=== PATIENT | male | born 1985 | race Caucasian/White ===

== ENCOUNTER 2017-01-03 07:25 | Inpatient (IN) | payer MEDICAID ==
[~2017-01-03] VITALS: Ht 172.7 cm; Wt 81.4 kg
[2017-01-03] MEDS ORDERED: ONDANSETRON 4 MG INJ IV STA (08:00)
[2017-01-03] MEDS ORDERED: LIDOCAINE/MYLANTA 40 ML BTL PO STA (08:00)
[2017-01-03] MEDS ORDERED: FAMOTIDINE 20 MG INJ IV STA (08:00)
[2017-01-03] MEDS ORDERED: SOD CHLORIDE 0.9% 1,000 ML IV STA (08:00)
[2017-01-03 08:29] LABS: ADD SCAN DIFF NO
[2017-01-03 08:39] LABS: ABNORMAL IP MESSAGE 1; HEMATOCRIT 39.2 % (42.0-52.0); HEMOGLOBIN 13.4 g/dl (14.0-18.0); MEAN CORPUSCULAR HGB CONC 34.2 g/dl (32.0-37.0); MEAN CORPUSCULAR VOLUME 84.8 fl (82.0-101.0); MEAN PLATELET VOLUME 11.4 fl (7.4-10.4); PLATELET COUNT 94 10^3/UL (140-415); RED BLOOD COUNT 4.62 10^6/ul (4.70-6.10); RED CELL DISTRIBUTION WIDTH 12.9 % (11.5-14.5); WHITE BLOOD COUNT 20.1 10^3/ul (4.8-10.8)
[2017-01-03 08:41] LABS: ADD UMIC YES; UR ASCORBIC ACID NEGATIVE (NEGATIVE); UR BILIRUBIN (Dip) NEGATIVE (NEGATIVE); UR BLOOD (Dip) 1+ mg/dL (NEGATIVE); UR CLARITY CLEAR (CLEAR); UR COLOR YELLOW (YELLOW); UR GLUCOSE (Dip) NEGATIVE (NEGATIVE); UR KETONES (Dip) 2+ mg/dL (NEGATIVE); UR LEUKOCYTE ESTERASE (Dip) NEGATIVE Leu/ul (NEGATIVE); UR NITRITE (Dip) NEGATIVE (NEGATIVE); UR RBC 2 /HPF (0-5); UR SPECIFIC GRAVITY (Dip) 1.012 (1.003-1.030); UR TOTAL PROTEIN (Dip) NEGATIVE (NEGATIVE); UR UROBILINOGEN (Dip) 1+ mg/dL (NEGATIVE)
[2017-01-03 08:59] LABS: ALBUMIN 4.4 g/dl (3.3-4.9); ALBUMIN/GLOBULIN RATIO 1.33; BILIRUBIN,INDIRECT 0.1 mg/dl (0-1.1); BILIRUBIN,TOTAL 0.1 mg/dl (0.2-1.3); CREATININE 0.67 mg/dl (0.61-1.24); POTASSIUM 3.6 mmol/L (3.5-5.1); TOTAL PROTEIN 7.7 g/dl (6.1-8.1)
[2017-01-03 09:36] LABS: EOSINOPHILS # 0.4 10^3/ul (0.0-0.5); LYMPHOCYTES # 1.8 10^3/ul (0.8-2.9); MONOCYTE # 0.4 10^3/ul (0.3-0.9); NEUTROPHIL # 10.9 10^3/ul (1.6-7.5)
--- NOTE | 2017-01-03 10:37 | RADRPT ---
PROCEDURE: CT Abdomen and Pelvis without contrast. CLINICAL INDICATION: Epigastric pain. TECHNIQUE: Routine axial tomographic images of the abdomen and pelvis were obtained from the domes the diaphragm to the symphysis pubis. The patient was scanned withoutoral or intravenous contrast. Coronal and sagittal reformatted images were obtained from the axial source images. Images were re viewed on a high-resolution PACS workstation. The total exam CTDI equals 16.52 mGy and the total exa m DLP equals 1057.01 mGy-cm. One or more of the following dose reduction techniques were used: Aut omated exposure control, adjustment of the mA and / or kV according to patient size, or use of itera tive reconstruction technique. COMPARISON: None. FINDINGS: The visualized portions of the lung bases demonstrate multiple bilateral pulmonary nodules measuring up to 2 cm in diameter. Evaluation of the intra-abdominal solid organs is somewhat limited on th is noncontrast examination. The liver appears mildly enlarged. There is no intra or extrahepatic b iliary dilatation. The gallbladder is unremarkable by CT criteria. The spleen, pancreas, and adren al glands are unremarkable. The kidneys are symmetric in size. No renal, ureteral, or bladder calculi are identified. There is mild left hydronephrosis secondary to adjacent bulky lymphadenopathy. No perinephric inflammatory c hanges are identified. The urinary bladder is grossly unremarkable. The bowel demonstrates normal course and caliber. There is no evidence of bowel obstruction. The a ppendix is normal in appearance. The pelvic organs are grossly unremarkable. No intraperitoneal fr ee fluid, free air, or abscess is identified. There is extensive retroperitoneal and peripancreatic lymphadenopathy. The largest conglomeration of lymph nodes measures approximately 7.3 x 11.7 x 13.2 cm. The aorta and IVC are encased. Retrocrural lymphadenopathy is also noted. There is a small arthur cification within the left testicle. The osseous structures are unremarkable. No significant subcutaneous soft tissue abnormalities are seen. IMPRESSION: 1. Massive retroperitoneal lymphadenopathy. The largest conglomeration of lymph nodes measures sonali roximately 7.3 x 11.7 x 13.2 cm. The aorta and IVC are encased, and not well evaluated secondary to noncontrast technique. Findings may reflect lymphoma or metastasis. 2. Peripancreatic and retrocrural lymphadenopathy. 3. Multiple bilateral pulmonary nodules. 4. Small calcification within the left testicle. Given pattern of lymphadenopathy, consider testicu lar ultrasound for further evaluation. 5. Mild hepatomegaly. Findings were discussed with Dr. Luong on 01/03/2017 10:36:37 AM. RPTAT: HH .Pascale Azul MD, MD Date Time Electronically viewed and signed by .Pascale Azul MD, MD on 01/03/2017 10:37 .G/
[2017-01-03] MEDS ORDERED: SOD CHLORIDE 0.9% 1,000 ML IV SCH (10:47)
[2017-01-03] MEDS ORDERED: ONDANSETRON 4 MG INJ IV PRN (11:00)
[2017-01-03] MEDS ORDERED: ACETAMINOPHEN 325 MG TAB PO PRN (11:00)
--- NOTE | 2017-01-03 11:14 | ERA ---
ER Documentation Chief Complaint Date/Time DATE: 01/03/17 TIME: 11:10 Chief Complaint burning sensation upper abd right side for 2 wks. no releif with rx meds HPI This is a 31-year-old male who presents to the emergency room for evaluation of abdominal pain. The patient localizes abdominal pain since that achy pain and burning sensation with mild radiation to the back. He states that he has been diagnosed with gastritis and has been on omeprazole however he has not had any relief. The patient denies any vomiting but does state that he has mild nausea associated with this. The patient did come to the emergency room today for evaluation of his symptoms. ROS All systems reviewed and are negative except as per history of present illness. PMhx/Soc Medical and Surgical Hx: pt denies Medical Hx, pt denies Surgical Hx Hx Alcohol Use: Yes Hx Substance Use: No Hx Tobacco Use: No Smoking Status: Never smoker Physical Exam Vitals Vital Signs Date Time Temp Pulse Resp B/P Pulse Ox O2 Delivery O2 Flow Rate FiO2 01/03/17 07:29 98.5 91 20 139/87 100 Physical Exam INITIAL VITAL SIGNS: Reviewed by me GENERAL: The patient is well developed and appropriate for usual state of health in no apparent distress HEENT: Pupils equal, round, and reactive to light. EOMI. There is no scleral icterus. NECK: C-spine is soft and supple, there is no meningismus. There is no cervical lymphadenopathy. LUNGS: Clear to auscultation bilaterally. There are no rales, wheezes or rhonchi. HEART: Regular rate and rhythm, no murmurs, clicks, rubs or gallops. ABDOMEN: Guarding noted in the epigastric region, right upper quadrant, left upper quadrant and left lower quadrant. No distention, bowel sounds 4 EXTREMITIES: There is no peripheral cyanosis or edema. No focal swelling or erythema. NEUROLOGICAL: The patient moves all four extremities with 5/5 strength. Cranial nerves II - XII are intact. Normal gait. Alert and oriented SKIN: There is no apparent rash or petechiae. HEME/LYMPHATIC: There is no evidence of excessive bruising or lymphedema. PSYCHIATRIC: The patient does not appear anxious or depressed. Result Diagram: 01/03/17 0817 01/03/17 0817 Results 24 hrs Laboratory Tests Test 01/03/17 08:05 01/03/17 08:17 Urine Color YELLOW Urine Clarity CLEAR Urine pH 6.0 Urine Specific [place] 1.012 Urine Ketones 2+mg/dL Urine Nitrite NEGATIVEmg/dL Urine Bilirubin NEGATIVEmg/dL Urine Urobilinogen 1+mg/dL Urine Leukocyte Esterase NEGATIVELeu/ul Urine Microscopic RBC 2/HPF Urine Microscopic WBC 0/HPF Urine Hemoglobin 1+mg/dL Urine Glucose NEGATIVEmg/dL Urine Total Protein NEGATIVEmg/dl White Blood Count 20.110^3/ul Red Blood Count 4.6210^6/ul Hemoglobin 13.4g/dl Hematocrit 39.2% Mean Corpuscular Volume 84.8fl Mean Corpuscular Hemoglobin 29.0pg Mean Corpuscular Hemoglobin Concent 34.2g/dl Red Cell Distribution Width 12.9% Platelet Count 9410^3/UL Mean Platelet Volume 11.4fl Neutrophils % 54.0% Band Neutrophils % 28.0% Lymphocytes % 9.0% Monocytes % 2.0% Eosinophils % 2.0% Metamyelocytes % 5.0% Neutrophils # 10.910^3/ul Lymphocytes # 1.810^3/ul Monocytes # 0.410^3/ul Eosinophils # 0.410^3/ul Metamyelocytes # 1.0 Sodium Level 137mmol/L Potassium Level 3.6mmol/L Chloride Level 99mmol/L Carbon Dioxide Level 28mmol/L Anion Gap 14 Blood Urea Nitrogen 7mg/dl Creatinine 0.67mg/dl Glucose Level 94mg/dl Calcium Level 9.0mg/dl Total Bilirubin 0.1mg/dl Direct Bilirubin 0.00mg/dl Indirect Bilirubin 0.1mg/dl Aspartate Amino Transf (AST/SGOT) 53IU/L Alanine Aminotransferase (ALT/SGPT) 44IU/L Alkaline Phosphatase 109IU/L Total Protein 7.7g/dl Albumin 4.4g/dl Globulin 3.30g/dl Albumin/Globulin Ratio 1.33 Lipase 219U/L Current Medications Medications (Trade) Dose Ordered Sig/Kaylen Route PRN Reason Start Time Stop Time Status Last Admin Dose Admin Sodium Chloride (NS) 1,000 ml @ 1,000 mls/hr Q1H STAT IV 01/03/17 08:00 01/03/17 08:59 DC 01/03/17 08:19 Ondansetron HCl (Zofran Inj) 4 mg ONCE STAT IV 01/03/17 08:00 01/03/17 08:02 DC 01/03/17 08:19 Famotidine (Pepcid Iv) 20 mg ONCE STAT IV 01/03/17 08:00 01/03/17 08:02 DC 01/03/17 08:19 Miscellaneous Medication 40 ml 40 ml ONCE STAT PO 01/03/17 08:00 01/03/17 08:02 DC 01/03/17 08:19 Sodium Chloride (NS) 1,000 ml @ 80 mls/hr [id number] IV 01/03/17 10:47 01/03/17 23:16 Ondansetron HCl (Zofran Inj) 4 mg BRIDGE ORDER PRN IV NAUSEA AND/OR VOMITING 01/03/17 11:00 01/04/17 10:59 Acetaminophen (Tylenol Tab) 650 mg ER BRIDGE PRN PO MILD PAIN/FEVER 01/03/17 11:00 01/04/17 10:59 Procedures/MDM CT abdomen pelvis without: 1. Massive retroperitoneal lymphadenopathy. The largest conglomeration of lymph nodes measures approximately 7.3 x 11.7 x 13.2 cm. The aorta and IVC are encased, and not well evaluated secondary to noncontrast technique. Findings may reflect lymphoma or metastasis. 2. Peripancreatic and retrocrural lymphadenopathy. 3. Multiple bilateral pulmonary nodules. 4. Small calcification within the left testicle. Given pattern of lymphadenopathy, consider testicular ultrasound for further evaluation. 5. Mild hepatomegaly. This is a 31-year-old male presents to the emergency room for evaluation of abdominal pain. When I evaluated this patient he did have guarding and tenderness to palpation on my physical examination. Lab work was obtained which does show a leukocytosis. This patient did undergo a CT of the abdomen pelvis and CT of abdomen and pelvis does show massive retroperitoneal lymphadenopathy, lymph nodes scattered throughout the abdomen and pancreas. There is also pulmonary nodules and this is suspicious pattern for metastatic cancer with an unknown primary. Patient also stated that he was having pain on his scrotum. I did order an ultra sound of the scrotum and results are pending at this time. This patient will be placed in for admission at this time for new diagnosis of cancer. He will be admitted under the care of Dr. López and will be placed on the Medr floor at this time Departure Diagnosis: Primary Impression: Metastatic cancer Additional Impressions: Abdominal pain Lymphoma Condition: Stable STEPHANIE ROBISON DO Jan 03, 2017 11:14
--- NOTE | 2017-01-03 11:38 | RADRPT ---
PROCEDURE: Scrotal ultrasound CLINICAL INDICATION: TECHNIQUE: Scrotal ultrasound was performed with sagittal and transverse views. Mark scale and co nilda imaging was performed. Images were reviewed on high resolution PACS monitors. COMPARISON: None available FINDINGS: The right testicle measures 4.5 x 2.0 x 2.6 cm. The left testicle measures 3.9 x 1.8 x 2.6 cm. There is normal size and echogenicity and morphology bilaterally. There is normal blood flow seen bilaterally. The epididymi are normal. No hydrocele is identified. There is no evidence for varicocele. There is a punctate calcification in the upper pole of the left testis measuring 0.5 x 0.4 x 0.3 cm. No mass or cyst or other abnormality is seen. IMPRESSION: 1. Coarse 0.5 x 0.4 x 0.3 cm calcification in the upper pole of the left testis. This may be from prior trauma or post inflammatory in nature. 2. Symmetrically normal testes and epididymi. RPTAT: [facility] Physician [place] Date Time Electronically viewed and signed by Physician [place] on 01/03/2017 11:37 /
[2017-01-03] MEDS ORDERED: NACL 0.9% 3 ML SYG IV SCH (13:00)
[2017-01-03] MEDS ORDERED: SUCR1TAB56 PO (14:45)
[2017-01-03] MEDS ORDERED: ASPI-664 PO (14:46)
[2017-01-03] MEDS ORDERED: PANT40TA4 PO (14:46)
[2017-01-03] MEDS ORDERED: SIMV40TA2 PO (14:46)
[2017-01-03] MEDS ORDERED: ISOS60TA PO (14:47)
[2017-01-03] MEDS: morphine 2 MG INJ IV PRN ×2 (15:16→21:03)
[2017-01-03 16:50] VITALS: BP 125/86; PULSE 83; RESP 20
--- NOTE | 2017-01-03 20:06 | CONS ---
Date/Time of Note Date/Time of Note DATE: 01/03/17 TIME: 19:58 Assessment/Plan Assessment/Plan Chief Complaint/Hosp Course 31 YO M WITH AB PAIN , WT LOSS , ASSOCIATED WITH Massive retroperitoneal lymphadenopathy. Peripancreatic and retrocrural lymphadenopathy. Multiple bilateral pulmonary nodules. The largest conglomeration of lymph nodes measures approximately 7.3 x 11.7 x 13.2 cm. The aorta and IVC are encased, and not well evaluated secondary to noncontrast technique. Findings may reflect lymphoma or metastasis. OBTAIN TUMOR MARKERS CT CHEST BX OF LN BIOCHEMICAL W-UP Problems: Consultation Date/Type/Reason Admit Date/Time Jan 03, 2017 at 10:48 Date of Consultation: Jan 03, 2017 Type of Consultation: HEMEONC Reason for Consultation LN- [facility] Referring Provider: EMELI CHRISTIE Hx of Present Illness This is a 31-year-old male who presents to the emergency room for evaluation of abdominal pain. The patient localizes abdominal pain since that achy pain and burning sensation with mild radiation to the back. He states that he has been diagnosed with gastritis and has been on omeprazole however he has not had any relief. The patient denies any vomiting but does state that he has mild nausea associated with this. The patient did come to the emergency room today for evaluation of his symptoms. CT ABDOMEN- 1. Massive retroperitoneal lymphadenopathy. The largest conglomeration of lymph nodes measures approximately 7.3 x 11.7 x 13.2 cm. The aorta and IVC are encased, and not well evaluated secondary to noncontrast technique. Findings may reflect lymphoma or metastasis. 2. Peripancreatic and retrocrural lymphadenopathy. 3. Multiple bilateral pulmonary nodules. 4. Small calcification within the left testicle. Given pattern of lymphadenopathy, consider testicular ultrasound for further evaluation. 5. Mild hepatomegaly. TESTICULAR US- 1. Coarse 0.5 x 0.4 x 0.3 cm calcification in the upper pole of the left testis. This may be from prior trauma or post inflammatory in nature. 2. Symmetrically normal testes and epididymi. [facility] All systems reviewed and are negative except as per history of present illness. PMhx/Soc Medical and Surgical Hx: pt denies Medical Hx, pt denies Surgical Hx Hx Alcohol Use: Yes Hx Substance Use: No Hx Tobacco Use: No Smoking Status: Never smoker Social History Smoking Status: Never smoker Exam/Review of Systems Vital Signs Vitals Vital Signs Date Time Temp Pulse Resp B/P Pulse Ox O2 Delivery O2 Flow Rate FiO2 01/03/17 16:50 99.1 83 20 125/86 98 Room Air Exam GENERAL: The patient is well developed and appropriate for usual state of health in no apparent distress HEENT: Pupils equal, round, and reactive to light. EOMI. There is no scleral icterus. NECK: C-spine is soft and supple, there is no meningismus. There is no cervical lymphadenopathy. LUNGS: Clear to auscultation bilaterally. There are no rales, wheezes or rhonchi. HEART: Regular rate and rhythm, no murmurs, clicks, rubs or gallops. ABDOMEN: Guarding noted in the epigastric region, right upper quadrant, left upper quadrant and left lower quadrant. No distention, bowel sounds 4 EXTREMITIES: There is no peripheral cyanosis or edema. No focal swelling or erythema. NEUROLOGICAL: The patient moves all four extremities with 5/5 strength. Cranial nerves II - XII are intact. Normal gait. Alert and oriented SKIN: There is no apparent rash or petechiae. HEME/LYMPHATIC: There is no evidence of excessive bruising or lymphedema. NO PATH LN-[facility] PSYCHIATRIC: The patient does not appear anxious or depressed. Results Result Diagram: 01/03/17 0817 01/03/17 0817 Results 24 hrs Laboratory Tests Test 01/03/17 08:05 01/03/17 08:17 Urine Color YELLOW Urine Clarity CLEAR Urine pH 6.0 Urine Specific [place] 1.012 Urine Ketones 2+ H Urine Nitrite NEGATIVE Urine Bilirubin NEGATIVE Urine Urobilinogen 1+ H Urine Leukocyte Esterase NEGATIVE Urine Microscopic RBC 2 Urine Microscopic WBC 0 Urine Hemoglobin 1+ H Urine Glucose NEGATIVE Urine Total Protein NEGATIVE White Blood Count 20.1 H Red Blood Count 4.62 L Hemoglobin 13.4 L Hematocrit 39.2 L Mean Corpuscular Volume 84.8 Mean Corpuscular Hemoglobin 29.0 Mean Corpuscular Hemoglobin Concent 34.2 Red Cell Distribution Width 12.9 Platelet Count 94 L Mean Platelet Volume 11.4 H Neutrophils % 54.0 Band Neutrophils % 28.0 H Lymphocytes % 9.0 L Monocytes % 2.0 Eosinophils % 2.0 Metamyelocytes % 5.0 H Neutrophils # 10.9 H Lymphocytes # 1.8 Monocytes # 0.4 Eosinophils # 0.4 Metamyelocytes # 1.0 Sodium Level 137 Potassium Level 3.6 Chloride Level 99 Carbon Dioxide Level 28 Anion Gap 14 Blood Urea Nitrogen 7 Creatinine 0.67 Glucose Level 94 Calcium Level 9.0 Total Bilirubin 0.1 L Direct Bilirubin 0.00 Indirect Bilirubin 0.1 Aspartate Amino Transf (AST/SGOT) 53 H Alanine Aminotransferase (ALT/SGPT) 44 Alkaline Phosphatase 109 Total Protein 7.7 Albumin 4.4 Globulin 3.30 H Albumin/Globulin Ratio 1.33 Lipase 219 Medications Medications Current Medications Ondansetron HCl (Zofran Inj) 4 mg Q6H PRN IV NAUSEA AND/OR VOMITING; Start at 13:00 Acetaminophen (Tylenol Tab) 650 mg Q6H PRN PO PAIN LEVEL 1-3 OR FEVER; Start at 13:00 Acetaminophen/ Hydrocodone Bitart ([place] (5/325)) 1 tab Q6H PRN PO MODERATE PAIN LEVEL 4-6; Start 01/03/17 at 13:00 Morphine Sulfate (morphine) 2 mg Q4H PRN IV SEVERE PAIN LEVEL 7-10 Last administered on 01/03/17t 15:16; Admin Dose 2 MG; Start 01/03/17 at 13:00 Procedures Procedures [place] [address] Radiology Main Line: [phone] DIAGNOSTIC IMAGING REPORT Patient: CAIO SILVERIO : 1985 Age: 31 Sex: M MR #: [id number] DOS: 01/03/17 0857 Ordering MD: STEPHANIE ROBISON DO Location: [facility] Room/Bed: PROCEDURE: CT Abdomen and Pelvis without contrast. CLINICAL INDICATION: Epigastric pain. TECHNIQUE: Routine axial tomographic images of the abdomen and pelvis were obtained from the domes the diaphragm to the symphysis pubis. The patient was scanned withoutoral or intravenous contrast. Coronal and sagittal reformatted images were obtained from the axial source images. Images were reviewed on a high-resolution PACS workstation. The total exam CTDI equals 16.52 mGy and the total exam DLP equals 1057.01 mGy-cm. One or more of the following dose reduction techniques were used: Automated exposure control, adjustment of the mA and / or kV according to patient size, or use of iterative reconstruction technique. COMPARISON: None. FINDINGS: The visualized portions of the lung bases demonstrate multiple bilateral pulmonary nodules measuring up to 2 cm in diameter. Evaluation of the intra- abdominal solid organs is somewhat limited on this noncontrast examination. The liver appears mildly enlarged. There is no intra or extrahepatic biliary dilatation. The gallbladder is unremarkable by CT criteria. The spleen, pancreas, and adrenal glands are unremarkable. The kidneys are symmetric in size. No renal, ureteral, or bladder calculi are identified. There is mild left hydronephrosis secondary to adjacent bulky lymphadenopathy. No perinephric inflammatory changes are identified. The urinary bladder is grossly unremarkable. The bowel demonstrates normal course and caliber. There is no evidence of bowel obstruction. The appendix is normal in appearance. The pelvic organs are grossly unremarkable. No intraperitoneal free fluid, free air, or abscess is identified. There is extensive retroperitoneal and peripancreatic lymphadenopathy. The largest conglomeration of lymph nodes measures approximately 7.3 x 11.7 x 13.2 cm. The aorta and IVC are encased. Retrocrural lymphadenopathy is also noted. There is a small calcification within the left testicle. The osseous structures are unremarkable. No significant subcutaneous soft tissue abnormalities are seen. IMPRESSION: 1. Massive retroperitoneal lymphadenopathy. The largest conglomeration of lymph nodes measures approximately 7.3 x 11.7 x 13.2 cm. The aorta and IVC are encased, and not well evaluated secondary to noncontrast technique. Findings may reflect lymphoma or metastasis. 2. Peripancreatic and retrocrural lymphadenopathy. 3. Multiple bilateral pulmonary nodules. 4. Small calcification within the left testicle. Given pattern of lymphadenopathy, consider testicular ultrasound for further evaluation. 5. Mild hepatomegaly. Findings were discussed with Dr. Robison on 01/03/2017 10:36:37 AM. RPTAT: HH .Pascale Azul MD, Date Time Electronically viewed and signed by .Pascale Azul MD, on 01/03/2017 10 :37 .G/ CC: BORHANI,KOROSH DO [facility] [address] [place] [address] Radiology Main Line: [phone] DIAGNOSTIC IMAGING REPORT Patient: CAIO SILVERIO : 1985 Age: 31 Sex: M MR #: [id number] DOS: 01/03/17 1030 Ordering MD: STEPHANIE ROBISON DO Location: [facility] Room/Bed: PROCEDURE: Scrotal ultrasound CLINICAL INDICATION: TECHNIQUE: Scrotal ultrasound was performed with sagittal and transverse views. Mark scale and color imaging was performed. Images were reviewed on high resolution PACS monitors. COMPARISON: None available FINDINGS: The right testicle measures 4.5 x 2.0 x 2.6 cm. The left testicle measures 3.9 x 1.8 x 2.6 cm. There is normal size and echogenicity and morphology bilaterally. There is normal blood flow seen bilaterally. The epididymi are normal. No hydrocele is identified. There is no evidence for varicocele. There is a punctate calcification in the upper pole of the left testis measuring 0.5 x 0.4 x 0.3 cm. No mass or cyst or other abnormality is seen. IMPRESSION: 1. Coarse 0.5 x 0.4 x 0.3 cm calcification in the upper pole of the left testis. This may be from prior trauma or post inflammatory in nature. 2. Symmetrically normal testes and epididymi. RPTAT: [facility] Physician [place] Date Time Electronically viewed and signed by Physician [place] on 01/03/2017 11: 37 JH/ CC: STEPHANIE ROBISON VERA M MD Jan 03, 2017 20:06
[2017-01-03 20:12] VITALS: BP 133/74; RESP 18
[2017-01-03 20:48] LABS: PLATELET COUNT 76 10^3/UL (140-415)
[2017-01-03 21:02] LABS: INR 1.14; PROTIME 14.6 Sec (12.2-14.2); PT RATIO 1.1
[2017-01-03 21:03] LABS: IRON 27 ug/dl (35-150); PARTIAL THROMBOPLASTIN TIME 32.3 Sec (25.0-35.0)
[2017-01-03 21:04] LABS: THROMBIN TIME 15.4 SEC (13.8-19.1); URIC ACID 3.7 mg/dl (3.1-7.9)
[2017-01-03 21:11] LABS: LACTATE DEHYDROGENASE 2785 IU/L (313-618)
[2017-01-03 21:13] LABS: TOTAL IRON BINDING CAPACITY 229 ug/dl (241-421)
[2017-01-03 21:27] LABS: D-DIMER 6694.83 ng/ml (<460); FIBRIN SPLIT PRODUCT <10 ug/ml (<10)
[2017-01-03 22:11] LABS: FOLATE 11.6 ng/ml (2.8-20.0)
[2017-01-04] MEDS: morphine 2 MG INJ IV PRN ×4 (01:08→20:00)
[2017-01-04 06:53] LABS: ADD SCAN DIFF NO
[2017-01-04 06:57] LABS: ABNORMAL IP MESSAGE 1; HEMOGLOBIN 13.5 g/dl (14.0-18.0); MEAN CORPUSCULAR HEMOGLOBIN 29.5 pg (29.0-33.0); MEAN CORPUSCULAR HGB CONC 33.8 g/dl (32.0-37.0); MEAN CORPUSCULAR VOLUME 87.3 fl (82.0-101.0); MEAN PLATELET VOLUME 12.1 fl (7.4-10.4); PLATELET COUNT 75 10^3/UL (140-415); RED BLOOD COUNT 4.58 10^6/ul (4.70-6.10); RED CELL DISTRIBUTION WIDTH 13.2 % (11.5-14.5); WHITE BLOOD COUNT 12.7 10^3/ul (4.8-10.8)
--- NOTE | 2017-01-04 07:02 | HP ---
Date/Time of Note Date/Time of Note DATE: 01/04/17 TIME: 07:02 Assessment/Plan VTE Prophylaxis VTE Prophylaxis Intervention: SCD's Lines/Catheters IV Catheter Type (from Nrs): Saline Lock Urinary Cath still in place: No Assessment/Plan Assessment/Plan IMPRESSION 1. Suspected Metastatic cancer, possibly Lymphoma PLAN Pain mgmt f/u Oncology recs and work-up f/u result of CT guided retroperitoneal mass biopsy HPI/ROS Admit Date/Time Admit Date/Time Jan 03, 2017 at 10:48 Hx of Present Illness This is a 31-year-old male who presents to the emergency room for evaluation of abdominal pain. The patient localizes abdominal pain since that achy pain and burning sensation with mild radiation to the back. He states that he has been diagnosed with gastritis and has been on omeprazole however he has not had any relief. The patient denies any vomiting but does state that he has mild nausea associated with this PMH/Family/Social Social History Smoking Status: Never smoker Exam/Review of Systems Vital Signs Vitals Vital Signs Date Time Temp Pulse Resp B/P Pulse Ox O2 Delivery O2 Flow Rate FiO2 01/03/17 20:12 99.2 87 18 133/74 98 01/03/17 16:50 Room Air Intake and Output 01/03/17 01/03/17 01/04/17 15:00 23:00 07:00 Intake Total 240 ml Balance 240 ml Exam Constitutional: alert, oriented, well developed Psych: nl mood/affect, no complaints Head: atraumatic, normocephalic Eyes: EOMI, PERRL Neck: non-tender, supple Respiratory: clear to auscultation, normal air movement Cardiovascular: nl pulses, regular rate and rhythm Gastrointestinal: soft, tender Extremities: normal pulses Labs Result Diagram: 01/03/17203901/03/17 0817 Medications Medications Current Medications Ondansetron HCl (Zofran Inj) 4 mg Q6H PRN IV NAUSEA AND/OR VOMITING; Start at 13:00 Acetaminophen (Tylenol Tab) 650 mg Q6H PRN PO PAIN LEVEL 1-3 OR FEVER; Start at 13:00 Acetaminophen/ Hydrocodone Bitart ([place] (5/325)) 1 tab Q6H PRN PO MODERATE PAIN LEVEL 4-6; Start 6/21/17 at 13:00 Morphine Sulfate (morphine) 2 mg Q4H PRN IV SEVERE PAIN LEVEL 7-10 Last administered on 01/04/17t 06:22; Admin Dose 2 MG; Start 01/03/17 at 13:00 ALISON MARKS MD Jan 04, 2017 07:02
[2017-01-04 08:15] VITALS: BP 127/83; RESP 18
[2017-01-04 09:31] LABS: ALBUMIN/GLOBULIN RATIO 1.48; BILIRUBIN,INDIRECT 0.1 mg/dl (0-1.1); BILIRUBIN,TOTAL 0.1 mg/dl (0.2-1.3); CALCIUM 8.6 mg/dl (8.4-10.2); CREATININE 0.67 mg/dl (0.61-1.24); MAGNESIUM 1.9 mg/dl (1.7-2.5); PHOSPHORUS 3.4 mg/dl (2.5-4.9); POTASSIUM 4.2 mmol/L (3.5-5.1); TOTAL PROTEIN 6.7 g/dl (6.1-8.1); URIC ACID 3.7 mg/dl (3.1-7.9)
[2017-01-04 10:39] LABS: EOSINOPHILS # 0.1 10^3/ul (0.0-0.5); LYMPHOCYTES # 2.5 10^3/ul (0.8-2.9); MONOCYTE # 0.9 10^3/ul (0.3-0.9); NEUTROPHIL # 4.6 10^3/ul (1.6-7.5); POIKILOCYTOSIS 1+; POLYCHROMASIA 2+
[2017-01-04 10:40] LABS: PLATELET ESTIMATE PLT APPEAR DECREASED
[2017-01-04 12:12] LABS: T3 UPTAKE 35.5 % (23.5-40.5)
[2017-01-04 12:25] LABS: THYROID STIMULATING HORMONE 1.62 MIU/L (0.465-4.680)
[2017-01-04] MEDS ORDERED: MIDAZOLAM 1 MG/ML 2 ML INJ ONE (14:16)
[2017-01-04] MEDS ORDERED: LIDOCAINE 1% (MDV) 20 ML INJ ONE (14:16)
[2017-01-04] MEDS ORDERED: FENTAnyl 50 MCG/ML VIAL ONE (14:16)
[2017-01-04] MEDS ORDERED: DIPHENHYDRAMINE 50 MG INJ ONE (14:17)
--- NOTE | 2017-01-04 17:25 | RADRPT ---
PROCEDURE: CT guided retroperitoneal mass biopsy. CLINICAL INDICATION: Large retroperitoneal mass. TECHNIQUE: Informed consent was obtained. The procedure, risks, benefits, complications and alternatives were e xplained to the patient. Risks including bleeding and infection were explained. The patient understo od and was willing to proceed. A procedural pause was performed. The patient's name, date of , and procedure to be performed were verified. One or more of the following dose reduction techniqu es were used: Automated exposure control, adjustment of the mA and/or kV according to patient size, use of iterative reconstruction technique. Using local anesthetic, sterile technique and CT guidance, an 18-gauge automated core biopsy needle was used to biopsy the mass in the left side of the retroperitoneum. Multiple passes were made. Ad equate tissue was obtained according to the pathologist present during the procedure. The needle wa s removed. A postprocedural scan was performed. A dressing was applied. The patient tolerated procedure well. COMPARISON: None. FINDINGS: Initial images demonstrate the tip of the needle at the edge of the lesion in question. Post biopsy images demonstrate no immediate complication. IMPRESSION: 1. Successful CT guided retroperitoneal mass biopsy. RPTAT: QQ .Tremayne Tomas MD, Date Time Electronically viewed and signed by .Tremayne Tomas MD, on 01/04/2017 17:25 .R/
[2017-01-04] MEDS: HYDROCODONE/APAP (5/325) TAB PO PRN (17:52)
--- NOTE | 2017-01-04 18:11 | PN ---
Date/Time of Note Date/Time of Note DATE: 01/04/17 TIME: 18:10 Assessment/Plan VTE Prophylaxis VTE Prophylaxis Intervention: LMWH Lines/Catheters IV Catheter Type (from Nrs): Saline Lock Urinary Cath still in place: No Assessment/Plan Assessment/Plan IMPRESSION 1. Suspected Metastatic cancer, possibly Lymphoma PLAN Pain mgmt f/u Oncology recs and work-up f/u result of CT guided retroperitoneal mass biopsy Subjective 24 Hr Interval Summary Free Text/Dictation overall feeling well, but c/o ongoing right sided and pain Exam/Review of Systems Vital Signs Vitals Vital Signs Date Time Temp Pulse Resp B/P Pulse Ox O2 Delivery O2 Flow Rate FiO2 01/04/17 08:15 97.8 78 18 127/83 97 01/03/17 16:50 Room Air Intake and Output 01/03/17 01/03/17 01/04/17 15:00 23:00 07:00 Intake Total 240 ml Balance 240 ml Exam Constitutional: alert, oriented, well developed Psych: nl mood/affect, no complaints Head: atraumatic, normocephalic Eyes: EOMI, PERRL Neck: non-tender, supple Respiratory: clear to auscultation, normal air movement Cardiovascular: nl pulses, regular rate and rhythm Gastrointestinal: soft, tender Extremities: normal pulses Results Result Diagram: 01/04/1720 01/04/17 0520 Results 24 hrs Laboratory Tests Test 01/03/17 20:40 01/04/17 05:20 Platelet Count 76 L 75 #L Erythrocyte Sedimentation Rate 62 H Prothrombin Time 14.6 H Prothrombin Time Ratio 1.1 INR International Normalized Ratio 1.14 Activated Partial Thromboplast Time 32.3 Thrombin Time 15.4 Fibrinogen 574.0 H Plasma Fibrin Degradation Products <10 D-Dimer 6694.83 H D-Dimer Comment Uric Acid 3.7 3.7 Iron Level 27 L Total Iron Binding Capacity 229 L Percent Iron Saturation 12 L Ferritin 1210.0 H Lactate Dehydrogenase 2785 H 2843 H Folate 11.6 Thyroid Stimulating Hormone (TSH) 2.480 1.620 HIV (1&2) Antibody NEGATIVE White Blood Count 12.7 #H Red Blood Count 4.58 L Hemoglobin 13.5 L Hematocrit 40.0 L Mean Corpuscular Volume 87.3 Mean Corpuscular Hemoglobin 29.5 Mean Corpuscular Hemoglobin Concent 33.8 Red Cell Distribution Width 13.2 Mean Platelet Volume 12.1 H Neutrophils % 36.0 L Band Neutrophils % 19.0 H Lymphocytes % 20.0 Monocytes % 7.0 Eosinophils % 1.0 Basophils % Metamyelocytes % 9.0 H Myelocytes % 8.0 H Neutrophils # 4.6 Lymphocytes # 2.5 Monocytes # 0.9 Eosinophils # 0.1 Basophils # Metamyelocytes # 1.1 Myelocytes # 1.0 Platelet Estimate PLT APPEAR DECREASED Large Platelets FEW Polychromasia 2+ Poikilocytosis 1+ Sodium Level 138 Potassium Level 4.2 Chloride Level 99 Carbon Dioxide Level 31 Anion Gap 12 Blood Urea Nitrogen 7 Creatinine 0.67 Glucose Level 74 Calcium Level 8.6 Phosphorus Level 3.4 Magnesium Level 1.9 Total Bilirubin 0.1 L Direct Bilirubin 0.00 Indirect Bilirubin 0.1 Aspartate Amino Transf (AST/SGOT) 55 H Alanine Aminotransferase (ALT/SGPT) 48 Alkaline Phosphatase 101 Total Protein 6.7 # Albumin 4.0 Globulin 2.70 Albumin/Globulin Ratio 1.48 Free Thyroxine Index 3.23 Thyroxine (T4) 9.1 Triiodothyronine (T3) Uptake 35.5 Medications Medications Current Medications Ondansetron HCl (Zofran Inj) 4 mg Q6H PRN IV NAUSEA AND/OR VOMITING; Start at 13:00 Acetaminophen (Tylenol Tab) 650 mg Q6H PRN PO PAIN LEVEL 1-3 OR FEVER; Start at 13:00 Acetaminophen/ Hydrocodone Bitart ([place] (5/325)) 1 tab Q6H PRN PO MODERATE PAIN LEVEL 4-6 Last administered on 01/04/17 17:52; Admin Dose 1 TAB; Start at 13:00 Morphine Sulfate (morphine) 2 mg Q4H PRN IV SEVERE PAIN LEVEL 7-10 Last administered on 01/04/17 10:03; Admin Dose 2 MG; Start 01/03/17 at 13:00 ALISON MARKS MD Jan 04, 2017 18:11
[2017-01-04 20:33] VITALS: BP 120/85; RESP 19
--- NOTE | 2017-01-04 22:53 | CONS ---
Date/Time of Note Date/Time of Note DATE: 01/04/17 TIME: 22:46 Assessment/Plan Assessment/Plan Chief Complaint/Hosp Course 31 YO M WITH AB PAIN , WT LOSS , ASSOCIATED WITH Massive retroperitoneal lymphadenopathy. Peripancreatic and retrocrural lymphadenopathy. Multiple bilateral pulmonary nodules. The largest conglomeration of lymph nodes measures approximately 7.3 x 11.7 x 13.2 cm. The aorta and IVC are encased, and not well evaluated secondary to noncontrast technique. Findings may reflect lymphoma or metastasis. TUMOR MARKERS- P [facility]DH- VERY HIGH CT CHEST POST BX OF LN, AWAIT PATH BIOCHEMICAL W-UP NOTED BMBX- IN AM ANEMIA, N- CYTIC WITH N RDW + COMPONENT ACD THROMBOCYTOPENIA MONITOR Problems: Consultation Date/Type/Reason Admit Date/Time Jan 03, 2017 at 10:48 Initial Consult Date 01/03/17 [facility] Referring Provider: EMELI CHRISTIE 24 HR Interval Summary Free Text/Dictation POST CT guided retroperitoneal mass biopsy PATH - P Exam/Review of Systems Vital Signs Vitals Vital Signs Date Time Temp Pulse Resp B/P Pulse Ox O2 Delivery O2 Flow Rate FiO2 01/04/17 20:33 98.6 95 19 120/85 98 01/03/17 16:50 Room Air Intake and Output 01/03/17 01/03/17 01/04/17 15:00 23:00 07:00 Intake Total 240 ml Balance 240 ml Results Result Diagram: 01/04/17 0520 01/04/17 0520 Results 24 hrs Laboratory Tests Test 01/04/17 05:20 01/04/17 20:15 White Blood Count 12.7 #H Red Blood Count 4.58 L Hemoglobin 13.5 L Hematocrit 40.0 L Mean Corpuscular Volume 87.3 Mean Corpuscular Hemoglobin 29.5 Mean Corpuscular Hemoglobin Concent 33.8 Red Cell Distribution Width 13.2 Platelet Count 75 #L Mean Platelet Volume 12.1 H Neutrophils % 36.0 L Band Neutrophils % 19.0 H Lymphocytes % 20.0 Monocytes % 7.0 Eosinophils % 1.0 Basophils % Metamyelocytes % 9.0 H Myelocytes % 8.0 H Neutrophils # 4.6 Lymphocytes # 2.5 Monocytes # 0.9 Eosinophils # 0.1 Basophils # Metamyelocytes # 1.1 Myelocytes # 1.0 Platelet Estimate PLT APPEAR DECREASED Large Platelets FEW Polychromasia 2+ Poikilocytosis 1+ Sodium Level 138 Potassium Level 4.2 Chloride Level 99 Carbon Dioxide Level 31 Anion Gap 12 Blood Urea Nitrogen 7 Creatinine 0.67 Glucose Level 74 Uric Acid 3.7 Calcium Level 8.6 Phosphorus Level 3.4 Magnesium Level 1.9 Total Bilirubin 0.1 L Direct Bilirubin 0.00 Indirect Bilirubin 0.1 Aspartate Amino Transf (AST/SGOT) 55 H Alanine Aminotransferase (ALT/SGPT) 48 Alkaline Phosphatase 101 Lactate Dehydrogenase 2843 H Total Protein 6.7 # Albumin 4.0 Globulin 2.70 Albumin/Globulin Ratio 1.48 Thyroid Stimulating Hormone (TSH) 1.620 Free Thyroxine Index 3.23 Thyroxine (T4) 9.1 Triiodothyronine (T3) Uptake 35.5 Stool Occult Blood NEGATIVE Medications Medications Current Medications Ondansetron HCl (Zofran Inj) 4 mg Q6H PRN IV NAUSEA AND/OR VOMITING; Start at 13:00 Acetaminophen (Tylenol Tab) 650 mg Q6H PRN PO PAIN LEVEL 1-3 OR FEVER; Start at 13:00 Acetaminophen/ Hydrocodone Bitart ([place] (5/325)) 1 tab Q6H PRN PO MODERATE PAIN LEVEL 4-6 Last administered on 01/04/17 17:52; Admin Dose 1 TAB; Start at 13:00 Morphine Sulfate (morphine) 2 mg Q4H PRN IV SEVERE PAIN LEVEL 7-10 Last administered on 01/04/17 20:00; Admin Dose 2 MG; Start 01/03/17 at 13:00 Enoxaparin Sodium (Lovenox) 40 mg DAILY SC ; Start 01/05/17 at 09:00 MARQUEZ VREA MD Jan 04, 2017 22:53
[2017-01-04] MEDS ORDERED: IOHEXOL 300MG/ML 150 ML BTL ONE (23:21)
[2017-01-04] MEDS ORDERED: SOD CHLORIDE 0.9% 100 ML ONE (23:21)
[2017-01-05] MEDS: morphine 2 MG INJ IV PRN ×4 (00:10→23:43)
[2017-01-05] MEDS: HYDROCODONE/APAP (5/325) TAB PO PRN ×4 (01:59→22:12)
[2017-01-05 05:36] LABS: ADD SCAN DIFF NO
[2017-01-05 05:48] LABS: ABNORMAL IP MESSAGE 1; HEMATOCRIT 40.9 % (42.0-52.0); HEMOGLOBIN 13.5 g/dl (14.0-18.0); MEAN CORPUSCULAR VOLUME 87.8 fl (82.0-101.0); MEAN PLATELET VOLUME 11.7 fl (7.4-10.4); PLATELET COUNT 74 10^3/UL (140-415); RED BLOOD COUNT 4.66 10^6/ul (4.70-6.10); WHITE BLOOD COUNT 8.1 10^3/ul (4.8-10.8)
[2017-01-05 06:06] LABS: ALBUMIN 4.3 g/dl (3.3-4.9); ALBUMIN/GLOBULIN RATIO 1.3; BILIRUBIN,INDIRECT 0.1 mg/dl (0-1.1); BILIRUBIN,TOTAL 0.1 mg/dl (0.2-1.3); CREATININE 0.74 mg/dl (0.61-1.24); POTASSIUM 4.5 mmol/L (3.5-5.1); TOTAL PROTEIN 7.6 g/dl (6.1-8.1)
[2017-01-05] MEDS: ENOXAPARIN 40 MG/0.4 ML SYG SC SCH ×2 (08:45→08:51)
[2017-01-05 09:01] VITALS: BP 122/88; RESP 18
--- NOTE | 2017-01-05 09:14 | RADRPT ---
PROCEDURE: CT CHEST WITH CONTRAST CLINICAL INDICATION: Cancer staging TECHNIQUE: Volumetrically acquired images of the thorax obtained with intravenous contrast were re formatted in the axial, coronal, and sagittal planes. CTDI = 12.9 mGy; DLP = 529 mGy-cm. 100 cc of Omnipaque was administered. One or more of the following dose reduction technique were used: Automa tic exposure control, adjustment of the mA and/or kV according to patient size, and use of iterative reconstruction technique. COMPARISON: CT abdomen from 01/03/2017. FINDINGS: LOWER NECK AND CHEST WALL: Normal. AIRWAYS: The trachea and large airways are normal. LUNGS: Diffuse pulmonary nodules are seen bilaterally (at least 20). The largest nodule on the left measures 2.7 cm in the left lower lobe (series 3 image 70) the largest nodule on the right measures 2.9 cm (series 3 image 91). PLEURA: Unremarkable. No pleural thickening or effusions. MEDIASTINUM: No mediastinal mass. LYMPH NODES: There is a right supraclavicular node measuring 29 mm in short axis diameter (series 3 image 7). A right hilar lymph node measures 2.8 cm in short axis diameter CARDIAC: The heart size is normal. No pericardial effusion. VASCULAR: The aorta and main pulmonary artery are normal in caliber. OSSEOUS: No suspicious osseous lesions. Limited evaluation of the upper abdomen again demonstrates bulky retroperitoneal lymphadenopathy, pr eviously characterized on prior CT abdomen study. Diffuse hypo enhancing hepatic lesions are seen, l argest measuring 2.3 cm, likely a combination of hepatic metastasis and hemangiomas. IMPRESSION: 1. Significant retroperitoneal, right supraclavicular, and right hilar lymphadenopathy consistent w ith metastatic disease. 2. Diffuse pulmonary nodules are also consistent with metastatic disease 3. Hypoenhancing hepatic lesions may be a combination of metastatic disease and hemangiomas. An MR I with and without contrast may be useful to delineate if clinically indicated. RPTAT:PP .Gonsalo Rizvi MD, MD Date Time Electronically viewed and signed by .Gonsalo Rizvi MD, MD on 01/05/2017 09:13 .V/
[2017-01-05 10:10] LABS: EOSINOPHILS # 0.2 10^3/ul (0.0-0.5); LYMPHOCYTES # 1.1 10^3/ul (0.8-2.9); MYELOCYTES # 0.6; NEUTROPHIL # 2.3 10^3/ul (1.6-7.5)
[2017-01-05 10:11] LABS: PLATELET ESTIMATE PLT APPEAR DECREASED
[2017-01-05] MEDS ORDERED: LIDOCAINE 1% (MDV) 20 ML INJ ONE (12:14)
[2017-01-05] MEDS ORDERED: DIPHENHYDRAMINE 50 MG INJ ONE (12:14)
[2017-01-05] MEDS ORDERED: FENTAnyl 50 MCG/ML VIAL ONE (12:14)
[2017-01-05] MEDS ORDERED: MIDAZOLAM 1 MG/ML 2 ML INJ ONE (12:14)
--- NOTE | 2017-01-05 15:08 | RADRPT ---
PROCEDURE: CT guided bone marrow aspiration and left iliac bone biopsy. CLINICAL INDICATION: Anemia and thrombocytopenia. Lymphadenopathy. TECHNIQUE: Informed consent was obtained. The procedure, risks, benefits, complications and alternatives were e xplained to the patient. Risks including bleeding and infection were explained. The patient understo od and was willing to proceed. A procedural pause was performed. The patient's name, date of , and procedure to be performed were verified. One or more of the following dose reduction techni ques were used: Automated exposure control, adjustment of the mA and/or kV according to patient size , use of iterative reconstruction technique. Using local anesthetic, sterile technique and CT guidance, an 11-gauge On Control bone biopsy needle was advanced into the left iliac bone via a posterior approach. Bone marrow aspiration was perform ed yielding approximately 3 ml. The bone biopsy needle was then advanced an additional 4 cm using t Cocrystal Discovery power drill device and tissue was obtained. Adequate tissue was obtained according to the pathol ogist present during the procedure. The needle was removed. A postprocedural scan was performed. A dressing was applied. The patient tolerated procedure well. COMPARISON: None. FINDINGS: Initial images demonstrate the tip of the needle at the posterior margin of the left iliac bone. Trejo bsequent images demonstrate the needle within the bone. Post biopsy images demonstrate no immediate complication. IMPRESSION: 1. Successful CT guided bone marrow biopsy. Bone marrow aspiration was limited. RPTAT: QQ .Tremayne Tomas MD, Date Time Electronically viewed and signed by .Tremayne Tomas MD, on 01/05/2017 15:08 .R/
[2017-01-05] MEDS: LORAZEPAM 2 MG INJ IV PRN (19:41)
[2017-01-05 21:29] VITALS: BP 124/86; RESP 16
--- NOTE | 2017-01-06 00:29 | CONS ---
Date/Time of Note Date/Time of Note DATE: 01/05/17 TIME: 16:29 vk le Assessment/Plan Assessment/Plan Chief Complaint/Hosp Course metastatic choriocarcinoma. - PRELIM DX Immunohistochemical stains are in progress at [facility] Massive retroperitoneal lymphadenopathy. Peripancreatic and retrocrural lymphadenopathy. Multiple bilateral pulmonary nodules. The largest conglomeration of lymph nodes measures approximately 7.3 x 11.7 x 13.2 cm. TUMOR MARKERS- REVIEWED [facility]- VERY HIGH CT CHEST- 1. Significant retroperitoneal, right supraclavicular, and right hilar lymphadenopathy consistent with metastatic disease. 2. Diffuse pulmonary nodules are also consistent with metastatic disease 3. Hypoenhancing hepatic lesions may be a combination of metastatic disease and hemangiomas. An MRI with and without contrast may be useful to delineate if clinically indicated. 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 Based upon the morphologic features and clinical history, a serum beta hCG was obtained on a current serum specimen in the clinical laboratory reveals a beta hCG level of 96,936 mIU/ml. This result, coupled with the histopathologic features of the tumor, is most suggestive of metastatic choriocarcinoma. Immunohistochemical stains are in progress at [facility] to further characterize the tumor. A final report will be issued following review of the immunohistochemical stains. This case has also been reviewed by Cedric Mcneal M.D., who concurs with the above interpretation. AWAIT FINAL PATH PLAN CHEMO ANEMIA, N- CYTIC WITH N RDW + COMPONENT ACD THROMBOCYTOPENIA MONITOR Problems: Consultation Date/Type/Reason Admit Date/Time Jan 03, 2017 at 10:48 Initial Consult Date 01/03/17 [facility]ation: [facility] Referring Provider: EMELI CHRISTIE 24 HR Interval Summary Free Text/Dictation ALL NOTED PRELIMINARY PATH- REVIEWED ADDITIONAL TUMOR MARKERS ORDERED Exam/Review of Systems Vital Signs Vitals Vital Signs Date Time Temp Pulse Resp B/P Pulse Ox O2 Delivery O2 Flow Rate FiO2 01/05/17 21:29 99.4 128 16 124/86 95 01/03/17 16:50 Room Air Intake and Output 01/05/17 01/05/17 01/06/17 15:00 23:00 07:00 Intake Total 240 ml Balance 240 ml Exam Constitutional: alert, oriented, well developed Psych: nl mood/affect, no complaints Head: atraumatic, normocephalic Eyes: EOMI, PERRL Neck: non-tender, supple Respiratory: clear to auscultation, normal air movement Cardiovascular: nl pulses, regular rate and rhythm Gastrointestinal: soft, tender Extremities: normal pulses NO PATH LN-SABRINA TESTES- NO MASSES [facility] a non-profit [facility] [address] [place] [address] ; Lab No: [id number] P Date: 01/04/2017 PRELIMINARY REPORT INTRA-OPERATIVE TOUCH IMPRINTS WITH IMMEDIATE EXAMINATION: -Necrotic debris and histiocytes. Tissue placed in RPMI for flow cytometry/DK ( 01/04/17; 3:05 p.m.) SPECIMEN: Retroperitoneal mass, CT-guided core needle biopsies CLINICAL: Rule out lymphoma This preliminary microscopic diagnosis is based upon material currently available for examination. Final Pathological diagnosis is pending completion of one or more of the following studies: ( ) Special stains ( x) Immunoperoxidase stains pending at [facility] ( ) Slides consultation ( ) Examination of additional sections in processing ( ) Examination of previous pathology ( ) Other: MICROSCOPIC DESCRIPTION: Core needle biopsies and aspiration of the retroperitoneal mass contain numerous fragments of tumor with extensive necrosis, mixed with blood. Viable tumor is composed of large polygonal cells with irregular, vesicular and hyperchromatic nuclei containing one or two prominent eosinophilic nucleoli. Cells possess a moderate amount of amphophilic cytoplasm. No distinct gland formation of squamous differentiation is seen. Numerous mitotic figures are identified and occasional abnormal mitoses are present. The are also rare multinucleated tumor cells with abundant cytoplasm. There is extensive tumor necrosis with numerous hemosiderin laden macrophages. The histopathologic features are consistent with metastatic poorly differentiated carcinoma and a germ cell neoplasm is highly likely, particularly choriocarcinoma. Continued Next Page . . . 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 COMMENT: The preliminary diagnosis is discussed with Dr. Nanci Marks on 01/05/17 at 1:55 p.m. Based upon the morphologic features and clinical history, a serum beta hCG was obtained on a current serum specimen in the clinical laboratory reveals a beta hCG level of 96,936 mIU/ml. This result, coupled with the histopathologic features of the tumor, is most suggestive of metastatic choriocarcinoma. Immunohistochemical stains are in progress at [facility] to further characterize the tumor. A final report will be issued following review of the immunohistochemical stains. This case has also been reviewed by Cedric Mcneal M.D., who concurs with the above interpretation. KVNG/mee Date of Service: 01/04/17; Date Received: 01/04/17 Dictated: 01/05/17; Transcribed: 01/05/17; Sent by Fax: 01/05/17; Reviewed: TORSTEN Poe M.D. Pathologist Electronically Signed 01/05/2017 EDWARD POE M.D. PATIENT: CAIO SILVERIO [facility] AGE/SEX/: 31/M 1985 MR NO: [id number] VISIT: [id number] ROOM NO: PHYSICIAN: Chase DAMICO, Chase MARKS M.D., ALISON TISSUE EXAMINATION REPORT Results Result Diagram: 01/05/17 0500 01/05/17 0500 Results 24 hrs Laboratory Tests Test 01/05/17 05:00 White Blood Count 8.1 # Red Blood Count 4.66 L Hemoglobin 13.5 L Hematocrit 40.9 L Mean Corpuscular Volume 87.8 Mean Corpuscular Hemoglobin 29.0 Mean Corpuscular Hemoglobin Concent 33.0 Red Cell Distribution Width 13.0 Platelet Count 74 L Mean Platelet Volume 11.7 H Neutrophils % 29.0 L Band Neutrophils % 21.0 H Lymphocytes % 14.0 L Reactive Lymphocytes % 4.0 Monocytes % 12.0 H Eosinophils % 2.0 Basophils % Metamyelocytes % 10.0 H Myelocytes % 8.0 H Neutrophils # 2.3 Lymphocytes # 1.1 Monocytes # 1.0 H Eosinophils # 0.2 Basophils # Metamyelocytes # 0.8 Myelocytes # 0.6 Platelet Estimate PLT APPEAR DECREASED Sodium Level 135 Potassium Level 4.5 Chloride Level 96 L Carbon Dioxide Level 32 H Anion Gap 12 Blood Urea Nitrogen 8 Creatinine 0.74 Glucose Level 86 Calcium Level 9.0 Total Bilirubin 0.1 L Direct Bilirubin 0.00 Indirect Bilirubin 0.1 Aspartate Amino Transf (AST/SGOT) 57 H Alanine Aminotransferase (ALT/SGPT) 57 Alkaline Phosphatase 105 Total Protein 7.6 Albumin 4.3 Globulin 3.30 H Albumin/Globulin Ratio 1.30 Medications Medications Current Medications Ondansetron HCl (Zofran Inj) 4 mg Q6H PRN IV NAUSEA AND/OR VOMITING; Start at 13:00 Acetaminophen (Tylenol Tab) 650 mg Q6H PRN PO PAIN LEVEL 1-3 OR FEVER; Start at 13:00 Acetaminophen/ Hydrocodone Bitart ([place] (5/325)) 1 tab Q6H PRN PO MODERATE PAIN LEVEL 4-6 Last administered on 01/05/17 22:12; Admin Dose 1 TAB; Start at 13:00 Morphine Sulfate (morphine) 2 mg Q4H PRN IV SEVERE PAIN LEVEL 7-10 Last administered on 01/05/17 23:43; Admin Dose 2 MG; Start 01/03/17 at 13:00 Enoxaparin Sodium (Lovenox) 40 mg DAILY SC ; Start 01/05/17 at 09:00 Lorazepam (Ativan) 1 mg Q4H PRN IV ANXIETY Last administered on 01/05/17 19:41 ; Admin Dose 1 MG; Start 01/05/17 at 15:00 Procedures Procedures [place] [address] Radiology Main Line: [phone] DIAGNOSTIC IMAGING REPORT Patient: CAIO SLIVERIO : 1985 Age: 31 Sex: M MR #: [id number] DOS: 01/04/17 0700 Ordering MD: MARQUEZ VERA MD Location: [facility] Room/Bed: [facility] PROCEDURE: CT CHEST WITH CONTRAST CLINICAL INDICATION: Cancer staging TECHNIQUE: Volumetrically acquired images of the thorax obtained with intravenous contrast were reformatted in the axial, coronal, and sagittal planes. CTDI = 12.9 mGy; DLP = 529 mGy-cm. 100 cc of Omnipaque was administered. One or more of the following dose reduction technique were used: Automatic exposure control, adjustment of the mA and/or kV according to patient size, and use of iterative reconstruction technique. COMPARISON: CT abdomen from 01/03/2017. FINDINGS: LOWER NECK AND CHEST WALL: Normal. AIRWAYS: The trachea and large airways are normal. LUNGS: Diffuse pulmonary nodules are seen bilaterally (at least 20). The largest nodule on the left measures 2.7 cm in the left lower lobe (series 3 image 70) the largest nodule on the right measures 2.9 cm (series 3 image 91). PLEURA: Unremarkable. No pleural thickening or effusions. MEDIASTINUM: No mediastinal mass. LYMPH NODES: There is a right supraclavicular node measuring 29 mm in short axis diameter (series 3 image 7). A right hilar lymph node measures 2.8 cm in short axis diameter CARDIAC: The heart size is normal. No pericardial effusion. VASCULAR: The aorta and main pulmonary artery are normal in caliber. OSSEOUS: No suspicious osseous lesions. Limited evaluation of the upper abdomen again demonstrates bulky retroperitoneal lymphadenopathy, previously characterized on prior CT abdomen study. Diffuse hypo enhancing hepatic lesions are seen, largest measuring 2.3 cm , likely a combination of hepatic metastasis and hemangiomas. IMPRESSION: 1. Significant retroperitoneal, right supraclavicular, and right hilar lymphadenopathy consistent with metastatic disease. 2. Diffuse pulmonary nodules are also consistent with metastatic disease 3. Hypoenhancing hepatic lesions may be a combination of metastatic disease and hemangiomas. An MRI with and without contrast may be useful to delineate if clinically indicated. RPTAT:PP .Gonsalo Rizvi MD, Date Time Electronically viewed and signed by .Gonsalo Rizvi MD, on 01/05/2017 09:13 .V/ CC: MARQUEZ VERA MD, VERA M MD Jan 06, 2017 00:29
[2017-01-06] MEDS: LORAZEPAM 2 MG INJ IV PRN (03:06)
[2017-01-06] MEDS: ONDANSETRON 4 MG INJ IV PRN (03:06)
[2017-01-06] MEDS: HYDROCODONE/APAP (5/325) TAB PO PRN ×3 (05:10→18:50)
--- NOTE | 2017-01-06 07:37 | PN ---
Date/Time of Note Date/Time of Note DATE: 01/05/17 TIME: 23:29 Assessment/Plan VTE Prophylaxis VTE Prophylaxis Intervention: LMWH Lines/Catheters IV Catheter Type (from Nrsg): Saline Lock Urinary Cath still in place: No Assessment/Plan Assessment/Plan IMPRESSION 1. 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 f/u result of bone marrow biopsy Subjective 24 Hr Interval Summary Free Text/Dictation discussed about bx findings Exam/Review of Systems Vital Signs Vitals Vital Signs Date Time Temp Pulse Resp B/P Pulse Ox O2 Delivery O2 Flow Rate FiO2 01/05/17 21:29 99.4 128 16 124/86 95 01/03/17 16:50 Room Air Intake and Output 01/05/17 01/05/17 01/06/17 15:00 23:00 07:00 Intake Total 240 ml 200 ml Balance 240 ml 200 ml Exam Constitutional: alert, oriented, well developed Psych: nl mood/affect, no complaints Head: atraumatic, normocephalic Eyes: EOMI, PERRL Neck: non-tender, supple Respiratory: clear to auscultation, normal air movement Cardiovascular: nl pulses, regular rate and rhythm Gastrointestinal: soft, tender on right side Extremities: normal pulses Results Result Diagram: 01/05/17 0500 01/05/17 0500 Results 24 hrs Laboratory Tests Test 01/06/17 05:09 Alpha Fetoprotein 466.00 H Medications Medications Current Medications Ondansetron HCl (Zofran Inj) 4 mg Q6H PRN IV NAUSEA AND/OR VOMITING Last administered on 01/06/17 03:06; Admin Dose 4 MG; Start 01/03/17 at 13:00 Acetaminophen (Tylenol Tab) 650 mg Q6H PRN PO PAIN LEVEL 1-3 OR FEVER; Start at 13:00 Acetaminophen/ Hydrocodone Bitart ([place] (5/325)) 1 tab Q6H PRN PO MODERATE PAIN LEVEL 4-6 Last administered on 01/06/17 05:10; Admin Dose 1 TAB; Start at 13:00 Morphine Sulfate (morphine) 2 mg Q4H PRN IV SEVERE PAIN LEVEL 7-10 Last administered on 01/05/17 23:43; Admin Dose 2 MG; Start 6/21/17 at 13:00 Enoxaparin Sodium (Lovenox) 40 mg DAILY SC ; Start 01/05/17 at 09:00 Lorazepam (Ativan) 1 mg Q4H PRN IV ANXIETY Last administered on 01/06/17t 03:06 ; Admin Dose 1 MG; Start 01/05/17 at 15:00 ALISON MARKS MD Jan 06, 2017 07:37
--- NOTE | 2017-01-06 07:39 | PN ---
Date/Time of Note Date/Time of Note DATE: 01/06/17 TIME: 07:38 Assessment/Plan VTE Prophylaxis VTE Prophylaxis Intervention: LMWH Lines/Catheters IV Catheter Type (from Nrsg): Saline Lock Urinary Cath still in place: No Assessment/Plan Assessment/Plan IMPRESSION 1. 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 f/u result of bone marrow biopsy Subjective 24 Hr Interval Summary Free Text/Dictation no acute issue overnight Exam/Review of Systems Vital Signs Vitals Vital Signs Date Time Temp Pulse Resp B/P Pulse Ox O2 Delivery O2 Flow Rate FiO2 01/05/17 21:29 99.4 128 16 124/86 95 01/03/17 16:50 Room Air Intake and Output 01/05/17 01/05/17 01/06/17 15:00 23:00 07:00 Intake Total 240 ml 200 ml Balance 240 ml 200 ml Results Constitutional: alert, oriented, well developed Psych: nl mood/affect, no complaints Head: atraumatic, normocephalic Eyes: EOMI, PERRL Neck: non-tender, supple Respiratory: clear to auscultation, normal air movement Cardiovascular: nl pulses, regular rate and rhythm Gastrointestinal: soft, tender on right side Extremities: normal pulses Result Diagram: 01/05/17 0500 01/05/17 0500 Results 24 hrs Laboratory Tests Test 01/06/17 05:09 Alpha Fetoprotein 466.00 H Medications Medications Current Medications Ondansetron HCl (Zofran Inj) 4 mg Q6H PRN IV NAUSEA AND/OR VOMITING Last administered on 01/06/17 03:06; Admin Dose 4 MG; Start 01/03/17 at 13:00 Acetaminophen (Tylenol Tab) 650 mg Q6H PRN PO PAIN LEVEL 1-3 OR FEVER; Start at 13:00 Acetaminophen/ Hydrocodone Bitart ([place] (5/325)) 1 tab Q6H PRN PO MODERATE PAIN LEVEL 4-6 Last administered on 01/06/17 05:10; Admin Dose 1 TAB; Start at 13:00 Morphine Sulfate (morphine) 2 mg Q4H PRN IV SEVERE PAIN LEVEL 7-10 Last administered on 01/05/17 23:43; Admin Dose 2 MG; Start 01/03/17 at 13:00 Enoxaparin Sodium (Lovenox) 40 mg DAILY SC ; Start 01/05/17 at 09:00 Lorazepam (Ativan) 1 mg Q4H PRN IV ANXIETY Last administered on 01/06/17 03:06 ; Admin Dose 1 MG; Start 01/05/17 at 15:00 ALISON MARKS MD Jan 06, 2017 07:39
[2017-01-06] MEDS: ENOXAPARIN 40 MG/0.4 ML SYG SC SCH (08:53)
[2017-01-06 09:02] VITALS: BP 127/82; RESP 16
[2017-01-06] MEDS: morphine 2 MG INJ IV PRN ×3 (09:31→17:19)
--- NOTE | 2017-01-06 13:03 | CONS ---
Date/Time of Note Date/Time of Note DATE: 01/06/17 TIME: 13:02 Assessment/Plan Assessment/Plan Chief Complaint/Hosp Course metastatic choriocarcinoma. - PRELIM DX Immunohistochemical stains are in progress at [facility] Massive retroperitoneal lymphadenopathy. Peripancreatic and retrocrural lymphadenopathy. Multiple bilateral pulmonary nodules. The largest conglomeration of lymph nodes measures approximately 7.3 x 11.7 x 13.2 cm. TUMOR MARKERS- REVIEWED [facility]- VERY HIGH CT CHEST- 1. Significant retroperitoneal, right supraclavicular, and right hilar lymphadenopathy consistent with metastatic disease. 2. Diffuse pulmonary nodules are also consistent with metastatic disease 3. Hypoenhancing hepatic lesions may be a combination of metastatic disease and hemangiomas. An MRI with and without contrast may be useful to delineate if clinically indicated. 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 Based upon the morphologic features and clinical history, a serum beta hCG was obtained on a current serum specimen in the clinical laboratory reveals a beta hCG level of 96,936 mIU/ml. This result, coupled with the histopathologic features of the tumor, is most suggestive of metastatic choriocarcinoma. Immunohistochemical stains are in progress at [facility] to further characterize the tumor. A final report will be issued following review of the immunohistochemical stains. This case has also been reviewed by Cedric Mcneal M.D., who concurs with the above interpretation. AWAIT FINAL PATH PLAN CHEMO ANEMIA, N- CYTIC WITH N RDW + COMPONENT ACD THROMBOCYTOPENIA MONITOR Problems: Consultation Date/Type/Reason Admit Date/Time Jan 03, 2017 at 10:48 Initial Consult Date 01/03/17 Type of Consultation: [facility] Referring Provider: EMELI CHRISTIE 24 HR Interval Summary Free Text/Dictation ALL NOTED NO NEW EVENTS FINAL PATH -P Exam/Review of Systems Vital Signs Vitals Vital Signs Date Time Temp Pulse Resp B/P Pulse Ox O2 Delivery O2 Flow Rate FiO2 01/06/17 09:02 98.9 102 16 127/82 94 01/03/17 16:50 Room Air Intake and Output 01/05/17 01/05/17 01/06/17 15:00 23:00 07:00 Intake Total 240 ml 200 ml Balance 240 ml 200 ml Exam Constitutional: alert, oriented, well developed Psych: nl mood/affect, no complaints Head: atraumatic, normocephalic Eyes: EOMI, PERRL Neck: non-tender, supple Respiratory: clear to auscultation, normal air movement Cardiovascular: nl pulses, regular rate and rhythm Gastrointestinal: soft, tender Extremities: normal pulses NO PATH LN-SABRINA TESTES- NO MASSES Results Result Diagram: 01/05/17 0500 01/05/17 0500 Results 24 hrs Laboratory Tests Test 01/06/17 05:09 Alpha Fetoprotein 466.00 H Medications Medications Current Medications Ondansetron HCl (Zofran Inj) 4 mg Q6H PRN IV NAUSEA AND/OR VOMITING Last administered on 01/06/17 03:06; Admin Dose 4 MG; Start 01/03/17 at 13:00 Acetaminophen (Tylenol Tab) 650 mg Q6H PRN PO PAIN LEVEL 1-3 OR FEVER; Start at 13:00 Acetaminophen/ Hydrocodone Bitart ([place] (5/325)) 1 tab Q6H PRN PO MODERATE PAIN LEVEL 4-6 Last administered on 01/06/17 12:00; Admin Dose 1 TAB; Start at 13:00 Morphine Sulfate (morphine) 2 mg Q4H PRN IV SEVERE PAIN LEVEL 7-10 Last administered on 01/06/17 12:54; Admin Dose 2 MG; Start 01/03/17 at 13:00 Enoxaparin Sodium (Lovenox) 40 mg DAILY SC Last administered on 01/06/17 08:53 ; Admin Dose 40 MG; Start 01/05/17 at 09:00 Lorazepam (Ativan) 1 mg Q4H PRN IV ANXIETY Last administered on 01/06/17 03:06 ; Admin Dose 1 MG; Start 01/05/17 at 15:00 MARQUEZ VERA MD Jan 06, 2017 13:03
[2017-01-06] MEDS ORDERED: ZOLPIDEM 5 MG TAB PO PRN (18:00)
--- NOTE | 2017-01-06 18:57 | RADRPT ---
PROCEDURE: MRI of the abdomen with without contrast CLINICAL INDICATION: Liver mass. Staging scan. TECHNIQUE: An MRI of the abdomen was performed on a GE 1.5 Sammi scanner utilizing the following s equences: Axial T2-weighted with and without fat saturation, coronal single shot FSE T2-weighted, a xial T1-weighted FSPGR and out of phase, and postcontrast axial and coronal T1-weighted with multi p hase imaging on the axial postcontrast study. 20 cc of Magnevist were given intravenously without c omplication. COMPARISON: CT abdomen and pelvis 01/03/2017. FINDINGS: There are multiple liver masses which demonstrate peripheral intrinsic T1 hyperintensity suggesting hemorrhagic component. The largest mass measures up to 2.2 cm in the right posterior hepatic lobe ( segment 6 of the liver). Redemonstrated is massive retroperitoneal lymphadenopathy measures up to 11.5 x 10.5 cm (craniocauda l x transverse). Multiple cystic and hemorrhagic areas are identified within the conglomerate retr operitoneal lymphadenopathy. Retroperitoneal lymphadenopathy encases the aorta, IVC and both renal veins which remain patent. Numerous pulmonary nodules are again noted. The spleen is normal in size and homogeneous in signal intensity. The stomach is partially collapse d but grossly unremarkable. The pancreas, as visualized, is equally unremarkable. No pancreatic le dami is seen. The adrenal glands and kidneys are symmetrically normal. The aorta is of normal denise kamran. The bowel and mesentery, as visualized, are all unremarkable. IMPRESSION: 1. Multiple liver masses in both hepatic lobes consistent with metastasis. The liver lesions demon strate peripheral hemorrhagic signal which is very similar to the conglomerate retroperitoneal lymph adenopathy. 2. Massive retroperitoneal lymphadenopathy with multiple cystic and hemorrhagic areas. 3. Encasement of the aorta, IVC and both renal veins which remain patent. 4. Numerous pulmonary nodules. RPTAT: HHO .Niki Matt MD, Date Time Electronically viewed and signed by .Niki Matt MD, on 01/06/2017 18:56 .O/
[2017-01-06] MEDS: LORAZEPAM 1 MG TAB PO PRN (20:16)
[2017-01-06] MEDS: HYDROmorphONE 1 MG/ML SYG IV PRN (20:21)
[2017-01-06 20:35] VITALS: BP 123/80; RESP 20
[2017-01-07] MEDS: HYDROmorphONE 1 MG/ML SYG IV PRN ×5 (05:53→22:41)
[2017-01-07 07:45] VITALS: BP 129/80; RESP 16
[2017-01-07] MEDS: ENOXAPARIN 40 MG/0.4 ML SYG SC SCH (09:05)
--- NOTE | 2017-01-07 12:34 | CONS ---
Date/Time of Note Date/Time of Note DATE: 01/07/17 TIME: 12:33 Assessment/Plan Assessment/Plan Chief Complaint/Hosp Course metastatic choriocarcinoma. - PRELIM DX Immunohistochemical stains are in progress at [facility] Massive retroperitoneal lymphadenopathy. Peripancreatic and retrocrural lymphadenopathy. Multiple bilateral pulmonary nodules. The largest conglomeration of lymph nodes measures approximately 7.3 x 11.7 x 13.2 cm. TUMOR MARKERS- REVIEWED [facility]- VERY HIGH CT CHEST- 1. Significant retroperitoneal, right supraclavicular, and right hilar lymphadenopathy consistent with metastatic disease. 2. Diffuse pulmonary nodules are also consistent with metastatic disease 3. Hypoenhancing hepatic lesions may be a combination of metastatic disease and hemangiomas. An MRI with and without contrast may be useful to delineate if clinically indicated. 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 Based upon the morphologic features and clinical history, a serum beta hCG was obtained on a current serum specimen in the clinical laboratory reveals a beta hCG level of 96,936 mIU/ml. This result, coupled with the histopathologic features of the tumor, is most suggestive of metastatic choriocarcinoma. Immunohistochemical stains are in progress at [facility] to further characterize the tumor. A final report will be issued following review of the immunohistochemical stains. This case has also been reviewed by Cedric Mcneal M.D., who concurs with the above interpretation. AWAIT FINAL PATH PLAN CHEMO ANEMIA, N- CYTIC WITH N RDW + COMPONENT ACD THROMBOCYTOPENIA MONITOR Problems: Consultation Date/Type/Reason Admit Date/Time Jan 03, 2017 at 10:48 Initial Consult Date 01/03/17 Type of Consultation: [facility] Referring Provider: EMELI CHRISTIE 24 HR Interval Summary Free Text/Dictation all noted path- p Exam/Review of Systems Vital Signs Vitals Vital Signs Date Time Temp Pulse Resp B/P Pulse Ox O2 Delivery O2 Flow Rate FiO2 01/07/17 07:45 98.6 94 16 129/80 96 01/03/17 16:50 Room Air Intake and Output 01/06/17 01/06/17 01/07/17 15:00 23:00 07:00 Intake Total 970 ml 720 ml Balance 970 ml 720 ml Exam Constitutional: alert, oriented, well developed Psych: nl mood/affect, no complaints Head: atraumatic, normocephalic Eyes: EOMI, PERRL Neck: non-tender, supple Respiratory: clear to auscultation, normal air movement Cardiovascular: nl pulses, regular rate and rhythm Gastrointestinal: soft, tender Extremities: normal pulses NO PATH LN-SABRINA TESTES- NO MASSES Results Result Diagram: 01/05/17 0500 01/05/17 0500 Results 24 hrs Laboratory Tests Test 01/07/17 04:25 Serum HCG, Qualitative POSITIVE Medications Medications Current Medications Ondansetron HCl (Zofran Inj) 4 mg Q6H PRN IV NAUSEA AND/OR VOMITING Last administered on 01/06/17 03:06; Admin Dose 4 MG; Start 01/03/17 at 13:00 Acetaminophen (Tylenol Tab) 650 mg Q6H PRN PO PAIN LEVEL 1-3 OR FEVER; Start at 13:00 Acetaminophen/ Hydrocodone Bitart ([place] (5/325)) 1 tab Q6H PRN PO MODERATE PAIN LEVEL 4-6 Last administered on 01/06/17 18:50; Admin Dose 1 TAB; Start at 13:00 Morphine Sulfate (morphine) 2 mg Q4H PRN IV SEVERE PAIN LEVEL 7-10 Last administered on 01/06/17 17:19; Admin Dose 2 MG; Start 01/03/17 at 13:00 Enoxaparin Sodium (Lovenox) 40 mg DAILY SC Last administered on 01/07/17 09:05 ; Admin Dose 40 MG; Start 01/05/17 at 09:00 Lorazepam (Ativan) 1 mg Q4H PRN PO ANXIETY Last administered on 01/06/17 20:16 ; Admin Dose 1 MG; Start 01/06/17 at 17:00 Hydromorphone HCl (Dilaudid) 1 mg Q4H PRN IV PAIN Last administered on 10:03; Admin Dose 1 MG; Start 01/06/17 at 18:00 Zolpidem Tartrate (Ambien) 10 mg HS PRN PO INSOMNIA; Start 01/06/17 at 18:00 MARQUEZ VERA MD Jan 07, 2017 12:34
[2017-01-07 20:00] VITALS: BP 126/84; RESP 18
--- NOTE | 2017-01-07 20:03 | PN ---
Date/Time of Note Date/Time of Note DATE: 01/07/17 TIME: 20:02 Assessment/Plan VTE Prophylaxis VTE Prophylaxis Intervention: heparin Lines/Catheters IV Catheter Type (from Nrsg): Saline Lock Urinary Cath still in place: No Assessment/Plan Assessment/Plan IMPRESSION 1. 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 f/u result of bone marrow biopsy Subjective 24 Hr Interval Summary Free Text/Dictation c/o ongoing abd pain Exam/Review of Systems Vital Signs Vitals Vital Signs Date Time Temp Pulse Resp B/P Pulse Ox O2 Delivery O2 Flow Rate FiO2 01/07/17 07:45 98.6 94 16 129/80 96 01/03/17 16:50 Room Air Intake and Output 01/06/17 01/06/17 01/07/17 15:00 23:00 07:00 Intake Total 970 ml 720 ml Balance 970 ml 720 ml Exam Constitutional: alert, oriented, well developed Psych: nl mood/affect, no complaints Head: atraumatic, normocephalic Eyes: EOMI, PERRL Neck: non-tender, supple Respiratory: clear to auscultation, normal air movement Cardiovascular: nl pulses, regular rate and rhythm Gastrointestinal: soft, tender on right side Extremities: normal pulses Results Result Diagram: 01/05/17 0500 01/05/17 0500 Results 24 hrs Laboratory Tests Test 01/07/17 04:25 Serum HCG, Qualitative POSITIVE Medications Medications Current Medications Ondansetron HCl (Zofran Inj) 4 mg Q6H PRN IV NAUSEA AND/OR VOMITING Last administered on 01/06/17 03:06; Admin Dose 4 MG; Start 01/03/17 at 13:00 Acetaminophen (Tylenol Tab) 650 mg Q6H PRN PO PAIN LEVEL 1-3 OR FEVER; Start at 13:00 Acetaminophen/ Hydrocodone Bitart ([place] (5/325)) 1 tab Q6H PRN PO MODERATE PAIN LEVEL 4-6 Last administered on 01/06/17 18:50; Admin Dose 1 TAB; Start at 13:00 Morphine Sulfate (morphine) 2 mg Q4H PRN IV SEVERE PAIN LEVEL 7-10 Last administered on 01/06/17 17:19; Admin Dose 2 MG; Start 01/03/17 at 13:00 Enoxaparin Sodium (Lovenox) 40 mg DAILY SC Last administered on 01/07/17 09:05 ; Admin Dose 40 MG; Start 01/05/17 at 09:00 Lorazepam (Ativan) 1 mg Q4H PRN PO ANXIETY Last administered on 01/06/17 20:16 ; Admin Dose 1 MG; Start 01/06/17 at 17:00 Hydromorphone HCl (Dilaudid) 1 mg Q4H PRN IV PAIN Last administered on 18:11; Admin Dose 1 MG; Start 01/06/17 at 18:00 Zolpidem Tartrate (Ambien) 10 mg HS PRN PO INSOMNIA; Start 01/06/17 at 18:00 ALISON MARKS MD Jan 07, 2017 20:03
[2017-01-07] MEDS ORDERED: HYDROmorphONE 1 MG/ML SYG IV PRN (20:30)
[2017-01-07] MEDS: HYDROCODONE/APAP (5/325) TAB PO PRN (20:36)
[2017-01-08] MEDS: HYDROmorphONE 1 MG/ML SYG IV PRN ×6 (02:36→23:11)
[2017-01-08] MEDS: HYDROCODONE/APAP (5/325) TAB PO PRN ×2 (05:02→18:06)
[2017-01-08 08:18] VITALS: BP 114/76; RESP 15
[2017-01-08] MEDS: ENOXAPARIN 40 MG/0.4 ML SYG SC SCH (08:54)
[2017-01-08] MEDS: ONDANSETRON 4 MG INJ IV PRN (13:41)
--- NOTE | 2017-01-08 17:39 | CONS ---
Date/Time of Note Date/Time of Note DATE: 01/08/17 TIME: 17:36 Assessment/Plan Assessment/Plan Chief Complaint/Hosp Course Metastatic mixed germ cell tumor, non-seminomatous. path -Retroperitoneal mass, CT-guided core needle biopsies: with Massive retroperitoneal lymphadenopathy, Peripancreatic and retrocrural lymphadenopathy, Multiple bilateral pulmonary nodules. The largest conglomeration of lymph nodes measures approximately 7.3 x 11.7 x 13.2 cm. TUMOR MARKERS- REVIEWED [facility]- VERY HIGH CT CHEST- 1. Significant retroperitoneal, right supraclavicular, and right hilar lymphadenopathy consistent with metastatic disease. 2. Diffuse pulmonary nodules are also consistent with metastatic disease 3. Hypoenhancing hepatic lesions may be a combination of metastatic disease and hemangiomas. An MRI with and without contrast may be useful to delineate if clinically indicated. PLAN CHEMO- METASTATIC nonseminomatous germ cell tumors For patients with nonseminomatous GCT, we suggest four cycles of chemotherapy as the initial therapy, rather than surgery or RT We recommend VIP rather than BEP because of the increased risk of bleomycin pulmonary toxicity should surgery eventually be required BEP can be considered as an alternative if bone marrow toxicity is a particular concern. For patients with a residual mediastinal mass following initial chemotherapy, we recommend complete surgical resection, if technically feasible If viable malignancy is identified, we suggest two additional cycles of VIP chemotherapy TRANSFER TO ONCOLOGY PICC LINE ANEMIA, N- CYTIC WITH N RDW + COMPONENT ACD THROMBOCYTOPENIA MONITOR VIP REGIMEN- Cycle length: 21 days. Total cycles: 4. Drug Dose and route Administration Given on days Cisplatin 20 mg/m2 IV per day Dilute with 250 mL normal saline (NS) and administer over one hour. Do not administer with aluminum needles or intravenous sets. Days 1 to 5 Etoposide* 75 mg/m2 IV per day Dilute with 500 mL NS (concentration less than 0.4 mg/mL) and administer over one hour. Days 1 to 5 Ifosfamide* 1200 mg/m2 per day continuous IV infusion Dilute with NS for injection to a final concentration of 0.6 to 20 mg/mL and infuse over 24 hours. Can mix with Mesna. Days 1 to 5 Mesna 120 mg/m2 IV Dilute with NS for injection and administer via slow IV push prior to day 1 infusion of ifosfamide. Total concentration of mesna should not exceed 20 mg/mL. Day 1 Mesna? 1200 mg/m2 per day continuous IV infusion Dilute with NS for injection and administer as continuous infusion over 24 hours[2]. Total concentration of mesna should not exceed 20 mg/mL. Can mix with ifosfamide. Days 1 to 5 Pretreatment considerations: Hydration: Induction of diuresis using intravenous NS minimizes the risk of cisplatin nephrotoxicity. At least 2000 mL of NS should be administered at a rate of 100 to 125 mL per hour throughout the five days of treatment and continued for at least two hours after the last dose of cisplatin. Refer to UpToDate topic on "Cisplatin nephrotoxicity". Emesis risk: HIGH (>90 percent frequency of emesis). Aprepitant can be given orally (125 mg on day 1, 80 mg on days 2 and 3) with ondansetron, prochlorperazine, and dexamethasone daily. Refer to UpToDate topic on "Prevention and treatment of chemotherapy-induced nausea and vomiting in adults ". Vesicant/irritant properties: Cisplatin is an irritant but can cause significant tissue damage; avoid extravasation[3]. Refer to UpToDate topic on "Extravasation injury from chemotherapy and other non-antineoplastic vesicants" . Infection prophylaxis: Primary prophylaxis with granulocyte colony stimulating factors was administered as a routine component of this regimen[1]. Refer to UpToDate topic on "Use of granulocyte colony stimulating factors in adult patients with chemotherapy-induced neutropenia and conditions other than acute leukemia, myelodysplastic syndrome, and hematopoietic cell transplantation ". Dose adjustment for baseline liver or renal dysfunction: Dose adjustment in the setting of baseline renal impairment (ie, creatinine >3.0 mg/dL or GFR <50 mL/min) requires a balanced discussion of the goals of treatment and the risks of cisplatin. Refer to UpToDate topics on "Chemotherapy hepatotoxicity and dose modification in patients with liver disease" and "Chemotherapy-related nephrotoxicity and dose modification in patients with renal insufficiency". Monitoring parameters: CBC with differential and platelet count weekly during treatment. Basic metabolic panel (creatinine and electrolytes) prior to each treatment cycle. Liver function tests prior to each treatment cycle. Cisplatin is associated with significant nephrotoxicity. Ifosfamide is associated with cumulative nephrotoxicity, mostly at a total dose above 60 grams /m2. Clinical manifestations may include hypophosphatemia, renal potassium wasting, metabolic acidosis with a normal ion gap, and rarely, polyuria due to nephrogenic diabetes insipidus. Assess creatinine and electrolytes, including potassium and phosphate, daily during treatment and prior to each subsequent treatment cycle. Refer to UpToDate topic on "Ifosfamide nephrotoxicity". Mesna does not prevent hemorrhagic cystitis in all patients[2]. Monitor a morning specimen of urine for hematuria daily, on days 1 through 5. Refer to UpToDate topic on "Cystitis in patients with cancer". Monitor for neurotoxicity (confusion, coma, rarely seizures, weakness, neuropathy, ataxia, cranial nerve dysfunction) daily, on days 1 through 5. Central nervous system side effects may be especially problematic for those over age 60. Refer to UpToDate topic on "Overview of neurologic complications of non-qawalangin cancer chemotherapy". Monitor vital signs during etoposide infusion. Monitor for hearing loss prior to each dose of cisplatin; audiometry as clinically indicated. Suggested dose alterations for toxicity: Myelotoxicity: Reduce doses of etoposide and ifosfamide each by 25 percent for subsequent cycles for granulocytopenic fever or thrombocytopenic bleeding with the previous course of therapy[1]. Neurotoxicity: Neuropathy usually is seen after cumulative doses of cisplatin beyond 400 mg/m2, although there is marked interindividual variation. Patients with mild neuropathy can continue to receive full cisplatin doses. However, if the neuropathy interferes with function, the risk of potentially disabling neurotoxicity must be weighed against the benefit of continued treatment[3]. Refer to UpToDate topic on "Overview of neurologic complications of qawalangin- based chemotherapy". Nephrotoxicity: It is recommended that subsequent doses of cisplatin be withheld until the serum creatinine is less than 3.0 mg/dL. If there is a change in body weight of at least 10 percent, doses should be recalculated. IV: intravenous; GFR: glomerular filtration rate; CBC: complete blood count. * The initial protocol included empiric reduction of etoposide and ifosfamide doses by 25 percent for patients who have received prior radiation therapy[1]. ? Due to a longer half-life of ifosfamide and associated metabolites at higher doses, some references recommend continuation of mesna for 12 to 24 hours beyond completion of ifosfamide to reduce the risk of hemorrhagic cystitis[2]. References: Matt GRAHAM et al. J Clin Oncol 1998; 16:1287. MESNA injection. [place] Prescribing Information. [place] [employer]. (Available online at dailymed.nlm.nih.gov, accessed July 04, 2011) . Cisplatin injection, powder, lyophilized, for solution. [place] Prescribing Information. [place] National Library of Medicine. (Available online at [employer].nih.gov, accessed on July 04, 2011). Graphic 39391 Version 11.0 Problems: Consultation Date/Type/Reason Admit Date/Time Jan 03, 2017 at 10:48 Initial Consult Date 01/03/17 [facility] Referring Provider: EMELI CHRISTIE 24 HR Interval Summary Free Text/Dictation all noted path -Retroperitoneal mass, CT-guided core needle biopsies: -- Metastatic mixed germ cell tumor, non-seminomatous. Exam/Review of Systems Vital Signs Vitals Vital Signs Date Time Temp Pulse Resp B/P Pulse Ox O2 Delivery O2 Flow Rate FiO2 01/08/17 08:18 98.6 85 15 114/76 96 Intake and Output 01/07/17 01/07/17 01/08/17 15:00 23:00 07:00 Intake Total 820 ml 700 ml Balance 820 ml 700 ml Exam Constitutional: alert, oriented, well developed Psych: nl mood/affect, no complaints Head: atraumatic, normocephalic Eyes: EOMI, PERRL Neck: non-tender, supple Respiratory: clear to auscultation, normal air movement Cardiovascular: nl pulses, regular rate and rhythm Gastrointestinal: soft, tender Extremities: normal pulses NO PATH LN-SABRINA TESTES- NO MASSES Results [facility] a [facility] [address] [place] [address] ; Lab No: [id number] Date: 01/04/2017 INTRA-OPERATIVE TOUCH IMPRINTS WITH IMMEDIATE EXAMINATION: -Necrotic debris and histiocytes. Tissue placed in RPMI for flow cytometry/DK ( 01/04/17; 3:05 p.m.) SPECIMEN: Retroperitoneal mass biopsy CLINICAL: Rule out lymphoma GROSS EXAMINATION: Received in a container of B5 and two containers of formalin are multiple needle core biopsies of choudhury-ceballos and ceballos-brown tissue that measure 0.2 to 0.6 cm in greatest dimension and are each less than 0.1 cm in diameter. Totally submitted in three cassettes with the B5 fixed tissue in cassette #1, formalin fixed tissue in cassettes 2 and 3. Also received are three touch imprints that are stained and submitted for rapid interpretation. MICROSCOPIC DESCRIPTION: Core needle biopsies and aspiration of the retroperitoneal mass contain numerous fragments of tumor with extensive necrosis, mixed with blood. Viable tumor is composed of large polygonal cells with irregular, vesicular and hyperchromatic nuclei containing one or two prominent eosinophilic nucleoli. Cells possess a moderate amount of amphophilic cytoplasm. No distinct gland formation of squamous differentiation is seen. Numerous mitotic figures are identified and occasional abnormal mitoses are present. There are also rare multinucleated tumor cells with abundant cytoplasm; however, definite syncytial trophoblasts are not identified. Tumor cells are negative for cytoplasmic mucin (positive mucicarmine control reviewed). There is extensive tumor necrosis with numerous hemosiderin laden macrophages. The histopathologic features are consistent with a metastatic poorly differentiated malignant neoplasm. Metastatic germ cell tumor, such as embryonal carcinoma or choriocarcinoma are considered. Other metastatic malignant neoplasms such as malignant melanoma are also considered. To further characterize the tumor cells, paraffin block #2 is forwarded to [facility] for the performance of a panel of immunohistochemical stains. The stains are accompanied by appropriate positive and negative controls, all of which work correctly. Results of staining on the malignant cells are as follows: AFP: Positive, cytoplasmic CD30: Negative CD45: Negative CD117: Positive, focal, membranous ARACELIS: Positive, focal, membranous and cytoplasmic HCG, Beta: Positive, focal, cytoplasmic OCT4: Positive, nuclear Wasserman-Cytokeratin: Positive, cytoplasmic Wasserman-Melanoma: Negative PLAP: Positive, cytoplasmic SALL4: Positive, nuclear Vimentin: Negative The immunohistochemical staining pattern supports a diagnosis of metastatic mixed germ cell tumor, non-seminomatous. Stains mitigate against metastatic melanoma and primary malignant lymphoma. FLOW CYTOMETRY ANALYSIS: Please see the attached report of flow cytometry performed at [facility] ([id number]; 01/05/17). Flow cytometry shows low viability specimen with few unremarkable T-cells, B- cells too few to access light chain clonality. FINAL MICROSCOPIC DIAGNOSIS: Retroperitoneal mass, CT-guided core needle biopsies: -- Metastatic mixed germ cell tumor, non-seminomatous. COMMENT: The preliminary diagnosis is discussed with Dr. Nanci Marks on 01/05/17 at 1:55 p.m. and the final diagnosis is discussed with Dr. Marquez Erwin on 01/08/17 at 3:45 p.m. This case has also been reviewed by Cedric Mcneal M.D., and Kirti Fleming M.D. both of whom concurs with the above interpretation. MP/KVNG/bob/mee Date of Service: 01/04/17; Date Received: 01/04/17 Prelim: 01/05/17; Final: 01/08/17; Sent by Fax: 01/08/17; Reviewed: WS/CH COMMENT: The immunoperoxidase stains reported above were developed and its performance characteristics determined by [employer] [employer] It has not been cleared or approved by the U.S. Food and Drug Administration, although such approval is not required for analyte-specific reagents of this type. Rasheed Poe M.D. Pathologist Electronically Signed 01/08/2017 RASHEED POE M.D. PATIENT: CAIO SILVERIO Director Of Category Management of Laboratory AGE/SEX/: 31/M 1985 MR NO: [id number] VISIT: [id number] ROOM NO: PHYSICIAN: Chase DAMICO, Chase MARKS M.D., DANIEL TISSUE EXAMINATION REPORT Chase ERWIN, MARQUEZ Pradhan Result Diagram: 01/05/17 0500 01/05/17 0500 Medications Medications Current Medications Ondansetron HCl (Zofran Inj) 4 mg Q6H PRN IV NAUSEA AND/OR VOMITING Last administered on 01/08/17 13:41; Admin Dose 4 MG; Start 01/03/17 at 13:00 Acetaminophen (Tylenol Tab) 650 mg Q6H PRN PO PAIN LEVEL 1-3 OR FEVER; Start at 13:00 Acetaminophen/ Hydrocodone Bitart ([place] (5/325)) 1 tab Q6H PRN PO MODERATE PAIN LEVEL 4-6 Last administered on 01/08/17 05:02; Admin Dose 1 TAB; Start at 13:00 Morphine Sulfate (morphine) 2 mg Q4H PRN IV SEVERE PAIN LEVEL 7-10 Last administered on 01/06/17 17:19; Admin Dose 2 MG; Start 01/03/17 at 13:00 Enoxaparin Sodium (Lovenox) 40 mg DAILY SC Last administered on 01/08/17 08:54 ; Admin Dose 40 MG; Start 01/05/17 at 09:00 Lorazepam (Ativan) 1 mg Q4H PRN PO ANXIETY Last administered on 01/06/17 20:16 ; Admin Dose 1 MG; Start 01/06/17 at 17:00 Hydromorphone HCl (Dilaudid) 1 mg Q4H PRN IV PAIN Last administered on 15:53; Admin Dose 1 MG; Start 01/06/17 at 18:00 Zolpidem Tartrate (Ambien) 10 mg HS PRN PO INSOMNIA; Start 01/06/17 at 18:00 Hydromorphone HCl (Dilaudid) 1 mg Q4H PRN IV PAIN; Start 01/07/17 at 20:30 MARQUEZ ERWIN MD Jan 08, 2017 17:39
--- NOTE | 2017-01-08 17:41 | PN ---
Date/Time of Note Date/Time of Note DATE: 01/08/17 TIME: 17:39 Assessment/Plan VTE Prophylaxis VTE Prophylaxis Intervention: SCD's Lines/Catheters IV Catheter Type (from Nrs): Saline Lock Urinary Cath still in place: No Assessment/Plan Assessment/Plan 1. 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 PLAN Oncology following, pending final result of patholgoy plan for chemotherapy will follow up Exam/Review of Systems Vital Signs Vitals Vital Signs Date Time Temp Pulse Resp B/P Pulse Ox O2 Delivery O2 Flow Rate FiO2 01/08/17 08:18 98.6 85 15 114/76 96 Intake and Output 01/07/17 01/07/17 01/08/17 15:00 23:00 07:00 Intake Total 820 ml 700 ml Balance 820 ml 700 ml Exam Constitutional: alert, oriented, well developed Psych: nl mood/affect, no complaints Head: atraumatic, normocephalic Eyes: EOMI, PERRL Neck: non-tender, supple Respiratory: clear to auscultation, normal air movement Cardiovascular: nl pulses, regular rate and rhythm Gastrointestinal: soft, tender on right side Extremities: normal pulses Results Result Diagram: 01/05/17 0500 01/05/17 0500 Medications Medications Current Medications Ondansetron HCl (Zofran Inj) 4 mg Q6H PRN IV NAUSEA AND/OR VOMITING Last administered on 01/08/17 13:41; Admin Dose 4 MG; Start 01/03/17 at 13:00 Acetaminophen (Tylenol Tab) 650 mg Q6H PRN PO PAIN LEVEL 1-3 OR FEVER; Start at 13:00 Acetaminophen/ Hydrocodone Bitart ([place] (5/325)) 1 tab Q6H PRN PO MODERATE PAIN LEVEL 4-6 Last administered on 01/08/17 05:02; Admin Dose 1 TAB; Start at 13:00 Morphine Sulfate (morphine) 2 mg Q4H PRN IV SEVERE PAIN LEVEL 7-10 Last administered on 01/06/17 17:19; Admin Dose 2 MG; Start 01/03/17 at 13:00 Enoxaparin Sodium (Lovenox) 40 mg DAILY SC Last administered on 01/08/17 08:54 ; Admin Dose 40 MG; Start 01/05/17 at 09:00 Lorazepam (Ativan) 1 mg Q4H PRN PO ANXIETY Last administered on 01/06/17 20:16 ; Admin Dose 1 MG; Start 01/06/17 at 17:00 Hydromorphone HCl (Dilaudid) 1 mg Q4H PRN IV PAIN Last administered on 15:53; Admin Dose 1 MG; Start 01/06/17 at 18:00 Zolpidem Tartrate (Ambien) 10 mg HS PRN PO INSOMNIA; Start 01/06/17 at 18:00 Hydromorphone HCl (Dilaudid) 1 mg Q4H PRN IV PAIN; Start 01/07/17 at 20:30 AGGIE LEAHY MD Jan 08, 2017 17:40
[2017-01-08] MEDS ORDERED: LIDOCAINE 1% (MPF) 5 ML VIAL SC ONE (18:30)
[2017-01-08 19:40] VITALS: BP 128/79; RESP 16
[2017-01-08 20:51] VITALS: BP 128/79; RESP 19
[2017-01-08 21:30] VITALS: PULSE 95
[2017-01-08 23:07] VITALS: BP 133/79; RESP 18
[2017-01-08] MEDS: LORAZEPAM 1 MG TAB PO PRN (23:47)
[2017-01-09] MEDS: HYDROmorphONE 1 MG/ML SYG IV PRN ×5 (03:20→20:31)
[2017-01-09 05:18] LABS: ADD SCAN DIFF NO
[2017-01-09 05:31] LABS: ABNORMAL IP MESSAGE 1; HEMATOCRIT 36.8 % (42.0-52.0); HEMOGLOBIN 12.3 g/dl (14.0-18.0); MEAN CORPUSCULAR HEMOGLOBIN 28.5 pg (29.0-33.0); MEAN CORPUSCULAR HGB CONC 33.4 g/dl (32.0-37.0); MEAN CORPUSCULAR VOLUME 85.4 fl (82.0-101.0); MEAN PLATELET VOLUME 11.8 fl (7.4-10.4); RED BLOOD COUNT 4.31 10^6/ul (4.70-6.10); WHITE BLOOD COUNT 8.1 10^3/ul (4.8-10.8)
[2017-01-09 05:45] LABS: PLATELET COUNT 133 10^3/UL (140-415)
[2017-01-09 05:46] LABS: ALBUMIN 4.1 g/dl (3.3-4.9); ALBUMIN/GLOBULIN RATIO 1.05; BILIRUBIN,INDIRECT 0.2 mg/dl (0-1.1); BILIRUBIN,TOTAL 0.2 mg/dl (0.2-1.3); CALCIUM 9.1 mg/dl (8.4-10.2); CREATININE 0.65 mg/dl (0.61-1.24); POTASSIUM 4.1 mmol/L (3.5-5.1)
[2017-01-09] MEDS: HYDROCODONE/APAP (5/325) TAB PO PRN ×2 (05:51→19:42)
[2017-01-09 06:00] LABS: INR 1.16; PROTIME 14.8 Sec (12.2-14.2); PT RATIO 1.2
[2017-01-09 06:01] LABS: PARTIAL THROMBOPLASTIN TIME 29.9 Sec (25.0-35.0)
[2017-01-09 07:36] VITALS: BP 120/75; RESP 19
[2017-01-09 08:48] LABS: EOSINOPHILS # 0.1 10^3/ul (0.0-0.5); LYMPHOCYTES # 1.4 10^3/ul (0.8-2.9); MONOCYTE # 1.1 10^3/ul (0.3-0.9); MYELOCYTES # 0.1; NEUTROPHIL # 4.6 10^3/ul (1.6-7.5)
[2017-01-09] MEDS: ENOXAPARIN 40 MG/0.4 ML SYG SC SCH (08:51)
[2017-01-09 09:21] LABS: ADD UMIC YES; UR ASCORBIC ACID NEGATIVE (NEGATIVE); UR BILIRUBIN (Dip) NEGATIVE (NEGATIVE); UR BLOOD (Dip) 1+ mg/dL (NEGATIVE); UR CLARITY CLEAR (CLEAR); UR COLOR YELLOW (YELLOW); UR GLUCOSE (Dip) NEGATIVE (NEGATIVE); UR KETONES (Dip) NEGATIVE (NEGATIVE); UR LEUKOCYTE ESTERASE (Dip) NEGATIVE Leu/ul (NEGATIVE); UR NITRITE (Dip) NEGATIVE (NEGATIVE); UR RBC 1 /HPF (0-5); UR SPECIFIC GRAVITY (Dip) 1.012 (1.003-1.030); UR TOTAL PROTEIN (Dip) NEGATIVE (NEGATIVE); UR UROBILINOGEN (Dip) NEGATIVE (NEGATIVE)
[2017-01-09] MEDS: LORAZEPAM 1 MG TAB PO PRN (10:33)
--- NOTE | 2017-01-09 17:24 | PN ---
Date/Time of Note Date/Time of Note DATE: 01/09/17 TIME: 17:23 Assessment/Plan VTE Prophylaxis VTE Prophylaxis Intervention: SCD's Lines/Catheters IV [facility] Saline Lock Urinary Cath still in place: No Assessment/Plan Assessment/Plan 1. 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 PLAN Oncology following, plan for chemotherapy PICC line placement will follow up Subjective 24 Hr Interval Summary Free Text/Dictation plan for PICC line today, BP stable Exam/Review of Systems Vital Signs Vitals Vital Signs Date Time Temp Pulse Resp B/P Pulse Ox O2 Delivery O2 Flow Rate FiO2 01/09/17 07:36 98.5 79 19 120/75 98 Intake and Output 01/08/17 01/08/17 01/09/17 15:00 23:00 07:00 Intake Total 1440 ml 800 ml Balance 1440 ml 800 ml Exam Constitutional: alert, oriented, well developed Psych: nl mood/affect, no complaints Head: atraumatic, normocephalic Eyes: EOMI, PERRL Neck: non-tender, supple Respiratory: clear to auscultation, normal air movement Cardiovascular: nl pulses, regular rate and rhythm Gastrointestinal: soft, tender on right side Extremities: normal pulses Results Result Diagram: 01/09/177 01/09/17446 Results 24 hrs Laboratory Tests Test 01/09/17 04:47 01/09/17 05:42 White Blood Count 8.1 Red Blood Count 4.31 L Hemoglobin 12.3 L Hematocrit 36.8 L Mean Corpuscular Volume 85.4 Mean Corpuscular Hemoglobin 28.5 L Mean Corpuscular Hemoglobin Concent 33.4 Red Cell Distribution Width 13.0 Platelet Count 133 #L Mean Platelet Volume 11.8 H Neutrophils % 57.0 Band Neutrophils % 5.0 Lymphocytes % 17.0 Monocytes % 13.0 H Eosinophils % 1.0 Metamyelocytes % 4.0 H Myelocytes % 1.0 H Promyelocytes % 2.0 H Neutrophils # 4.6 Lymphocytes # 1.4 Monocytes # 1.1 H Eosinophils # 0.1 Metamyelocytes # 0.3 Myelocytes # 0.1 Promyelocytes # 0.2 Prothrombin Time 14.8 H Prothrombin Time Ratio 1.2 INR International Normalized Ratio 1.16 Activated Partial Thromboplast Time 29.9 Sodium Level 136 Potassium Level 4.1 Chloride Level 97 Carbon Dioxide Level 29 Anion Gap 14 Blood Urea Nitrogen 9 Creatinine 0.65 Glucose Level 88 Calcium Level 9.1 Magnesium Level 2.1 Total Bilirubin 0.2 Direct Bilirubin 0.00 Indirect Bilirubin 0.2 Aspartate Amino Transf (AST/SGOT) 41 Alanine Aminotransferase (ALT/SGPT) 55 Alkaline Phosphatase 171 H Total Protein 8.0 Albumin 4.1 Globulin 3.90 H Albumin/Globulin Ratio 1.05 Urine Color YELLOW Urine Clarity CLEAR Urine pH 6.0 Urine Specific [place] 1.012 Urine Ketones NEGATIVE Urine Nitrite NEGATIVE Urine Bilirubin NEGATIVE Urine Urobilinogen NEGATIVE Urine Leukocyte Esterase NEGATIVE Urine Microscopic RBC 1 Urine Microscopic WBC 1 Urine Hemoglobin 1+ H Urine Glucose NEGATIVE Urine Total Protein NEGATIVE Medications Medications Current Medications Ondansetron HCl (Zofran Inj) 4 mg Q6H PRN IV NAUSEA AND/OR VOMITING Last administered on 01/08/17 13:41; Admin Dose 4 MG; Start 01/03/17 at 13:00 Acetaminophen (Tylenol Tab) 650 mg Q6H PRN PO PAIN LEVEL 1-3 OR FEVER; Start at 13:00 Acetaminophen/ Hydrocodone Bitart ([place] (5/325)) 1 tab Q6H PRN PO MODERATE PAIN LEVEL 4-6 Last administered on 01/09/17 05:51; Admin Dose 1 TAB; Start at 13:00 Morphine Sulfate (morphine) 2 mg Q4H PRN IV SEVERE PAIN LEVEL 7-10 Last administered on 01/06/17 17:19; Admin Dose 2 MG; Start 01/03/17 at 13:00 Enoxaparin Sodium (Lovenox) 40 mg DAILY SC Last administered on 01/08/17 08:54 ; Admin Dose 40 MG; Start 01/05/17 at 09:00 Lorazepam (Ativan) 1 mg Q4H PRN PO ANXIETY Last administered on 01/09/17 10:33 ; Admin Dose 1 MG; Start 01/06/17 at 17:00 Hydromorphone HCl (Dilaudid) 1 mg Q4H PRN IV PAIN Last administered on 16:41; Admin Dose 1 MG; Start 01/06/17 at 18:00 Zolpidem Tartrate (Ambien) 10 mg HS PRN PO INSOMNIA; Start 01/06/17 at 18:00 Hydromorphone HCl (Dilaudid) 1 mg Q4H PRN IV PAIN; Start 01/07/17 at 20:30 AGGIE LEAHY MD Jan 09, 2017 17:24
[2017-01-09 20:03] VITALS: BP 126/71; RESP 20
--- NOTE | 2017-01-09 21:17 | CONS ---
Date/Time of Note Date/Time of Note DATE: 01/09/17 TIME: 21:17 Assessment/Plan Assessment/Plan Chief Complaint/Hosp Course Metastatic mixed germ cell tumor, non-seminomatous. with Massive retroperitoneal lymphadenopathy, Peripancreatic and retrocrural lymphadenopathy, Multiple bilateral pulmonary nodules. The largest conglomeration of lymph nodes measures approximately 7.3 x 11.7 x 13.2 cm. TUMOR MARKERS- REVIEWED [facility]- VERY HIGH CT CHEST- 1. Significant retroperitoneal, right supraclavicular, and right hilar lymphadenopathy consistent with metastatic disease. 2. Diffuse pulmonary nodules are also consistent with metastatic disease 3. Hypoenhancing hepatic lesions may be a combination of metastatic disease and hemangiomas. An MRI with and without contrast may be useful to delineate if clinically indicated. path -Retroperitoneal mass, CT-guided core needle biopsies: reviewed PLAN CHEMO- for METASTATIC nonseminomatous germ cell tumors For patients with nonseminomatous GCT, we suggest four cycles of chemotherapy as the initial therapy, rather than surgery or RT We recommend VIP rather than BEP because of the increased risk of bleomycin pulmonary toxicity should surgery eventually be required BEP can be considered as an alternative if bone marrow toxicity is a particular concern. For patients with a residual mediastinal mass following initial chemotherapy, we recommend complete surgical resection, if technically feasible If viable malignancy is identified, we suggest two additional cycles of VIP chemotherapy TRANSFERRED TO ONCOLOGY PICC LINE CHEMO D/W IN DETAILS ANEMIA, N- CYTIC WITH N RDW + COMPONENT ACD THROMBOCYTOPENIA MONITOR VIP REGIMEN- Cycle length: 21 days. Total cycles: 4. Drug Dose and route Administration Given on days Cisplatin 20 mg/m2 IV per day Dilute with 250 mL normal saline (NS) and administer over one hour. Do not administer with aluminum needles or intravenous sets. Days 1 to 5 Etoposide* 75 mg/m2 IV per day Dilute with 500 mL NS (concentration less than 0.4 mg/mL) and administer over one hour. Days 1 to 5 Ifosfamide* 1200 mg/m2 per day continuous IV infusion Dilute with NS for injection to a final concentration of 0.6 to 20 mg/mL and infuse over 24 hours. Can mix with Mesna. Days 1 to 5 Mesna 120 mg/m2 IV Dilute with NS for injection and administer via slow IV push prior to day 1 infusion of ifosfamide. Total concentration of mesna should not exceed 20 mg/mL. Day 1 Mesna? 1200 mg/m2 per day continuous IV infusion Dilute with NS for injection and administer as continuous infusion over 24 hours[2]. Total concentration of mesna should not exceed 20 mg/mL. Can mix with ifosfamide. Days 1 to 5 Pretreatment considerations: Hydration: Induction of diuresis using intravenous NS minimizes the risk of cisplatin nephrotoxicity. At least 2000 mL of NS should be administered at a rate of 100 to 125 mL per hour throughout the five days of treatment and continued for at least two hours after the last dose of cisplatin. Refer to UpToDate topic on "Cisplatin nephrotoxicity". Emesis risk: HIGH (>90 percent frequency of emesis). Aprepitant can be given orally (125 mg on day 1, 80 mg on days 2 and 3) with ondansetron, prochlorperazine, and dexamethasone daily. Refer to UpToDate topic on "Prevention and treatment of chemotherapy-induced nausea and vomiting in adults ". Vesicant/irritant properties: Cisplatin is an irritant but can cause significant tissue damage; avoid extravasation[3]. Refer to UpToDate topic on "Extravasation injury from chemotherapy and other non-antineoplastic vesicants" . Infection prophylaxis: Primary prophylaxis with granulocyte colony stimulating factors was administered as a routine component of this regimen[1]. Refer to UpToDate topic on "Use of granulocyte colony stimulating factors in adult patients with chemotherapy-induced neutropenia and conditions other than acute leukemia, myelodysplastic syndrome, and hematopoietic cell transplantation ". Dose adjustment for baseline liver or renal dysfunction: Dose adjustment in the setting of baseline renal impairment (ie, creatinine >3.0 mg/dL or GFR <50 mL/min) requires a balanced discussion of the goals of treatment and the risks of cisplatin. Refer to UpToDate topics on "Chemotherapy hepatotoxicity and dose modification in patients with liver disease" and "Chemotherapy-related nephrotoxicity and dose modification in patients with renal insufficiency". Monitoring parameters: CBC with differential and platelet count weekly during treatment. Basic metabolic panel (creatinine and electrolytes) prior to each treatment cycle. Liver function tests prior to each treatment cycle. Cisplatin is associated with significant nephrotoxicity. Ifosfamide is associated with cumulative nephrotoxicity, mostly at a total dose above 60 grams /m2. Clinical manifestations may include hypophosphatemia, renal potassium wasting, metabolic acidosis with a normal ion gap, and rarely, polyuria due to nephrogenic diabetes insipidus. Assess creatinine and electrolytes, including potassium and phosphate, daily during treatment and prior to each subsequent treatment cycle. Refer to UpToDate topic on "Ifosfamide nephrotoxicity". Mesna does not prevent hemorrhagic cystitis in all patients[2]. Monitor a morning specimen of urine for hematuria daily, on days 1 through 5. Refer to UpToDate topic on "Cystitis in patients with cancer". Monitor for neurotoxicity (confusion, coma, rarely seizures, weakness, neuropathy, ataxia, cranial nerve dysfunction) daily, on days 1 through 5. Central nervous system side effects may be especially problematic for those over age 60. Refer to UpToDate topic on "Overview of neurologic complications of non-poarch cancer chemotherapy". Monitor vital signs during etoposide infusion. Monitor for hearing loss prior to each dose of cisplatin; audiometry as clinically indicated. Suggested dose alterations for toxicity: Myelotoxicity: Reduce doses of etoposide and ifosfamide each by 25 percent for subsequent cycles for granulocytopenic fever or thrombocytopenic bleeding with the previous course of therapy[1]. Neurotoxicity: Neuropathy usually is seen after cumulative doses of cisplatin beyond 400 mg/m2, although there is marked interindividual variation. Patients with mild neuropathy can continue to receive full cisplatin doses. However, if the neuropathy interferes with function, the risk of potentially disabling neurotoxicity must be weighed against the benefit of continued treatment[3]. Refer to UpToDate topic on "Overview of neurologic complications of poarch- based chemotherapy". Nephrotoxicity: It is recommended that subsequent doses of cisplatin be withheld until the serum creatinine is less than 3.0 mg/dL. If there is a change in body weight of at least 10 percent, doses should be recalculated. IV: intravenous; GFR: glomerular filtration rate; CBC: complete blood count. * The initial protocol included empiric reduction of etoposide and ifosfamide doses by 25 percent for patients who have received prior radiation therapy[1]. ? Due to a longer half-life of ifosfamide and associated metabolites at higher doses, some references recommend continuation of mesna for 12 to 24 hours beyond completion of ifosfamide to reduce the risk of hemorrhagic cystitis[2]. References: Matt GRAHAM, et al. J Clin Oncol 1998; 16:1287. MESNA injection. [place] Prescribing Information. [place] National Library of Medicine. (Available online at [email or web address].nih.gov, accessed July 04, 2011) . Cisplatin injection, powder, lyophilized, for solution. [place] Prescribing Information. [place] National Library of Medicine. (Available online at [email or web address].nih.gov, accessed on July 04, 2011). Graphic 86307 Version 11.0 Problems: Consultation Date/Type/Reason Admit Date/Time Jan 03, 2017 at 10:48 Initial Consult Date 01/03/17 Type of Consultation: HEMEONC Referring Provider: EMELI CHRISTIE 24 HR Interval Summary Free Text/Dictation family conference Exam/Review of Systems Vital Signs Vitals Vital Signs Date Time Temp Pulse Resp B/P Pulse Ox O2 Delivery O2 Flow Rate FiO2 01/09/17 20:03 99.6 99 20 126/71 98 Intake and Output 01/08/17 01/08/17 01/09/17 15:00 23:00 07:00 Intake Total 1440 ml 800 ml Balance 1440 ml 800 ml Exam Constitutional: alert, oriented, well developed Psych: nl mood/affect, no complaints Head: atraumatic, normocephalic Eyes: EOMI, PERRL Neck: non-tender, supple Respiratory: clear to auscultation, normal air movement Cardiovascular: nl pulses, regular rate and rhythm Gastrointestinal: soft, tender on right side Extremities: normal pulses Results Result Diagram: 01/09/17 0447 01/09/177 Results 24 hrs Laboratory Tests Test 01/09/17 04:47 01/09/17 05:42 White Blood Count 8.1 Red Blood Count 4.31 L Hemoglobin 12.3 L Hematocrit 36.8 L Mean Corpuscular Volume 85.4 Mean Corpuscular Hemoglobin 28.5 L Mean Corpuscular Hemoglobin Concent 33.4 Red Cell Distribution Width 13.0 Platelet Count 133 #L Mean Platelet Volume 11.8 H Neutrophils % 57.0 Band Neutrophils % 5.0 Lymphocytes % 17.0 Monocytes % 13.0 H Eosinophils % 1.0 Metamyelocytes % 4.0 H Myelocytes % 1.0 H Promyelocytes % 2.0 H Neutrophils # 4.6 Lymphocytes # 1.4 Monocytes # 1.1 H Eosinophils # 0.1 Metamyelocytes # 0.3 Myelocytes # 0.1 Promyelocytes # 0.2 Prothrombin Time 14.8 H Prothrombin Time Ratio 1.2 INR International Normalized Ratio 1.16 Activated Partial Thromboplast Time 29.9 Sodium Level 136 Potassium Level 4.1 Chloride Level 97 Carbon Dioxide Level 29 Anion Gap 14 Blood Urea Nitrogen 9 Creatinine 0.65 Glucose Level 88 Calcium Level 9.1 Magnesium Level 2.1 Total Bilirubin 0.2 Direct Bilirubin 0.00 Indirect Bilirubin 0.2 Aspartate Amino Transf (AST/SGOT) 41 Alanine Aminotransferase (ALT/SGPT) 55 Alkaline Phosphatase 171 H Total Protein 8.0 Albumin 4.1 Globulin 3.90 H Albumin/Globulin Ratio 1.05 Urine Color YELLOW Urine Clarity CLEAR Urine pH 6.0 Urine Specific [place] 1.012 Urine Ketones NEGATIVE Urine Nitrite NEGATIVE Urine Bilirubin NEGATIVE Urine Urobilinogen NEGATIVE Urine Leukocyte Esterase NEGATIVE Urine Microscopic RBC 1 Urine Microscopic WBC 1 Urine Hemoglobin 1+ H Urine Glucose NEGATIVE Urine Total Protein NEGATIVE Medications Medications Current Medications Ondansetron HCl (Zofran Inj) 4 mg Q6H PRN IV NAUSEA AND/OR VOMITING Last administered on 01/08/17 13:41; Admin Dose 4 MG; Start 01/03/17 at 13:00 Acetaminophen (Tylenol Tab) 650 mg Q6H PRN PO PAIN LEVEL 1-3 OR FEVER; Start at 13:00 Acetaminophen/ Hydrocodone Bitart ([place] (5/325)) 1 tab Q6H PRN PO MODERATE PAIN LEVEL 4-6 Last administered on 01/09/17 19:42; Admin Dose 1 TAB; Start at 13:00 Morphine Sulfate (morphine) 2 mg Q4H PRN IV SEVERE PAIN LEVEL 7-10 Last administered on 01/06/17 17:19; Admin Dose 2 MG; Start 01/03/17 at 13:00 Enoxaparin Sodium (Lovenox) 40 mg DAILY SC Last administered on 01/08/17 08:54 ; Admin Dose 40 MG; Start 01/05/17 at 09:00 Lorazepam (Ativan) 1 mg Q4H PRN PO ANXIETY Last administered on 01/09/17 10:33 ; Admin Dose 1 MG; Start 01/06/17 at 17:00 Hydromorphone HCl (Dilaudid) 1 mg Q4H PRN IV PAIN Last administered on 20:31; Admin Dose 1 MG; Start 01/06/17 at 18:00 Zolpidem Tartrate (Ambien) 10 mg HS PRN PO INSOMNIA; Start 01/06/17 at 18:00 Hydromorphone HCl (Dilaudid) 1 mg Q4H PRN IV PAIN; Start 01/07/17 at 20:30 MARQUEZ VERA MD Jan 09, 2017 21:17
[2017-01-10] VITALS (10 sets, daily range): BP systolic 116–138; BP diastolic 60–80; PULSE 90–98; RESP 16–20
[2017-01-10] MEDS: HYDROmorphONE 1 MG/ML SYG IV PRN ×8 (00:47→22:31)
[2017-01-10] MEDS: ONDANSETRON 4 MG INJ IV PRN (00:51)
[2017-01-10] MEDS ORDERED: PANTOPRAZOLE 40 MG INJ IV ONE (01:21)
[2017-01-10] MEDS: HYDROCODONE/APAP (5/325) TAB PO PRN ×3 (03:30→18:52)
[2017-01-10] MEDS: LORAZEPAM 1 MG TAB PO PRN (04:03)
[2017-01-10 05:25] LABS: ADD SCAN DIFF NO
[2017-01-10 05:37] LABS: ABNORMAL IP MESSAGE 1; BASOPHIL # 0.1 10^3/ul (0.0-0.1); BASOPHILS % 0.6 % (0.0-2.0); EOSINOPHILS % 0.5 % (0.0-7.0); HEMATOCRIT 35.8 % (42.0-52.0); HEMOGLOBIN 11.9 g/dl (14.0-18.0); LYMPHOCYTES # 1.1 10^3/ul (0.8-2.9); MEAN CORPUSCULAR HEMOGLOBIN 28.3 pg (29.0-33.0); MEAN CORPUSCULAR HGB CONC 33.2 g/dl (32.0-37.0); MONOCYTE # 1.2 10^3/ul (0.3-0.9); MONOCYTES % 14.3 % (0.0-11.0); NEUTROPHIL # 4.9 10^3/ul (1.6-7.5); PLATELET COUNT 161 10^3/UL (140-415); RED BLOOD COUNT 4.21 10^6/ul (4.70-6.10); RED CELL DISTRIBUTION WIDTH 12.6 % (11.5-14.5); WHITE BLOOD COUNT 8.4 10^3/ul (4.8-10.8)
[2017-01-10 06:11] LABS: ALBUMIN 4.1 g/dl (3.3-4.9); ALBUMIN/GLOBULIN RATIO 1.17; BILIRUBIN,INDIRECT 0.2 mg/dl (0-1.1); BILIRUBIN,TOTAL 0.2 mg/dl (0.2-1.3); CALCIUM 8.7 mg/dl (8.4-10.2); CREATININE 0.62 mg/dl (0.61-1.24); POTASSIUM 4.2 mmol/L (3.5-5.1); TOTAL PROTEIN 7.6 g/dl (6.1-8.1)
[2017-01-10] MEDS: ENOXAPARIN 40 MG/0.4 ML SYG SC SCH ×2 (09:00→17:15)
[2017-01-10 10:02] LABS: ADD UMIC YES; UR ASCORBIC ACID NEGATIVE (NEGATIVE); UR BILIRUBIN (Dip) NEGATIVE (NEGATIVE); UR BLOOD (Dip) 1+ mg/dL (NEGATIVE); UR CLARITY CLEAR (CLEAR); UR COLOR YELLOW (YELLOW); UR GLUCOSE (Dip) NEGATIVE (NEGATIVE); UR KETONES (Dip) NEGATIVE (NEGATIVE); UR LEUKOCYTE ESTERASE (Dip) NEGATIVE Leu/ul (NEGATIVE); UR NITRITE (Dip) NEGATIVE (NEGATIVE); UR RBC 1 /HPF (0-5); UR SPECIFIC GRAVITY (Dip) 1.009 (1.003-1.030); UR TOTAL PROTEIN (Dip) NEGATIVE (NEGATIVE); UR UROBILINOGEN (Dip) NEGATIVE (NEGATIVE)
[2017-01-10] MEDS ORDERED: SOD CHLORIDE 0.9% 100 ML ONE (13:32)
[2017-01-10] MEDS ORDERED: LIDOCAINE 1% (MPF) 5 ML VIAL SC ONE (14:00)
--- NOTE | 2017-01-10 14:45 | RADRPT ---
PROCEDURE: XR Chest. CLINICAL INDICATION: Check Line Placement TECHNIQUE: Single frontal view of the chest was obtained. COMPARISON: None. FINDINGS: A left-sided PICC line is noted with its tip in the mid SVC. The heart and mediastinum are within normal limits. There are numerous scattered round lesions suspicious for metastases throughout bilateral lungs jimmie uring up to 3 cm in the left lower lung zone. There is no significant pleural effusion or pneumothorax. IMPRESSION: Left-sided PICC line with its tip in the mid SVC. Scattered likely pulmonary metastases measuring up to 3 cm, as above. RPTAT: EE Physician Shari Date Time Electronically viewed and signed by Physician Shari on 01/10/2017 14:44 /
--- NOTE | 2017-01-10 14:48 | PN ---
Date/Time of Note Date/Time of Note DATE: 01/10/17 TIME: 14:44 Assessment/Plan VTE Prophylaxis VTE Prophylaxis Intervention: LMWH, SCD's Lines/Catheters IV Catheter Type (from Nrsg): PICC Line Central line still needed: Yes (for chemoterhapy access ) Urinary Cath still in place: No Assessment/Plan Assessment/Plan 1. 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 2. Hyperlipidemia 3. H/o GERD- on Protonix and sucralfate at home PLAN has a PICC line for chemo access Chemo plan today as per hematolgoy oncology Lipitor for HL resumed home medication protonix and Sucralfate appreciate oncolgoy help Lovenox for DVT prophylaxis Subjective 24 Hr Interval Summary Free Text/Dictation S/p PICC line placement, Plan for chemotherapy Exam/Review of Systems Vital Signs Vitals Vital Signs Date Time Temp Pulse Resp B/P Pulse Ox O2 Delivery O2 Flow Rate FiO2 01/10/17 08:11 97.9 93 16 125/72 97 Intake and Output 01/09/17 01/09/17 01/10/17 15:00 23:00 07:00 Intake Total 2200 ml 480 ml Output Total 800 ml 1300 ml Balance 1400 ml -820 ml Exam Constitutional: alert, oriented, well developed Psych: nl mood/affect, no complaints Head: atraumatic, normocephalic Eyes: EOMI, PERRL Neck: non-tender, supple Respiratory: clear to auscultation, normal air movement Cardiovascular: nl pulses, regular rate and rhythm Gastrointestinal: soft, tender on right side Extremities: normal pulses Results Result Diagram: 01/10/17 0445 01/10/17 0445 Results 24 hrs Laboratory Tests Test 01/10/17 04:45 01/10/17 07:45 White Blood Count 8.4 Red Blood Count 4.21 L Hemoglobin 11.9 L Hematocrit 35.8 L Mean Corpuscular Volume 85.0 Mean Corpuscular Hemoglobin 28.3 L Mean Corpuscular Hemoglobin Concent 33.2 Red Cell Distribution Width 12.6 Platelet Count 161 # Mean Platelet Volume 12.0 H Neutrophils % 58.0 Lymphocytes % 13.0 L Monocytes % 14.3 H Eosinophils % 0.5 Basophils % 0.6 Nucleated Red Blood Cells % 0.0 Neutrophils # 4.9 Lymphocytes # 1.1 Monocytes # 1.2 H Eosinophils # 0.0 Basophils # 0.1 Nucleated Red Blood Cells # 0.0 Sodium Level 132 L Potassium Level 4.2 Chloride Level 95 L Carbon Dioxide Level 29 Anion Gap 12 Blood Urea Nitrogen 9 Creatinine 0.62 Glucose Level 95 Calcium Level 8.7 Total Bilirubin 0.2 Direct Bilirubin 0.00 Indirect Bilirubin 0.2 Aspartate Amino Transf (AST/SGOT) 45 Alanine Aminotransferase (ALT/SGPT) 69 Alkaline Phosphatase 219 H Total Protein 7.6 Albumin 4.1 Globulin 3.50 H Albumin/Globulin Ratio 1.17 Urine Color YELLOW Urine Clarity CLEAR Urine pH 7.0 Urine Specific [place] 1.009 Urine Ketones NEGATIVE Urine Nitrite NEGATIVE Urine Bilirubin NEGATIVE Urine Urobilinogen NEGATIVE Urine Leukocyte Esterase NEGATIVE Urine Microscopic RBC 1 Urine Microscopic WBC 1 Urine Hemoglobin 1+ H Urine Glucose NEGATIVE Urine Total Protein NEGATIVE Medications Medications Current Medications Ondansetron HCl (Zofran Inj) 4 mg Q6H PRN IV NAUSEA AND/OR VOMITING Last administered on 01/10/17 00:51; Admin Dose 4 MG; Start 01/03/17 at 13:00 Acetaminophen (Tylenol Tab) 650 mg Q6H PRN PO PAIN LEVEL 1-3 OR FEVER; Start at 13:00 Acetaminophen/ Hydrocodone Bitart ([place] (5/325)) 1 tab Q6H PRN PO MODERATE PAIN LEVEL 4-6 Last administered on 01/10/17 10:40; Admin Dose 1 TAB; Start at 13:00 Morphine Sulfate (morphine) 2 mg Q4H PRN IV SEVERE PAIN LEVEL 7-10 Last administered on 01/06/17 17:19; Admin Dose 2 MG; Start 01/03/17 at 13:00 Enoxaparin Sodium (Lovenox) 40 mg DAILY SC Last administered on 01/08/17 08:54 ; Admin Dose 40 MG; Start 01/05/17 at 09:00 Lorazepam (Ativan) 1 mg Q4H PRN PO ANXIETY Last administered on 01/10/17 04:03 ; Admin Dose 1 MG; Start 01/06/17 at 17:00 Zolpidem Tartrate (Ambien) 10 mg HS PRN PO INSOMNIA; Start 01/06/17 at 18:00 Hydromorphone HCl (Dilaudid) 1 mg Q4H PRN IV PAIN; Start 01/07/17 at 20:30 Aspirin (Halfprin) 81 mg DAILY PO ; Start 01/11/17 at 09:00 Isosorbide Mononitrate (Imdur) 60 mg DAILY PO ; Start 01/11/17 at 09:00 Pantoprazole (Protonix Tab) 40 mg DAILY PO ; Start 01/11/17 at 09:00 Sucralfate (Carafate) 1 gm TID PO ; Start 01/10/17 at 21:00 AGGIE LEAHY MD Jan 10, 2017 14:48
--- NOTE | 2017-01-10 14:54 | CONS ---
Date/Time of Note Date/Time of Note DATE: 01/10/17 TIME: 14:54 Assessment/Plan Assessment/Plan Chief Complaint/Hosp Course Metastatic mixed germ cell tumor, non-seminomatous. with Massive retroperitoneal lymphadenopathy, Peripancreatic and retrocrural lymphadenopathy, Multiple bilateral pulmonary nodules. The largest conglomeration of lymph nodes measures approximately 7.3 x 11.7 x 13.2 cm. TUMOR MARKERS- REVIEWED [facility]- VERY HIGH CT CHEST- 1. Significant retroperitoneal, right supraclavicular, and right hilar lymphadenopathy consistent with metastatic disease. 2. Diffuse pulmonary nodules are also consistent with metastatic disease 3. Hypoenhancing hepatic lesions may be a combination of metastatic disease and hemangiomas. An MRI with and without contrast may be useful to delineate if clinically indicated. path -Retroperitoneal mass, CT-guided core needle biopsies: reviewed PLAN CHEMO- for METASTATIC nonseminomatous germ cell tumors For patients with nonseminomatous GCT, we suggest four cycles of chemotherapy as the initial therapy, rather than surgery or RT We recommend VIP rather than BEP because of the increased risk of bleomycin pulmonary toxicity should surgery eventually be required BEP can be considered as an alternative if bone marrow toxicity is a particular concern. For patients with a residual mediastinal mass following initial chemotherapy, we recommend complete surgical resection, if technically feasible If viable malignancy is identified, we suggest two additional cycles of VIP chemotherapy TRANSFERRED TO ONCOLOGY PICC LINE CHEMO D/W IN DETAILS ANEMIA, N- CYTIC WITH N RDW + COMPONENT ACD THROMBOCYTOPENIA MONITOR VIP REGIMEN- Cycle length: 21 days. Total cycles: 4. Drug Dose and route Administration Given on days Cisplatin 20 mg/m2 IV per day Dilute with 250 mL normal saline (NS) and administer over one hour. Do not administer with aluminum needles or intravenous sets. Days 1 to 5 Etoposide* 75 mg/m2 IV per day Dilute with 500 mL NS (concentration less than 0.4 mg/mL) and administer over one hour. Days 1 to 5 Ifosfamide* 1200 mg/m2 per day continuous IV infusion Dilute with NS for injection to a final concentration of 0.6 to 20 mg/mL and infuse over 24 hours. Can mix with Mesna. Days 1 to 5 Mesna 120 mg/m2 IV Dilute with NS for injection and administer via slow IV push prior to day 1 infusion of ifosfamide. Total concentration of mesna should not exceed 20 mg/mL. Day 1 Mesna? 1200 mg/m2 per day continuous IV infusion Dilute with NS for injection and administer as continuous infusion over 24 hours[2]. Total concentration of mesna should not exceed 20 mg/mL. Can mix with ifosfamide. Days 1 to 5 Pretreatment considerations: Hydration: Induction of diuresis using intravenous NS minimizes the risk of cisplatin nephrotoxicity. At least 2000 mL of NS should be administered at a rate of 100 to 125 mL per hour throughout the five days of treatment and continued for at least two hours after the last dose of cisplatin. Refer to UpToDate topic on "Cisplatin nephrotoxicity". Emesis risk: HIGH (>90 percent frequency of emesis). Aprepitant can be given orally (125 mg on day 1, 80 mg on days 2 and 3) with ondansetron, prochlorperazine, and dexamethasone daily. Refer to UpToDate topic on "Prevention and treatment of chemotherapy-induced nausea and vomiting in adults ". Vesicant/irritant properties: Cisplatin is an irritant but can cause significant tissue damage; avoid extravasation[3]. Refer to UpToDate topic on "Extravasation injury from chemotherapy and other non-antineoplastic vesicants" . Infection prophylaxis: Primary prophylaxis with granulocyte colony stimulating factors was administered as a routine component of this regimen[1]. Refer to UpToDate topic on "Use of granulocyte colony stimulating factors in adult patients with chemotherapy-induced neutropenia and conditions other than acute leukemia, myelodysplastic syndrome, and hematopoietic cell transplantation ". Dose adjustment for baseline liver or renal dysfunction: Dose adjustment in the setting of baseline renal impairment (ie, creatinine >3.0 mg/dL or GFR <50 mL/min) requires a balanced discussion of the goals of treatment and the risks of cisplatin. Refer to UpToDate topics on "Chemotherapy hepatotoxicity and dose modification in patients with liver disease" and "Chemotherapy-related nephrotoxicity and dose modification in patients with renal insufficiency". Monitoring parameters: CBC with differential and platelet count weekly during treatment. Basic metabolic panel (creatinine and electrolytes) prior to each treatment cycle. Liver function tests prior to each treatment cycle. Cisplatin is associated with significant nephrotoxicity. Ifosfamide is associated with cumulative nephrotoxicity, mostly at a total dose above 60 grams /m2. Clinical manifestations may include hypophosphatemia, renal potassium wasting, metabolic acidosis with a normal ion gap, and rarely, polyuria due to nephrogenic diabetes insipidus. Assess creatinine and electrolytes, including potassium and phosphate, daily during treatment and prior to each subsequent treatment cycle. Refer to UpToDate topic on "Ifosfamide nephrotoxicity". Mesna does not prevent hemorrhagic cystitis in all patients[2]. Monitor a morning specimen of urine for hematuria daily, on days 1 through 5. Refer to UpToDate topic on "Cystitis in patients with cancer". Monitor for neurotoxicity (confusion, coma, rarely seizures, weakness, neuropathy, ataxia, cranial nerve dysfunction) daily, on days 1 through 5. Central nervous system side effects may be especially problematic for those over age 60. Refer to UpToDate topic on "Overview of neurologic complications of non-[place] cancer chemotherapy". Monitor vital signs during etoposide infusion. Monitor for hearing loss prior to each dose of cisplatin; audiometry as clinically indicated. Suggested dose alterations for toxicity: Myelotoxicity: Reduce doses of etoposide and ifosfamide each by 25 percent for subsequent cycles for granulocytopenic fever or thrombocytopenic bleeding with the previous course of therapy[1]. Neurotoxicity: Neuropathy usually is seen after cumulative doses of cisplatin beyond 400 mg/m2, although there is marked interindividual variation. Patients with mild neuropathy can continue to receive full cisplatin doses. However, if the neuropathy interferes with function, the risk of potentially disabling neurotoxicity must be weighed against the benefit of continued treatment[3]. Refer to UpToDate topic on "Overview of neurologic complications of [place]- based chemotherapy". Nephrotoxicity: It is recommended that subsequent doses of cisplatin be withheld until the serum creatinine is less than 3.0 mg/dL. If there is a change in body weight of at least 10 percent, doses should be recalculated. IV: intravenous; GFR: glomerular filtration rate; CBC: complete blood count. * The initial protocol included empiric reduction of etoposide and ifosfamide doses by 25 percent for patients who have received prior radiation therapy[1]. ? Due to a longer half-life of ifosfamide and associated metabolites at higher doses, some references recommend continuation of mesna for 12 to 24 hours beyond completion of ifosfamide to reduce the risk of hemorrhagic cystitis[2]. References: Matt GRAHAM, et al. J Clin Oncol 1998; 16:1287. MESNA injection. [place] Prescribing Information. [place] National Library of Medicine. (Available online at dailymed.Splice.nih.gov, accessed July 04, 2011) . Cisplatin injection, powder, lyophilized, for solution. [place] Prescribing Information. [place] National Library of Medicine. (Available online at [employer] Portal.Splice.nih.gov, accessed on July 04, 2011). Graphic 58022 Version 11.0 Problems: Consultation Date/Type/Reason Admit Date/Time Jan 03, 2017 at 10:48 Initial Consult Date 01/03/17 Type of Consultation: HEMEON Referring Provider: EMELI CHRISTIE 24 HR Interval Summary Free Text/Dictation all noted + abd pain Exam/Review of Systems Vital Signs Vitals Vital Signs Date Time Temp Pulse Resp B/P Pulse Ox O2 Delivery O2 Flow Rate FiO2 01/10/17 08:11 97.9 93 16 125/72 97 Intake and Output 01/09/17 01/09/17 01/10/17 15:00 23:00 07:00 Intake Total 2200 ml 480 ml Output Total 800 ml 1300 ml Balance 1400 ml -820 ml Exam Constitutional: alert, oriented, well developed Psych: nl mood/affect, no complaints Head: atraumatic, normocephalic Eyes: EOMI, PERRL Neck: non-tender, supple Respiratory: clear to auscultation, normal air movement Cardiovascular: nl pulses, regular rate and rhythm Gastrointestinal: soft, tender on right side Extremities: normal pulses Results Result Diagram: 01/10/17 0445 01/10/17 0445 Results 24 hrs Laboratory Tests Test 01/10/17 04:45 01/10/17 07:45 White Blood Count 8.4 Red Blood Count 4.21 L Hemoglobin 11.9 L Hematocrit 35.8 L Mean Corpuscular Volume 85.0 Mean Corpuscular Hemoglobin 28.3 L Mean Corpuscular Hemoglobin Concent 33.2 Red Cell Distribution Width 12.6 Platelet Count 161 # Mean Platelet Volume 12.0 H Neutrophils % 58.0 Lymphocytes % 13.0 L Monocytes % 14.3 H Eosinophils % 0.5 Basophils % 0.6 Nucleated Red Blood Cells % 0.0 Neutrophils # 4.9 Lymphocytes # 1.1 Monocytes # 1.2 H Eosinophils # 0.0 Basophils # 0.1 Nucleated Red Blood Cells # 0.0 Sodium Level 132 L Potassium Level 4.2 Chloride Level 95 L Carbon Dioxide Level 29 Anion Gap 12 Blood Urea Nitrogen 9 Creatinine 0.62 Glucose Level 95 Calcium Level 8.7 Total Bilirubin 0.2 Direct Bilirubin 0.00 Indirect Bilirubin 0.2 Aspartate Amino Transf (AST/SGOT) 45 Alanine Aminotransferase (ALT/SGPT) 69 Alkaline Phosphatase 219 H Total Protein 7.6 Albumin 4.1 Globulin 3.50 H Albumin/Globulin Ratio 1.17 Urine Color YELLOW Urine Clarity CLEAR Urine pH 7.0 Urine Specific [place] 1.009 Urine Ketones NEGATIVE Urine Nitrite NEGATIVE Urine Bilirubin NEGATIVE Urine Urobilinogen NEGATIVE Urine Leukocyte Esterase NEGATIVE Urine Microscopic RBC 1 Urine Microscopic WBC 1 Urine Hemoglobin 1+ H Urine Glucose NEGATIVE Urine Total Protein NEGATIVE Medications Medications Current Medications Ondansetron HCl (Zofran Inj) 4 mg Q6H PRN IV NAUSEA AND/OR VOMITING Last administered on 01/10/17 00:51; Admin Dose 4 MG; Start 01/03/17 at 13:00 Acetaminophen (Tylenol Tab) 650 mg Q6H PRN PO PAIN LEVEL 1-3 OR FEVER; Start at 13:00 Acetaminophen/ Hydrocodone Bitart ([place] (5/325)) 1 tab Q6H PRN PO MODERATE PAIN LEVEL 4-6 Last administered on 01/10/17 10:40; Admin Dose 1 TAB; Start at 13:00 Morphine Sulfate (morphine) 2 mg Q4H PRN IV SEVERE PAIN LEVEL 7-10 Last administered on 01/06/17 17:19; Admin Dose 2 MG; Start 01/03/17 at 13:00 Enoxaparin Sodium (Lovenox) 40 mg DAILY SC Last administered on 01/08/17 08:54 ; Admin Dose 40 MG; Start 01/05/17 at 09:00 Lorazepam (Ativan) 1 mg Q4H PRN PO ANXIETY Last administered on 01/10/17 04:03 ; Admin Dose 1 MG; Start 01/06/17 at 17:00 Zolpidem Tartrate (Ambien) 10 mg HS PRN PO INSOMNIA; Start 01/06/17 at 18:00 Aspirin (Halfprin) 81 mg DAILY PO ; Start 01/11/17 at 09:00 Isosorbide Mononitrate (Imdur) 60 mg DAILY PO ; Start 01/11/17 at 09:00 Pantoprazole (Protonix Tab) 40 mg DAILY PO ; Start 01/11/17 at 09:00 Sucralfate (Carafate) 1 gm TID PO ; Start 01/10/17 at 21:00 Atorvastatin Calcium (Lipitor) 20 mg HS PO ; Start 01/10/17 at 21:00 Hydromorphone HCl (Dilaudid) 1 mg Q2 PRN IV PAIN; Start 01/10/17 at 15:00; Status UNV MARQUEZ VERA MD Jan 10, 2017 14:54
--- NOTE | 2017-01-10 16:04 | RADRPT ---
PROCEDURE: Ultrasound guidance for placement of needle in left upper extremity vein. CLINICAL INDICATION: Venous access. TECHNIQUE: Limited sonography of the left upper extremity was performed. Ultrasound images were recorded and s tored in the patient's medical record. COMPARISON: None. FINDINGS: The ultrasound images demonstrate a patent left upper extremity vein. The PICC line was inserted by the PICC line nurse. IMPRESSION: 1. Ultrasound guidance for a needle placement in a left upper extremity vein. 2. The left upper extremity vein is patent. RPTAT: QQ .Tremayne Tomas MD, MD Date Time Electronically viewed and signed by .Tremayne Tomas MD, MD on 01/10/2017 16:04 .R/
[2017-01-10] MEDS ORDERED: SOD CHLORIDE 0.9% 1,000 ML IV SCH ×2 (18:00→21:00)
[2017-01-10] MEDS: SOD CHLORIDE 0.9% 2,000 ML IV SCH (18:50)
[2017-01-10] MEDS: ATORVASTATIN 20 MG TAB PO SCH (20:10)
[2017-01-10] MEDS: SUCRALFATE 1 GM TAB PO SCH (21:00)
[2017-01-10] MEDS: DIPHENHYDRAMINE 50 MG INJ IV SCH (21:10)
[2017-01-10] MEDS: DEXTROSE 5% IV SCH (21:11)
[2017-01-10] MEDS: DEXAMETHASONE IV SCH (21:11)
[2017-01-10] MEDS: ONDANSETRON IV SCH (21:11)
[2017-01-10] MEDS: SOD CHLORIDE 0.9% IV SCH (21:47)
[2017-01-10] MEDS: CISPLATIN IV SCH (21:47)
[2017-01-10] MEDS ORDERED: MESNA IV SCH (22:30)
[2017-01-10] MEDS ORDERED: SOD CHLORIDE 0.9% IV SCH (22:30)
[2017-01-11] VITALS (14 sets, daily range): BP systolic 92–131; BP diastolic 62–81; PULSE 70–88; RESP 17–20
[2017-01-11] MEDS: ETOPOSIDE IV SCH (00:06)
[2017-01-11] MEDS: SOD CHLORIDE 0.9% IV SCH ×2 (00:06→03:24)
[2017-01-11] MEDS: HYDROmorphONE 1 MG/ML SYG IV PRN ×4 (01:23→19:49)
[2017-01-11] MEDS: IFOSFAMIDE IV SCH (03:24)
[2017-01-11] MEDS: MESNA IV SCH (03:24)
[2017-01-11] MEDS: SOD CHLORIDE 0.9% 2,000 ML IV SCH ×4 (03:30→23:02)
[2017-01-11 05:15] LABS: ADD SCAN DIFF NO
[2017-01-11 05:19] LABS: ABNORMAL IP MESSAGE 1; BASOPHILS % 0.3 % (0.0-2.0); HEMATOCRIT 37.1 % (42.0-52.0); HEMOGLOBIN 12.3 g/dl (14.0-18.0); LYMPHOCYTES # 0.6 10^3/ul (0.8-2.9); MEAN CORPUSCULAR HEMOGLOBIN 28.9 pg (29.0-33.0); MEAN CORPUSCULAR HGB CONC 33.2 g/dl (32.0-37.0); MEAN CORPUSCULAR VOLUME 87.3 fl (82.0-101.0); MEAN PLATELET VOLUME 11.5 fl (7.4-10.4); MONOCYTE # 0.5 10^3/ul (0.3-0.9); MONOCYTES % 5.5 % (0.0-11.0); NEUTROPHIL # 6.8 10^3/ul (1.6-7.5); NEUTROPHILS % 75.3 % (39.0-77.0); PLATELET COUNT 186 10^3/UL (140-415); RED BLOOD COUNT 4.25 10^6/ul (4.70-6.10); RED CELL DISTRIBUTION WIDTH 13.2 % (11.5-14.5)
[2017-01-11 05:44] LABS: LYMPHOCYTES % 6.5 % (15.0-51.0)
[2017-01-11 05:49] LABS: CALCIUM 8.8 mg/dl (8.4-10.2); CREATININE 0.63 mg/dl (0.61-1.24); POTASSIUM 4.8 mmol/L (3.5-5.1)
[2017-01-11] MEDS ORDERED: PANTOPRAZOLE 40 MG INJ IV SCH (06:00)
[2017-01-11] MEDS: PANTOPRAZOLE (EC) 40 MG TAB PO SCH (08:52)
[2017-01-11] MEDS: SUCRALFATE 1 GM TAB PO SCH ×3 (08:52→20:15)
[2017-01-11] MEDS: ASPIRIN (EC) 81 MG TAB PO SCH (08:53)
[2017-01-11] MEDS: ISOSORBIDE MONONITRATE(SR)60 MG TAB PO SCH (08:53)
[2017-01-11] MEDS ORDERED: SOD CHLORIDE 0.9% 1,500 ML IV SCH (09:00)
[2017-01-11] MEDS ORDERED: SOD CHLORIDE 0.9% 2,000 ML IV SCH (09:00)
[2017-01-11] MEDS: ENOXAPARIN 40 MG/0.4 ML SYG SC SCH (09:01)
[2017-01-11 09:10] LABS: ADD UMIC YES; UR ASCORBIC ACID NEGATIVE (NEGATIVE); UR BILIRUBIN (Dip) NEGATIVE (NEGATIVE); UR BLOOD (Dip) 1+ mg/dL (NEGATIVE); UR CLARITY CLEAR (CLEAR); UR COLOR STRAW (YELLOW); UR GLUCOSE (Dip) 1+ mg/dL (NEGATIVE); UR KETONES (Dip) 1+ mg/dL (NEGATIVE); UR LEUKOCYTE ESTERASE (Dip) NEGATIVE Leu/ul (NEGATIVE); UR NITRITE (Dip) NEGATIVE (NEGATIVE); UR RBC 0 /HPF (0-5); UR SPECIFIC GRAVITY (Dip) 1.008 (1.003-1.030); UR TOTAL PROTEIN (Dip) NEGATIVE (NEGATIVE); UR UROBILINOGEN (Dip) NEGATIVE (NEGATIVE)
[2017-01-11] MEDS ORDERED: morphine (ER) 15 MG TAB PO ONE (12:30)
[2017-01-11] MEDS ORDERED: DOCUSATE SODIUM 100 MG CAP PO ONE (12:30)
--- NOTE | 2017-01-11 18:59 | PN ---
Date/Time of Note Date/Time of Note DATE: 01/11/17 TIME: 18:58 Assessment/Plan VTE Prophylaxis VTE Prophylaxis Intervention: LMWH Lines/Catheters IV Catheter Type (from Nrsg): PICC Line Central line still needed: Yes (chemtotherapy access ) Urinary Cath still in place: No Assessment/Plan Assessment/Plan 1. 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 2. Hyperlipidemia 3. H/o GERD- on Protonix and sucralfate at home PLAN has a PICC line for chemo access Started on chemo Start MS contin 15 mg bID for better pain control Lipitor for HL resumed home medication protonix and Sucralfate Lovenox for DVT prophylaxis Subjective 24 Hr Interval Summary Free Text/Dictation c/o pain, not conrolled by IV dilaudid , strated on chemo Exam/Review of Systems Vital Signs Vitals Vital Signs Date Time Temp Pulse Resp B/P Pulse Ox O2 Delivery O2 Flow Rate FiO2 01/11/17 16:00 98.0 76 17 128/74 Room Air 01/11/17 12:00 99 Intake and Output 01/10/17 01/10/17 01/11/17 15:00 23:00 07:00 Intake Total 1488.5 ml 2941.734 ml Output Total 2000 ml Balance 1488.5 ml 941.734 ml Exam Constitutional: alert, oriented, well developed Psych: nl mood/affect, no complaints Head: atraumatic, normocephalic Eyes: EOMI, PERRL Neck: non-tender, supple Respiratory: clear to auscultation, normal air movement Cardiovascular: nl pulses, regular rate and rhythm Gastrointestinal: soft, tender on right side Extremities: normal pulses Results Result Diagram: 01/11/17 0434 01/11/17 0434 Results 24 hrs Laboratory Tests Test 01/11/17 04:34 01/11/17 05:30 White Blood Count 9.0 Red Blood Count 4.25 L Hemoglobin 12.3 L Hematocrit 37.1 L Mean Corpuscular Volume 87.3 Mean Corpuscular Hemoglobin 28.9 L Mean Corpuscular Hemoglobin Concent 33.2 Red Cell Distribution Width 13.2 Platelet Count 186 Mean Platelet Volume 11.5 H Neutrophils % 75.3 Lymphocytes % 6.5 L Monocytes % 5.5 Eosinophils % 0.0 Basophils % 0.3 Nucleated Red Blood Cells % 0.0 Neutrophils # 6.8 Lymphocytes # 0.6 L Monocytes # 0.5 Eosinophils # 0.0 Basophils # 0.0 Nucleated Red Blood Cells # 0.0 Sodium Level 139 Potassium Level 4.8 Chloride Level 101 Carbon Dioxide Level 29 Anion Gap 14 Blood Urea Nitrogen 9 Creatinine 0.63 Glucose Level 140 # Calcium Level 8.8 Urine Color STRAW Urine Clarity CLEAR Urine pH 7.0 Urine Specific [place] 1.008 Urine Ketones 1+ H Urine Nitrite NEGATIVE Urine Bilirubin NEGATIVE Urine Urobilinogen NEGATIVE Urine Leukocyte Esterase NEGATIVE Urine Microscopic RBC 0 Urine Microscopic WBC 0 Urine Hemoglobin 1+ H Urine Glucose 1+ H Urine Total Protein NEGATIVE Medications Medications Current Medications Ondansetron HCl (Zofran Inj) 4 mg Q6H PRN IV NAUSEA AND/OR VOMITING Last administered on 01/10/17 00:51; Admin Dose 4 MG; Start 01/03/17 at 13:00 Acetaminophen (Tylenol Tab) 650 mg Q6H PRN PO PAIN LEVEL 1-3 OR FEVER; Start at 13:00 Acetaminophen/ Hydrocodone Bitart ([place] (5/325)) 1 tab Q6H PRN PO MODERATE PAIN LEVEL 4-6 Last administered on 01/10/17 18:52; Admin Dose 1 TAB; Start at 13:00 Morphine Sulfate (morphine) 2 mg Q4H PRN IV SEVERE PAIN LEVEL 7-10 Last administered on 01/06/17 17:19; Admin Dose 2 MG; Start 01/03/17 at 13:00 Enoxaparin Sodium (Lovenox) 40 mg DAILY SC Last administered on 01/11/17 09:01 ; Admin Dose 40 MG; Start 01/05/17 at 09:00 Lorazepam (Ativan) 1 mg Q4H PRN PO ANXIETY Last administered on 01/10/17 04:03 ; Admin Dose 1 MG; Start 01/06/17 at 17:00 Zolpidem Tartrate (Ambien) 10 mg HS PRN PO INSOMNIA; Start 01/06/17 at 18:00 Aspirin (Halfprin) 81 mg DAILY PO Last administered on 01/11/17 08:53; Admin Dose 81 MG; Start 01/11/17 at 09:00 Isosorbide Mononitrate (Imdur) 60 mg DAILY PO Last administered on 01/11/17 08 :53; Admin Dose 60 MG; Start 01/11/17 at 09:00 Pantoprazole (Protonix Tab) 40 mg DAILY PO Last administered on 01/11/17 08:52 ; Admin Dose 40 MG; Start 01/11/17 at 09:00 Sucralfate (Carafate) 1 gm TID PO Last administered on 01/11/17 12:51; Admin Dose 1 GM; Start 01/10/17 at 21:00 Atorvastatin Calcium (Lipitor) 20 mg HS PO Last administered on 01/10/17 20:10 ; Admin Dose 20 MG; Start 01/10/17 at 21:00 Hydromorphone HCl 1 mg 1 mg Q2H PRN IV PAIN Last administered on 01/11/17 08: 00; Admin Dose 1 MG; Start 01/10/17 at 15:00 Ondansetron HCl/ Dexamethasone/ Dextrose (Zofran Inj/ Decadron/D5W) 68.5 ml @ 252 mls/hr 2030 IV Last administered on 01/10/17 21:11; Admin Dose 252 MLS/HR ; Start 01/10/17 at 20:30; Stop 01/14/17 at 20:47 Diphenhydramine HCl 25 mg 25 mg 2030 IV Last administered on 01/10/17 21:10; Admin Dose 25 MG; Start 01/10/17 at 20:30; Stop 01/14/17 at 20:31 Cisplatin/Sodium Chloride (Platinol/NS) 290 ml @ 250 mls/hr 21 IV Last administered on 01/10/17 21:47; Admin Dose 250 MLS/HR; Start 01/10/17 at 21:00 ; Stop 01/14/17 at 22:10 IV Flush 10 ml 10 ml PRN PRN IV IV PROTOCOL; Start 01/10/17 at 16:00 Etoposide 150 mg/ Sodium Chloride 500 ml @ 500 mls/hr 22 IV Last administered on 01/11/17 00:06; Admin Dose 500 MLS/HR; Start 01/10/17 at 22:00; Stop at 22:59 Ifosfamide 2.4 gm/ Mesna 2400 mg/ Sodium Chloride 1,072 ml @ 44.667 mls/ hr 23 IV Last administered on 01/11/17t 03:24; Admin Dose 44.667 MLS/HR; Start at 23:00; Stop 01/15/17 at 22:59 Sodium Chloride (NS) 2,000 ml @ 125 mls/hr Q16H IV Last administered on t 12:52; Admin Dose 125 MLS/HR; Start 01/11/17 at 09:00; Stop 01/14/17 at 08: 59 Morphine Sulfate (Ms Contin (Er)) 15 mg BID PO ; Start 01/11/17 at 21:00 Docusate Sodium (Colace) 200 mg BID PO ; Start 01/11/17 at 21:00 AGGIE LEAHY MD Jan 11, 2017 18:59
[2017-01-11] MEDS: ONDANSETRON 4 MG INJ IV PRN (19:49)
[2017-01-11] MEDS: DOCUSATE SODIUM 100 MG CAP PO SCH (20:15)
[2017-01-11] MEDS: ATORVASTATIN 20 MG TAB PO SCH (20:15)
[2017-01-11] MEDS: morphine (ER) 15 MG TAB PO SCH (20:15)
[2017-01-11] MEDS: ALTEPLASE (CATHFLO) 2 MG INJ CATHETER PRN ×3 (20:56→22:10)
--- NOTE | 2017-01-11 23:12 | CONS ---
Date/Time of Note Date/Time of Note DATE: 01/11/17 TIME: 23:11 Assessment/Plan Assessment/Plan Chief Complaint/Hosp Course Metastatic mixed germ cell tumor, non-seminomatous. with Massive retroperitoneal lymphadenopathy, Peripancreatic and retrocrural lymphadenopathy, Multiple bilateral pulmonary nodules. The largest conglomeration of lymph nodes measures approximately 7.3 x 11.7 x 13.2 cm. TUMOR MARKERS- REVIEWED [facility]- VERY HIGH CT CHEST- 1. Significant retroperitoneal, right supraclavicular, and right hilar lymphadenopathy consistent with metastatic disease. 2. Diffuse pulmonary nodules are also consistent with metastatic disease 3. Hypoenhancing hepatic lesions may be a combination of metastatic disease and hemangiomas. An MRI with and without contrast may be useful to delineate if clinically indicated. path -Retroperitoneal mass, CT-guided core needle biopsies: reviewed PLAN CHEMO- for METASTATIC nonseminomatous germ cell tumors For patients with nonseminomatous GCT, we suggest four cycles of chemotherapy as the initial therapy, rather than surgery or RT We recommend VIP rather than BEP because of the increased risk of bleomycin pulmonary toxicity should surgery eventually be required BEP can be considered as an alternative if bone marrow toxicity is a particular concern. For patients with a residual mediastinal mass following initial chemotherapy, we recommend complete surgical resection, if technically feasible If viable malignancy is identified, we suggest two additional cycles of VIP chemotherapy TRANSFERRED TO ONCOLOGY PICC LINE CHEMO D/W IN DETAILS cont per protocol ANEMIA, N- CYTIC WITH N RDW + COMPONENT ACD THROMBOCYTOPENIA MONITOR VIP REGIMEN- Cycle length: 21 days. Total cycles: 4. Drug Dose and route Administration Given on days Cisplatin 20 mg/m2 IV per day Dilute with 250 mL normal saline (NS) and administer over one hour. Do not administer with aluminum needles or intravenous sets. Days 1 to 5 Etoposide* 75 mg/m2 IV per day Dilute with 500 mL NS (concentration less than 0.4 mg/mL) and administer over one hour. Days 1 to 5 Ifosfamide* 1200 mg/m2 per day continuous IV infusion Dilute with NS for injection to a final concentration of 0.6 to 20 mg/mL and infuse over 24 hours. Can mix with Mesna. Days 1 to 5 Mesna 120 mg/m2 IV Dilute with NS for injection and administer via slow IV push prior to day 1 infusion of ifosfamide. Total concentration of mesna should not exceed 20 mg/mL. Day 1 Mesna? 1200 mg/m2 per day continuous IV infusion Dilute with NS for injection and administer as continuous infusion over 24 hours[2]. Total concentration of mesna should not exceed 20 mg/mL. Can mix with ifosfamide. Days 1 to 5 Pretreatment considerations: Hydration: Induction of diuresis using intravenous NS minimizes the risk of cisplatin nephrotoxicity. At least 2000 mL of NS should be administered at a rate of 100 to 125 mL per hour throughout the five days of treatment and continued for at least two hours after the last dose of cisplatin. Refer to UpToDate topic on "Cisplatin nephrotoxicity". Emesis risk: HIGH (>90 percent frequency of emesis). Aprepitant can be given orally (125 mg on day 1, 80 mg on days 2 and 3) with ondansetron, prochlorperazine, and dexamethasone daily. Refer to UpToDate topic on "Prevention and treatment of chemotherapy-induced nausea and vomiting in adults ". Vesicant/irritant properties: Cisplatin is an irritant but can cause significant tissue damage; avoid extravasation[3]. Refer to UpToDate topic on "Extravasation injury from chemotherapy and other non-antineoplastic vesicants" . Infection prophylaxis: Primary prophylaxis with granulocyte colony stimulating factors was administered as a routine component of this regimen[1]. Refer to UpToDate topic on "Use of granulocyte colony stimulating factors in adult patients with chemotherapy-induced neutropenia and conditions other than acute leukemia, myelodysplastic syndrome, and hematopoietic cell transplantation ". Dose adjustment for baseline liver or renal dysfunction: Dose adjustment in the setting of baseline renal impairment (ie, creatinine >3.0 mg/dL or GFR <50 mL/min) requires a balanced discussion of the goals of treatment and the risks of cisplatin. Refer to UpToDate topics on "Chemotherapy hepatotoxicity and dose modification in patients with liver disease" and "Chemotherapy-related nephrotoxicity and dose modification in patients with renal insufficiency". Monitoring parameters: CBC with differential and platelet count weekly during treatment. Basic metabolic panel (creatinine and electrolytes) prior to each treatment cycle. Liver function tests prior to each treatment cycle. Cisplatin is associated with significant nephrotoxicity. Ifosfamide is associated with cumulative nephrotoxicity, mostly at a total dose above 60 grams /m2. Clinical manifestations may include hypophosphatemia, renal potassium wasting, metabolic acidosis with a normal ion gap, and rarely, polyuria due to nephrogenic diabetes insipidus. Assess creatinine and electrolytes, including potassium and phosphate, daily during treatment and prior to each subsequent treatment cycle. Refer to UpToDate topic on "Ifosfamide nephrotoxicity". Mesna does not prevent hemorrhagic cystitis in all patients[2]. Monitor a morning specimen of urine for hematuria daily, on days 1 through 5. Refer to UpToDate topic on "Cystitis in patients with cancer". Monitor for neurotoxicity (confusion, coma, rarely seizures, weakness, neuropathy, ataxia, cranial nerve dysfunction) daily, on days 1 through 5. Central nervous system side effects may be especially problematic for those over age 60. Refer to UpToDate topic on "Overview of neurologic complications of non-lovelock cancer chemotherapy". Monitor vital signs during etoposide infusion. Monitor for hearing loss prior to each dose of cisplatin; audiometry as clinically indicated. Suggested dose alterations for toxicity: Myelotoxicity: Reduce doses of etoposide and ifosfamide each by 25 percent for subsequent cycles for granulocytopenic fever or thrombocytopenic bleeding with the previous course of therapy[1]. Neurotoxicity: Neuropathy usually is seen after cumulative doses of cisplatin beyond 400 mg/m2, although there is marked interindividual variation. Patients with mild neuropathy can continue to receive full cisplatin doses. However, if the neuropathy interferes with function, the risk of potentially disabling neurotoxicity must be weighed against the benefit of continued treatment[3]. Refer to UpToDate topic on "Overview of neurologic complications of lovelock- based chemotherapy". Nephrotoxicity: It is recommended that subsequent doses of cisplatin be withheld until the serum creatinine is less than 3.0 mg/dL. If there is a change in body weight of at least 10 percent, doses should be recalculated. IV: intravenous; GFR: glomerular filtration rate; CBC: complete blood count. * The initial protocol included empiric reduction of etoposide and ifosfamide doses by 25 percent for patients who have received prior radiation therapy[1]. ? Due to a longer half-life of ifosfamide and associated metabolites at higher doses, some references recommend continuation of mesna for 12 to 24 hours beyond completion of ifosfamide to reduce the risk of hemorrhagic cystitis[2]. References: Matt GRAHAM, et al. J Clin Oncol 1998; 16:1287. MESNA injection. [place] Prescribing Information. [place] [employer]. (Available online at [email or web address].nih.gov, accessed July 04, 2011) . Cisplatin injection, powder, lyophilized, for solution. [place] Prescribing Information. [employer]. (Available online at [email or web address].nih.gov, accessed on July 04, 2011). Graphic 42543 Version 11.0 Problems: Consultation Date/Type/Reason Admit Date/Time Jan 03, 2017 at 10:48 Initial Consult Date 01/03/17 Type of Consultation: HEMEON Referring Provider: EMELI CHRISTIE 24 HR Interval Summary Free Text/Dictation all noted started chemo today Exam/Review of Systems Vital Signs Vitals Vital Signs Date Time Temp Pulse Resp B/P Pulse Ox O2 Delivery O2 Flow Rate FiO2 01/11/17 20:43 98.7 106 20 122/81 95 01/11/17 16:00 Room Air Intake and Output 01/10/17 01/10/17 01/11/17 15:00 23:00 07:00 Intake Total 1488.5 ml 2941.734 ml Output Total 2000 ml Balance 1488.5 ml 941.734 ml Exam Constitutional: alert, oriented, well developed Psych: nl mood/affect, no complaints Head: atraumatic, normocephalic Eyes: EOMI, PERRL Neck: non-tender, supple Respiratory: clear to auscultation, normal air movement Cardiovascular: nl pulses, regular rate and rhythm Gastrointestinal: soft, tender on right side Extremities: normal pulses Results Result Diagram: 01/11/17 0434 01/11/17 0434 Results 24 hrs Laboratory Tests Test 01/11/17 04:34 01/11/17 05:30 White Blood Count 9.0 Red Blood Count 4.25 L Hemoglobin 12.3 L Hematocrit 37.1 L Mean Corpuscular Volume 87.3 Mean Corpuscular Hemoglobin 28.9 L Mean Corpuscular Hemoglobin Concent 33.2 Red Cell Distribution Width 13.2 Platelet Count 186 Mean Platelet Volume 11.5 H Neutrophils % 75.3 Lymphocytes % 6.5 L Monocytes % 5.5 Eosinophils % 0.0 Basophils % 0.3 Nucleated Red Blood Cells % 0.0 Neutrophils # 6.8 Lymphocytes # 0.6 L Monocytes # 0.5 Eosinophils # 0.0 Basophils # 0.0 Nucleated Red Blood Cells # 0.0 Sodium Level 139 Potassium Level 4.8 Chloride Level 101 Carbon Dioxide Level 29 Anion Gap 14 Blood Urea Nitrogen 9 Creatinine 0.63 Glucose Level 140 # Calcium Level 8.8 Urine Color STRAW Urine Clarity CLEAR Urine pH 7.0 Urine Specific [place] 1.008 Urine Ketones 1+ H Urine Nitrite NEGATIVE Urine Bilirubin NEGATIVE Urine Urobilinogen NEGATIVE Urine Leukocyte Esterase NEGATIVE Urine Microscopic RBC 0 Urine Microscopic WBC 0 Urine Hemoglobin 1+ H Urine Glucose 1+ H Urine Total Protein NEGATIVE Medications Medications Current Medications Ondansetron HCl (Zofran Inj) 4 mg Q6H PRN IV NAUSEA AND/OR VOMITING Last administered on 01/11/17 19:49; Admin Dose 4 MG; Start 01/03/17 at 13:00 Acetaminophen (Tylenol Tab) 650 mg Q6H PRN PO PAIN LEVEL 1-3 OR FEVER; Start at 13:00 Acetaminophen/ Hydrocodone Bitart ([place] (5/325)) 1 tab Q6H PRN PO MODERATE PAIN LEVEL 4-6 Last administered on 01/10/17 18:52; Admin Dose 1 TAB; Start at 13:00 Morphine Sulfate (morphine) 2 mg Q4H PRN IV SEVERE PAIN LEVEL 7-10 Last administered on 01/06/17 17:19; Admin Dose 2 MG; Start 01/03/17 at 13:00 Enoxaparin Sodium (Lovenox) 40 mg DAILY SC Last administered on 01/11/17 09:01 ; Admin Dose 40 MG; Start 01/05/17 at 09:00 Lorazepam (Ativan) 1 mg Q4H PRN PO ANXIETY Last administered on 01/10/17 04:03 ; Admin Dose 1 MG; Start 01/06/17 at 17:00 Zolpidem Tartrate (Ambien) 10 mg HS PRN PO INSOMNIA; Start 01/06/17 at 18:00 Aspirin (Halfprin) 81 mg DAILY PO Last administered on 01/11/17 08:53; Admin Dose 81 MG; Start 01/11/17 at 09:00 Isosorbide Mononitrate (Imdur) 60 mg DAILY PO Last administered on 01/11/17 08 :53; Admin Dose 60 MG; Start 01/11/17 at 09:00 Pantoprazole (Protonix Tab) 40 mg DAILY PO Last administered on 01/11/17 08:52 ; Admin Dose 40 MG; Start 01/11/17 at 09:00 Sucralfate (Carafate) 1 gm TID PO Last administered on 01/11/17 20:15; Admin Dose 1 GM; Start 01/10/17 at 21:00 Atorvastatin Calcium (Lipitor) 20 mg HS PO Last administered on 01/11/17 20:15 ; Admin Dose 20 MG; Start 01/10/17 at 21:00 Hydromorphone HCl 1 mg 1 mg Q2H PRN IV PAIN Last administered on 01/11/17 19: 49; Admin Dose 1 MG; Start 01/10/17 at 15:00 Ondansetron HCl/ Dexamethasone/ Dextrose (Zofran Inj/ Decadron/D5W) 68.5 ml @ 252 mls/hr 2030 IV Last administered on 01/10/17 21:11; Admin Dose 252 MLS/HR ; Start 01/10/17 at 20:30; Stop 01/14/17 at 20:47 Diphenhydramine HCl 25 mg 25 mg 2030 IV Last administered on 01/10/17 21:10; Admin Dose 25 MG; Start 01/10/17 at 20:30; Stop 01/14/17 at 20:31 Cisplatin/Sodium Chloride (Platinol/NS) 290 ml @ 250 mls/hr 21 IV Last administered on 01/10/17 21:47; Admin Dose 250 MLS/HR; Start 01/10/17 at 21:00 ; Stop 01/14/17 at 22:10 IV Flush 10 ml 10 ml PRN PRN IV IV PROTOCOL; Start 01/10/17 at 16:00 Etoposide 150 mg/ Sodium Chloride 500 ml @ 500 mls/hr 22 IV Last administered on 01/11/17 00:06; Admin Dose 500 MLS/HR; Start 01/10/17 at 22:00; Stop at 22:59 Ifosfamide 2.4 gm/ Mesna 2400 mg/ Sodium Chloride 1,072 ml @ 44.667 mls/ hr 23 IV Last administered on 01/11/17 03:24; Admin Dose 44.667 MLS/HR; Start at 23:00; Stop 01/15/17 at 22:59 Sodium Chloride (NS) 2,000 ml @ 125 mls/hr Q16H IV Last administered on 23:02; Admin Dose 125 MLS/HR; Start 01/11/17 at 09:00; Stop 01/14/17 at 08: 59 Morphine Sulfate (Ms Contin (Er)) 15 mg BID PO Last administered on 01/11/17 20:15; Admin Dose 15 MG; Start 01/11/17 at 21:00 Docusate Sodium (Colace) 200 mg BID PO Last administered on 01/11/17 20:15; Admin Dose 200 MG; Start 01/11/17 at 21:00 MARQUEZ VERA MD Jan 11, 2017 23:12
[2017-01-12] VITALS (19 sets, daily range): BP systolic 118–143; BP diastolic 65–88; PULSE 65–85; RESP 17–20
[2017-01-12] MEDS: HYDROmorphONE 1 MG/ML SYG IV PRN ×4 (03:39→23:47)
[2017-01-12 05:21] LABS: ABNORMAL IP MESSAGE 1; BASOPHILS % 0.4 % (0.0-2.0); EOSINOPHILS % 0.3 % (0.0-7.0); HEMATOCRIT 31.5 % (42.0-52.0); HEMOGLOBIN 10.4 g/dl (14.0-18.0); LYMPHOCYTES % 13.4 % (15.0-51.0); MEAN CORPUSCULAR HEMOGLOBIN 28.7 pg (29.0-33.0); MEAN PLATELET VOLUME 11.2 fl (7.4-10.4); MONOCYTE # 0.8 10^3/ul (0.3-0.9); MONOCYTES % 10.8 % (0.0-11.0); NEUTROPHIL # 4.7 10^3/ul (1.6-7.5); NEUTROPHILS % 63.5 % (39.0-77.0); PLATELET COUNT 194 10^3/UL (140-415); RED BLOOD COUNT 3.62 10^6/ul (4.70-6.10); RED CELL DISTRIBUTION WIDTH 13.1 % (11.5-14.5); WHITE BLOOD COUNT 7.3 10^3/ul (4.8-10.8)
[2017-01-12 05:41] LABS: INR 1.19; PROTIME 15.2 Sec (12.2-14.2); PT RATIO 1.2
[2017-01-12 05:42] LABS: PARTIAL THROMBOPLASTIN TIME 29.2 Sec (25.0-35.0)
[2017-01-12] MEDS: DIPHENHYDRAMINE 50 MG INJ IV SCH ×2 (05:47→20:30)
[2017-01-12] MEDS: ONDANSETRON IV SCH ×2 (05:48→21:55)
[2017-01-12] MEDS: DEXTROSE 5% IV SCH ×2 (05:48→21:55)
[2017-01-12] MEDS: DEXAMETHASONE IV SCH ×2 (05:48→21:55)
[2017-01-12 06:05] LABS: ALBUMIN 3.3 g/dl (3.3-4.9); ALBUMIN/GLOBULIN RATIO 1.1; BILIRUBIN,INDIRECT 0.2 mg/dl (0-1.1); BILIRUBIN,TOTAL 0.2 mg/dl (0.2-1.3); CREATININE 0.71 mg/dl (0.61-1.24); TOTAL PROTEIN 6.3 g/dl (6.1-8.1)
[2017-01-12] MEDS: SOD CHLORIDE 0.9% IV SCH ×6 (06:21→23:00)
[2017-01-12] MEDS: CISPLATIN IV SCH ×2 (06:21→21:00)
[2017-01-12] MEDS: SOD CHLORIDE 0.9% 2,000 ML IV SCH ×2 (06:44→14:37)
[2017-01-12 07:42] LABS: ADD SCAN DIFF NO
[2017-01-12] MEDS: DOCUSATE SODIUM 100 MG CAP PO SCH ×2 (08:08→21:04)
[2017-01-12] MEDS: morphine (ER) 15 MG TAB PO SCH ×2 (08:09→21:03)
[2017-01-12] MEDS: ASPIRIN (EC) 81 MG TAB PO SCH (08:09)
[2017-01-12] MEDS: SUCRALFATE 1 GM TAB PO SCH ×3 (08:09→21:03)
[2017-01-12] MEDS: PANTOPRAZOLE (EC) 40 MG TAB PO SCH (08:09)
[2017-01-12] MEDS: ISOSORBIDE MONONITRATE(SR)60 MG TAB PO SCH (08:09)
[2017-01-12] MEDS: ENOXAPARIN 40 MG/0.4 ML SYG SC SCH (08:11)
[2017-01-12] MEDS: ETOPOSIDE IV SCH ×2 (10:14→22:00)
[2017-01-12] MEDS: LORAZEPAM 1 MG TAB PO PRN (10:15)
--- NOTE | 2017-01-12 11:41 | PN ---
Date/Time of Note Date/Time of Note DATE: 01/12/17 TIME: 11:39 Assessment/Plan VTE Prophylaxis VTE Prophylaxis Intervention: LMWH Lines/Catheters IV Catheter Type (from Nrsg): PICC Line Central line still needed: Yes (for chemo acccess ) Urinary Cath still in place: No Assessment/Plan Assessment/Plan 1. 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 2. Hyperlipidemia 3. H/o GERD- on Protonix and sucralfate at home PLAN has a PICC line for chemo access Started on chemo pain controlled with MS contin 15 mg bID and IV dilaudid prn Lipitor for HL resumed home medication protonix and Sucralfate Lovenox for DVT prophylaxis Subjective 24 Hr Interval Summary Free Text/Dictation pain controlled with MS contin, BP stable, afebrile, no fever no chills Exam/Review of Systems Vital Signs Vitals Vital Signs Date Time Temp Pulse Resp B/P Pulse Ox O2 Delivery O2 Flow Rate FiO2 01/12/17 08:00 98.1 124 20 124/79 97 01/12/17 07:00 Room Air Intake and Output 01/11/17 01/11/17 01/12/17 15:00 23:00 07:00 Intake Total 3636.67 ml 2415 ml Balance 3636.67 ml 2415 ml Exam Constitutional: alert, oriented, well developed Psych: nl mood/affect, no complaints Head: atraumatic, normocephalic Eyes: EOMI, PERRL Neck: non-tender, supple Respiratory: clear to auscultation, normal air movement Cardiovascular: nl pulses, regular rate and rhythm Gastrointestinal: soft, tender on right side Extremities: normal pulses Results Result Diagram: 01/12/17 0441 01/12/17 0440 Results 24 hrs Laboratory Tests Test 01/12/17 04:40 01/12/17 04:41 Sodium Level 139 Potassium Level 4.0 Chloride Level 104 Carbon Dioxide Level 30 Anion Gap 9 # Blood Urea Nitrogen 9 Creatinine 0.71 Glucose Level 88 # Calcium Level 8.0 L Total Bilirubin 0.2 Direct Bilirubin 0.00 Indirect Bilirubin 0.2 Aspartate Amino Transf (AST/SGOT) 40 Alanine Aminotransferase (ALT/SGPT) 69 Alkaline Phosphatase 210 H Total Protein 6.3 # Albumin 3.3 Globulin 3.00 Albumin/Globulin Ratio 1.10 White Blood Count 7.3 Red Blood Count 3.62 L Hemoglobin 10.4 L Hematocrit 31.5 L Mean Corpuscular Volume 87.0 Mean Corpuscular Hemoglobin 28.7 L Mean Corpuscular Hemoglobin Concent 33.0 Red Cell Distribution Width 13.1 Platelet Count 194 Mean Platelet Volume 11.2 H Neutrophils % 63.5 Lymphocytes % 13.4 L Monocytes % 10.8 Eosinophils % 0.3 Basophils % 0.4 Nucleated Red Blood Cells % 0.0 Neutrophils # 4.7 Lymphocytes # 1.0 Monocytes # 0.8 Eosinophils # 0.0 Basophils # 0.0 Nucleated Red Blood Cells # 0.0 Prothrombin Time 15.2 H Prothrombin Time Ratio 1.2 INR International Normalized Ratio 1.19 Activated Partial Thromboplast Time 29.2 Medications Medications Current Medications Ondansetron HCl (Zofran Inj) 4 mg Q6H PRN IV NAUSEA AND/OR VOMITING Last administered on 01/11/17 19:49; Admin Dose 4 MG; Start 01/03/17 at 13:00 Acetaminophen (Tylenol Tab) 650 mg Q6H PRN PO PAIN LEVEL 1-3 OR FEVER; Start at 13:00 Acetaminophen/ Hydrocodone Bitart ([place] (5/325)) 1 tab Q6H PRN PO MODERATE PAIN LEVEL 4-6 Last administered on 01/10/17 18:52; Admin Dose 1 TAB; Start at 13:00 Morphine Sulfate (morphine) 2 mg Q4H PRN IV SEVERE PAIN LEVEL 7-10 Last administered on 01/06/17 17:19; Admin Dose 2 MG; Start 01/03/17 at 13:00 Enoxaparin Sodium (Lovenox) 40 mg DAILY SC Last administered on 01/12/17 08:11 ; Admin Dose 40 MG; Start 01/05/17 at 09:00 Lorazepam (Ativan) 1 mg Q4H PRN PO ANXIETY Last administered on 01/12/17 10:15 ; Admin Dose 1 MG; Start 01/06/17 at 17:00 Zolpidem Tartrate (Ambien) 10 mg HS PRN PO INSOMNIA; Start 01/06/17 at 18:00 Aspirin (Halfprin) 81 mg DAILY PO Last administered on 01/12/17 08:09; Admin Dose 81 MG; Start 01/11/17 at 09:00 Isosorbide Mononitrate (Imdur) 60 mg DAILY PO Last administered on 01/12/17 08 :09; Admin Dose 60 MG; Start 01/11/17 at 09:00 Pantoprazole (Protonix Tab) 40 mg DAILY PO Last administered on 01/12/17 08:09 ; Admin Dose 40 MG; Start 01/11/17 at 09:00 Sucralfate (Carafate) 1 gm TID PO Last administered on 01/12/17 08:09; Admin Dose 1 GM; Start 01/10/17 at 21:00 Atorvastatin Calcium (Lipitor) 20 mg HS PO Last administered on 01/11/17 20:15 ; Admin Dose 20 MG; Start 01/10/17 at 21:00 Hydromorphone HCl 1 mg 1 mg Q2H PRN IV PAIN Last administered on 01/12/17 03: 39; Admin Dose 1 MG; Start 01/10/17 at 15:00 Ondansetron HCl/ Dexamethasone/ Dextrose (Zofran Inj/ Decadron/D5W) 68.5 ml @ 252 mls/hr 2030 IV Last administered on 01/12/17 05:48; Admin Dose 252 MLS/HR ; Start 01/10/17 at 20:30; Stop 01/14/17 at 20:47 Diphenhydramine HCl 25 mg 25 mg 2030 IV Last administered on 01/12/17 05:47; Admin Dose 25 MG; Start 01/10/17 at 20:30; Stop 01/14/17 at 20:31 Cisplatin/Sodium Chloride (Platinol/NS) 290 ml @ 250 mls/hr 21 IV Last administered on 01/12/17 06:21; Admin Dose 250 MLS/HR; Start 01/10/17 at 21:00 ; Stop 01/14/17 at 22:10 IV Flush 10 ml 10 ml PRN PRN IV IV PROTOCOL; Start 01/10/17 at 16:00 Etoposide 150 mg/ Sodium Chloride 500 ml @ 500 mls/hr 22 IV Last administered on 01/12/17 10:14; Admin Dose 500 MLS/HR; Start 01/10/17 at 22:00; Stop at 22:59 Ifosfamide 2.4 gm/ [place] 2400 mg/ Sodium Chloride 1,072 ml @ 44.667 mls/ hr 23 IV Last administered on 01/11/17 03:24; Admin Dose 44.667 MLS/HR; Start at 23:00; Stop 01/15/17 at 22:59 Sodium Chloride (NS) 2,000 ml @ 125 mls/hr Q16H IV Last administered on 06:44; Admin Dose 125 MLS/HR; Start 01/11/17 at 09:00; Stop 01/14/17 at 08: 59 Morphine Sulfate (Ms Contin (Er)) 15 mg BID PO Last administered on 01/12/17 08:09; Admin Dose 15 MG; Start 01/11/17 at 21:00 Docusate Sodium (Colace) 200 mg BID PO Last administered on 01/12/17 08:08; Admin Dose 200 MG; Start 01/11/17 at 21:00 AGGIE LEAHY MD Jan 12, 2017 11:41
[2017-01-12] MEDS: IFOSFAMIDE IV SCH ×2 (13:38→23:00)
[2017-01-12] MEDS: MESNA IV SCH ×2 (13:38→23:00)
--- NOTE | 2017-01-12 20:32 | CONS ---
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 The largest conglomeration of lymph nodes measures approximately 7.3 x 11.7 x 13.2 cm. TUMOR MARKERS- REVIEWED [facility]- VERY HIGH CT CHEST- 1. Significant retroperitoneal, right supraclavicular, and right hilar lymphadenopathy consistent with metastatic disease. 2. Diffuse pulmonary nodules are also consistent with metastatic disease 3. Hypoenhancing hepatic lesions may be a combination of metastatic disease and hemangiomas. An MRI with and without contrast may be useful to delineate if clinically indicated. path -Retroperitoneal mass, CT-guided core needle biopsies: reviewed PLAN CHEMO- for METASTATIC nonseminomatous germ cell tumors For patients with nonseminomatous GCT, we suggest four cycles of chemotherapy as the initial therapy, rather than surgery or RT We recommend VIP rather than BEP because of the increased risk of bleomycin pulmonary toxicity should surgery eventually be required BEP can be considered as an alternative if bone marrow toxicity is a particular concern. For patients with a residual mediastinal mass following initial chemotherapy, we recommend complete surgical resection, if technically feasible If viable malignancy is identified, we suggest two additional cycles of VIP chemotherapy POST PICC LINE CHEMO D/W IN DETAILS cont per protocol ANEMIA, N- CYTIC WITH N RDW + COMPONENT ACD THROMBOCYTOPENIA MONITOR IMPROVED VIP REGIMEN- Cycle length: 21 days. Total cycles: 4. Drug Dose and route Administration Given on days Cisplatin 20 mg/m2 IV per day Dilute with 250 mL normal saline (NS) and administer over one hour. Do not administer with aluminum needles or intravenous sets. Days 1 to 5 Etoposide* 75 mg/m2 IV per day Dilute with 500 mL NS (concentration less than 0.4 mg/mL) and administer over one hour. Days 1 to 5 Ifosfamide* 1200 mg/m2 per day continuous IV infusion Dilute with NS for injection to a final concentration of 0.6 to 20 mg/mL and infuse over 24 hours. Can mix with Mesna. Days 1 to 5 Mesna 120 mg/m2 IV Dilute with NS for injection and administer via slow IV push prior to day 1 infusion of ifosfamide. Total concentration of mesna should not exceed 20 mg/mL. Day 1 Mesna? 1200 mg/m2 per day continuous IV infusion Dilute with NS for injection and administer as continuous infusion over 24 hours[2]. Total concentration of mesna should not exceed 20 mg/mL. Can mix with ifosfamide. Days 1 to 5 Pretreatment considerations: Hydration: Induction of diuresis using intravenous NS minimizes the risk of cisplatin nephrotoxicity. At least 2000 mL of NS should be administered at a rate of 100 to 125 mL per hour throughout the five days of treatment and continued for at least two hours after the last dose of cisplatin. Refer to UpToDate topic on "Cisplatin nephrotoxicity". Emesis risk: HIGH (>90 percent frequency of emesis). Aprepitant can be given orally (125 mg on day 1, 80 mg on days 2 and 3) with ondansetron, prochlorperazine, and dexamethasone daily. Refer to UpToDate topic on "Prevention and treatment of chemotherapy-induced nausea and vomiting in adults ". Vesicant/irritant properties: Cisplatin is an irritant but can cause significant tissue damage; avoid extravasation[3]. Refer to UpToDate topic on "Extravasation injury from chemotherapy and other non-antineoplastic vesicants" . Infection prophylaxis: Primary prophylaxis with granulocyte colony stimulating factors was administered as a routine component of this regimen[1]. Refer to UpToDate topic on "Use of granulocyte colony stimulating factors in adult patients with chemotherapy-induced neutropenia and conditions other than acute leukemia, myelodysplastic syndrome, and hematopoietic cell transplantation ". Dose adjustment for baseline liver or renal dysfunction: Dose adjustment in the setting of baseline renal impairment (ie, creatinine >3.0 mg/dL or GFR <50 mL/min) requires a balanced discussion of the goals of treatment and the risks of cisplatin. Refer to UpToDate topics on "Chemotherapy hepatotoxicity and dose modification in patients with liver disease" and "Chemotherapy-related nephrotoxicity and dose modification in patients with renal insufficiency". Monitoring parameters: CBC with differential and platelet count weekly during treatment. Basic metabolic panel (creatinine and electrolytes) prior to each treatment cycle. Liver function tests prior to each treatment cycle. Cisplatin is associated with significant nephrotoxicity. Ifosfamide is associated with cumulative nephrotoxicity, mostly at a total dose above 60 grams /m2. Clinical manifestations may include hypophosphatemia, renal potassium wasting, metabolic acidosis with a normal ion gap, and rarely, polyuria due to nephrogenic diabetes insipidus. Assess creatinine and electrolytes, including potassium and phosphate, daily during treatment and prior to each subsequent treatment cycle. Refer to UpToDate topic on "Ifosfamide nephrotoxicity". Mesna does not prevent hemorrhagic cystitis in all patients[2]. Monitor a morning specimen of urine for hematuria daily, on days 1 through 5. Refer to UpToDate topic on "Cystitis in patients with cancer". Monitor for neurotoxicity (confusion, coma, rarely seizures, weakness, neuropathy, ataxia, cranial nerve dysfunction) daily, on days 1 through 5. Central nervous system side effects may be especially problematic for those over age 60. Refer to UpToDate topic on "Overview of neurologic complications of non-ak chin cancer chemotherapy". Monitor vital signs during etoposide infusion. Monitor for hearing loss prior to each dose of cisplatin; audiometry as clinically indicated. Suggested dose alterations for toxicity: Myelotoxicity: Reduce doses of etoposide and ifosfamide each by 25 percent for subsequent cycles for granulocytopenic fever or thrombocytopenic bleeding with the previous course of therapy[1]. Neurotoxicity: Neuropathy usually is seen after cumulative doses of cisplatin beyond 400 mg/m2, although there is marked interindividual variation. Patients with mild neuropathy can continue to receive full cisplatin doses. However, if the neuropathy interferes with function, the risk of potentially disabling neurotoxicity must be weighed against the benefit of continued treatment[3]. Refer to UpToDate topic on "Overview of neurologic complications of ak chin- based chemotherapy". Nephrotoxicity: It is recommended that subsequent doses of cisplatin be withheld until the serum creatinine is less than 3.0 mg/dL. If there is a change in body weight of at least 10 percent, doses should be recalculated. IV: intravenous; GFR: glomerular filtration rate; CBC: complete blood count. * The initial protocol included empiric reduction of etoposide and ifosfamide doses by 25 percent for patients who have received prior radiation therapy[1]. ? Due to a longer half-life of ifosfamide and associated metabolites at higher doses, some references recommend continuation of mesna for 12 to 24 hours beyond completion of ifosfamide to reduce the risk of hemorrhagic cystitis[2]. References: Matt GRAHAM, et al. J Clin Oncol 1998; 16:1287. MESNA injection. [place] Prescribing Information. [place] National Library of Medicine. (Available online at [email or web address], accessed July 04, 2011) . Cisplatin injection, powder, lyophilized, for solution. [place] Prescribing Information. [employer]. (Available online at [email or web address], accessed on July 04, 2011). Graphic 48872 Version 11.0 Problems: Consultation Date/Type/Reason Admit Date/Time Jan 03, 2017 at 10:48 Initial Consult Date 01/03/17 Type of Consultation: HEMEONC Referring Provider: EMELI CHRISTIE 24 HR Interval Summary Free Text/Dictation ALL NOTED GETTING CHEMO PER PROTOCOL Exam/Review of Systems Vital Signs Vitals Vital Signs Date Time Temp Pulse Resp B/P Pulse Ox O2 Delivery O2 Flow Rate FiO2 01/12/17 13:30 98.0 75 19 138/70 96 Room Air Intake and Output 01/11/17 01/11/17 01/12/17 15:00 23:00 07:00 Intake Total 3636.67 ml 2415 ml Balance 3636.67 ml 2415 ml Exam Constitutional: alert, oriented, well developed Psych: nl mood/affect, no complaints Head: atraumatic, normocephalic Eyes: EOMI, PERRL Neck: non-tender, supple Respiratory: clear to auscultation, normal air movement Cardiovascular: nl pulses, regular rate and rhythm Gastrointestinal: soft, tender on right side Extremities: normal pulses Results Result Diagram: 01/12/17 0441 01/12/17 0440 Results 24 hrs Laboratory Tests Test 01/12/17 04:40 01/12/17 04:41 Sodium Level 139 Potassium Level 4.0 Chloride Level 104 Carbon Dioxide Level 30 Anion Gap 9 # Blood Urea Nitrogen 9 Creatinine 0.71 Glucose Level 88 # Calcium Level 8.0 L Total Bilirubin 0.2 Direct Bilirubin 0.00 Indirect Bilirubin 0.2 Aspartate Amino Transf (AST/SGOT) 40 Alanine Aminotransferase (ALT/SGPT) 69 Alkaline Phosphatase 210 H Total Protein 6.3 # Albumin 3.3 Globulin 3.00 Albumin/Globulin Ratio 1.10 White Blood Count 7.3 Red Blood Count 3.62 L Hemoglobin 10.4 L Hematocrit 31.5 L Mean Corpuscular Volume 87.0 Mean Corpuscular Hemoglobin 28.7 L Mean Corpuscular Hemoglobin Concent 33.0 Red Cell Distribution Width 13.1 Platelet Count 194 Mean Platelet Volume 11.2 H Neutrophils % 63.5 Lymphocytes % 13.4 L Monocytes % 10.8 Eosinophils % 0.3 Basophils % 0.4 Nucleated Red Blood Cells % 0.0 Neutrophils # 4.7 Lymphocytes # 1.0 Monocytes # 0.8 Eosinophils # 0.0 Basophils # 0.0 Nucleated Red Blood Cells # 0.0 Prothrombin Time 15.2 H Prothrombin Time Ratio 1.2 INR International Normalized Ratio 1.19 Activated Partial Thromboplast Time 29.2 Medications Medications Current Medications Ondansetron HCl (Zofran Inj) 4 mg Q6H PRN IV NAUSEA AND/OR VOMITING Last administered on 01/11/17 19:49; Admin Dose 4 MG; Start 01/03/17 at 13:00 Acetaminophen (Tylenol Tab) 650 mg Q6H PRN PO PAIN LEVEL 1-3 OR FEVER; Start at 13:00 Acetaminophen/ Hydrocodone Bitart ([place] (5/325)) 1 tab Q6H PRN PO MODERATE PAIN LEVEL 4-6 Last administered on 01/10/17 18:52; Admin Dose 1 TAB; Start at 13:00 Morphine Sulfate (morphine) 2 mg Q4H PRN IV SEVERE PAIN LEVEL 7-10 Last administered on 01/06/17 17:19; Admin Dose 2 MG; Start 01/03/17 at 13:00 Enoxaparin Sodium (Lovenox) 40 mg DAILY SC Last administered on 01/12/17 08:11 ; Admin Dose 40 MG; Start 01/05/17 at 09:00 Lorazepam (Ativan) 1 mg Q4H PRN PO ANXIETY Last administered on 01/12/17 10:15 ; Admin Dose 1 MG; Start 01/06/17 at 17:00 Zolpidem Tartrate (Ambien) 10 mg HS PRN PO INSOMNIA; Start 01/06/17 at 18:00 Aspirin (Halfprin) 81 mg DAILY PO Last administered on 01/12/17 08:09; Admin Dose 81 MG; Start 01/11/17 at 09:00 Isosorbide Mononitrate (Imdur) 60 mg DAILY PO Last administered on 01/12/17 08 :09; Admin Dose 60 MG; Start 01/11/17 at 09:00 Pantoprazole (Protonix Tab) 40 mg DAILY PO Last administered on 01/12/17 08:09 ; Admin Dose 40 MG; Start 01/11/17 at 09:00 Sucralfate (Carafate) 1 gm TID PO Last administered on 01/12/17 12:43; Admin Dose 1 GM; Start 01/10/17 at 21:00 Atorvastatin Calcium (Lipitor) 20 mg HS PO Last administered on 01/11/17 20:15 ; Admin Dose 20 MG; Start 01/10/17 at 21:00 Hydromorphone HCl 1 mg 1 mg Q2H PRN IV PAIN Last administered on 01/12/17 19: 07; Admin Dose 1 MG; Start 01/10/17 at 15:00 Ondansetron HCl/ Dexamethasone/ Dextrose (Zofran Inj/ Decadron/D5W) 68.5 ml @ 252 mls/hr 2030 IV Last administered on 01/12/17 05:48; Admin Dose 252 MLS/HR ; Start 01/10/17 at 20:30; Stop 01/14/17 at 20:47 Diphenhydramine HCl 25 mg 25 mg 2030 IV Last administered on 01/12/17 05:47; Admin Dose 25 MG; Start 01/10/17 at 20:30; Stop 01/14/17 at 20:31 Cisplatin/Sodium Chloride (Platinol/NS) 290 ml @ 250 mls/hr 21 IV Last administered on 01/12/17 06:21; Admin Dose 250 MLS/HR; Start 01/10/17 at 21:00 ; Stop 01/14/17 at 22:10 IV Flush 10 ml 10 ml PRN PRN IV IV PROTOCOL; Start 01/10/17 at 16:00 Etoposide 150 mg/ Sodium Chloride 500 ml @ 500 mls/hr 22 IV Last administered on 01/12/17 10:14; Admin Dose 500 MLS/HR; Start 01/10/17 at 22:00; Stop at 22:59 Ifosfamide 2.4 gm/ Mesna 2400 mg/ Sodium Chloride 1,072 ml @ 44.667 mls/ hr 23 IV Last administered on 01/12/17 13:38; Admin Dose 44.667 MLS/HR; Start at 23:00; Stop 01/15/17 at 22:59 Sodium Chloride (NS) 2,000 ml @ 125 mls/hr Q16H IV Last administered on 14:37; Admin Dose 125 MLS/HR; Start 01/11/17 at 09:00; Stop 01/15/17 at 06: 00 Morphine Sulfate (Ms Contin (Er)) 15 mg BID PO Last administered on 01/12/17 08:09; Admin Dose 15 MG; Start 01/11/17 at 21:00 Docusate Sodium (Colace) 200 mg BID PO Last administered on 01/12/17 08:08; Admin Dose 200 MG; Start 01/11/17 at 21:00 MARQUEZ VERA MD Jan 12, 2017 20:32
[2017-01-12] MEDS: ATORVASTATIN 20 MG TAB PO SCH (21:03)
[2017-01-13] VITALS (11 sets, daily range): BP systolic 119–138; BP diastolic 65–83; PULSE 84–104; RESP 18–20
[2017-01-13] MEDS: ONDANSETRON 4 MG INJ IV PRN ×2 (05:05→22:18)
[2017-01-13 05:46] LABS: ABNORMAL IP MESSAGE 1; BASOPHILS % 0.2 % (0.0-2.0); EOSINOPHILS % 0.6 % (0.0-7.0); HEMATOCRIT 32.9 % (42.0-52.0); HEMOGLOBIN 10.8 g/dl (14.0-18.0); LYMPHOCYTES # 1.3 10^3/ul (0.8-2.9); LYMPHOCYTES % 20.5 % (15.0-51.0); MEAN CORPUSCULAR HEMOGLOBIN 28.6 pg (29.0-33.0); MEAN CORPUSCULAR HGB CONC 32.8 g/dl (32.0-37.0); MEAN PLATELET VOLUME 11.4 fl (7.4-10.4); MONOCYTE # 0.7 10^3/ul (0.3-0.9); NEUTROPHILS % 62.1 % (39.0-77.0); PLATELET COUNT 224 10^3/UL (140-415); RED BLOOD COUNT 3.78 10^6/ul (4.70-6.10); RED CELL DISTRIBUTION WIDTH 13.2 % (11.5-14.5); WHITE BLOOD COUNT 6.5 10^3/ul (4.8-10.8)
[2017-01-13 05:51] LABS: ADD SCAN DIFF NO
[2017-01-13 05:59] LABS: INR 1.11; PROTIME 14.3 Sec (12.2-14.2); PT RATIO 1.1
[2017-01-13 06:00] LABS: PARTIAL THROMBOPLASTIN TIME 28.1 Sec (25.0-35.0)
[2017-01-13 06:06] LABS: ALBUMIN 3.5 g/dl (3.3-4.9); ALBUMIN/GLOBULIN RATIO 1.16; BILIRUBIN,INDIRECT 0.3 mg/dl (0-1.1); BILIRUBIN,TOTAL 0.3 mg/dl (0.2-1.3); CALCIUM 8.5 mg/dl (8.4-10.2); CREATININE 0.68 mg/dl (0.61-1.24); POTASSIUM 3.6 mmol/L (3.5-5.1); TOTAL PROTEIN 6.5 g/dl (6.1-8.1)
[2017-01-13] MEDS: HYDROmorphONE 1 MG/ML SYG IV PRN ×5 (06:37→20:27)
[2017-01-13] MEDS: DOCUSATE SODIUM 100 MG CAP PO SCH ×2 (09:32→20:27)
[2017-01-13] MEDS: PANTOPRAZOLE (EC) 40 MG TAB PO SCH (09:32)
[2017-01-13] MEDS: SUCRALFATE 1 GM TAB PO SCH ×3 (09:32→20:27)
[2017-01-13] MEDS: ASPIRIN (EC) 81 MG TAB PO SCH (09:33)
[2017-01-13] MEDS: morphine (ER) 15 MG TAB PO SCH ×2 (09:33→20:27)
[2017-01-13] MEDS: ISOSORBIDE MONONITRATE(SR)60 MG TAB PO SCH (09:33)
[2017-01-13] MEDS: ENOXAPARIN 40 MG/0.4 ML SYG SC SCH (09:39)
[2017-01-13] MEDS: SOD CHLORIDE 0.9% 1,000 ML IV SCH ×2 (10:45→23:08)
[2017-01-13] MEDS: DEXAMETHASONE IV SCH (13:50)
[2017-01-13] MEDS: DIPHENHYDRAMINE 50 MG INJ IV SCH (13:50)
[2017-01-13] MEDS: ONDANSETRON IV SCH (13:50)
[2017-01-13] MEDS: DEXTROSE 5% IV SCH (13:50)
[2017-01-13] MEDS: CISPLATIN IV SCH (14:35)
[2017-01-13] MEDS: SOD CHLORIDE 0.9% IV SCH ×3 (14:35→22:33)
--- NOTE | 2017-01-13 17:02 | CONS ---
Date/Time of Note Date/Time of Note DATE: 01/13/17 TIME: 16:56 Assessment/Plan Assessment/Plan Chief Complaint/Hosp Course Metastatic mixed germ cell tumor, non-seminomatous. with Massive retroperitoneal lymphadenopathy, Peripancreatic and retrocrural lymphadenopathy, Multiple bilateral pulmonary nodules. The largest conglomeration of lymph nodes measures approximately 7.3 x 11.7 x 13.2 cm. TUMOR MARKERS- REVIEWED [facility]- VERY HIGH CT CHEST- 1. Significant retroperitoneal, right supraclavicular, and right hilar lymphadenopathy consistent with metastatic disease. 2. Diffuse pulmonary nodules are also consistent with metastatic disease 3. Hypoenhancing hepatic lesions may be a combination of metastatic disease and hemangiomas. An MRI with and without contrast may be useful to delineate if clinically indicated. path -Retroperitoneal mass, CT-guided core needle biopsies: reviewed PLAN CHEMO- for METASTATIC nonseminomatous germ cell tumors For patients with nonseminomatous GCT, we suggest four cycles of chemotherapy as the initial therapy, rather than surgery or RT We recommend VIP rather than BEP because of the increased risk of bleomycin pulmonary toxicity should surgery eventually be required BEP can be considered as an alternative if bone marrow toxicity is a particular concern. For patients with a residual mediastinal mass following initial chemotherapy, we recommend complete surgical resection, if technically feasible If viable malignancy is identified, we suggest two additional cycles of VIP chemotherapy POST PICC LINE CHEMO D/W IN DETAILS cont per protocol - D ANEMIA, N- CYTIC WITH N RDW + COMPONENT ACD THROMBOCYTOPENIA MONITOR IMPROVED VIP REGIMEN- Cycle length: 21 days. Total cycles: 4. Drug Dose and route Administration Given on days Cisplatin 20 mg/m2 IV per day Dilute with 250 mL normal saline (NS) and administer over one hour. Do not administer with aluminum needles or intravenous sets. Days 1 to 5 Etoposide* 75 mg/m2 IV per day Dilute with 500 mL NS (concentration less than 0.4 mg/mL) and administer over one hour. Days 1 to 5 Ifosfamide* 1200 mg/m2 per day continuous IV infusion Dilute with NS for injection to a final concentration of 0.6 to 20 mg/mL and infuse over 24 hours. Can mix with Mesna. Days 1 to 5 Mesna 120 mg/m2 IV Dilute with NS for injection and administer via slow IV push prior to day 1 infusion of ifosfamide. Total concentration of mesna should not exceed 20 mg/mL. Day 1 Mesna? 1200 mg/m2 per day continuous IV infusion Dilute with NS for injection and administer as continuous infusion over 24 hours[2]. Total concentration of mesna should not exceed 20 mg/mL. Can mix with ifosfamide. Days 1 to 5 Pretreatment considerations: Hydration: Induction of diuresis using intravenous NS minimizes the risk of cisplatin nephrotoxicity. At least 2000 mL of NS should be administered at a rate of 100 to 125 mL per hour throughout the five days of treatment and continued for at least two hours after the last dose of cisplatin. Refer to UpToDate topic on "Cisplatin nephrotoxicity". Emesis risk: HIGH (>90 percent frequency of emesis). Aprepitant can be given orally (125 mg on day 1, 80 mg on days 2 and 3) with ondansetron, prochlorperazine, and dexamethasone daily. Refer to UpToDate topic on "Prevention and treatment of chemotherapy-induced nausea and vomiting in adults ". Vesicant/irritant properties: Cisplatin is an irritant but can cause significant tissue damage; avoid extravasation[3]. Refer to UpToDate topic on "Extravasation injury from chemotherapy and other non-antineoplastic vesicants" . Infection prophylaxis: Primary prophylaxis with granulocyte colony stimulating factors was administered as a routine component of this regimen[1]. Refer to UpToDate topic on "Use of granulocyte colony stimulating factors in adult patients with chemotherapy-induced neutropenia and conditions other than acute leukemia, myelodysplastic syndrome, and hematopoietic cell transplantation ". Dose adjustment for baseline liver or renal dysfunction: Dose adjustment in the setting of baseline renal impairment (ie, creatinine >3.0 mg/dL or GFR <50 mL/min) requires a balanced discussion of the goals of treatment and the risks of cisplatin. Refer to UpToDate topics on "Chemotherapy hepatotoxicity and dose modification in patients with liver disease" and "Chemotherapy-related nephrotoxicity and dose modification in patients with renal insufficiency". Monitoring parameters: CBC with differential and platelet count weekly during treatment. Basic metabolic panel (creatinine and electrolytes) prior to each treatment cycle. Liver function tests prior to each treatment cycle. Cisplatin is associated with significant nephrotoxicity. Ifosfamide is associated with cumulative nephrotoxicity, mostly at a total dose above 60 grams /m2. Clinical manifestations may include hypophosphatemia, renal potassium wasting, metabolic acidosis with a normal ion gap, and rarely, polyuria due to nephrogenic diabetes insipidus. Assess creatinine and electrolytes, including potassium and phosphate, daily during treatment and prior to each subsequent treatment cycle. Refer to UpToDate topic on "Ifosfamide nephrotoxicity". Mesna does not prevent hemorrhagic cystitis in all patients[2]. Monitor a morning specimen of urine for hematuria daily, on days 1 through 5. Refer to UpToDate topic on "Cystitis in patients with cancer". Monitor for neurotoxicity (confusion, coma, rarely seizures, weakness, neuropathy, ataxia, cranial nerve dysfunction) daily, on days 1 through 5. Central nervous system side effects may be especially problematic for those over age 60. Refer to UpToDate topic on "Overview of neurologic complications of non-[place] cancer chemotherapy". Monitor vital signs during etoposide infusion. Monitor for hearing loss prior to each dose of cisplatin; audiometry as clinically indicated. Suggested dose alterations for toxicity: Myelotoxicity: Reduce doses of etoposide and ifosfamide each by 25 percent for subsequent cycles for granulocytopenic fever or thrombocytopenic bleeding with the previous course of therapy[1]. Neurotoxicity: Neuropathy usually is seen after cumulative doses of cisplatin beyond 400 mg/m2, although there is marked interindividual variation. Patients with mild neuropathy can continue to receive full cisplatin doses. However, if the neuropathy interferes with function, the risk of potentially disabling neurotoxicity must be weighed against the benefit of continued treatment[3]. Refer to UpToDate topic on "Overview of neurologic complications of [place]- based chemotherapy". Nephrotoxicity: It is recommended that subsequent doses of cisplatin be withheld until the serum creatinine is less than 3.0 mg/dL. If there is a change in body weight of at least 10 percent, doses should be recalculated. IV: intravenous; GFR: glomerular filtration rate; CBC: complete blood count. * The initial protocol included empiric reduction of etoposide and ifosfamide doses by 25 percent for patients who have received prior radiation therapy[1]. ? Due to a longer half-life of ifosfamide and associated metabolites at higher doses, some references recommend continuation of mesna for 12 to 24 hours beyond completion of ifosfamide to reduce the risk of hemorrhagic cystitis[2]. References: Matt GRAHAM, et al. J Clin Oncol 1998; 16:1287. MESNA injection. [place] Prescribing Information. [employer] Library [employer] Medicine. (Available online at [email or web address], accessed July 04, 2011) . Cisplatin injection, powder, lyophilized, for solution. [place] Prescribing Information. [employer]. (Available online at [email or web address], accessed on July 04, 2011). Graphic 99659 Version 11.0 Problems: Consultation Date/Type/Reason Admit Date/Time Jan 03, 2017 at 10:48 Initial Consult Date 01/03/17 Type of Consultation: HEMEON Referring Provider: EMELI CHRISTIE 24 HR Interval Summary Free Text/Dictation all noted tolerating chemo well VIP- D Exam/Review of Systems Vital Signs Vitals Vital Signs Date Time Temp Pulse Resp B/P Pulse Ox O2 Delivery O2 Flow Rate FiO2 01/13/17 16:46 98.7 104 18 122/76 100 Room Air Intake and Output 01/12/17 01/12/17 01/13/17 15:00 23:00 07:00 Intake Total 790 ml 3228.8 ml 1640 ml Output Total 800 ml 500 ml Balance 790 ml 2428.8 ml 1140 ml Exam Constitutional: alert, oriented, well developed Psych: nl mood/affect, no complaints Head: atraumatic, normocephalic Eyes: EOMI, PERRL Neck: non-tender, supple Respiratory: clear to auscultation, normal air movement Cardiovascular: nl pulses, regular rate and rhythm Gastrointestinal: soft, tender on right side Extremities: normal pulses Results Result Diagram: 01/13/17 0452 01/13/17 0452 Results 24 hrs Laboratory Tests Test 01/13/17 04:52 White Blood Count 6.5 Red Blood Count 3.78 L Hemoglobin 10.8 L Hematocrit 32.9 L Mean Corpuscular Volume 87.0 Mean Corpuscular Hemoglobin 28.6 L Mean Corpuscular Hemoglobin Concent 32.8 Red Cell Distribution Width 13.2 Platelet Count 224 Mean Platelet Volume 11.4 H Neutrophils % 62.1 Lymphocytes % 20.5 Monocytes % 10.0 Eosinophils % 0.6 Basophils % 0.2 Nucleated Red Blood Cells % 0.0 Neutrophils # 4.0 Lymphocytes # 1.3 Monocytes # 0.7 Eosinophils # 0.0 Basophils # 0.0 Nucleated Red Blood Cells # 0.0 Prothrombin Time 14.3 H Prothrombin Time Ratio 1.1 INR International Normalized Ratio 1.11 Activated Partial Thromboplast Time 28.1 Sodium Level 136 Potassium Level 3.6 Chloride Level 99 Carbon Dioxide Level 32 H Anion Gap 9 Blood Urea Nitrogen 8 Creatinine 0.68 Glucose Level 80 Calcium Level 8.5 Total Bilirubin 0.3 Direct Bilirubin 0.00 Indirect Bilirubin 0.3 Aspartate Amino Transf (AST/SGOT) 43 Alanine Aminotransferase (ALT/SGPT) 65 Alkaline Phosphatase 189 H Total Protein 6.5 Albumin 3.5 Globulin 3.00 Albumin/Globulin Ratio 1.16 Medications Medications Current Medications Ondansetron HCl (Zofran Inj) 4 mg Q6H PRN IV NAUSEA AND/OR VOMITING Last administered on 01/13/17 05:05; Admin Dose 4 MG; Start 01/03/17 at 13:00 Acetaminophen (Tylenol Tab) 650 mg Q6H PRN PO PAIN LEVEL 1-3 OR FEVER; Start at 13:00 Acetaminophen/ Hydrocodone Bitart ([place] (5/325)) 1 tab Q6H PRN PO MODERATE PAIN LEVEL 4-6 Last administered on 01/10/17 18:52; Admin Dose 1 TAB; Start at 13:00 Morphine Sulfate (morphine) 2 mg Q4H PRN IV SEVERE PAIN LEVEL 7-10 Last administered on 01/06/17 17:19; Admin Dose 2 MG; Start 01/03/17 at 13:00 Enoxaparin Sodium (Lovenox) 40 mg DAILY SC Last administered on 01/13/17 09:39 ; Admin Dose 40 MG; Start 01/05/17 at 09:00 Lorazepam (Ativan) 1 mg Q4H PRN PO ANXIETY Last administered on 01/12/17 10:15 ; Admin Dose 1 MG; Start 01/06/17 at 17:00 Zolpidem Tartrate (Ambien) 10 mg HS PRN PO INSOMNIA; Start 01/06/17 at 18:00 Aspirin (Halfprin) 81 mg DAILY PO Last administered on 01/13/17 09:33; Admin Dose 81 MG; Start 01/11/17 at 09:00 Isosorbide Mononitrate (Imdur) 60 mg DAILY PO Last administered on 01/13/17 09: 33; Admin Dose 60 MG; Start 01/11/17 at 09:00 Pantoprazole (Protonix Tab) 40 mg DAILY PO Last administered on 01/13/17 09:32 ; Admin Dose 40 MG; Start 01/11/17 at 09:00 Sucralfate (Carafate) 1 gm TID PO Last administered on 01/13/17 09:32; Admin Dose 1 GM; Start 01/10/17 at 21:00 Atorvastatin Calcium (Lipitor) 20 mg HS PO Last administered on 01/12/17 21:03 ; Admin Dose 20 MG; Start 01/10/17 at 21:00 Hydromorphone HCl 1 mg 1 mg Q2H PRN IV PAIN Last administered on 01/13/17 13:15 ; Admin Dose 1 MG; Start 01/10/17 at 15:00 Ondansetron HCl/ Dexamethasone/ Dextrose (Zofran Inj/ Decadron/D5W) 68.5 ml @ 252 mls/hr 2030 IV Last administered on 01/13/17 13:50; Admin Dose 252 MLS/HR; Start 01/10/17 at 20:30; Stop 01/14/17 at 20:47 Diphenhydramine HCl 25 mg 25 mg 2030 IV Last administered on 01/13/17 13:50; Admin Dose 25 MG; Start 01/10/17 at 20:30; Stop 01/14/17 at 20:31 Cisplatin/Sodium Chloride (Platinol/NS) 290 ml @ 250 mls/hr 21 IV Last administered on 01/13/17 14:35; Admin Dose 250 MLS/HR; Start 01/10/17 at 21:00; Stop 01/14/17 at 22:10 IV Flush 10 ml 10 ml PRN PRN IV IV PROTOCOL; Start 01/10/17 at 16:00 Etoposide 150 mg/ Sodium Chloride 500 ml @ 500 mls/hr 22 IV Last administered on 01/12/17 10:14; Admin Dose 500 MLS/HR; Start 01/10/17 at 22:00; Stop at 22:59 Ifosfamide/Mesna/ Sodium Chloride (Ifosfamide/ Mesna/NS) 1,072 ml @ 44.667 mls / hr 23 IV Last administered on 01/12/17 13:38; Admin Dose 44.667 MLS/HR; Start 01/10/17 at 23:00; Stop 01/15/17 at 22:59 Morphine Sulfate (Ms Contin (Er)) 15 mg BID PO Last administered on 01/13/17 09 :33; Admin Dose 15 MG; Start 01/11/17 at 21:00 Docusate Sodium 200 mg 200 mg BID PO Last administered on 01/13/17 09:32; Admin Dose 200 MG; Start 01/11/17 at 21:00 Sodium Chloride (NS) 1,000 ml @ 80 mls/hr [id number] IV Last administered on 10:45; Admin Dose 80 MLS/HR; Start 01/13/17 at 10:30 MARQUEZ VERA MD Jan 13, 2017 17:02
[2017-01-13] MEDS: ETOPOSIDE IV SCH (17:34)
--- NOTE | 2017-01-13 19:34 | PN ---
Date/Time of Note Date/Time of Note DATE: 01/13/17 TIME: 19:32 Assessment/Plan VTE Prophylaxis VTE Prophylaxis Intervention: LMWH Lines/Catheters IV Catheter Type (from Nrsg): PICC Line Central line still needed: Yes (Chemotherapy access ) Urinary Cath still in place: No Assessment/Plan Assessment/Plan 1. 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 2. Hyperlipidemia 3. H/o GERD- on Protonix and sucralfate at home PLAN has a PICC line for chemo access c/o vomiting, 300ml, zofran 4mg IV given getting chemo pain controlled with MS contin 15 mg bID and IV dilaudid prn Lipitor for HL resumed home medication protonix and Sucralfate Lovenox for DVT prophylaxis Subjective 24 Hr Interval Summary Free Text/Dictation pain controlled with MS contin, getting chemotherapy c/o vomiting, 300 ml Exam/Review of Systems Vital Signs Vitals Vital Signs Date Time Temp Pulse Resp B/P Pulse Ox O2 Delivery O2 Flow Rate FiO2 01/13/17 17:30 98.6 102 18 130/76 98 Room Air Intake and Output 01/12/17 01/12/17 01/13/17 15:00 23:00 07:00 Intake Total 790 ml 3228.8 ml 1640 ml Output Total 800 ml 500 ml Balance 790 ml 2428.8 ml 1140 ml Exam Constitutional: alert, oriented, well developed Psych: nl mood/affect, no complaints Head: atraumatic, normocephalic Eyes: EOMI, PERRL Neck: non-tender, supple Respiratory: clear to auscultation, normal air movement Cardiovascular: nl pulses, regular rate and rhythm Gastrointestinal: soft, tender on right side Extremities: normal pulses Results Result Diagram: 01/13/17 0452 01/13/17 0452 Results 24 hrs Laboratory Tests Test 01/13/17 04:52 White Blood Count 6.5 Red Blood Count 3.78 L Hemoglobin 10.8 L Hematocrit 32.9 L Mean Corpuscular Volume 87.0 Mean Corpuscular Hemoglobin 28.6 L Mean Corpuscular Hemoglobin Concent 32.8 Red Cell Distribution Width 13.2 Platelet Count 224 Mean Platelet Volume 11.4 H Neutrophils % 62.1 Lymphocytes % 20.5 Monocytes % 10.0 Eosinophils % 0.6 Basophils % 0.2 Nucleated Red Blood Cells % 0.0 Neutrophils # 4.0 Lymphocytes # 1.3 Monocytes # 0.7 Eosinophils # 0.0 Basophils # 0.0 Nucleated Red Blood Cells # 0.0 Prothrombin Time 14.3 H Prothrombin Time Ratio 1.1 INR International Normalized Ratio 1.11 Activated Partial Thromboplast Time 28.1 Sodium Level 136 Potassium Level 3.6 Chloride Level 99 Carbon Dioxide Level 32 H Anion Gap 9 Blood Urea Nitrogen 8 Creatinine 0.68 Glucose Level 80 Calcium Level 8.5 Total Bilirubin 0.3 Direct Bilirubin 0.00 Indirect Bilirubin 0.3 Aspartate Amino Transf (AST/SGOT) 43 Alanine Aminotransferase (ALT/SGPT) 65 Alkaline Phosphatase 189 H Total Protein 6.5 Albumin 3.5 Globulin 3.00 Albumin/Globulin Ratio 1.16 Medications Medications Current Medications Ondansetron HCl (Zofran Inj) 4 mg Q6H PRN IV NAUSEA AND/OR VOMITING Last administered on 01/13/17 05:05; Admin Dose 4 MG; Start 01/03/17 at 13:00 Acetaminophen (Tylenol Tab) 650 mg Q6H PRN PO PAIN LEVEL 1-3 OR FEVER; Start at 13:00 Acetaminophen/ Hydrocodone Bitart ([place] (5/325)) 1 tab Q6H PRN PO MODERATE PAIN LEVEL 4-6 Last administered on 01/10/17 18:52; Admin Dose 1 TAB; Start at 13:00 Morphine Sulfate (morphine) 2 mg Q4H PRN IV SEVERE PAIN LEVEL 7-10 Last administered on 01/06/17 17:19; Admin Dose 2 MG; Start 01/03/17 at 13:00 Enoxaparin Sodium (Lovenox) 40 mg DAILY SC Last administered on 01/13/17 09:39 ; Admin Dose 40 MG; Start 01/05/17 at 09:00 Lorazepam (Ativan) 1 mg Q4H PRN PO ANXIETY Last administered on 01/12/17 10:15 ; Admin Dose 1 MG; Start 01/06/17 at 17:00 Zolpidem Tartrate (Ambien) 10 mg HS PRN PO INSOMNIA; Start 01/06/17 at 18:00 Aspirin (Halfprin) 81 mg DAILY PO Last administered on 01/13/17 09:33; Admin Dose 81 MG; Start 01/11/17 at 09:00 Isosorbide Mononitrate (Imdur) 60 mg DAILY PO Last administered on 01/13/17 09: 33; Admin Dose 60 MG; Start 01/11/17 at 09:00 Pantoprazole (Protonix Tab) 40 mg DAILY PO Last administered on 01/13/17 09:32 ; Admin Dose 40 MG; Start 01/11/17 at 09:00 Sucralfate (Carafate) 1 gm TID PO Last administered on 01/13/17 09:32; Admin Dose 1 GM; Start 01/10/17 at 21:00 Atorvastatin Calcium (Lipitor) 20 mg HS PO Last administered on 01/12/17 21:03 ; Admin Dose 20 MG; Start 01/10/17 at 21:00 Hydromorphone HCl 1 mg 1 mg Q2H PRN IV PAIN Last administered on 01/13/17 17:02 ; Admin Dose 1 MG; Start 01/10/17 at 15:00 Ondansetron HCl/ Dexamethasone/ Dextrose (Zofran Inj/ Decadron/D5W) 68.5 ml @ 252 mls/hr 2030 IV Last administered on 01/13/17 13:50; Admin Dose 252 MLS/HR; Start 01/10/17 at 20:30; Stop 01/14/17 at 20:47 Diphenhydramine HCl 25 mg 25 mg 2030 IV Last administered on 01/13/17 13:50; Admin Dose 25 MG; Start 01/10/17 at 20:30; Stop 01/14/17 at 20:31 Cisplatin/Sodium Chloride (Platinol/NS) 290 ml @ 250 mls/hr 21 IV Last administered on 01/13/17 14:35; Admin Dose 250 MLS/HR; Start 01/10/17 at 21:00; Stop 01/14/17 at 22:10 IV Flush 10 ml 10 ml PRN PRN IV IV PROTOCOL; Start 01/10/17 at 16:00 Etoposide 150 mg/ Sodium Chloride 500 ml @ 500 mls/hr 22 IV Last administered on 01/13/17 17:34; Admin Dose 500 MLS/HR; Start 01/10/17 at 22:00; Stop 01/14/17 at 22:59 Ifosfamide/[place]/ Sodium Chloride (Ifosfamide/ [place]/NS) 1,072 ml @ 44.667 mls / hr 23 IV Last administered on 01/12/17 13:38; Admin Dose 44.667 MLS/HR; Start 01/10/17 at 23:00; Stop 01/15/17 at 22:59 Morphine Sulfate (Ms Contin (Er)) 15 mg BID PO Last administered on 01/13/17 09 :33; Admin Dose 15 MG; Start 01/11/17 at 21:00 Docusate Sodium 200 mg 200 mg BID PO Last administered on 01/13/17 09:32; Admin Dose 200 MG; Start 01/11/17 at 21:00 Sodium Chloride (NS) 1,000 ml @ 80 mls/hr [id number] IV Last administered on 10:45; Admin Dose 80 MLS/HR; Start 01/13/17 at 10:30 AGGIE LEAHY MD Jan 13, 2017 19:34
[2017-01-13] MEDS: ATORVASTATIN 20 MG TAB PO SCH (20:27)
[2017-01-13] MEDS: LORAZEPAM 1 MG TAB PO PRN (22:19)
[2017-01-13] MEDS: morphine 2 MG INJ IV PRN (22:20)
[2017-01-13] MEDS: IFOSFAMIDE IV SCH (22:33)
[2017-01-13] MEDS: MESNA IV SCH (22:33)
[2017-01-14] VITALS (10 sets, daily range): BP systolic 101–133; BP diastolic 58–78; PULSE 77–105; RESP 17–20
[2017-01-14] MEDS: ONDANSETRON 4 MG INJ IV PRN ×2 (04:37→12:37)
[2017-01-14] MEDS: HYDROmorphONE 1 MG/ML SYG IV PRN ×4 (04:51→18:16)
[2017-01-14 05:59] LABS: ABNORMAL IP MESSAGE 1; HEMATOCRIT 32.9 % (42.0-52.0); MEAN CORPUSCULAR HEMOGLOBIN 28.6 pg (29.0-33.0); MEAN CORPUSCULAR HGB CONC 33.4 g/dl (32.0-37.0); MEAN CORPUSCULAR VOLUME 85.7 fl (82.0-101.0); MEAN PLATELET VOLUME 11.2 fl (7.4-10.4); PLATELET COUNT 265 10^3/UL (140-415); RED BLOOD COUNT 3.84 10^6/ul (4.70-6.10); WHITE BLOOD COUNT 7.3 10^3/ul (4.8-10.8)
[2017-01-14 06:46] LABS: ADD SCAN DIFF YES
[2017-01-14 06:53] LABS: CALCIUM 8.8 mg/dl (8.4-10.2); CREATININE 0.63 mg/dl (0.61-1.24); POTASSIUM 3.6 mmol/L (3.5-5.1)
[2017-01-14] MEDS: SOD CHLORIDE 0.9% 1,000 ML IV SCH ×2 (07:58→18:17)
[2017-01-14] MEDS: SUCRALFATE 1 GM TAB PO SCH ×3 (08:09→20:49)
[2017-01-14] MEDS: DOCUSATE SODIUM 100 MG CAP PO SCH ×2 (08:10→20:49)
[2017-01-14] MEDS: ISOSORBIDE MONONITRATE(SR)60 MG TAB PO SCH (08:10)
[2017-01-14] MEDS: ASPIRIN (EC) 81 MG TAB PO SCH (08:10)
[2017-01-14] MEDS: morphine (ER) 15 MG TAB PO SCH ×2 (08:10→20:50)
[2017-01-14] MEDS: PANTOPRAZOLE (EC) 40 MG TAB PO SCH (08:11)
[2017-01-14] MEDS: ENOXAPARIN 40 MG/0.4 ML SYG SC SCH (09:25)
[2017-01-14 10:14] LABS: LYMPHOCYTES # 1.4 10^3/ul (0.8-2.9); MONOCYTE # 0.3 10^3/ul (0.3-0.9); NEUTROPHIL # 5.5 10^3/ul (1.6-7.5)
[2017-01-14 10:16] LABS: PLATELET ESTIMATE PLT APPEAR ADEQUATE
--- NOTE | 2017-01-14 13:46 | PN ---
Date/Time of Note Date/Time of Note DATE: 01/14/17 TIME: 13:43 Assessment/Plan VTE Prophylaxis VTE Prophylaxis Intervention: LMWH Lines/Catheters IV Catheter Type (from Nrsg): PICC Line Central line still needed: Yes (Chemotherapy access ) Urinary Cath still in place: No Assessment/Plan Assessment/Plan 1. 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 2. Hyperlipidemia 3. H/o GERD- on Protonix and sucralfate at home PLAN has a PICC line for chemo access c/o vomiting- , zofran 4mg IV given getting chemo pain controlled with MS contin 15 mg bID and IV dilaudid prn Lipitor for HL resumed home medication protonix and Sucralfate Lovenox for DVT prophylaxis Exam/Review of Systems Vital Signs Vitals Vital Signs Date Time Temp Pulse Resp B/P Pulse Ox O2 Delivery O2 Flow Rate FiO2 01/14/17 07:36 98.6 89 19 125/61 97 01/14/17 05:03 Room Air Intake and Output 01/13/17 01/13/17 01/14/17 15:00 23:00 07:00 Intake Total 471.7 ml 2750 ml 1970.5 ml Output Total 3400 ml 1550 ml Balance 471.7 ml -650 ml 420.5 ml Exam Constitutional: alert, oriented, well developed Psych: nl mood/affect, no complaints Head: atraumatic, normocephalic Eyes: EOMI, PERRL Neck: non-tender, supple Respiratory: clear to auscultation, normal air movement Cardiovascular: nl pulses, regular rate and rhythm Gastrointestinal: soft, tender on right side Extremities: normal pulses Results Result Diagram: 01/14/1751001/14/17510 Results 24 hrs Laboratory Tests Test 01/14/17 05:11 White Blood Count 7.3 Red Blood Count 3.84 L Hemoglobin 11.0 L Hematocrit 32.9 L Mean Corpuscular Volume 85.7 Mean Corpuscular Hemoglobin 28.6 L Mean Corpuscular Hemoglobin Concent 33.4 Red Cell Distribution Width 13.0 Platelet Count 265 Mean Platelet Volume 11.2 H Neutrophils % 76.0 Band Neutrophils % 1.0 Lymphocytes % 19.0 Monocytes % 4.0 Neutrophils # 5.5 Lymphocytes # 1.4 Monocytes # 0.3 Platelet Estimate PLT APPEAR ADEQUATE Large Platelets FEW Giant Platelets OCCASIONAL Sodium Level 138 Potassium Level 3.6 Chloride Level 97 Carbon Dioxide Level 28 Anion Gap 17 #H Blood Urea Nitrogen 10 Creatinine 0.63 Glucose Level 85 Calcium Level 8.8 Medications Medications Current Medications Ondansetron HCl (Zofran Inj) 4 mg Q6H PRN IV NAUSEA AND/OR VOMITING Last administered on 01/14/17 12:37; Admin Dose 4 MG; Start 01/03/17 at 13:00 Acetaminophen (Tylenol Tab) 650 mg Q6H PRN PO PAIN LEVEL 1-3 OR FEVER; Start at 13:00 Acetaminophen/ Hydrocodone Bitart ([place] (5/325)) 1 tab Q6H PRN PO MODERATE PAIN LEVEL 4-6 Last administered on 01/10/17 18:52; Admin Dose 1 TAB; Start at 13:00 Morphine Sulfate (morphine) 2 mg Q4H PRN IV SEVERE PAIN LEVEL 7-10 Last administered on 01/13/17 22:20; Admin Dose 2 MG; Start 01/03/17 at 13:00 Enoxaparin Sodium (Lovenox) 40 mg DAILY SC Last administered on 01/14/17 09:25 ; Admin Dose 40 MG; Start 01/05/17 at 09:00 Lorazepam (Ativan) 1 mg Q4H PRN PO ANXIETY Last administered on 01/13/17 22:19 ; Admin Dose 1 MG; Start 01/06/17 at 17:00 Zolpidem Tartrate (Ambien) 10 mg HS PRN PO INSOMNIA; Start 01/06/17 at 18:00 Aspirin (Halfprin) 81 mg DAILY PO Last administered on 01/14/17 08:10; Admin Dose 81 MG; Start 01/11/17 at 09:00 Isosorbide Mononitrate (Imdur) 60 mg DAILY PO Last administered on 01/14/17 08: 10; Admin Dose 60 MG; Start 01/11/17 at 09:00 Pantoprazole (Protonix Tab) 40 mg DAILY PO Last administered on 01/14/17 08:11 ; Admin Dose 40 MG; Start 01/11/17 at 09:00 Sucralfate (Carafate) 1 gm TID PO Last administered on 01/14/17 12:37; Admin Dose 1 GM; Start 01/10/17 at 21:00 Atorvastatin Calcium (Lipitor) 20 mg HS PO Last administered on 01/13/17 20:27 ; Admin Dose 20 MG; Start 01/10/17 at 21:00 Hydromorphone HCl 1 mg 1 mg Q2H PRN IV PAIN Last administered on 01/14/17 12:47 ; Admin Dose 1 MG; Start 01/10/17 at 15:00 Ondansetron HCl/ Dexamethasone/ Dextrose (Zofran Inj/ Decadron/D5W) 68.5 ml @ 252 mls/hr 2030 IV Last administered on 01/13/17 13:50; Admin Dose 252 MLS/HR; Start 01/10/17 at 20:30; Stop 01/14/17 at 20:47 Diphenhydramine HCl 25 mg 25 mg 2030 IV Last administered on 01/13/17 13:50; Admin Dose 25 MG; Start 01/10/17 at 20:30; Stop 01/14/17 at 20:31 Cisplatin/Sodium Chloride (Platinol/NS) 290 ml @ 250 mls/hr 21 IV Last administered on 01/13/17 14:35; Admin Dose 250 MLS/HR; Start 01/10/17 at 21:00; Stop 01/14/17 at 22:10 IV Flush 10 ml 10 ml PRN PRN IV IV PROTOCOL; Start 01/10/17 at 16:00 Etoposide 150 mg/ Sodium Chloride 500 ml @ 500 mls/hr 22 IV Last administered on 01/13/17 17:34; Admin Dose 500 MLS/HR; Start 01/10/17 at 22:00; Stop 01/14/17 at 22:59 Ifosfamide/[place]/ Sodium Chloride (Ifosfamide/ [place]/NS) 1,072 ml @ 44.667 mls / hr 23 IV Last administered on 01/13/17 22:33; Admin Dose 44.667 MLS/HR; Start 01/10/17 at 23:00; Stop 01/15/17 at 22:59 Morphine Sulfate (Ms Contin (Er)) 15 mg BID PO Last administered on 01/14/17 08 :10; Admin Dose 15 MG; Start 01/11/17 at 21:00 Docusate Sodium 200 mg 200 mg BID PO Last administered on 01/14/17 08:10; Admin Dose 200 MG; Start 01/11/17 at 21:00 Sodium Chloride (NS) 1,000 ml @ 80 mls/hr [id number] IV Last administered on 07:58; Admin Dose 80 MLS/HR; Start 01/13/17 at 10:30 AGGIE LEAHY MD Jan 14, 2017 13:46
[2017-01-14] MEDS: DIPHENHYDRAMINE 50 MG INJ IV SCH ×2 (20:30→22:21)
[2017-01-14] MEDS: DEXTROSE 5% IV SCH ×2 (20:30→22:22)
[2017-01-14] MEDS: DEXAMETHASONE IV SCH ×2 (20:30→22:22)
[2017-01-14] MEDS: ONDANSETRON IV SCH ×2 (20:30→22:22)
[2017-01-14] MEDS: ATORVASTATIN 20 MG TAB PO SCH (20:49)
[2017-01-14] MEDS: SOD CHLORIDE 0.9% IV SCH ×4 (21:00→23:04)
[2017-01-14] MEDS: CISPLATIN IV SCH ×2 (21:00→23:04)
[2017-01-14] MEDS: ETOPOSIDE IV SCH (22:00)
[2017-01-14] MEDS: MESNA IV SCH (23:00)
[2017-01-14] MEDS: IFOSFAMIDE IV SCH (23:00)
[2017-01-14] MEDS: ACETAMINOPHEN 325 MG TAB PO PRN (23:34)
[2017-01-15] VITALS (9 sets, daily range): BP systolic 109–129; BP diastolic 58–79; PULSE 85–99; RESP 16–20
--- NOTE | 2017-01-15 00:07 | CONS ---
Date/Time of Note Date/Time of Note DATE: 01/14/17 TIME: 18:07 Assessment/Plan Assessment/Plan Chief Complaint/Hosp Course Metastatic mixed germ cell tumor, non-seminomatous. with Massive retroperitoneal lymphadenopathy, Peripancreatic and retrocrural lymphadenopathy, Multiple bilateral pulmonary nodules. The largest conglomeration of lymph nodes measures approximately 7.3 x 11.7 x 13.2 cm. TUMOR MARKERS- REVIEWED [facility]- VERY HIGH CT CHEST- 1. Significant retroperitoneal, right supraclavicular, and right hilar lymphadenopathy consistent with metastatic disease. 2. Diffuse pulmonary nodules are also consistent with metastatic disease 3. Hypoenhancing hepatic lesions may be a combination of metastatic disease and hemangiomas. An MRI with and without contrast may be useful to delineate if clinically indicated. path -Retroperitoneal mass, CT-guided core needle biopsies: reviewed PLAN CHEMO- for METASTATIC nonseminomatous germ cell tumors For patients with nonseminomatous GCT, we suggest four cycles of chemotherapy as the initial therapy, rather than surgery or RT We recommend VIP rather than BEP because of the increased risk of bleomycin pulmonary toxicity should surgery eventually be required BEP can be considered as an alternative if bone marrow toxicity is a particular concern. For patients with a residual mediastinal mass following initial chemotherapy, we recommend complete surgical resection, if technically feasible If viable malignancy is identified, we suggest two additional cycles of VIP chemotherapy POST PICC LINE CHEMO D/W IN DETAILS cont per protocol - D ANEMIA, N- CYTIC WITH N RDW + COMPONENT ACD THROMBOCYTOPENIA MONITOR IMPROVED LOW-GRADE FEVER W-UP ORDERED NOT NEUTROPENIC ID NOT ON ATB WILL OBSERVE VIP REGIMEN- Cycle length: 21 days. Total cycles: 4. Drug Dose and route Administration Given on days Cisplatin 20 mg/m2 IV per day Dilute with 250 mL normal saline (NS) and administer over one hour. Do not administer with aluminum needles or intravenous sets. Days 1 to 5 Etoposide* 75 mg/m2 IV per day Dilute with 500 mL NS (concentration less than 0.4 mg/mL) and administer over one hour. Days 1 to 5 Ifosfamide* 1200 mg/m2 per day continuous IV infusion Dilute with NS for injection to a final concentration of 0.6 to 20 mg/mL and infuse over 24 hours. Can mix with Mesna. Days 1 to 5 Mesna 120 mg/m2 IV Dilute with NS for injection and administer via slow IV push prior to day 1 infusion of ifosfamide. Total concentration of mesna should not exceed 20 mg/mL. Day 1 Mesna? 1200 mg/m2 per day continuous IV infusion Dilute with NS for injection and administer as continuous infusion over 24 hours[2]. Total concentration of mesna should not exceed 20 mg/mL. Can mix with ifosfamide. Days 1 to 5 Pretreatment considerations: Hydration: Induction of diuresis using intravenous NS minimizes the risk of cisplatin nephrotoxicity. At least 2000 mL of NS should be administered at a rate of 100 to 125 mL per hour throughout the five days of treatment and continued for at least two hours after the last dose of cisplatin. Refer to UpToDate topic on "Cisplatin nephrotoxicity". Emesis risk: HIGH (>90 percent frequency of emesis). Aprepitant can be given orally (125 mg on day 1, 80 mg on days 2 and 3) with ondansetron, prochlorperazine, and dexamethasone daily. Refer to UpToDate topic on "Prevention and treatment of chemotherapy-induced nausea and vomiting in adults ". Vesicant/irritant properties: Cisplatin is an irritant but can cause significant tissue damage; avoid extravasation[3]. Refer to UpToDate topic on "Extravasation injury from chemotherapy and other non-antineoplastic vesicants" . Infection prophylaxis: Primary prophylaxis with granulocyte colony stimulating factors was administered as a routine component of this regimen[1]. Refer to UpToDate topic on "Use of granulocyte colony stimulating factors in adult patients with chemotherapy-induced neutropenia and conditions other than acute leukemia, myelodysplastic syndrome, and hematopoietic cell transplantation ". Dose adjustment for baseline liver or renal dysfunction: Dose adjustment in the setting of baseline renal impairment (ie, creatinine >3.0 mg/dL or GFR <50 mL/min) requires a balanced discussion of the goals of treatment and the risks of cisplatin. Refer to UpToDate topics on "Chemotherapy hepatotoxicity and dose modification in patients with liver disease" and "Chemotherapy-related nephrotoxicity and dose modification in patients with renal insufficiency". Monitoring parameters: CBC with differential and platelet count weekly during treatment. Basic metabolic panel (creatinine and electrolytes) prior to each treatment cycle. Liver function tests prior to each treatment cycle. Cisplatin is associated with significant nephrotoxicity. Ifosfamide is associated with cumulative nephrotoxicity, mostly at a total dose above 60 grams /m2. Clinical manifestations may include hypophosphatemia, renal potassium wasting, metabolic acidosis with a normal ion gap, and rarely, polyuria due to nephrogenic diabetes insipidus. Assess creatinine and electrolytes, including potassium and phosphate, daily during treatment and prior to each subsequent treatment cycle. Refer to UpToDate topic on "Ifosfamide nephrotoxicity". Mesna does not prevent hemorrhagic cystitis in all patients[2]. Monitor a morning specimen of urine for hematuria daily, on days 1 through 5. Refer to UpToDate topic on "Cystitis in patients with cancer". Monitor for neurotoxicity (confusion, coma, rarely seizures, weakness, neuropathy, ataxia, cranial nerve dysfunction) daily, on days 1 through 5. Central nervous system side effects may be especially problematic for those over age 60. Refer to UpToDate topic on "Overview of neurologic complications of non-wales cancer chemotherapy". Monitor vital signs during etoposide infusion. Monitor for hearing loss prior to each dose of cisplatin; audiometry as clinically indicated. Suggested dose alterations for toxicity: Myelotoxicity: Reduce doses of etoposide and ifosfamide each by 25 percent for subsequent cycles for granulocytopenic fever or thrombocytopenic bleeding with the previous course of therapy[1]. Neurotoxicity: Neuropathy usually is seen after cumulative doses of cisplatin beyond 400 mg/m2, although there is marked interindividual variation. Patients with mild neuropathy can continue to receive full cisplatin doses. However, if the neuropathy interferes with function, the risk of potentially disabling neurotoxicity must be weighed against the benefit of continued treatment[3]. Refer to UpToDate topic on "Overview of neurologic complications of wales- based chemotherapy". Nephrotoxicity: It is recommended that subsequent doses of cisplatin be withheld until the serum creatinine is less than 3.0 mg/dL. If there is a change in body weight of at least 10 percent, doses should be recalculated. IV: intravenous; GFR: glomerular filtration rate; CBC: complete blood count. * The initial protocol included empiric reduction of etoposide and ifosfamide doses by 25 percent for patients who have received prior radiation therapy[1]. ? Due to a longer half-life of ifosfamide and associated metabolites at higher doses, some references recommend continuation of mesna for 12 to 24 hours beyond completion of ifosfamide to reduce the risk of hemorrhagic cystitis[2]. References: Matt GRAHAM, et al. J Clin Oncol 1998; 16:1287. MESNA injection. [place] Prescribing Information. [employer]. (Available online at [email or web address].gov, accessed July 04, 2011) . Cisplatin injection, powder, lyophilized, for solution. [facility] Prescribing Information. [employer]. (Available online at [email or web address], accessed on July 04, 2011). Graphic 60614 Version 11.0 Problems: Consultation Date/Type/Reason Admit Date/Time Jan 03, 2017 at 10:48 Initial Consult Date 01/03/17 Type of Consultation: HEMEON Referring Provider: EMELI CHRISTIE 24 HR Interval Summary Free Text/Dictation ALL NOTED LOW-GRADE FEVER W-UP ORDERED DOESN'T LOOK TOXIC TOLERATING TREATMENT Exam/Review of Systems Vital Signs Vitals Vital Signs Date Time Temp Pulse Resp B/P Pulse Ox O2 Delivery O2 Flow Rate FiO2 01/14/17 23:57 100.3 96 118/59 95 Room Air 01/14/17 23:24 17 Intake and Output 01/14/17 01/14/17 01/15/17 15:00 23:00 07:00 Intake Total 500 ml 1570.0 ml Balance 500 ml 1570.0 ml Exam Constitutional: alert, oriented, well developed Psych: nl mood/affect, no complaints Head: atraumatic, normocephalic Eyes: EOMI, PERRL Neck: non-tender, supple Respiratory: clear to auscultation, normal air movement Cardiovascular: nl pulses, regular rate and rhythm Gastrointestinal: soft, tender on right side Extremities: normal pulses Results Result Diagram: 01/14/17 0511 01/14/17 0511 Results 24 hrs Laboratory Tests Test 01/14/17 05:11 White Blood Count 7.3 Red Blood Count 3.84 L Hemoglobin 11.0 L Hematocrit 32.9 L Mean Corpuscular Volume 85.7 Mean Corpuscular Hemoglobin 28.6 L Mean Corpuscular Hemoglobin Concent 33.4 Red Cell Distribution Width 13.0 Platelet Count 265 Mean Platelet Volume 11.2 H Neutrophils % 76.0 Band Neutrophils % 1.0 Lymphocytes % 19.0 Monocytes % 4.0 Neutrophils # 5.5 Lymphocytes # 1.4 Monocytes # 0.3 Platelet Estimate PLT APPEAR ADEQUATE Large Platelets FEW Giant Platelets OCCASIONAL Sodium Level 138 Potassium Level 3.6 Chloride Level 97 Carbon Dioxide Level 28 Anion Gap 17 #H Blood Urea Nitrogen 10 Creatinine 0.63 Glucose Level 85 Calcium Level 8.8 Medications Medications Current Medications Ondansetron HCl (Zofran Inj) 4 mg Q6H PRN IV NAUSEA AND/OR VOMITING Last administered on 01/14/17 12:37; Admin Dose 4 MG; Start 01/03/17 at 13:00 Acetaminophen (Tylenol Tab) 650 mg Q6H PRN PO PAIN LEVEL 1-3 OR FEVER Last administered on 01/14/17 23:34; Admin Dose 650 MG; Start 01/03/17 at 13:00 Acetaminophen/ Hydrocodone Bitart ([place] (5/325)) 1 tab Q6H PRN PO MODERATE PAIN LEVEL 4-6 Last administered on 01/10/17 18:52; Admin Dose 1 TAB; Start at 13:00 Morphine Sulfate (morphine) 2 mg Q4H PRN IV SEVERE PAIN LEVEL 7-10 Last administered on 01/13/17 22:20; Admin Dose 2 MG; Start 01/03/17 at 13:00 Enoxaparin Sodium (Lovenox) 40 mg DAILY SC Last administered on 01/14/17 09:25 ; Admin Dose 40 MG; Start 01/05/17 at 09:00 Lorazepam (Ativan) 1 mg Q4H PRN PO ANXIETY Last administered on 01/13/17 22:19 ; Admin Dose 1 MG; Start 01/06/17 at 17:00 Zolpidem Tartrate (Ambien) 10 mg HS PRN PO INSOMNIA; Start 01/06/17 at 18:00 Aspirin (Halfprin) 81 mg DAILY PO Last administered on 01/14/17 08:10; Admin Dose 81 MG; Start 01/11/17 at 09:00 Isosorbide Mononitrate (Imdur) 60 mg DAILY PO Last administered on 01/14/17 08: 10; Admin Dose 60 MG; Start 01/11/17 at 09:00 Pantoprazole (Protonix Tab) 40 mg DAILY PO Last administered on 01/14/17 08:11 ; Admin Dose 40 MG; Start 01/11/17 at 09:00 Sucralfate (Carafate) 1 gm TID PO Last administered on 01/14/17 20:49; Admin Dose 1 GM; Start 01/10/17 at 21:00 Atorvastatin Calcium (Lipitor) 20 mg HS PO Last administered on 01/14/17 20:49 ; Admin Dose 20 MG; Start 01/10/17 at 21:00 Hydromorphone HCl (Dilaudid) 1 mg Q2H PRN IV PAIN Last administered on 18:16; Admin Dose 1 MG; Start 01/10/17 at 15:00 IV Flush 10 ml 10 ml PRN PRN IV IV PROTOCOL; Start 01/10/17 at 16:00 Ifosfamide/Mesna/ Sodium Chloride (Ifosfamide/ Mesna/NS) 1,072 ml @ 44.667 mls / hr 23 IV Last administered on 01/13/17 22:33; Admin Dose 44.667 MLS/HR; Start 01/10/17 at 23:00; Stop 01/15/17 at 22:59 Morphine Sulfate (Ms Contin (Er)) 15 mg BID PO Last administered on 01/14/17 20 :50; Admin Dose 15 MG; Start 01/11/17 at 21:00 Docusate Sodium 200 mg 200 mg BID PO Last administered on 01/14/17 20:49; Admin Dose 200 MG; Start 01/11/17 at 21:00 Sodium Chloride (NS) 1,000 ml @ 80 mls/hr [id number] IV Last administered on 18:17; Admin Dose 80 MLS/HR; Start 01/13/17 at 10:30 MARQUEZ VERA MD Jan 15, 2017 00:07
--- NOTE | 2017-01-15 01:56 | RADRPT ---
PROCEDURE: XR Chest. CLINICAL INDICATION: Fever. TECHNIQUE: Single frontal chest x-ray. COMPARISON: Chest x-ray 01/10/2017, CT chest 01/04/2017 FINDINGS: Left PICC line is present tip in the SVC. The cardiomediastinal silhouette is unremarkable. There is no congestive heart failure.. There is no focal pneumonia. There is interval increase in size of multiple lung masses throughout both lung vidales, greatest at the lung bases.. There is no pleural effusion. There is no pneumothorax. The osseous structures are unremarkable. IMPRESSION: No evidence for pneumonia. Interval increase in size of multiple lung masses consistent with metast atic disease. RPTAT: HMVK .Jose Yancey MD, MD Date Time Electronically viewed and signed by .Jose Yancey MD, on 01/15/2017 01:56 .K/
[2017-01-15] MEDS: HYDROmorphONE 1 MG/ML SYG IV PRN ×5 (02:07→21:52)
[2017-01-15] MEDS: ETOPOSIDE IV SCH (02:17)
[2017-01-15] MEDS: SOD CHLORIDE 0.9% IV SCH ×2 (02:17→04:42)
[2017-01-15] MEDS: IFOSFAMIDE IV SCH (04:42)
[2017-01-15] MEDS: MESNA IV SCH (04:42)
[2017-01-15] MEDS: SOD CHLORIDE 0.9% 1,000 ML IV SCH ×3 (05:27→21:09)
[2017-01-15 05:47] LABS: BASOPHILS % 0.2 % (0.0-2.0); EOSINOPHILS % 0.2 % (0.0-7.0); HEMATOCRIT 32.7 % (42.0-52.0); HEMOGLOBIN 10.9 g/dl (14.0-18.0); LYMPHOCYTES # 0.7 10^3/ul (0.8-2.9); LYMPHOCYTES % 10.3 % (15.0-51.0); MEAN CORPUSCULAR HEMOGLOBIN 28.8 pg (29.0-33.0); MEAN CORPUSCULAR HGB CONC 33.3 g/dl (32.0-37.0); MEAN CORPUSCULAR VOLUME 86.5 fl (82.0-101.0); MEAN PLATELET VOLUME 11.2 fl (7.4-10.4); MONOCYTE # 0.2 10^3/ul (0.3-0.9); MONOCYTES % 3.7 % (0.0-11.0); NEUTROPHIL # 5.4 10^3/ul (1.6-7.5); NEUTROPHILS % 83.3 % (39.0-77.0); PLATELET COUNT 265 10^3/UL (140-415); RED BLOOD COUNT 3.78 10^6/ul (4.70-6.10); WHITE BLOOD COUNT 6.5 10^3/ul (4.8-10.8)
[2017-01-15 05:54] LABS: INR 1.15; PROTIME 14.7 Sec (12.2-14.2); PT RATIO 1.1
[2017-01-15 05:55] LABS: PARTIAL THROMBOPLASTIN TIME 28.7 Sec (25.0-35.0)
[2017-01-15 05:56] LABS: ADD SCAN DIFF NO
[2017-01-15 06:09] LABS: ALBUMIN 3.6 g/dl (3.3-4.9); BILIRUBIN,INDIRECT 0.2 mg/dl (0-1.1); BILIRUBIN,TOTAL 0.2 mg/dl (0.2-1.3); CALCIUM 8.5 mg/dl (8.4-10.2); POTASSIUM 4.5 mmol/L (3.5-5.1)
[2017-01-15 06:10] LABS: ALBUMIN/GLOBULIN RATIO 1.2; CREATININE 0.75 mg/dl (0.61-1.24); TOTAL PROTEIN 6.6 g/dl (6.1-8.1)
--- NOTE | 2017-01-15 07:56 | CONS ---
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 The largest conglomeration of lymph nodes measures approximately 7.3 x 11.7 x 13.2 cm. TUMOR MARKERS- REVIEWED [facility]- VERY HIGH CT CHEST- 1. Significant retroperitoneal, right supraclavicular, and right hilar lymphadenopathy consistent with metastatic disease. 2. Diffuse pulmonary nodules are also consistent with metastatic disease 3. Hypoenhancing hepatic lesions may be a combination of metastatic disease and hemangiomas. An MRI with and without contrast may be useful to delineate if clinically indicated. path -Retroperitoneal mass, CT-guided core needle biopsies: reviewed PLAN CHEMO- for METASTATIC nonseminomatous germ cell tumors For patients with nonseminomatous GCT, we suggest four cycles of chemotherapy as the initial therapy, rather than surgery or RT We recommend VIP rather than BEP because of the increased risk of bleomycin pulmonary toxicity should surgery eventually be required BEP can be considered as an alternative if bone marrow toxicity is a particular concern. For patients with a residual mediastinal mass following initial chemotherapy, we recommend complete surgical resection, if technically feasible If viable malignancy is identified, we suggest two additional cycles of VIP chemotherapy POST PICC LINE CHEMO D/W IN DETAILS cont per protocol - D ANEMIA, N- CYTIC WITH N RDW + COMPONENT ACD THROMBOCYTOPENIA MONITOR IMPROVED LOW-GRADE FEVER W-UP ORDERED NOT NEUTROPENIC ID NOT ON ATB WILL OBSERVE VIP REGIMEN- Cycle length: 21 days. Total cycles: 4. Drug Dose and route Administration Given on days Cisplatin 20 mg/m2 IV per day Dilute with 250 mL normal saline (NS) and administer over one hour. Do not administer with aluminum needles or intravenous sets. Days 1 to 5 Etoposide* 75 mg/m2 IV per day Dilute with 500 mL NS (concentration less than 0.4 mg/mL) and administer over one hour. Days 1 to 5 Ifosfamide* 1200 mg/m2 per day continuous IV infusion Dilute with NS for injection to a final concentration of 0.6 to 20 mg/mL and infuse over 24 hours. Can mix with Mesna. Days 1 to 5 Mesna 120 mg/m2 IV Dilute with NS for injection and administer via slow IV push prior to day 1 infusion of ifosfamide. Total concentration of mesna should not exceed 20 mg/mL. Day 1 Mesna? 1200 mg/m2 per day continuous IV infusion Dilute with NS for injection and administer as continuous infusion over 24 hours[2]. Total concentration of mesna should not exceed 20 mg/mL. Can mix with ifosfamide. Days 1 to 5 Pretreatment considerations: Hydration: Induction of diuresis using intravenous NS minimizes the risk of cisplatin nephrotoxicity. At least 2000 mL of NS should be administered at a rate of 100 to 125 mL per hour throughout the five days of treatment and continued for at least two hours after the last dose of cisplatin. Refer to UpToDate topic on "Cisplatin nephrotoxicity". Emesis risk: HIGH (>90 percent frequency of emesis). Aprepitant can be given orally (125 mg on day 1, 80 mg on days 2 and 3) with ondansetron, prochlorperazine, and dexamethasone daily. Refer to UpToDate topic on "Prevention and treatment of chemotherapy-induced nausea and vomiting in adults ". Vesicant/irritant properties: Cisplatin is an irritant but can cause significant tissue damage; avoid extravasation[3]. Refer to UpToDate topic on "Extravasation injury from chemotherapy and other non-antineoplastic vesicants" . Infection prophylaxis: Primary prophylaxis with granulocyte colony stimulating factors was administered as a routine component of this regimen[1]. Refer to UpToDate topic on "Use of granulocyte colony stimulating factors in adult patients with chemotherapy-induced neutropenia and conditions other than acute leukemia, myelodysplastic syndrome, and hematopoietic cell transplantation ". Dose adjustment for baseline liver or renal dysfunction: Dose adjustment in the setting of baseline renal impairment (ie, creatinine >3.0 mg/dL or GFR <50 mL/min) requires a balanced discussion of the goals of treatment and the risks of cisplatin. Refer to UpToDate topics on "Chemotherapy hepatotoxicity and dose modification in patients with liver disease" and "Chemotherapy-related nephrotoxicity and dose modification in patients with renal insufficiency". Monitoring parameters: CBC with differential and platelet count weekly during treatment. Basic metabolic panel (creatinine and electrolytes) prior to each treatment cycle. Liver function tests prior to each treatment cycle. Cisplatin is associated with significant nephrotoxicity. Ifosfamide is associated with cumulative nephrotoxicity, mostly at a total dose above 60 grams /m2. Clinical manifestations may include hypophosphatemia, renal potassium wasting, metabolic acidosis with a normal ion gap, and rarely, polyuria due to nephrogenic diabetes insipidus. Assess creatinine and electrolytes, including potassium and phosphate, daily during treatment and prior to each subsequent treatment cycle. Refer to UpToDate topic on "Ifosfamide nephrotoxicity". Mesna does not prevent hemorrhagic cystitis in all patients[2]. Monitor a morning specimen of urine for hematuria daily, on days 1 through 5. Refer to UpToDate topic on "Cystitis in patients with cancer". Monitor for neurotoxicity (confusion, coma, rarely seizures, weakness, neuropathy, ataxia, cranial nerve dysfunction) daily, on days 1 through 5. Central nervous system side effects may be especially problematic for those over age 60. Refer to UpToDate topic on "Overview of neurologic complications of non-soboba cancer chemotherapy". Monitor vital signs during etoposide infusion. Monitor for hearing loss prior to each dose of cisplatin; audiometry as clinically indicated. Suggested dose alterations for toxicity: Myelotoxicity: Reduce doses of etoposide and ifosfamide each by 25 percent for subsequent cycles for granulocytopenic fever or thrombocytopenic bleeding with the previous course of therapy[1]. Neurotoxicity: Neuropathy usually is seen after cumulative doses of cisplatin beyond 400 mg/m2, although there is marked interindividual variation. Patients with mild neuropathy can continue to receive full cisplatin doses. However, if the neuropathy interferes with function, the risk of potentially disabling neurotoxicity must be weighed against the benefit of continued treatment[3]. Refer to UpToDate topic on "Overview of neurologic complications of soboba- based chemotherapy". Nephrotoxicity: It is recommended that subsequent doses of cisplatin be withheld until the serum creatinine is less than 3.0 mg/dL. If there is a change in body weight of at least 10 percent, doses should be recalculated. IV: intravenous; GFR: glomerular filtration rate; CBC: complete blood count. * The initial protocol included empiric reduction of etoposide and ifosfamide doses by 25 percent for patients who have received prior radiation therapy[1]. ? Due to a longer half-life of ifosfamide and associated metabolites at higher doses, some references recommend continuation of mesna for 12 to 24 hours beyond completion of ifosfamide to reduce the risk of hemorrhagic cystitis[2]. References: Matt GRAHAM, et al. J Clin Oncol 1998; 16:1287. MESNA injection. [place] Prescribing Information. [employer]. (Available online at [employer].nih.gov, accessed July 04, 2011) . Cisplatin injection, powder, lyophilized, for solution. [facility] Prescribing Information. [employer]. (Available online at [employer].nih.gov, accessed on July 04, 2011). Graphic 21124 Version 11.0 Problems: Consultation Date/Type/Reason Admit Date/Time Jan 03, 2017 at 10:48 Initial Consult Date 01/03/17 Type of Consultation: HEMEONC Referring Provider: EMELI CHRISTIE 24 HR Interval Summary Free Text/Dictation ALL NOTED FELLING BETTER Exam/Review of Systems Vital Signs Vitals Vital Signs Date Time Temp Pulse Resp B/P Pulse Ox O2 Delivery O2 Flow Rate FiO2 01/15/17 05:08 98.5 89 17 120/66 99 Room Air Intake and Output 01/14/17 01/14/17 01/15/17 15:00 23:00 07:00 Intake Total 500 ml 1570.0 ml 2284.66 ml Balance 500 ml 1570.0 ml 2284.66 ml Exam Constitutional: alert, oriented, well developed Psych: nl mood/affect, no complaints Head: atraumatic, normocephalic Eyes: EOMI, PERRL Neck: non-tender, supple Respiratory: clear to auscultation, normal air movement Cardiovascular: nl pulses, regular rate and rhythm Gastrointestinal: soft, tender on right side Extremities: normal pulses Results Result Diagram: 01/15/17 0425 01/15/17 0425 Results 24 hrs Laboratory Tests Test 01/15/17 04:25 White Blood Count 6.5 Red Blood Count 3.78 L Hemoglobin 10.9 L Hematocrit 32.7 L Mean Corpuscular Volume 86.5 Mean Corpuscular Hemoglobin 28.8 L Mean Corpuscular Hemoglobin Concent 33.3 Red Cell Distribution Width 13.0 Platelet Count 265 Mean Platelet Volume 11.2 H Neutrophils % 83.3 H Lymphocytes % 10.3 L Monocytes % 3.7 Eosinophils % 0.2 Basophils % 0.2 Nucleated Red Blood Cells % 0.0 Neutrophils # 5.4 Lymphocytes # 0.7 L Monocytes # 0.2 L Eosinophils # 0.0 Basophils # 0.0 Nucleated Red Blood Cells # 0.0 Prothrombin Time 14.7 H Prothrombin Time Ratio 1.1 INR International Normalized Ratio 1.15 Activated Partial Thromboplast Time 28.7 Sodium Level 135 Potassium Level 4.5 Chloride Level 100 Carbon Dioxide Level 29 Anion Gap 11 Blood Urea Nitrogen 13 Creatinine 0.75 Glucose Level 119 Calcium Level 8.5 Total Bilirubin 0.2 Direct Bilirubin 0.00 Indirect Bilirubin 0.2 Aspartate Amino Transf (AST/SGOT) 38 Alanine Aminotransferase (ALT/SGPT) 55 Alkaline Phosphatase 192 H Total Protein 6.6 Albumin 3.6 Globulin 3.00 Albumin/Globulin Ratio 1.20 Medications Medications Current Medications Ondansetron HCl (Zofran Inj) 4 mg Q6H PRN IV NAUSEA AND/OR VOMITING Last administered on 01/14/17 12:37; Admin Dose 4 MG; Start 01/03/17 at 13:00 Acetaminophen (Tylenol Tab) 650 mg Q6H PRN PO PAIN LEVEL 1-3 OR FEVER Last administered on 01/14/17 23:34; Admin Dose 650 MG; Start 01/03/17 at 13:00 Acetaminophen/ Hydrocodone Bitart ([place] (5/325)) 1 tab Q6H PRN PO MODERATE PAIN LEVEL 4-6 Last administered on 01/10/17 18:52; Admin Dose 1 TAB; Start at 13:00 Morphine Sulfate (morphine) 2 mg Q4H PRN IV SEVERE PAIN LEVEL 7-10 Last administered on 01/13/17 22:20; Admin Dose 2 MG; Start 01/03/17 at 13:00 Enoxaparin Sodium (Lovenox) 40 mg DAILY SC Last administered on 01/14/17 09:25 ; Admin Dose 40 MG; Start 01/05/17 at 09:00 Lorazepam (Ativan) 1 mg Q4H PRN PO ANXIETY Last administered on 01/13/17 22:19 ; Admin Dose 1 MG; Start 01/06/17 at 17:00 Zolpidem Tartrate (Ambien) 10 mg HS PRN PO INSOMNIA; Start 01/06/17 at 18:00 Aspirin (Halfprin) 81 mg DAILY PO Last administered on 01/14/17 08:10; Admin Dose 81 MG; Start 01/11/17 at 09:00 Isosorbide Mononitrate (Imdur) 60 mg DAILY PO Last administered on 01/14/17 08: 10; Admin Dose 60 MG; Start 01/11/17 at 09:00 Pantoprazole (Protonix Tab) 40 mg DAILY PO Last administered on 01/14/17 08:11 ; Admin Dose 40 MG; Start 01/11/17 at 09:00 Sucralfate (Carafate) 1 gm TID PO Last administered on 01/14/17 20:49; Admin Dose 1 GM; Start 01/10/17 at 21:00 Atorvastatin Calcium (Lipitor) 20 mg HS PO Last administered on 01/14/17 20:49 ; Admin Dose 20 MG; Start 01/10/17 at 21:00 Hydromorphone HCl (Dilaudid) 1 mg Q2H PRN IV PAIN Last administered on 02:07; Admin Dose 1 MG; Start 01/10/17 at 15:00 IV Flush 10 ml 10 ml PRN PRN IV IV PROTOCOL; Start 01/10/17 at 16:00 Ifosfamide/Mesna/ Sodium Chloride (Ifosfamide/ Mesna/NS) 1,072 ml @ 44.667 mls / hr 23 IV Last administered on 01/14/17 23:00; Admin Dose 0 MLS/HR; Start at 23:00; Stop 01/15/17 at 22:59 Morphine Sulfate (Ms Contin (Er)) 15 mg BID PO Last administered on 01/14/17 20 :50; Admin Dose 15 MG; Start 01/11/17 at 21:00 Docusate Sodium 200 mg 200 mg BID PO Last administered on 01/14/17 20:49; Admin Dose 200 MG; Start 01/11/17 at 21:00 Sodium Chloride (NS) 1,000 ml @ 80 mls/hr [id number] IV Last administered on 05:27; Admin Dose 80 MLS/HR; Start 01/13/17 at 10:30 MARQUEZ VERA MD Jan 15, 2017 07:56
[2017-01-15] MEDS: DOCUSATE SODIUM 100 MG CAP PO SCH ×2 (09:21→21:08)
[2017-01-15] MEDS: ASPIRIN (EC) 81 MG TAB PO SCH (09:21)
[2017-01-15] MEDS: PANTOPRAZOLE (EC) 40 MG TAB PO SCH (09:21)
[2017-01-15] MEDS: SUCRALFATE 1 GM TAB PO SCH ×3 (09:21→21:08)
[2017-01-15] MEDS: ISOSORBIDE MONONITRATE(SR)60 MG TAB PO SCH (09:22)
[2017-01-15] MEDS: ENOXAPARIN 40 MG/0.4 ML SYG SC SCH (09:22)
[2017-01-15] MEDS: morphine (ER) 15 MG TAB PO SCH ×2 (09:28→21:09)
--- NOTE | 2017-01-15 19:03 | PN ---
Date/Time of Note Date/Time of Note DATE: 01/15/17 TIME: 19:00 Assessment/Plan VTE Prophylaxis VTE Prophylaxis Intervention: LMWH Lines/Catheters IV C[facility] Type (from [facility]): PICC Line Central line still needed: Yes (IV access chemo) Urinary Cath still in place: No Assessment/Plan Chief Complaint/Hosp Course S: Events noted. No fever. On chemo. O: Vital signs stable PE Possible pallor; no adenopathy Regular Clear Bs + nt nd; no r/r/g No edema Assessment and plan 1. 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 Prognosis? 2. Vitamin D deficiency 3. Anemia 4. GERD? Problems: Exam/Review of Systems Vital Signs Vitals Vital Signs Date Time Temp Pulse Resp B/P Pulse Ox O2 Delivery O2 Flow Rate FiO2 01/15/17 11:30 98.8 86 18 129/79 98 Room Air Intake and Output 01/14/17 01/14/17 01/15/17 15:00 23:00 07:00 Intake Total 500 ml 1570.0 ml 2284.66 ml Balance 500 ml 1570.0 ml 2284.66 ml Results Result Diagram: 01/15/17 0425 01/15/17 0425 Results 24 hrs Laboratory Tests Test 01/15/17 04:25 White Blood Count 6.5 Red Blood Count 3.78 L Hemoglobin 10.9 L Hematocrit 32.7 L Mean Corpuscular Volume 86.5 Mean Corpuscular Hemoglobin 28.8 L Mean Corpuscular Hemoglobin Concent 33.3 Red Cell Distribution Width 13.0 Platelet Count 265 Mean Platelet Volume 11.2 H Neutrophils % 83.3 H Lymphocytes % 10.3 L Monocytes % 3.7 Eosinophils % 0.2 Basophils % 0.2 Nucleated Red Blood Cells % 0.0 Neutrophils # 5.4 Lymphocytes # 0.7 L Monocytes # 0.2 L Eosinophils # 0.0 Basophils # 0.0 Nucleated Red Blood Cells # 0.0 Prothrombin Time 14.7 H Prothrombin Time Ratio 1.1 INR International Normalized Ratio 1.15 Activated Partial Thromboplast Time 28.7 Sodium Level 135 Potassium Level 4.5 Chloride Level 100 Carbon Dioxide Level 29 Anion Gap 11 Blood Urea Nitrogen 13 Creatinine 0.75 Glucose Level 119 Calcium Level 8.5 Total Bilirubin 0.2 Direct Bilirubin 0.00 Indirect Bilirubin 0.2 Aspartate Amino Transf (AST/SGOT) 38 Alanine Aminotransferase (ALT/SGPT) 55 Alkaline Phosphatase 192 H Total Protein 6.6 Albumin 3.6 Globulin 3.00 Albumin/Globulin Ratio 1.20 Medications Medications Current Medications Ondansetron HCl (Zofran Inj) 4 mg Q6H PRN IV NAUSEA AND/OR VOMITING Last administered on 01/14/17 12:37; Admin Dose 4 MG; Start 01/03/17 at 13:00 Acetaminophen (Tylenol Tab) 650 mg Q6H PRN PO PAIN LEVEL 1-3 OR FEVER Last administered on 01/14/17 23:34; Admin Dose 650 MG; Start 01/03/17 at 13:00 Acetaminophen/ Hydrocodone Bitart ([place] (5/325)) 1 tab Q6H PRN PO MODERATE PAIN LEVEL 4-6 Last administered on 01/10/17 18:52; Admin Dose 1 TAB; Start at 13:00 Morphine Sulfate (morphine) 2 mg Q4H PRN IV SEVERE PAIN LEVEL 7-10 Last administered on 01/13/17 22:20; Admin Dose 2 MG; Start 01/03/17 at 13:00 Enoxaparin Sodium (Lovenox) 40 mg DAILY SC Last administered on 01/15/17 09:22 ; Admin Dose 40 MG; Start 01/05/17 at 09:00 Lorazepam (Ativan) 1 mg Q4H PRN PO ANXIETY Last administered on 01/13/17 22:19 ; Admin Dose 1 MG; Start 01/06/17 at 17:00 Zolpidem Tartrate (Ambien) 10 mg HS PRN PO INSOMNIA; Start 01/06/17 at 18:00 Aspirin (Halfprin) 81 mg DAILY PO Last administered on 01/15/17 09:21; Admin Dose 81 MG; Start 01/11/17 at 09:00 Isosorbide Mononitrate (Imdur) 60 mg DAILY PO Last administered on 01/15/17 09: 22; Admin Dose 60 MG; Start 01/11/17 at 09:00 Pantoprazole (Protonix Tab) 40 mg DAILY PO Last administered on 01/15/17 09:21 ; Admin Dose 40 MG; Start 01/11/17 at 09:00 Sucralfate (Carafate) 1 gm TID PO Last administered on 01/15/17 13:11; Admin Dose 1 GM; Start 01/10/17 at 21:00 Atorvastatin Calcium (Lipitor) 20 mg HS PO Last administered on 01/14/17 20:49 ; Admin Dose 20 MG; Start 01/10/17 at 21:00 Hydromorphone HCl (Dilaudid) 1 mg Q2H PRN IV PAIN Last administered on 16:54; Admin Dose 1 MG; Start 01/10/17 at 15:00 IV Flush 10 ml 10 ml PRN PRN IV IV PROTOCOL; Start 01/10/17 at 16:00 Ifosfamide/Mesna/ Sodium Chloride (Ifosfamide/ Mesna/NS) 1,072 ml @ 44.667 mls / hr 23 IV Last administered on 01/14/17 23:00; Admin Dose 0 MLS/HR; Start at 23:00; Stop 01/15/17 at 22:59 Morphine Sulfate (Ms Contin (Er)) 15 mg BID PO Last administered on 01/15/17 09 :28; Admin Dose 15 MG; Start 01/11/17 at 21:00 Docusate Sodium 200 mg 200 mg BID PO Last administered on 01/15/17 09:21; Admin Dose 200 MG; Start 01/11/17 at 21:00 Sodium Chloride (NS) 1,000 ml @ 80 mls/hr [id number] IV Last administered on 05:27; Admin Dose 80 MLS/HR; Start 01/13/17 at 10:30 RAVINDRA MURPHY MD Jan 15, 2017 19:03
[2017-01-15] MEDS: ATORVASTATIN 20 MG TAB PO SCH (21:08)
[2017-01-15] MEDS: ACETAMINOPHEN 325 MG TAB PO PRN (22:14)
[2017-01-16] VITALS (16 sets, daily range): BP systolic 96–127; BP diastolic 57–73; PULSE 85–116; RESP 17–20; Ht 172.7 cm; Wt 81.4 kg
[2017-01-16 05:00] LABS: ADD SCAN DIFF NO
[2017-01-16 05:13] LABS: BASOPHILS % 0.3 % (0.0-2.0); EOSINOPHILS # 0.1 10^3/ul (0.0-0.5); EOSINOPHILS % 1.2 % (0.0-7.0); HEMATOCRIT 33.8 % (42.0-52.0); LYMPHOCYTES # 1.2 10^3/ul (0.8-2.9); LYMPHOCYTES % 20.5 % (15.0-51.0); MEAN CORPUSCULAR HEMOGLOBIN 28.2 pg (29.0-33.0); MEAN CORPUSCULAR HGB CONC 32.5 g/dl (32.0-37.0); MEAN CORPUSCULAR VOLUME 86.7 fl (82.0-101.0); MEAN PLATELET VOLUME 10.5 fl (7.4-10.4); MONOCYTE # 0.2 10^3/ul (0.3-0.9); NEUTROPHIL # 4.4 10^3/ul (1.6-7.5); NEUTROPHILS % 72.7 % (39.0-77.0); PLATELET COUNT 284 10^3/UL (140-415)
[2017-01-16 06:14] LABS: ALBUMIN 3.5 g/dl (3.3-4.9); ALBUMIN/GLOBULIN RATIO 1.06; BILIRUBIN,INDIRECT 0.1 mg/dl (0-1.1); BILIRUBIN,TOTAL 0.1 mg/dl (0.2-1.3); CALCIUM 8.9 mg/dl (8.4-10.2); CREATININE 0.71 mg/dl (0.61-1.24); MAGNESIUM 1.9 mg/dl (1.7-2.5); PHOSPHORUS 3.4 mg/dl (2.5-4.9); POTASSIUM 3.7 mmol/L (3.5-5.1); TOTAL PROTEIN 6.8 g/dl (6.1-8.1)
[2017-01-16] MEDS: ONDANSETRON 4 MG INJ IV PRN (06:38)
[2017-01-16] MEDS: HYDROmorphONE 1 MG/ML SYG IV PRN ×6 (06:41→22:47)
[2017-01-16] MEDS: PANTOPRAZOLE (EC) 40 MG TAB PO SCH (09:19)
[2017-01-16] MEDS: ENOXAPARIN 40 MG/0.4 ML SYG SC SCH (09:19)
[2017-01-16] MEDS: morphine (ER) 15 MG TAB PO SCH ×2 (09:20→20:28)
[2017-01-16] MEDS: DOCUSATE SODIUM 100 MG CAP PO SCH ×2 (09:21→20:29)
[2017-01-16] MEDS: CHOLECALCIFEROL 2,000 UNIT CAP PO SCH (09:21)
[2017-01-16] MEDS: ASPIRIN (EC) 81 MG TAB PO SCH (09:21)
[2017-01-16] MEDS: SUCRALFATE 1 GM TAB PO SCH ×3 (09:21→20:29)
[2017-01-16] MEDS: ISOSORBIDE MONONITRATE(SR)60 MG TAB PO SCH (09:22)
[2017-01-16] MEDS ORDERED: DEXTROSE 5% IV SCH (11:00)
[2017-01-16] MEDS ORDERED: SOD CHLORIDE 0.9% IV SCH ×3 (11:00→13:00)
[2017-01-16] MEDS ORDERED: DEXAMETHASONE IV SCH (11:00)
[2017-01-16] MEDS ORDERED: CISPLATIN IV SCH (11:00)
[2017-01-16] MEDS ORDERED: ONDANSETRON IV SCH (11:00)
[2017-01-16] MEDS: SOD CHLORIDE 0.9% 1,000 ML IV SCH ×2 (11:04→23:19)
[2017-01-16] MEDS ORDERED: DIPHENHYDRAMINE 50 MG INJ IV SCH (11:06)
[2017-01-16] MEDS ORDERED: ETOPOSIDE IV SCH (12:00)
[2017-01-16] MEDS ORDERED: IFOSFAMIDE IV SCH (13:00)
[2017-01-16] MEDS ORDERED: MESNA IV SCH (13:00)
--- NOTE | 2017-01-16 14:47 | PN ---
Date/Time of Note Date/Time of Note DATE: 01/16/17 TIME: 14:46 Assessment/Plan VTE Prophylaxis VTE Prophylaxis Intervention: LMWH Lines/Catheters IV Catheter Type (from [facility]): PICC Line Central line still needed: Yes (IV access) Urinary Cath still in place: No Assessment/Plan Chief Complaint/Hosp Course S: 01/15 events noted. No fever. On chemo. 01/16: No events. Undergoing chemo. O: Vital signs stable PE Pallor Reg Clear Bs + nt nd; no r/r/g No edema A/P 1. 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 Prognosis? 2. Vitamin D def 3. Anemia 4. GERD? Problems: Exam/Review of Systems Vital Signs Vitals Vital Signs Date Time Temp Pulse Resp B/P Pulse Ox O2 Delivery O2 Flow Rate FiO2 01/16/17 12:40 98.8 96 18 112/66 95 Room Air Intake and Output 01/15/17 01/15/17 01/16/17 15:00 23:00 07:00 Intake Total 3032 ml 1520 ml Output Total 100 ml Balance 3032 ml 1420 ml Results Result Diagram: 01/16/17 0425 01/16/17 0425 Results 24 hrs Laboratory Tests Test 01/16/17 04:25 White Blood Count 6.0 Red Blood Count 3.90 L Hemoglobin 11.0 L Hematocrit 33.8 L Mean Corpuscular Volume 86.7 Mean Corpuscular Hemoglobin 28.2 L Mean Corpuscular Hemoglobin Concent 32.5 Red Cell Distribution Width 13.0 Platelet Count 284 Mean Platelet Volume 10.5 H Neutrophils % 72.7 Lymphocytes % 20.5 Monocytes % 3.0 Eosinophils % 1.2 Basophils % 0.3 Nucleated Red Blood Cells % 0.0 Neutrophils # 4.4 Lymphocytes # 1.2 Monocytes # 0.2 L Eosinophils # 0.1 Basophils # 0.0 Nucleated Red Blood Cells # 0.0 Sodium Level 137 Potassium Level 3.7 Chloride Level 95 L Carbon Dioxide Level 30 Anion Gap 16 Blood Urea Nitrogen 12 Creatinine 0.71 Glucose Level 86 Calcium Level 8.9 Phosphorus Level 3.4 Magnesium Level 1.9 Total Bilirubin 0.1 L Direct Bilirubin 0.00 Indirect Bilirubin 0.1 Aspartate Amino Transf (AST/SGOT) 29 Alanine Aminotransferase (ALT/SGPT) 47 Alkaline Phosphatase 163 H Total Protein 6.8 Albumin 3.5 Globulin 3.30 H Albumin/Globulin Ratio 1.06 Medications Medications Current Medications Ondansetron HCl (Zofran Inj) 4 mg Q6H PRN IV NAUSEA AND/OR VOMITING Last administered on 01/16/17 06:38; Admin Dose 4 MG; Start 01/03/17 at 13:00 Acetaminophen (Tylenol Tab) 650 mg Q6H PRN PO PAIN LEVEL 1-3 OR FEVER Last administered on 01/15/17 22:14; Admin Dose 650 MG; Start 01/03/17 at 13:00 Acetaminophen/ Hydrocodone Bitart ([place] (5/325)) 1 tab Q6H PRN PO MODERATE PAIN LEVEL 4-6 Last administered on 01/10/17 18:52; Admin Dose 1 TAB; Start at 13:00 Morphine Sulfate (morphine) 2 mg Q4H PRN IV SEVERE PAIN LEVEL 7-10 Last administered on 01/13/17 22:20; Admin Dose 2 MG; Start 01/03/17 at 13:00 Enoxaparin Sodium (Lovenox) 40 mg DAILY SC Last administered on 01/16/17 09:19 ; Admin Dose 40 MG; Start 01/05/17 at 09:00 Lorazepam (Ativan) 1 mg Q4H PRN PO ANXIETY Last administered on 01/13/17 22:19 ; Admin Dose 1 MG; Start 01/06/17 at 17:00 Zolpidem Tartrate (Ambien) 10 mg HS PRN PO INSOMNIA; Start 01/06/17 at 18:00 Aspirin (Halfprin) 81 mg DAILY PO Last administered on 01/16/17 09:21; Admin Dose 81 MG; Start 01/11/17 at 09:00 Isosorbide Mononitrate (Imdur) 60 mg DAILY PO Last administered on 01/16/17 09: 22; Admin Dose 60 MG; Start 01/11/17 at 09:00 Pantoprazole (Protonix Tab) 40 mg DAILY PO Last administered on 01/16/17 09:19 ; Admin Dose 40 MG; Start 01/11/17 at 09:00 Sucralfate (Carafate) 1 gm TID PO Last administered on 01/16/17 13:27; Admin Dose 1 GM; Start 01/10/17 at 21:00 Atorvastatin Calcium (Lipitor) 20 mg HS PO Last administered on 01/15/17 21:08 ; Admin Dose 20 MG; Start 01/10/17 at 21:00 Hydromorphone HCl (Dilaudid) 1 mg Q2H PRN IV PAIN Last administered on 14:18; Admin Dose 1 MG; Start 01/10/17 at 15:00 IV Flush (NS 10 ml) 10 ml PRN PRN IV IV PROTOCOL; Start 01/10/17 at 16:00 Morphine Sulfate (Ms Contin (Er)) 15 mg BID PO Last administered on 01/16/17 09 :20; Admin Dose 15 MG; Start 01/11/17 at 21:00 Docusate Sodium 200 mg 200 mg BID PO Last administered on 01/16/17 09:21; Admin Dose 200 MG; Start 01/11/17 at 21:00 Sodium Chloride (NS) 1,000 ml @ 80 mls/hr [id number] IV Last administered on 11:04; Admin Dose 80 MLS/HR; Start 01/13/17 at 10:30 Cholecalciferol 2000 unit 2,000 unit DAILY PO Last administered on 01/16/17 09: 21; Admin Dose 2,000 UNIT; Start 01/16/17 at 09:00 Ifosfamide/Mesna/ Sodium Chloride (Ifosfamide/ [place]/NS) 1,072 ml @ 44.667 mls / hr 13 IV ; Start 01/16/17 at 13:00; Stop 01/17/17 at 12:59 RAVINDRA MURPHY MD Jan 16, 2017 14:47
[2017-01-16] MEDS: ATORVASTATIN 20 MG TAB PO SCH (20:29)
--- NOTE | 2017-01-17 00:19 | CONS ---
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 The largest conglomeration of lymph nodes measures approximately 7.3 x 11.7 x 13.2 cm. TUMOR MARKERS- REVIEWED [facility]- VERY HIGH CT CHEST- 1. Significant retroperitoneal, right supraclavicular, and right hilar lymphadenopathy consistent with metastatic disease. 2. Diffuse pulmonary nodules are also consistent with metastatic disease 3. Hypoenhancing hepatic lesions may be a combination of metastatic disease and hemangiomas. An MRI with and without contrast may be useful to delineate if clinically indicated. path -Retroperitoneal mass, CT-guided core needle biopsies: reviewed PLAN CHEMO- for METASTATIC nonseminomatous germ cell tumors For patients with nonseminomatous GCT, we suggest four cycles of chemotherapy as the initial therapy, rather than surgery or RT We recommend VIP rather than BEP because of the increased risk of bleomycin pulmonary toxicity should surgery eventually be required BEP can be considered as an alternative if bone marrow toxicity is a particular concern. For patients with a residual mediastinal mass following initial chemotherapy, we recommend complete surgical resection, if technically feasible If viable malignancy is identified, we suggest two additional cycles of VIP chemotherapy POST PICC LINE CHEMO D/W IN DETAILS cont per protocol - D ANEMIA, N- CYTIC WITH N RDW + COMPONENT ACD THROMBOCYTOPENIA MONITOR IMPROVED LOW-GRADE FEVER W-UP ORDERED NOT NEUTROPENIC ID NOT ON ATB WILL OBSERVE VIP REGIMEN- Cycle length: 21 days. Total cycles: 4. Drug Dose and route Administration Given on days Cisplatin 20 mg/m2 IV per day Dilute with 250 mL normal saline (NS) and administer over one hour. Do not administer with aluminum needles or intravenous sets. Days 1 to 5 Etoposide* 75 mg/m2 IV per day Dilute with 500 mL NS (concentration less than 0.4 mg/mL) and administer over one hour. Days 1 to 5 Ifosfamide* 1200 mg/m2 per day continuous IV infusion Dilute with NS for injection to a final concentration of 0.6 to 20 mg/mL and infuse over 24 hours. Can mix with Mesna. Days 1 to 5 Mesna 120 mg/m2 IV Dilute with NS for injection and administer via slow IV push prior to day 1 infusion of ifosfamide. Total concentration of mesna should not exceed 20 mg/mL. Day 1 Mesna? 1200 mg/m2 per day continuous IV infusion Dilute with NS for injection and administer as continuous infusion over 24 hours[2]. Total concentration of mesna should not exceed 20 mg/mL. Can mix with ifosfamide. Days 1 to 5 Pretreatment considerations: Hydration: Induction of diuresis using intravenous NS minimizes the risk of cisplatin nephrotoxicity. At least 2000 mL of NS should be administered at a rate of 100 to 125 mL per hour throughout the five days of treatment and continued for at least two hours after the last dose of cisplatin. Refer to UpToDate topic on "Cisplatin nephrotoxicity". Emesis risk: HIGH (>90 percent frequency of emesis). Aprepitant can be given orally (125 mg on day 1, 80 mg on days 2 and 3) with ondansetron, prochlorperazine, and dexamethasone daily. Refer to UpToDate topic on "Prevention and treatment of chemotherapy-induced nausea and vomiting in adults ". Vesicant/irritant properties: Cisplatin is an irritant but can cause significant tissue damage; avoid extravasation[3]. Refer to UpToDate topic on "Extravasation injury from chemotherapy and other non-antineoplastic vesicants" . Infection prophylaxis: Primary prophylaxis with granulocyte colony stimulating factors was administered as a routine component of this regimen[1]. Refer to UpToDate topic on "Use of granulocyte colony stimulating factors in adult patients with chemotherapy-induced neutropenia and conditions other than acute leukemia, myelodysplastic syndrome, and hematopoietic cell transplantation ". Dose adjustment for baseline liver or renal dysfunction: Dose adjustment in the setting of baseline renal impairment (ie, creatinine >3.0 mg/dL or GFR <50 mL/min) requires a balanced discussion of the goals of treatment and the risks of cisplatin. Refer to UpToDate topics on "Chemotherapy hepatotoxicity and dose modification in patients with liver disease" and "Chemotherapy-related nephrotoxicity and dose modification in patients with renal insufficiency". Monitoring parameters: CBC with differential and platelet count weekly during treatment. Basic metabolic panel (creatinine and electrolytes) prior to each treatment cycle. Liver function tests prior to each treatment cycle. Cisplatin is associated with significant nephrotoxicity. Ifosfamide is associated with cumulative nephrotoxicity, mostly at a total dose above 60 grams /m2. Clinical manifestations may include hypophosphatemia, renal potassium wasting, metabolic acidosis with a normal ion gap, and rarely, polyuria due to nephrogenic diabetes insipidus. Assess creatinine and electrolytes, including potassium and phosphate, daily during treatment and prior to each subsequent treatment cycle. Refer to UpToDate topic on "Ifosfamide nephrotoxicity". Mesna does not prevent hemorrhagic cystitis in all patients[2]. Monitor a morning specimen of urine for hematuria daily, on days 1 through 5. Refer to UpToDate topic on "Cystitis in patients with cancer". Monitor for neurotoxicity (confusion, coma, rarely seizures, weakness, neuropathy, ataxia, cranial nerve dysfunction) daily, on days 1 through 5. Central nervous system side effects may be especially problematic for those over age 60. Refer to UpToDate topic on "Overview of neurologic complications of non-[place] cancer chemotherapy". Monitor vital signs during etoposide infusion. Monitor for hearing loss prior to each dose of cisplatin; audiometry as clinically indicated. Suggested dose alterations for toxicity: Myelotoxicity: Reduce doses of etoposide and ifosfamide each by 25 percent for subsequent cycles for granulocytopenic fever or thrombocytopenic bleeding with the previous course of therapy[1]. Neurotoxicity: Neuropathy usually is seen after cumulative doses of cisplatin beyond 400 mg/m2, although there is marked interindividual variation. Patients with mild neuropathy can continue to receive full cisplatin doses. However, if the neuropathy interferes with function, the risk of potentially disabling neurotoxicity must be weighed against the benefit of continued treatment[3]. Refer to UpToDate topic on "Overview of neurologic complications of [place]- based chemotherapy". Nephrotoxicity: It is recommended that subsequent doses of cisplatin be withheld until the serum creatinine is less than 3.0 mg/dL. If there is a change in body weight of at least 10 percent, doses should be recalculated. IV: intravenous; GFR: glomerular filtration rate; CBC: complete blood count. * The initial protocol included empiric reduction of etoposide and ifosfamide doses by 25 percent for patients who have received prior radiation therapy[1]. ? Due to a longer half-life of ifosfamide and associated metabolites at higher doses, some references recommend continuation of mesna for 12 to 24 hours beyond completion of ifosfamide to reduce the risk of hemorrhagic cystitis[2]. References: Matt GRAHAM, et al. J Clin Oncol 1998; 16:1287. MESNA injection. [place] Prescribing Information. [employer] Medicine. (Available online at [email or web address], accessed July 04, 2011) . Cisplatin injection, powder, lyophilized, for solution. [facility] Prescribing Information. [employer] Library of Medicine. (Available online at [email or web address], accessed on July 04, 2011). Graphic 48849 Version 11.0 Problems: Consultation Date/Type/Reason Admit Date/Time Jan 03, 2017 at 10:48 Initial Consult Date 01/03/17 Type of Consultation: HEMEON Referring Provider: EMELI CHRISTIE 24 HR Interval Summary Free Text/Dictation Constitutional: alert, oriented, well developed Psych: nl mood/affect, no complaints Head: atraumatic, normocephalic Eyes: EOMI, PERRL Neck: non-tender, supple Respiratory: clear to auscultation, normal air movement Cardiovascular: nl pulses, regular rate and rhythm Gastrointestinal: soft, tender on right side Extremities: normal pulses Exam/Review of Systems Vital Signs Vitals Vital Signs Date Time Temp Pulse Resp B/P Pulse Ox O2 Delivery O2 Flow Rate FiO2 01/16/17 22:14 98.9 85 17 115/62 95 Room Air Intake and Output 01/16/17 01/16/17 01/17/17 15:00 23:00 07:00 Intake Total 428.5 ml 2650 ml Balance 428.5 ml 2650 ml Results Result Diagram: 01/16/17 0425 01/16/17 0425 Results 24 hrs Laboratory Tests Test 01/16/17 04:25 White Blood Count 6.0 Red Blood Count 3.90 L Hemoglobin 11.0 L Hematocrit 33.8 L Mean Corpuscular Volume 86.7 Mean Corpuscular Hemoglobin 28.2 L Mean Corpuscular Hemoglobin Concent 32.5 Red Cell Distribution Width 13.0 Platelet Count 284 Mean Platelet Volume 10.5 H Neutrophils % 72.7 Lymphocytes % 20.5 Monocytes % 3.0 Eosinophils % 1.2 Basophils % 0.3 Nucleated Red Blood Cells % 0.0 Neutrophils # 4.4 Lymphocytes # 1.2 Monocytes # 0.2 L Eosinophils # 0.1 Basophils # 0.0 Nucleated Red Blood Cells # 0.0 Sodium Level 137 Potassium Level 3.7 Chloride Level 95 L Carbon Dioxide Level 30 Anion Gap 16 Blood Urea Nitrogen 12 Creatinine 0.71 Glucose Level 86 Calcium Level 8.9 Phosphorus Level 3.4 Magnesium Level 1.9 Total Bilirubin 0.1 L Direct Bilirubin 0.00 Indirect Bilirubin 0.1 Aspartate Amino Transf (AST/SGOT) 29 Alanine Aminotransferase (ALT/SGPT) 47 Alkaline Phosphatase 163 H Total Protein 6.8 Albumin 3.5 Globulin 3.30 H Albumin/Globulin Ratio 1.06 Medications Medications Current Medications Ondansetron HCl (Zofran Inj) 4 mg Q6H PRN IV NAUSEA AND/OR VOMITING Last administered on 01/16/17 06:38; Admin Dose 4 MG; Start 01/03/17 at 13:00 Acetaminophen (Tylenol Tab) 650 mg Q6H PRN PO PAIN LEVEL 1-3 OR FEVER Last administered on 01/15/17 22:14; Admin Dose 650 MG; Start 01/03/17 at 13:00 Acetaminophen/ Hydrocodone Bitart ([place] (5/325)) 1 tab Q6H PRN PO MODERATE PAIN LEVEL 4-6 Last administered on 01/10/17 18:52; Admin Dose 1 TAB; Start at 13:00 Morphine Sulfate (morphine) 2 mg Q4H PRN IV SEVERE PAIN LEVEL 7-10 Last administered on 01/13/17 22:20; Admin Dose 2 MG; Start 01/03/17 at 13:00 Enoxaparin Sodium (Lovenox) 40 mg DAILY SC Last administered on 01/16/17 09:19 ; Admin Dose 40 MG; Start 01/05/17 at 09:00 Lorazepam (Ativan) 1 mg Q4H PRN PO ANXIETY Last administered on 01/13/17 22:19 ; Admin Dose 1 MG; Start 01/06/17 at 17:00 Zolpidem Tartrate (Ambien) 10 mg HS PRN PO INSOMNIA; Start 01/06/17 at 18:00 Aspirin (Halfprin) 81 mg DAILY PO Last administered on 01/16/17 09:21; Admin Dose 81 MG; Start 01/11/17 at 09:00 Isosorbide Mononitrate (Imdur) 60 mg DAILY PO Last administered on 01/16/17 09: 22; Admin Dose 60 MG; Start 01/11/17 at 09:00 Pantoprazole (Protonix Tab) 40 mg DAILY PO Last administered on 01/16/17 09:19 ; Admin Dose 40 MG; Start 01/11/17 at 09:00 Sucralfate (Carafate) 1 gm TID PO Last administered on 01/16/17 20:29; Admin Dose 1 GM; Start 01/10/17 at 21:00 Atorvastatin Calcium (Lipitor) 20 mg HS PO Last administered on 01/16/17 20:29 ; Admin Dose 20 MG; Start 01/10/17 at 21:00 Hydromorphone HCl (Dilaudid) 1 mg Q2H PRN IV PAIN Last administered on 22:47; Admin Dose 1 MG; Start 01/10/17 at 15:00 IV Flush (NS 10 ml) 10 ml PRN PRN IV IV PROTOCOL; Start 01/10/17 at 16:00 Morphine Sulfate (Ms Contin (Er)) 15 mg BID PO Last administered on 01/16/17 20 :28; Admin Dose 15 MG; Start 01/11/17 at 21:00 Docusate Sodium 200 mg 200 mg BID PO Last administered on 01/16/17 20:29; Admin Dose 200 MG; Start 01/11/17 at 21:00 Sodium Chloride (NS) 1,000 ml @ 80 mls/hr [id number] IV Last administered on 23:19; Admin Dose 80 MLS/HR; Start 01/13/17 at 10:30 Cholecalciferol 2000 unit 2,000 unit DAILY PO Last administered on 01/16/17 09: 21; Admin Dose 2,000 UNIT; Start 01/16/17 at 09:00 Ifosfamide/Mesna/ Sodium Chloride (Ifosfamide/ Mesna/NS) 1,072 ml @ 44.667 mls / hr 13 IV Last administered on 01/16/17 22:14; Admin Dose 44.667 MLS/HR; Start 01/16/17 at 13:00; Stop 01/17/17 at 12:59 MARQUEZ VERA MD Jan 17, 2017 00:19
[2017-01-17] MEDS: HYDROmorphONE 1 MG/ML SYG IV PRN ×5 (01:17→18:26)
[2017-01-17] MEDS: ONDANSETRON 4 MG INJ IV PRN (06:05)
[2017-01-17 07:00] VITALS: BP 122/72; RESP 18
[2017-01-17] MEDS: SUCRALFATE 1 GM TAB PO SCH ×3 (08:46→20:23)
[2017-01-17] MEDS: ASPIRIN (EC) 81 MG TAB PO SCH (08:47)
[2017-01-17] MEDS: DOCUSATE SODIUM 100 MG CAP PO SCH (08:47)
[2017-01-17] MEDS: ISOSORBIDE MONONITRATE(SR)60 MG TAB PO SCH (08:48)
[2017-01-17] MEDS: morphine (ER) 15 MG TAB PO SCH ×2 (08:48→20:23)
[2017-01-17] MEDS: PANTOPRAZOLE (EC) 40 MG TAB PO SCH (08:49)
[2017-01-17] MEDS: CHOLECALCIFEROL 2,000 UNIT CAP PO SCH (08:49)
[2017-01-17] MEDS: ENOXAPARIN 40 MG/0.4 ML SYG SC SCH (09:04)
--- NOTE | 2017-01-17 10:33 | CONS ---
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 The largest conglomeration of lymph nodes measures approximately 7.3 x 11.7 x 13.2 cm. TUMOR MARKERS- REVIEWED [facility]- VERY HIGH CT CHEST- 1. Significant retroperitoneal, right supraclavicular, and right hilar lymphadenopathy consistent with metastatic disease. 2. Diffuse pulmonary nodules are also consistent with metastatic disease 3. Hypoenhancing hepatic lesions may be a combination of metastatic disease and hemangiomas. An MRI with and without contrast may be useful to delineate if clinically indicated. path -Retroperitoneal mass, CT-guided core needle biopsies: reviewed PLAN CHEMO- for METASTATIC nonseminomatous germ cell tumors For patients with nonseminomatous GCT, we suggest four cycles of chemotherapy as the initial therapy, rather than surgery or RT We recommend VIP rather than BEP because of the increased risk of bleomycin pulmonary toxicity should surgery eventually be required BEP can be considered as an alternative if bone marrow toxicity is a particular concern. For patients with a residual mediastinal mass following initial chemotherapy, we recommend complete surgical resection, if technically feasible If viable malignancy is identified, we suggest two additional cycles of VIP chemotherapy POST PICC LINE CHEMO D/W IN DETAILS cont per protocol - D ANEMIA, N- CYTIC WITH N RDW + COMPONENT ACD THROMBOCYTOPENIA MONITOR IMPROVED LOW-GRADE FEVER W-UP ORDERED NOT NEUTROPENIC ID NOT ON ATB WILL OBSERVE VIP REGIMEN- Cycle length: 21 days. Total cycles: 4. Drug Dose and route Administration Given on days Cisplatin 20 mg/m2 IV per day Dilute with 250 mL normal saline (NS) and administer over one hour. Do not administer with aluminum needles or intravenous sets. Days 1 to 5 Etoposide* 75 mg/m2 IV per day Dilute with 500 mL NS (concentration less than 0.4 mg/mL) and administer over one hour. Days 1 to 5 Ifosfamide* 1200 mg/m2 per day continuous IV infusion Dilute with NS for injection to a final concentration of 0.6 to 20 mg/mL and infuse over 24 hours. Can mix with Mesna. Days 1 to 5 Mesna 120 mg/m2 IV Dilute with NS for injection and administer via slow IV push prior to day 1 infusion of ifosfamide. Total concentration of mesna should not exceed 20 mg/mL. Day 1 Mesna? 1200 mg/m2 per day continuous IV infusion Dilute with NS for injection and administer as continuous infusion over 24 hours[2]. Total concentration of mesna should not exceed 20 mg/mL. Can mix with ifosfamide. Days 1 to 5 Pretreatment considerations: Hydration: Induction of diuresis using intravenous NS minimizes the risk of cisplatin nephrotoxicity. At least 2000 mL of NS should be administered at a rate of 100 to 125 mL per hour throughout the five days of treatment and continued for at least two hours after the last dose of cisplatin. Refer to UpToDate topic on "Cisplatin nephrotoxicity". Emesis risk: HIGH (>90 percent frequency of emesis). Aprepitant can be given orally (125 mg on day 1, 80 mg on days 2 and 3) with ondansetron, prochlorperazine, and dexamethasone daily. Refer to UpToDate topic on "Prevention and treatment of chemotherapy-induced nausea and vomiting in adults ". Vesicant/irritant properties: Cisplatin is an irritant but can cause significant tissue damage; avoid extravasation[3]. Refer to UpToDate topic on "Extravasation injury from chemotherapy and other non-antineoplastic vesicants" . Infection prophylaxis: Primary prophylaxis with granulocyte colony stimulating factors was administered as a routine component of this regimen[1]. Refer to UpToDate topic on "Use of granulocyte colony stimulating factors in adult patients with chemotherapy-induced neutropenia and conditions other than acute leukemia, myelodysplastic syndrome, and hematopoietic cell transplantation ". Dose adjustment for baseline liver or renal dysfunction: Dose adjustment in the setting of baseline renal impairment (ie, creatinine >3.0 mg/dL or GFR <50 mL/min) requires a balanced discussion of the goals of treatment and the risks of cisplatin. Refer to UpToDate topics on "Chemotherapy hepatotoxicity and dose modification in patients with liver disease" and "Chemotherapy-related nephrotoxicity and dose modification in patients with renal insufficiency". Monitoring parameters: CBC with differential and platelet count weekly during treatment. Basic metabolic panel (creatinine and electrolytes) prior to each treatment cycle. Liver function tests prior to each treatment cycle. Cisplatin is associated with significant nephrotoxicity. Ifosfamide is associated with cumulative nephrotoxicity, mostly at a total dose above 60 grams /m2. Clinical manifestations may include hypophosphatemia, renal potassium wasting, metabolic acidosis with a normal ion gap, and rarely, polyuria due to nephrogenic diabetes insipidus. Assess creatinine and electrolytes, including potassium and phosphate, daily during treatment and prior to each subsequent treatment cycle. Refer to UpToDate topic on "Ifosfamide nephrotoxicity". Mesna does not prevent hemorrhagic cystitis in all patients[2]. Monitor a morning specimen of urine for hematuria daily, on days 1 through 5. Refer to UpToDate topic on "Cystitis in patients with cancer". Monitor for neurotoxicity (confusion, coma, rarely seizures, weakness, neuropathy, ataxia, cranial nerve dysfunction) daily, on days 1 through 5. Central nervous system side effects may be especially problematic for those over age 60. Refer to UpToDate topic on "Overview of neurologic complications of non-[place] cancer chemotherapy". Monitor vital signs during etoposide infusion. Monitor for hearing loss prior to each dose of cisplatin; audiometry as clinically indicated. Suggested dose alterations for toxicity: Myelotoxicity: Reduce doses of etoposide and ifosfamide each by 25 percent for subsequent cycles for granulocytopenic fever or thrombocytopenic bleeding with the previous course of therapy[1]. Neurotoxicity: Neuropathy usually is seen after cumulative doses of cisplatin beyond 400 mg/m2, although there is marked interindividual variation. Patients with mild neuropathy can continue to receive full cisplatin doses. However, if the neuropathy interferes with function, the risk of potentially disabling neurotoxicity must be weighed against the benefit of continued treatment[3]. Refer to UpToDate topic on "Overview of neurologic complications of [place]- based chemotherapy". Nephrotoxicity: It is recommended that subsequent doses of cisplatin be withheld until the serum creatinine is less than 3.0 mg/dL. If there is a change in body weight of at least 10 percent, doses should be recalculated. IV: intravenous; GFR: glomerular filtration rate; CBC: complete blood count. * The initial protocol included empiric reduction of etoposide and ifosfamide doses by 25 percent for patients who have received prior radiation therapy[1]. ? Due to a longer half-life of ifosfamide and associated metabolites at higher doses, some references recommend continuation of mesna for 12 to 24 hours beyond completion of ifosfamide to reduce the risk of hemorrhagic cystitis[2]. References: Matt GRAHAM, et al. J Clin Oncol 1998; 16:1287. MESNA injection. [place] Prescribing Information. [employer] Medicine. (Available online at [email or web address], accessed July 04, 2011) . Cisplatin injection, powder, lyophilized, for solution. [facility] Prescribing Information. [employer]. (Available online at [email or web address], accessed on July 04, 2011). Graphic 25644 Version 11.0 Problems: Consultation Date/Type/Reason Admit Date/Time Jan 03, 2017 at 10:48 Initial Consult Date 01/03/17 Type of Consultation: HEMEONC Referring Provider: EMELI CHRISTIE 24 HR Interval Summary Free Text/Dictation ALL NOTED COMPLETING CHEMO TODAY Exam/Review of Systems Vital Signs Vitals Vital Signs Date Time Temp Pulse Resp B/P Pulse Ox O2 Delivery O2 Flow Rate FiO2 01/17/17 07:00 98.1 87 18 122/72 99 01/16/17 22:30 Room Air Intake and Output 01/16/17 01/16/17 01/17/17 15:00 23:00 07:00 Intake Total 428.5 ml 3150 ml 1837.336 ml Balance 428.5 ml 3150 ml 1837.336 ml Exam Constitutional: alert, oriented, well developed Psych: nl mood/affect, no complaints Head: atraumatic, normocephalic Eyes: EOMI, PERRL Neck: non-tender, supple Respiratory: clear to auscultation, normal air movement Cardiovascular: nl pulses, regular rate and rhythm Gastrointestinal: soft, tender on right side Extremities: normal pulses Results Result Diagram: 01/16/17 0425 01/16/17 0425 Medications Medications Current Medications Ondansetron HCl (Zofran Inj) 4 mg Q6H PRN IV NAUSEA AND/OR VOMITING Last administered on 01/17/17 06:05; Admin Dose 4 MG; Start 01/03/17 at 13:00 Acetaminophen (Tylenol Tab) 650 mg Q6H PRN PO PAIN LEVEL 1-3 OR FEVER Last administered on 01/15/17 22:14; Admin Dose 650 MG; Start 01/03/17 at 13:00 Acetaminophen/ Hydrocodone Bitart ([place] (5/325)) 1 tab Q6H PRN PO MODERATE PAIN LEVEL 4-6 Last administered on 01/10/17 18:52; Admin Dose 1 TAB; Start at 13:00 Morphine Sulfate (morphine) 2 mg Q4H PRN IV SEVERE PAIN LEVEL 7-10 Last administered on 01/13/17 22:20; Admin Dose 2 MG; Start 01/03/17 at 13:00 Enoxaparin Sodium (Lovenox) 40 mg DAILY SC Last administered on 01/17/17 09:04 ; Admin Dose 40 MG; Start 01/05/17 at 09:00 Lorazepam (Ativan) 1 mg Q4H PRN PO ANXIETY Last administered on 01/13/17 22:19 ; Admin Dose 1 MG; Start 01/06/17 at 17:00 Zolpidem Tartrate (Ambien) 10 mg HS PRN PO INSOMNIA; Start 01/06/17 at 18:00 Aspirin (Halfprin) 81 mg DAILY PO Last administered on 01/17/17 08:47; Admin Dose 81 MG; Start 01/11/17 at 09:00 Isosorbide Mononitrate (Imdur) 60 mg DAILY PO Last administered on 01/17/17 08: 48; Admin Dose 60 MG; Start 01/11/17 at 09:00 Pantoprazole (Protonix Tab) 40 mg DAILY PO Last administered on 01/17/17 08:49 ; Admin Dose 40 MG; Start 01/11/17 at 09:00 Sucralfate (Carafate) 1 gm TID PO Last administered on 01/17/17 08:46; Admin Dose 1 GM; Start 01/10/17 at 21:00 Atorvastatin Calcium (Lipitor) 20 mg HS PO Last administered on 01/16/17 20:29 ; Admin Dose 20 MG; Start 01/10/17 at 21:00 Hydromorphone HCl (Dilaudid) 1 mg Q2H PRN IV PAIN Last administered on 09:38; Admin Dose 1 MG; Start 01/10/17 at 15:00 IV Flush (NS 10 ml) 10 ml PRN PRN IV IV PROTOCOL; Start 01/10/17 at 16:00 Morphine Sulfate (Ms Contin (Er)) 15 mg BID PO Last administered on 01/17/17 08 :48; Admin Dose 15 MG; Start 01/11/17 at 21:00 Docusate Sodium 200 mg 200 mg BID PO Last administered on 01/17/17 08:47; Admin Dose 200 MG; Start 01/11/17 at 21:00 Sodium Chloride (NS) 1,000 ml @ 80 mls/hr [id number] IV Last administered on 23:19; Admin Dose 80 MLS/HR; Start 01/13/17 at 10:30 Cholecalciferol 2000 unit 2,000 unit DAILY PO Last administered on 01/17/17 08: 49; Admin Dose 2,000 UNIT; Start 01/16/17 at 09:00 Ifosfamide/Mesna/ Sodium Chloride (Ifosfamide/ [place]/NS) 1,072 ml @ 44.667 mls / hr 13 IV Last administered on 01/16/17 22:14; Admin Dose 44.667 MLS/HR; Start 01/16/17 at 13:00; Stop 01/17/17 at 12:59 MARQUEZ VERA MD Jan 17, 2017 10:33
[2017-01-17] MEDS: HYDROCODONE/APAP (5/325) TAB PO PRN (13:08)
[2017-01-17] MEDS: SOD CHLORIDE 0.9% 1,000 ML IV SCH (13:09)
[2017-01-17 13:18] VITALS: BP 94/68; PULSE 101; RESP 18
[2017-01-17] MEDS: BISACODYL (EC) 5 MG TAB PO SCH (14:30)
--- NOTE | 2017-01-17 16:27 | RADRPT ---
Echocardiogram Report Patient Name: JEAN CLAUDE KEARNEY Gender: Male Date: 1985 Study Date: 17-Jan-2017 Trouble Operator: Reji Su [facility] Location: 404 Ref. Physician: RAVINDRA MURPHY Quality: Adequate Procedures: Transthoracic echocardiogram with complete 2D, M-Mode, and doppler examination. Indications: Tachycardia. 2D/M Mode Doppler Measurement Value Normal Ranges Measurement Value Normal Ranges LVIDd 2D 3.8 3.5 - 5.6 cm ERNESTINA Vmax 3.0 cm2 LVIDs 2D 2.3 2.1 - 4.1 cm ERNESTINA VTI 3.0 cm2 LVPWd 2D 1.1 0.6 - 1.1 cm AV Peak Alfonso 1.3 m/sec IVSd 2D 1.1 0.6 - 1.1 cm AV Peak PG 6.9 mmHg AoR Diam 2D 3.4 2.0 - 3.7 cm LVOT Peak Alfonso 0.9 m/sec EDV 2D 63.3 cm3 LVOT Peak PG 3.3 mmHg ESV 2D 12.6 cm3 MV E Peak Alfonso 0.6 m/sec LA Dimen 2D 2.7 2.3 - 4.0 cm MV A Peak Alfonso 0.7 m/sec LVOT Diam 2.3 cm MV E/A 0.9 MV Decel Time 162 msec MV Decel [place] 4 MV E/A 0.9 TR Peak Alfonso 2.2 m/sec TR Peak PG 18.9 mmHg RVSP 21.9 mmHg Findings Left Ventricle: Normal left ventricular systolic function. Normal left ventricular cavity size. Normal left ventricular wall thickness. Ejection fraction is visually estimated at 60 %. Right Ventricle: Normal right ventricular size. Normal right ventricular systolic function. Left Atrium: The left atrium is normal in size. Right Atrium: The right atrium is normal in size. Mitral Valve: Normal appearance and function of the mitral valve with trace physiologic regurgitation. Aortic Valve: Normal appearance of the aortic valve. No significant aortic stenosis or insufficiency. Tricuspid Valve: Normal appearance and function of the tricuspid valve with trace physiologic regurgitation. Estimated peak PA systolic pressure 22 mmHg. Pericardium: Normal pericardium with no significant pericardial effusion. Aorta: Normal aortic root. IVC: Normal size and normal respiratory collapse consistent with normal right atrial pressure. Pulmonary Artery: Not well visualized. Conclusions Normal left ventricular systolic function. Normal left ventricular cavity size. Normal left ventricular wall thickness. Ejection fraction is visually estimated at 60 %. Normal right ventricular size. Normal right ventricular systolic function. The left atrium is normal in size. The right atrium is normal in size. No significant valvular stenosis or regurgitation seen. Normal pericardium with no significant pericardial effusion. Electronically Signed By: Jose Whitehead 17-Jan-2017 16:27:01 -0700 Patient Name: JEAN CLAUDE KEARNEY Study Date: 17-Jan-2017 [id number]
--- NOTE | 2017-01-17 16:53 | PN ---
Date/Time of Note Date/Time of Note DATE: 01/17/17 TIME: 16:49 Assessment/Plan VTE Prophylaxis VTE Prophylaxis Intervention: LMWH Lines/Catheters IV Catheter Type (from Nrsg): PICC Line Central line still needed: Yes (IV access) Urinary Cath still in place: No Assessment/Plan Chief Complaint/Hosp Course S: 01/15 events noted. No fever. On chemo. 01/16: No events. Undergoing chemo. 01/17: No distress. Possible constipation/ abd pain. No dyspnea/ chest pain/ leg pain/or dysuria. Tolerating diet. Stach noted. O: Vital signs stable PE No pallor/JVD Reg, no murmur rub gallop Clear, no tachypnea Bs + nt nd; no r/r/g. No flank ecchymosis No edema, negative Homans sign A/P 1. 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 Prognosis? 2. Vitamin D def 3. Anemia 4. GERD? 5. Tachycardia, possibly related to abd pain. Treat constipation. Ro pancreatitis. Echo ok cxr pending for central line positioning. Problems: Exam/Review of Systems Vital Signs Vitals Vital Signs Date Time Temp Pulse Resp B/P Pulse Ox O2 Delivery O2 Flow Rate FiO2 01/17/17 13:18 98.4 101 18 94/68 96 Room Air Intake and Output 01/16/17 01/16/17 01/17/17 15:00 23:00 07:00 Intake Total 428.5 ml 3150 ml 1837.336 ml Balance 428.5 ml 3150 ml 1837.336 ml Results Result Diagram: 01/16/17 0425 01/16/17 0425 Medications Medications Current Medications Ondansetron HCl (Zofran Inj) 4 mg Q6H PRN IV NAUSEA AND/OR VOMITING Last administered on 01/17/17 06:05; Admin Dose 4 MG; Start 01/03/17 at 13:00 Acetaminophen (Tylenol Tab) 650 mg Q6H PRN PO PAIN LEVEL 1-3 OR FEVER Last administered on 01/15/17 22:14; Admin Dose 650 MG; Start 01/03/17 at 13:00 Morphine Sulfate (morphine) 2 mg Q4H PRN IV SEVERE PAIN LEVEL 7-10 Last administered on 01/13/17 22:20; Admin Dose 2 MG; Start 01/03/17 at 13:00 Enoxaparin Sodium (Lovenox) 40 mg DAILY SC Last administered on 01/17/17 09:04 ; Admin Dose 40 MG; Start 01/05/17 at 09:00 Lorazepam (Ativan) 1 mg Q4H PRN PO ANXIETY Last administered on 01/13/17 22:19 ; Admin Dose 1 MG; Start 01/06/17 at 17:00 Zolpidem Tartrate (Ambien) 10 mg HS PRN PO INSOMNIA; Start 01/06/17 at 18:00 Aspirin (Halfprin) 81 mg DAILY PO Last administered on 01/17/17 08:47; Admin Dose 81 MG; Start 01/11/17 at 09:00 Pantoprazole (Protonix Tab) 40 mg DAILY PO Last administered on 01/17/17 08:49 ; Admin Dose 40 MG; Start 01/11/17 at 09:00 Sucralfate (Carafate) 1 gm TID PO Last administered on 01/17/17 13:08; Admin Dose 1 GM; Start 01/10/17 at 21:00 Atorvastatin Calcium (Lipitor) 20 mg HS PO Last administered on 01/16/17 20:29 ; Admin Dose 20 MG; Start 01/10/17 at 21:00 Hydromorphone HCl (Dilaudid) 1 mg Q2H PRN IV PAIN Last administered on 14:00; Admin Dose 1 MG; Start 01/10/17 at 15:00 IV Flush (NS 10 ml) 10 ml PRN PRN IV IV PROTOCOL; Start 01/10/17 at 16:00 Morphine Sulfate 15 mg 15 mg BID PO Last administered on 01/17/17 08:48; Admin Dose 15 MG; Start 01/11/17 at 21:00 Sodium Chloride (NS) 1,000 ml @ 50 mls/hr Q20H IV Last administered on 13:09; Admin Dose 80 MLS/HR; Start 01/13/17 at 10:30 Cholecalciferol (Vitamin D) 2,000 unit DAILY PO Last administered on 01/17/17 08:49; Admin Dose 2,000 UNIT; Start 01/16/17 at 09:00 Acetaminophen/ Hydrocodone Bitart ([place] (10/325)) 1 tab Q4H PRN PO PAIN; Start 01/17/17 at 14:00 Senna/Docusate Sodium (Senokot-S) 2 tab HS PO ; Start 01/17/17 at 21:00 Bisacodyl (Dulcolax) 10 mg DAILY PO ; Start 01/17/17 at 14:30; Stop 01/19/17 at 14 :29 RAVINDRA MURPHY MD Jan 17, 2017 16:53
[2017-01-17 19:40] VITALS: BP 105/58; RESP 18
[2017-01-17 20:00] VITALS: PULSE 105
[2017-01-17] MEDS: ATORVASTATIN 20 MG TAB PO SCH (20:23)
[2017-01-17] MEDS: SENNA/DOCUSATE NA (8.6MG/50MG) TAB PO SCH (20:23)
[2017-01-17] MEDS ORDERED: DOCUSATE SODIUM 100 MG CAP PO SCH (21:00)
[2017-01-17] MEDS: HYDROCODONE/APAP (10/325) TAB PO PRN (21:21)
[2017-01-18 00:02] VITALS: BP 110/66; PULSE 77; RESP 18
[2017-01-18] MEDS: SUCRALFATE 1 GM TAB PO SCH ×3 (02:23→20:51)
--- NOTE | 2017-01-18 04:21 | RADRPT ---
PROCEDURE: XR Chest. CLINICAL INDICATION: Cardiac palpitations. TECHNIQUE: Single frontal view of the chest. COMPARISON: Plain film chest dated 01/15/2017. FINDINGS: Left central venous line again seen with tip in the superior vena cava right atrial junction. The cardiomediastinal silhouette is within normal limits. Extensive pulmonary parenchymal metastatic neoplasm is again seen in the bilateral lungs, without si gnificant change. No signs of pleural fluid or pneumothorax are seen. The osseous structures and soft tissues are unre markable. IMPRESSION: No significant change in extensive metastatic deposits in the bilateral lungs. RPTAT: [facility] Physician Shukri Date Time Electronically viewed and signed by Physician Shukri on 01/18/2017 04:20 RS/
[2017-01-18] MEDS: HYDROmorphONE 1 MG/ML SYG IV PRN ×4 (04:23→20:51)
[2017-01-18 05:00] VITALS: BP 122/67; PULSE 95; RESP 18
[2017-01-18 05:16] LABS: ADD SCAN DIFF NO
[2017-01-18 05:21] LABS: BASOPHILS % 0.5 % (0.0-2.0); EOSINOPHILS # 0.1 10^3/ul (0.0-0.5); EOSINOPHILS % 1.3 % (0.0-7.0); HEMATOCRIT 32.5 % (42.0-52.0); HEMOGLOBIN 10.8 g/dl (14.0-18.0); LYMPHOCYTES # 0.9 10^3/ul (0.8-2.9); LYMPHOCYTES % 24.3 % (15.0-51.0); MEAN CORPUSCULAR HEMOGLOBIN 28.6 pg (29.0-33.0); MEAN CORPUSCULAR HGB CONC 33.2 g/dl (32.0-37.0); MEAN CORPUSCULAR VOLUME 86.2 fl (82.0-101.0); MEAN PLATELET VOLUME 10.4 fl (7.4-10.4); MONOCYTE # 0.1 10^3/ul (0.3-0.9); MONOCYTES % 2.6 % (0.0-11.0); NEUTROPHIL # 2.7 10^3/ul (1.6-7.5); NEUTROPHILS % 69.5 % (39.0-77.0); PLATELET COUNT 280 10^3/UL (140-415); RED BLOOD COUNT 3.77 10^6/ul (4.70-6.10); RED CELL DISTRIBUTION WIDTH 12.8 % (11.5-14.5); WHITE BLOOD COUNT 3.8 10^3/ul (4.8-10.8)
[2017-01-18 05:28] LABS: INR 1.01; PROTIME 13.3 Sec (12.2-14.2)
[2017-01-18 05:44] LABS: ALBUMIN 3.8 g/dl (3.3-4.9); ALBUMIN/GLOBULIN RATIO 1.15; BILIRUBIN,INDIRECT 0.2 mg/dl (0-1.1); BILIRUBIN,TOTAL 0.2 mg/dl (0.2-1.3); CALCIUM 9.4 mg/dl (8.4-10.2); CREATININE 0.68 mg/dl (0.61-1.24); TOTAL PROTEIN 7.1 g/dl (6.1-8.1)
[2017-01-18] MEDS: ALTEPLASE (CATHFLO) 2 MG INJ CATHETER PRN (06:13)
[2017-01-18] MEDS: BISACODYL (EC) 5 MG TAB PO SCH (06:33)
[2017-01-18] MEDS: HYDROCODONE/APAP (10/325) TAB PO PRN ×2 (06:33→16:44)
[2017-01-18] MEDS: ONDANSETRON 4 MG INJ IV PRN (06:34)
[2017-01-18 07:14] LABS: MAGNESIUM 1.7 mg/dl (1.7-2.5); PHOSPHORUS 3.1 mg/dl (2.5-4.9)
[2017-01-18 07:22] LABS: TROPONIN-I < 0.012 ng/ml (0.00-0.12)
[2017-01-18 08:16] VITALS: BP 114/68; RESP 16
[2017-01-18] MEDS: ASPIRIN (EC) 81 MG TAB PO SCH (08:20)
[2017-01-18] MEDS: PANTOPRAZOLE (EC) 40 MG TAB PO SCH (08:20)
[2017-01-18] MEDS: CHOLECALCIFEROL 2,000 UNIT CAP PO SCH (08:20)
[2017-01-18] MEDS: ENOXAPARIN 40 MG/0.4 ML SYG SC SCH (08:22)
[2017-01-18] MEDS: morphine (ER) 15 MG TAB PO SCH (08:24)
[2017-01-18] MEDS: SOD CHLORIDE 0.9% 1,000 ML IV SCH ×2 (10:30→23:34)
--- NOTE | 2017-01-18 11:11 | RADRPT ---
Vent Rate: 98 bpm RR Interval: 0 msec ME Interval: 158 msec QRS Duration: 104 msec QT Interval: 340 msec QTC Interval: 434 msec P-R-T [place]: 44 - 8 - 51 degrees Normal sinus rhythm with sinus arrhythmia Incomplete right bundle branch block Septal infarct , age undetermined Abnormal ECG Electronically Signed By: Micky Ramirez [id number]
--- NOTE | 2017-01-18 13:22 | PN ---
Date/Time of Note Date/Time of Note DATE: 01/18/17 TIME: 13:21 Assessment/Plan VTE Prophylaxis VTE Prophylaxis Intervention: LMWH Lines/Catheters IV Catheter Type (from Nrs): PICC Line Central line still needed: Yes (IV access) Urinary Cath still in place: No Assessment/Plan Chief Complaint/Hosp Course S: 01/15 events noted. No fever. On chemo. 01/16: No events. Undergoing chemo. 01/17: No distress. Possible constipation/ abd pain. No dyspnea/ chest pain/ leg pain/or dysuria. Tolerating diet. Stach noted. 01/18: No BM today. Some weakness. Still having some crampy abdominal pain. No dysuria fever. Port malfunction noted. O: Vital signs stable PE No pallor/JVD Reg, no murmur rub gallop Clear, no tachypnea Bs + nt nd; no r/r/g. No flank ecchymosis No edema, negative Homans sign A/P 1. 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 Prognosis? 2. Vitamin D def 3. Anemia 4. GERD? 5. Tachycardia, possibly related to abd pain; constipation. no pancreatitis. Echo/ cxr ok. 6. Port malfunction?. Problems: Exam/Review of Systems Vital Signs Vitals Vital Signs Date Time Temp Pulse Resp B/P Pulse Ox O2 Delivery O2 Flow Rate FiO2 01/18/17 08:16 97.5 83 16 114/68 98 01/18/17 05:00 Room Air Intake and Output 01/17/17 01/17/17 01/18/17 15:00 23:00 07:00 Intake Total 560 ml 2611.337 ml 1600 ml Balance 560 ml 2611.337 ml 1600 ml Results Result Diagram: 01/18/17 0435 01/18/17 0435 Results 24 hrs Laboratory Tests Test 01/18/17 04:35 White Blood Count 3.8 #L Red Blood Count 3.77 L Hemoglobin 10.8 L Hematocrit 32.5 L Mean Corpuscular Volume 86.2 Mean Corpuscular Hemoglobin 28.6 L Mean Corpuscular Hemoglobin Concent 33.2 Red Cell Distribution Width 12.8 Platelet Count 280 Mean Platelet Volume 10.4 Neutrophils % 69.5 Lymphocytes % 24.3 Monocytes % 2.6 Eosinophils % 1.3 Basophils % 0.5 Nucleated Red Blood Cells % 0.0 Neutrophils # 2.7 Lymphocytes # 0.9 Monocytes # 0.1 L Eosinophils # 0.1 Basophils # 0.0 Nucleated Red Blood Cells # 0.0 Prothrombin Time 13.3 Prothrombin Time Ratio 1.0 INR International Normalized Ratio 1.01 Sodium Level 137 Potassium Level 4.0 Chloride Level 94 L Carbon Dioxide Level 32 H Anion Gap 15 Blood Urea Nitrogen 14 Creatinine 0.68 Glucose Level 84 Lactic Acid Level 0.9 Calcium Level 9.4 Phosphorus Level 3.1 Magnesium Level 1.7 Total Bilirubin 0.2 Direct Bilirubin 0.00 Indirect Bilirubin 0.2 Aspartate Amino Transf (AST/SGOT) 30 Alanine Aminotransferase (ALT/SGPT) 42 Alkaline Phosphatase 170 H Troponin I < 0.012 Total Protein 7.1 Albumin 3.8 Globulin 3.30 H Albumin/Globulin Ratio 1.15 Lipase 121 Medications Medications Current Medications Ondansetron HCl (Zofran Inj) 4 mg Q6H PRN IV NAUSEA AND/OR VOMITING Last administered on 01/18/17 06:34; Admin Dose 4 MG; Start 01/03/17 at 13:00 Acetaminophen (Tylenol Tab) 650 mg Q6H PRN PO PAIN LEVEL 1-3 OR FEVER Last administered on 01/15/17 22:14; Admin Dose 650 MG; Start 01/03/17 at 13:00 Morphine Sulfate (morphine) 2 mg Q4H PRN IV SEVERE PAIN LEVEL 7-10 Last administered on 01/13/17 22:20; Admin Dose 2 MG; Start 01/03/17 at 13:00 Enoxaparin Sodium (Lovenox) 40 mg DAILY SC Last administered on 01/18/17 08:22 ; Admin Dose 40 MG; Start 01/05/17 at 09:00 Lorazepam (Ativan) 1 mg Q4H PRN PO ANXIETY Last administered on 01/13/17 22:19 ; Admin Dose 1 MG; Start 01/06/17 at 17:00 Zolpidem Tartrate (Ambien) 10 mg HS PRN PO INSOMNIA; Start 01/06/17 at 18:00 Aspirin (Halfprin) 81 mg DAILY PO Last administered on 01/18/17 08:20; Admin Dose 81 MG; Start 01/11/17 at 09:00 Pantoprazole (Protonix Tab) 40 mg DAILY PO Last administered on 01/18/17 08:20 ; Admin Dose 40 MG; Start 01/11/17 at 09:00 Sucralfate (Carafate) 1 gm TID PO Last administered on 01/18/17 12:33; Admin Dose 1 GM; Start 01/10/17 at 21:00 Atorvastatin Calcium (Lipitor) 20 mg HS PO Last administered on 01/17/17 20:23 ; Admin Dose 20 MG; Start 01/10/17 at 21:00 Hydromorphone HCl (Dilaudid) 1 mg Q2H PRN IV PAIN Last administered on 09:45; Admin Dose 1 MG; Start 01/10/17 at 15:00 IV Flush (NS 10 ml) 10 ml PRN PRN IV IV PROTOCOL; Start 01/10/17 at 16:00 Morphine Sulfate 15 mg 15 mg BID PO Last administered on 01/18/17 08:24; Admin Dose 15 MG; Start 01/11/17 at 21:00 Sodium Chloride (NS) 1,000 ml @ 50 mls/hr Q20H IV Last administered on 10:30; Admin Dose 50 MLS/HR; Start 01/13/17 at 10:30 Cholecalciferol (Vitamin D) 2,000 unit DAILY PO Last administered on 01/18/17 08:20; Admin Dose 2,000 UNIT; Start 01/16/17 at 09:00 Acetaminophen/ Hydrocodone Bitart ([place] (10/325)) 1 tab Q4H PRN PO PAIN Last administered on 01/18/17 06:33; Admin Dose 1 TAB; Start 01/17/17 at 14:00 Senna/Docusate Sodium (Senokot-S) 2 tab HS PO Last administered on 01/17/17 20: 23; Admin Dose 2 TAB; Start 01/17/17 at 21:00 Bisacodyl (Dulcolax) 10 mg DAILY PO Last administered on 01/18/17 06:33; Admin Dose 10 MG; Start 01/17/17 at 14:30; Stop 01/19/17 at 14:29 RAVINDRA MURPHY MD Jan 18, 2017 13:22
[2017-01-18] MEDS ORDERED: MAGNESIUM HYDROXIDE 30ML CUP PO ONE (13:30)
[2017-01-18] MEDS: POLYETHYLENE GLYCOL 17 GM PACKET PO SCH ×2 (14:30→20:52)
[2017-01-18] MEDS: SENNA/DOCUSATE NA (8.6MG/50MG) TAB PO SCH (20:51)
[2017-01-18] MEDS: ATORVASTATIN 20 MG TAB PO SCH (20:51)
[2017-01-18 21:56] VITALS: BP 119/66; RESP 20
--- NOTE | 2017-01-18 23:01 | CONS ---
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 The largest conglomeration of lymph nodes measures approximately 7.3 x 11.7 x 13.2 cm. TUMOR MARKERS- REVIEWED [facility]- VERY HIGH CT CHEST- 1. Significant retroperitoneal, right supraclavicular, and right hilar lymphadenopathy consistent with metastatic disease. 2. Diffuse pulmonary nodules are also consistent with metastatic disease 3. Hypoenhancing hepatic lesions may be a combination of metastatic disease and hemangiomas. An MRI with and without contrast may be useful to delineate if clinically indicated. path -Retroperitoneal mass, CT-guided core needle biopsies: reviewed PLAN CHEMO- for METASTATIC nonseminomatous germ cell tumors For patients with nonseminomatous GCT, we suggest four cycles of chemotherapy as the initial therapy, rather than surgery or RT We recommend VIP rather than BEP because of the increased risk of bleomycin pulmonary toxicity should surgery eventually be required BEP can be considered as an alternative if bone marrow toxicity is a particular concern. For patients with a residual mediastinal mass following initial chemotherapy, we recommend complete surgical resection, if technically feasible If viable malignancy is identified, we suggest two additional cycles of VIP chemotherapy POST PICC LINE CHEMO D/W IN DETAILS cont per protocol - D ANEMIA, N- CYTIC WITH N RDW + COMPONENT ACD THROMBOCYTOPENIA MONITOR IMPROVED LOW-GRADE FEVER IMPROVED NOT NEUTROPENIC NOT ON ATB WILL OBSERVE VIP REGIMEN- Cycle length: 21 days. Total cycles: 4. Drug Dose and route Administration Given on days Cisplatin 20 mg/m2 IV per day Dilute with 250 mL normal saline (NS) and administer over one hour. Do not administer with aluminum needles or intravenous sets. Days 1 to 5 Etoposide* 75 mg/m2 IV per day Dilute with 500 mL NS (concentration less than 0.4 mg/mL) and administer over one hour. Days 1 to 5 Ifosfamide* 1200 mg/m2 per day continuous IV infusion Dilute with NS for injection to a final concentration of 0.6 to 20 mg/mL and infuse over 24 hours. Can mix with Mesna. Days 1 to 5 Mesna 120 mg/m2 IV Dilute with NS for injection and administer via slow IV push prior to day 1 infusion of ifosfamide. Total concentration of mesna should not exceed 20 mg/mL. Day 1 Mesna? 1200 mg/m2 per day continuous IV infusion Dilute with NS for injection and administer as continuous infusion over 24 hours[2]. Total concentration of mesna should not exceed 20 mg/mL. Can mix with ifosfamide. Days 1 to 5 Pretreatment considerations: Hydration: Induction of diuresis using intravenous NS minimizes the risk of cisplatin nephrotoxicity. At least 2000 mL of NS should be administered at a rate of 100 to 125 mL per hour throughout the five days of treatment and continued for at least two hours after the last dose of cisplatin. Refer to UpToDate topic on "Cisplatin nephrotoxicity". Emesis risk: HIGH (>90 percent frequency of emesis). Aprepitant can be given orally (125 mg on day 1, 80 mg on days 2 and 3) with ondansetron, prochlorperazine, and dexamethasone daily. Refer to UpToDate topic on "Prevention and treatment of chemotherapy-induced nausea and vomiting in adults ". Vesicant/irritant properties: Cisplatin is an irritant but can cause significant tissue damage; avoid extravasation[3]. Refer to UpToDate topic on "Extravasation injury from chemotherapy and other non-antineoplastic vesicants" . Infection prophylaxis: Primary prophylaxis with granulocyte colony stimulating factors was administered as a routine component of this regimen[1]. Refer to UpToDate topic on "Use of granulocyte colony stimulating factors in adult patients with chemotherapy-induced neutropenia and conditions other than acute leukemia, myelodysplastic syndrome, and hematopoietic cell transplantation ". Dose adjustment for baseline liver or renal dysfunction: Dose adjustment in the setting of baseline renal impairment (ie, creatinine >3.0 mg/dL or GFR <50 mL/min) requires a balanced discussion of the goals of treatment and the risks of cisplatin. Refer to UpToDate topics on "Chemotherapy hepatotoxicity and dose modification in patients with liver disease" and "Chemotherapy-related nephrotoxicity and dose modification in patients with renal insufficiency". Monitoring parameters: CBC with differential and platelet count weekly during treatment. Basic metabolic panel (creatinine and electrolytes) prior to each treatment cycle. Liver function tests prior to each treatment cycle. Cisplatin is associated with significant nephrotoxicity. Ifosfamide is associated with cumulative nephrotoxicity, mostly at a total dose above 60 grams /m2. Clinical manifestations may include hypophosphatemia, renal potassium wasting, metabolic acidosis with a normal ion gap, and rarely, polyuria due to nephrogenic diabetes insipidus. Assess creatinine and electrolytes, including potassium and phosphate, daily during treatment and prior to each subsequent treatment cycle. Refer to UpToDate topic on "Ifosfamide nephrotoxicity". Mesna does not prevent hemorrhagic cystitis in all patients[2]. Monitor a morning specimen of urine for hematuria daily, on days 1 through 5. Refer to UpToDate topic on "Cystitis in patients with cancer". Monitor for neurotoxicity (confusion, coma, rarely seizures, weakness, neuropathy, ataxia, cranial nerve dysfunction) daily, on days 1 through 5. Central nervous system side effects may be especially problematic for those over age 60. Refer to UpToDate topic on "Overview of neurologic complications of non-standing rock cancer chemotherapy". Monitor vital signs during etoposide infusion. Monitor for hearing loss prior to each dose of cisplatin; audiometry as clinically indicated. Suggested dose alterations for toxicity: Myelotoxicity: Reduce doses of etoposide and ifosfamide each by 25 percent for subsequent cycles for granulocytopenic fever or thrombocytopenic bleeding with the previous course of therapy[1]. Neurotoxicity: Neuropathy usually is seen after cumulative doses of cisplatin beyond 400 mg/m2, although there is marked interindividual variation. Patients with mild neuropathy can continue to receive full cisplatin doses. However, if the neuropathy interferes with function, the risk of potentially disabling neurotoxicity must be weighed against the benefit of continued treatment[3]. Refer to UpToDate topic on "Overview of neurologic complications of standing rock- based chemotherapy". Nephrotoxicity: It is recommended that subsequent doses of cisplatin be withheld until the serum creatinine is less than 3.0 mg/dL. If there is a change in body weight of at least 10 percent, doses should be recalculated. IV: intravenous; GFR: glomerular filtration rate; CBC: complete blood count. * The initial protocol included empiric reduction of etoposide and ifosfamide doses by 25 percent for patients who have received prior radiation therapy[1]. ? Due to a longer half-life of ifosfamide and associated metabolites at higher doses, some references recommend continuation of mesna for 12 to 24 hours beyond completion of ifosfamide to reduce the risk of hemorrhagic cystitis[2]. References: Matt GRAHAM, et al. J Clin Oncol 1998; 16:1287. MESNA injection. [place] Prescribing Information. [employer] of Medicine. (Available online at [email or web address], accessed July 04, 2011) . Cisplatin injection, powder, lyophilized, for solution. [place] Prescribing Information. [employer] Library of Medicine. (Available online at [email or web address], accessed on July 04, 2011). Graphic 09582 Version 11.0 Problems: Consultation Date/Type/Reason Admit Date/Time Jan 03, 2017 at 10:48 Initial Consult Date 01/03/17 Type of Consultation: HEMEONC Referring Provider: EMELI CHRISTIE 24 HR Interval Summary Free Text/Dictation COMPLETED CHEMO DOING OK WBC- DOWN Exam/Review of Systems Vital Signs Vitals Vital Signs Date Time Temp Pulse Resp B/P Pulse Ox O2 Delivery O2 Flow Rate FiO2 01/18/17 21:56 98.5 91 20 119/66 96 01/18/17 05:00 Room Air Intake and Output 01/17/17 01/17/17 01/18/17 15:00 23:00 07:00 Intake Total 560 ml 2611.337 ml 1600 ml Balance 560 ml 2611.337 ml 1600 ml Exam Constitutional: alert, oriented, well developed Psych: nl mood/affect, no complaints Head: atraumatic, normocephalic Eyes: EOMI, PERRL Neck: non-tender, supple Respiratory: clear to auscultation, normal air movement Cardiovascular: nl pulses, regular rate and rhythm Gastrointestinal: soft, tender on right side Extremities: normal pulses Results Result Diagram: 01/18/17 0435 01/18/17 0435 Results 24 hrs Laboratory Tests Test 01/18/17 04:35 White Blood Count 3.8 #L Red Blood Count 3.77 L Hemoglobin 10.8 L Hematocrit 32.5 L Mean Corpuscular Volume 86.2 Mean Corpuscular Hemoglobin 28.6 L Mean Corpuscular Hemoglobin Concent 33.2 Red Cell Distribution Width 12.8 Platelet Count 280 Mean Platelet Volume 10.4 Neutrophils % 69.5 Lymphocytes % 24.3 Monocytes % 2.6 Eosinophils % 1.3 Basophils % 0.5 Nucleated Red Blood Cells % 0.0 Neutrophils # 2.7 Lymphocytes # 0.9 Monocytes # 0.1 L Eosinophils # 0.1 Basophils # 0.0 Nucleated Red Blood Cells # 0.0 Prothrombin Time 13.3 Prothrombin Time Ratio 1.0 INR International Normalized Ratio 1.01 Sodium Level 137 Potassium Level 4.0 Chloride Level 94 L Carbon Dioxide Level 32 H Anion Gap 15 Blood Urea Nitrogen 14 Creatinine 0.68 Glucose Level 84 Lactic Acid Level 0.9 Calcium Level 9.4 Phosphorus Level 3.1 Magnesium Level 1.7 Total Bilirubin 0.2 Direct Bilirubin 0.00 Indirect Bilirubin 0.2 Aspartate Amino Transf (AST/SGOT) 30 Alanine Aminotransferase (ALT/SGPT) 42 Alkaline Phosphatase 170 H Troponin I < 0.012 Total Protein 7.1 Albumin 3.8 Globulin 3.30 H Albumin/Globulin Ratio 1.15 Lipase 121 Medications Medications Current Medications Ondansetron HCl (Zofran Inj) 4 mg Q6H PRN IV NAUSEA AND/OR VOMITING Last administered on 01/18/17 06:34; Admin Dose 4 MG; Start 01/03/17 at 13:00 Acetaminophen (Tylenol Tab) 650 mg Q6H PRN PO PAIN LEVEL 1-3 OR FEVER Last administered on 01/15/17 22:14; Admin Dose 650 MG; Start 01/03/17 at 13:00 Morphine Sulfate (morphine) 2 mg Q4H PRN IV SEVERE PAIN LEVEL 7-10 Last administered on 01/13/17 22:20; Admin Dose 2 MG; Start 01/03/17 at 13:00 Enoxaparin Sodium (Lovenox) 40 mg DAILY SC Last administered on 01/18/17 08:22 ; Admin Dose 40 MG; Start 01/05/17 at 09:00 Lorazepam (Ativan) 1 mg Q4H PRN PO ANXIETY Last administered on 01/13/17 22:19 ; Admin Dose 1 MG; Start 01/06/17 at 17:00 Zolpidem Tartrate (Ambien) 10 mg HS PRN PO INSOMNIA; Start 01/06/17 at 18:00 Aspirin (Halfprin) 81 mg DAILY PO Last administered on 01/18/17 08:20; Admin Dose 81 MG; Start 01/11/17 at 09:00 Pantoprazole (Protonix Tab) 40 mg DAILY PO Last administered on 01/18/17 08:20 ; Admin Dose 40 MG; Start 01/11/17 at 09:00 Sucralfate (Carafate) 1 gm TID PO Last administered on 01/18/17 20:51; Admin Dose 1 GM; Start 01/10/17 at 21:00 Atorvastatin Calcium (Lipitor) 20 mg HS PO Last administered on 01/18/17 20:51 ; Admin Dose 20 MG; Start 01/10/17 at 21:00 Hydromorphone HCl (Dilaudid) 1 mg Q2H PRN IV PAIN Last administered on 20:51; Admin Dose 1 MG; Start 01/10/17 at 15:00 IV Flush (NS 10 ml) 10 ml PRN PRN IV IV PROTOCOL; Start 01/10/17 at 16:00 Morphine Sulfate 15 mg 15 mg BID PO Last administered on 01/18/17 08:24; Admin Dose 15 MG; Start 01/11/17 at 21:00 Sodium Chloride (NS) 1,000 ml @ 50 mls/hr Q20H IV Last administered on 10:30; Admin Dose 50 MLS/HR; Start 01/13/17 at 10:30 Cholecalciferol (Vitamin D) 2,000 unit DAILY PO Last administered on 01/18/17 08:20; Admin Dose 2,000 UNIT; Start 01/16/17 at 09:00 Acetaminophen/ Hydrocodone Bitart ([place] (10/325)) 1 tab Q4H PRN PO PAIN Last administered on 01/18/17 16:44; Admin Dose 1 TAB; Start 01/17/17 at 14:00 Senna/Docusate Sodium (Senokot-S) 2 tab HS PO Last administered on 01/18/17 20: 51; Admin Dose 2 TAB; Start 01/17/17 at 21:00 Bisacodyl (Dulcolax) 10 mg DAILY PO Last administered on 01/18/17 06:33; Admin Dose 10 MG; Start 01/17/17 at 14:30; Stop 01/19/17 at 14:29 Polyethylene Glycol (Miralax) 17 gm BID PO Last administered on 01/18/17 20:52 ; Admin Dose 17 GM; Start 01/18/17 at 13:30 MARQUEZ VERA MD Jan 18, 2017 23:01
[2017-01-19] MEDS: morphine (ER) 15 MG TAB PO SCH ×3 (01:39→20:51)
[2017-01-19] MEDS: HYDROmorphONE 1 MG/ML SYG IV PRN ×3 (05:00→22:08)
[2017-01-19 05:02] LABS: ADD SCAN DIFF NO
[2017-01-19 05:04] LABS: BASOPHILS % 0.6 % (0.0-2.0); EOSINOPHILS % 0.9 % (0.0-7.0); HEMATOCRIT 34.5 % (42.0-52.0); HEMOGLOBIN 11.6 g/dl (14.0-18.0); LYMPHOCYTES # 0.7 10^3/ul (0.8-2.9); LYMPHOCYTES % 20.9 % (15.0-51.0); MEAN CORPUSCULAR HEMOGLOBIN 28.6 pg (29.0-33.0); MEAN CORPUSCULAR HGB CONC 33.6 g/dl (32.0-37.0); MEAN PLATELET VOLUME 9.9 fl (7.4-10.4); MONOCYTE # 0.1 10^3/ul (0.3-0.9); MONOCYTES % 2.3 % (0.0-11.0); NEUTROPHIL # 2.6 10^3/ul (1.6-7.5); NEUTROPHILS % 74.2 % (39.0-77.0); PLATELET COUNT 282 10^3/UL (140-415); RED BLOOD COUNT 4.06 10^6/ul (4.70-6.10); RED CELL DISTRIBUTION WIDTH 12.7 % (11.5-14.5); WHITE BLOOD COUNT 3.5 10^3/ul (4.8-10.8)
[2017-01-19 05:44] LABS: CALCIUM 9.5 mg/dl (8.4-10.2); CREATININE 0.64 mg/dl (0.61-1.24)
[2017-01-19 08:00] VITALS: BP 116/76; RESP 19
[2017-01-19] MEDS: BISACODYL (EC) 5 MG TAB PO SCH (09:00)
[2017-01-19] MEDS: PANTOPRAZOLE (EC) 40 MG TAB PO SCH (09:24)
[2017-01-19] MEDS: CHOLECALCIFEROL 2,000 UNIT CAP PO SCH (09:24)
[2017-01-19] MEDS: ASPIRIN (EC) 81 MG TAB PO SCH (09:24)
[2017-01-19] MEDS: SUCRALFATE 1 GM TAB PO SCH ×3 (09:25→20:51)
[2017-01-19] MEDS: POLYETHYLENE GLYCOL 17 GM PACKET PO SCH ×2 (09:25→20:51)
[2017-01-19] MEDS: ENOXAPARIN 40 MG/0.4 ML SYG SC SCH (09:32)
[2017-01-19] MEDS: HYDROCODONE/APAP (10/325) TAB PO PRN ×2 (10:33→18:39)
--- NOTE | 2017-01-19 14:34 | PN ---
Date/Time of Note Date/Time of Note DATE: 01/19/17 TIME: 14:33 Assessment/Plan VTE Prophylaxis VTE Prophylaxis Intervention: LMWH Lines/Catheters IV Catheter Type (from Nrs): PICC Line Central line still needed: Yes (IV access) Urinary Cath still in place: No Assessment/Plan Chief Complaint/Hosp Course S: 01/15 events noted. No fever. On chemo. 01/16: No events. Undergoing chemo. 01/17: No distress. Possible constipation/ abd pain. No dyspnea/ chest pain/ leg pain/or dysuria. Tolerating diet. Stach noted. 01/18: No BM today. Some weakness. Still having some crampy abdominal pain. No dysuria fever. Port malfunction noted. 01/19: Less abdominal pain. Positive BM. Feels weak and has chills. But no fever. O: Vital signs stable PE No pallor Reg, no murmur rub gallop Clear, no tachypnea Bs + nt nd; no r/r/g. No edema A/P 1. 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 Wants to consider outpatient therapy. Prognosis? 2. Vitamin D def 3. Anemia 4. GERD? 5. Tachycardia, possibly related to abd pain; constipation. no pancreatitis. Echo/ cxr ok. 6. Port malfunction? 7. Leukopenia but no neutropenia. Problems: Exam/Review of Systems Vital Signs Vitals Vital Signs Date Time Temp Pulse Resp B/P Pulse Ox O2 Delivery O2 Flow Rate FiO2 01/19/17 08:00 98.3 83 19 116/76 100 01/18/17 05:00 Room Air Intake and Output 01/18/17 01/18/17 01/19/17 14:59 22:59 06:59 Intake Total 420 ml 800 ml 800 ml Output Total 700 ml Balance 420 ml 800 ml 100 ml Results Result Diagram: 01/19/17 0435 01/19/17 0435 Results 24 hrs Laboratory Tests Test 01/19/17 04:35 White Blood Count 3.5 L Red Blood Count 4.06 L Hemoglobin 11.6 L Hematocrit 34.5 L Mean Corpuscular Volume 85.0 Mean Corpuscular Hemoglobin 28.6 L Mean Corpuscular Hemoglobin Concent 33.6 Red Cell Distribution Width 12.7 Platelet Count 282 Mean Platelet Volume 9.9 Neutrophils % 74.2 Lymphocytes % 20.9 Monocytes % 2.3 Eosinophils % 0.9 Basophils % 0.6 Nucleated Red Blood Cells % 0.0 Neutrophils # 2.6 Lymphocytes # 0.7 L Monocytes # 0.1 L Eosinophils # 0.0 Basophils # 0.0 Nucleated Red Blood Cells # 0.0 Sodium Level 138 Potassium Level 4.0 Chloride Level 94 L Carbon Dioxide Level 31 Anion Gap 17 H Blood Urea Nitrogen 14 Creatinine 0.64 Glucose Level 96 Calcium Level 9.5 Medications Medications Current Medications Ondansetron HCl (Zofran Inj) 4 mg Q6H PRN IV NAUSEA AND/OR VOMITING Last administered on 01/18/17 06:34; Admin Dose 4 MG; Start 01/03/17 at 13:00 Acetaminophen (Tylenol Tab) 650 mg Q6H PRN PO PAIN LEVEL 1-3 OR FEVER Last administered on 01/15/17 22:14; Admin Dose 650 MG; Start 01/03/17 at 13:00 Morphine Sulfate (morphine) 2 mg Q4H PRN IV SEVERE PAIN LEVEL 7-10 Last administered on 01/13/17 22:20; Admin Dose 2 MG; Start 01/03/17 at 13:00 Enoxaparin Sodium (Lovenox) 40 mg DAILY SC Last administered on 01/19/17 09:32 ; Admin Dose 40 MG; Start 01/05/17 at 09:00 Lorazepam (Ativan) 1 mg Q4H PRN PO ANXIETY Last administered on 01/13/17 22:19 ; Admin Dose 1 MG; Start 01/06/17 at 17:00 Zolpidem Tartrate (Ambien) 10 mg HS PRN PO INSOMNIA; Start 01/06/17 at 18:00 Aspirin (Halfprin) 81 mg DAILY PO Last administered on 01/19/17 09:24; Admin Dose 81 MG; Start 01/11/17 at 09:00 Pantoprazole (Protonix Tab) 40 mg DAILY PO Last administered on 01/19/17 09:24 ; Admin Dose 40 MG; Start 01/11/17 at 09:00 Sucralfate (Carafate) 1 gm TID PO Last administered on 01/19/17 14:01; Admin Dose 1 GM; Start 01/10/17 at 21:00 Atorvastatin Calcium (Lipitor) 20 mg HS PO Last administered on 01/18/17 20:51 ; Admin Dose 20 MG; Start 01/10/17 at 21:00 Hydromorphone HCl (Dilaudid) 1 mg Q2H PRN IV PAIN Last administered on 14:07; Admin Dose 1 MG; Start 01/10/17 at 15:00 IV Flush (NS 10 ml) 10 ml PRN PRN IV IV PROTOCOL; Start 01/10/17 at 16:00 Morphine Sulfate 15 mg 15 mg BID PO Last administered on 01/19/17 09:25; Admin Dose 15 MG; Start 01/11/17 at 21:00 Sodium Chloride (NS) 1,000 ml @ 50 mls/hr Q20H IV Last administered on 23:34; Admin Dose 50 MLS/HR; Start 01/13/17 at 10:30 Cholecalciferol (Vitamin D) 2,000 unit DAILY PO Last administered on 01/19/17 09:24; Admin Dose 2,000 UNIT; Start 01/16/17 at 09:00 Acetaminophen/ Hydrocodone Bitart ([place] (10/325)) 1 tab Q4H PRN PO PAIN Last administered on 01/19/17 10:33; Admin Dose 1 TAB; Start 01/17/17 at 14:00 Senna/Docusate Sodium (Senokot-S) 2 tab HS PO Last administered on 01/18/17 20: 51; Admin Dose 2 TAB; Start 01/17/17 at 21:00 Polyethylene Glycol (Miralax) 17 gm BID PO Last administered on 01/19/17 09:25 ; Admin Dose 17 GM; Start 01/18/17 at 13:30 RAVINDRA MURPHY MD Jan 19, 2017 14:34
[2017-01-19] MEDS: SENNA/DOCUSATE NA (8.6MG/50MG) TAB PO SCH (20:50)
[2017-01-19] MEDS: ATORVASTATIN 20 MG TAB PO SCH (20:50)
[2017-01-19 20:54] VITALS: BP 109/61; RESP 20
--- NOTE | 2017-01-19 23:38 | CONS ---
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 The largest conglomeration of lymph nodes measures approximately 7.3 x 11.7 x 13.2 cm. TUMOR MARKERS- REVIEWED [facility]- VERY HIGH CT CHEST- 1. Significant retroperitoneal, right supraclavicular, and right hilar lymphadenopathy consistent with metastatic disease. 2. Diffuse pulmonary nodules are also consistent with metastatic disease 3. Hypoenhancing hepatic lesions may be a combination of metastatic disease and hemangiomas. An MRI with and without contrast may be useful to delineate if clinically indicated. path -Retroperitoneal mass, CT-guided core needle biopsies: reviewed PLAN CHEMO- for METASTATIC nonseminomatous germ cell tumors For patients with nonseminomatous GCT, we suggest four cycles of chemotherapy as the initial therapy, rather than surgery or RT We recommend VIP rather than BEP because of the increased risk of bleomycin pulmonary toxicity should surgery eventually be required BEP can be considered as an alternative if bone marrow toxicity is a particular concern. For patients with a residual mediastinal mass following initial chemotherapy, we recommend complete surgical resection, if technically feasible If viable malignancy is identified, we suggest two additional cycles of VIP chemotherapy POST PICC LINE CHEMO D/W IN DETAILS cont per protocol - D ANEMIA, N- CYTIC WITH N RDW + COMPONENT ACD THROMBOCYTOPENIA MONITOR IMPROVED LOW-GRADE FEVER IMPROVED NOT NEUTROPENIC NOT ON ATB WILL OBSERVE VIP REGIMEN- Cycle length: 21 days. Total cycles: 4. Drug Dose and route Administration Given on days Cisplatin 20 mg/m2 IV per day Dilute with 250 mL normal saline (NS) and administer over one hour. Do not administer with aluminum needles or intravenous sets. Days 1 to 5 Etoposide* 75 mg/m2 IV per day Dilute with 500 mL NS (concentration less than 0.4 mg/mL) and administer over one hour. Days 1 to 5 Ifosfamide* 1200 mg/m2 per day continuous IV infusion Dilute with NS for injection to a final concentration of 0.6 to 20 mg/mL and infuse over 24 hours. Can mix with Mesna. Days 1 to 5 Mesna 120 mg/m2 IV Dilute with NS for injection and administer via slow IV push prior to day 1 infusion of ifosfamide. Total concentration of mesna should not exceed 20 mg/mL. Day 1 Mesna? 1200 mg/m2 per day continuous IV infusion Dilute with NS for injection and administer as continuous infusion over 24 hours[2]. Total concentration of mesna should not exceed 20 mg/mL. Can mix with ifosfamide. Days 1 to 5 Pretreatment considerations: Hydration: Induction of diuresis using intravenous NS minimizes the risk of cisplatin nephrotoxicity. At least 2000 mL of NS should be administered at a rate of 100 to 125 mL per hour throughout the five days of treatment and continued for at least two hours after the last dose of cisplatin. Refer to UpToDate topic on "Cisplatin nephrotoxicity". Emesis risk: HIGH (>90 percent frequency of emesis). Aprepitant can be given orally (125 mg on day 1, 80 mg on days 2 and 3) with ondansetron, prochlorperazine, and dexamethasone daily. Refer to UpToDate topic on "Prevention and treatment of chemotherapy-induced nausea and vomiting in adults ". Vesicant/irritant properties: Cisplatin is an irritant but can cause significant tissue damage; avoid extravasation[3]. Refer to UpToDate topic on "Extravasation injury from chemotherapy and other non-antineoplastic vesicants" . Infection prophylaxis: Primary prophylaxis with granulocyte colony stimulating factors was administered as a routine component of this regimen[1]. Refer to UpToDate topic on "Use of granulocyte colony stimulating factors in adult patients with chemotherapy-induced neutropenia and conditions other than acute leukemia, myelodysplastic syndrome, and hematopoietic cell transplantation ". Dose adjustment for baseline liver or renal dysfunction: Dose adjustment in the setting of baseline renal impairment (ie, creatinine >3.0 mg/dL or GFR <50 mL/min) requires a balanced discussion of the goals of treatment and the risks of cisplatin. Refer to UpToDate topics on "Chemotherapy hepatotoxicity and dose modification in patients with liver disease" and "Chemotherapy-related nephrotoxicity and dose modification in patients with renal insufficiency". Monitoring parameters: CBC with differential and platelet count weekly during treatment. Basic metabolic panel (creatinine and electrolytes) prior to each treatment cycle. Liver function tests prior to each treatment cycle. Cisplatin is associated with significant nephrotoxicity. Ifosfamide is associated with cumulative nephrotoxicity, mostly at a total dose above 60 grams /m2. Clinical manifestations may include hypophosphatemia, renal potassium wasting, metabolic acidosis with a normal ion gap, and rarely, polyuria due to nephrogenic diabetes insipidus. Assess creatinine and electrolytes, including potassium and phosphate, daily during treatment and prior to each subsequent treatment cycle. Refer to UpToDate topic on "Ifosfamide nephrotoxicity". Mesna does not prevent hemorrhagic cystitis in all patients[2]. Monitor a morning specimen of urine for hematuria daily, on days 1 through 5. Refer to UpToDate topic on "Cystitis in patients with cancer". Monitor for neurotoxicity (confusion, coma, rarely seizures, weakness, neuropathy, ataxia, cranial nerve dysfunction) daily, on days 1 through 5. Central nervous system side effects may be especially problematic for those over age 60. Refer to UpToDate topic on "Overview of neurologic complications of non[place] cancer chemotherapy". Monitor vital signs during etoposide infusion. Monitor for hearing loss prior to each dose of cisplatin; audiometry as clinically indicated. Suggested dose alterations for toxicity: Myelotoxicity: Reduce doses of etoposide and ifosfamide each by 25 percent for subsequent cycles for granulocytopenic fever or thrombocytopenic bleeding with the previous course of therapy[1]. Neurotoxicity: Neuropathy usually is seen after cumulative doses of cisplatin beyond 400 mg/m2, although there is marked interindividual variation. Patients with mild neuropathy can continue to receive full cisplatin doses. However, if the neuropathy interferes with function, the risk of potentially disabling neurotoxicity must be weighed against the benefit of continued treatment[3]. Refer to UpToDate topic on "Overview of neurologic complications of [place]- based chemotherapy". Nephrotoxicity: It is recommended that subsequent doses of cisplatin be withheld until the serum creatinine is less than 3.0 mg/dL. If there is a change in body weight of at least 10 percent, doses should be recalculated. IV: intravenous; GFR: glomerular filtration rate; CBC: complete blood count. * The initial protocol included empiric reduction of etoposide and ifosfamide doses by 25 percent for patients who have received prior radiation therapy[1]. ? Due to a longer half-life of ifosfamide and associated metabolites at higher doses, some references recommend continuation of mesna for 12 to 24 hours beyond completion of ifosfamide to reduce the risk of hemorrhagic cystitis[2]. References: Matt GRAHAM, et al. J Clin Oncol 1998; 16:1287. MESNA injection. [place] Prescribing Information. [employer]. (Available online at dailyOZON.ru.Zurrba.nih.gov, accessed July 04, 2011) . Cisplatin injection, powder, lyophilized, for solution. [place] Prescribing Information. [employer]. (Available online at [employer].Zurrba.nih.gov, accessed on July 04, 2011). Graphic 52345 Version 11.0 Problems: Consultation Date/Type/Reason Admit Date/Time Jan 03, 2017 at 10:48 Initial Consult Date 01/03/17 Type of Consultation: HEMEONC Referring Provider: EMELI CHRISTIE 24 HR Interval Summary Free Text/Dictation ALL NOTED Exam/Review of Systems Vital Signs Vitals Vital Signs Date Time Temp Pulse Resp B/P Pulse Ox O2 Delivery O2 Flow Rate FiO2 01/19/17 20:54 98.9 75 20 109/61 97 01/18/17 05:00 Room Air Intake and Output 01/18/17 01/18/17 01/19/17 15:00 23:00 07:00 Intake Total 420 ml 800 ml 800 ml Output Total 700 ml Balance 420 ml 800 ml 100 ml Exam Constitutional: alert, oriented, well developed Psych: nl mood/affect, no complaints Head: atraumatic, normocephalic Eyes: EOMI, PERRL Neck: non-tender, supple Respiratory: clear to auscultation, normal air movement Cardiovascular: nl pulses, regular rate and rhythm Gastrointestinal: soft, tender on right side Extremities: normal pulses Results Result Diagram: 01/19/17 0435 01/19/17 0435 Results 24 hrs Laboratory Tests Test 01/19/17 04:35 White Blood Count 3.5 L Red Blood Count 4.06 L Hemoglobin 11.6 L Hematocrit 34.5 L Mean Corpuscular Volume 85.0 Mean Corpuscular Hemoglobin 28.6 L Mean Corpuscular Hemoglobin Concent 33.6 Red Cell Distribution Width 12.7 Platelet Count 282 Mean Platelet Volume 9.9 Neutrophils % 74.2 Lymphocytes % 20.9 Monocytes % 2.3 Eosinophils % 0.9 Basophils % 0.6 Nucleated Red Blood Cells % 0.0 Neutrophils # 2.6 Lymphocytes # 0.7 L Monocytes # 0.1 L Eosinophils # 0.0 Basophils # 0.0 Nucleated Red Blood Cells # 0.0 Sodium Level 138 Potassium Level 4.0 Chloride Level 94 L Carbon Dioxide Level 31 Anion Gap 17 H Blood Urea Nitrogen 14 Creatinine 0.64 Glucose Level 96 Calcium Level 9.5 Medications Medications Current Medications Ondansetron HCl (Zofran Inj) 4 mg Q6H PRN IV NAUSEA AND/OR VOMITING Last administered on 01/18/17 06:34; Admin Dose 4 MG; Start 01/03/17 at 13:00 Acetaminophen (Tylenol Tab) 650 mg Q6H PRN PO PAIN LEVEL 1-3 OR FEVER Last administered on 01/15/17 22:14; Admin Dose 650 MG; Start 01/03/17 at 13:00 Morphine Sulfate (morphine) 2 mg Q4H PRN IV SEVERE PAIN LEVEL 7-10 Last administered on 01/13/17 22:20; Admin Dose 2 MG; Start 01/03/17 at 13:00 Enoxaparin Sodium (Lovenox) 40 mg DAILY SC Last administered on 01/19/17 09:32 ; Admin Dose 40 MG; Start 01/05/17 at 09:00 Lorazepam (Ativan) 1 mg Q4H PRN PO ANXIETY Last administered on 01/13/17 22:19 ; Admin Dose 1 MG; Start 01/06/17 at 17:00 Zolpidem Tartrate (Ambien) 10 mg HS PRN PO INSOMNIA; Start 01/06/17 at 18:00 Aspirin (Halfprin) 81 mg DAILY PO Last administered on 01/19/17 09:24; Admin Dose 81 MG; Start 01/11/17 at 09:00 Pantoprazole (Protonix Tab) 40 mg DAILY PO Last administered on 01/19/17 09:24 ; Admin Dose 40 MG; Start 01/11/17 at 09:00 Sucralfate (Carafate) 1 gm TID PO Last administered on 01/19/17 20:51; Admin Dose 1 GM; Start 01/10/17 at 21:00 Atorvastatin Calcium (Lipitor) 20 mg HS PO Last administered on 01/19/17 20:50 ; Admin Dose 20 MG; Start 01/10/17 at 21:00 Hydromorphone HCl (Dilaudid) 1 mg Q2H PRN IV PAIN Last administered on 22:08; Admin Dose 1 MG; Start 6/28/17 at 15:00 IV Flush (NS 10 ml) 10 ml PRN PRN IV IV PROTOCOL; Start 01/10/17 at 16:00 Morphine Sulfate 15 mg 15 mg BID PO Last administered on 01/19/17 20:51; Admin Dose 15 MG; Start 01/11/17 at 21:00 Sodium Chloride (NS) 1,000 ml @ 50 mls/hr Q20H IV Last administered on 23:34; Admin Dose 50 MLS/HR; Start 01/13/17 at 10:30 Cholecalciferol (Vitamin D) 2,000 unit DAILY PO Last administered on 01/19/17 09:24; Admin Dose 2,000 UNIT; Start 01/16/17 at 09:00 Acetaminophen/ Hydrocodone Bitart ([place] ()) 1 tab Q4H PRN PO PAIN Last administered on 01/19/17 18:39; Admin Dose 1 TAB; Start 01/17/17 at 14:00 Senna/Docusate Sodium (Senokot-S) 2 tab HS PO Last administered on 01/19/17 20: 50; Admin Dose 2 TAB; Start 01/17/17 at 21:00 Polyethylene Glycol (Miralax) 17 gm BID PO Last administered on 01/19/17 20:51 ; Admin Dose 17 GM; Start 01/18/17 at 13:30 MARQUEZ VERA MD Jan 19, 2017 23:38
[2017-01-20] MEDS: SOD CHLORIDE 0.9% 1,000 ML IV SCH (05:00)
[2017-01-20 05:20] LABS: ADD SCAN DIFF NO
[2017-01-20 05:33] LABS: BASOPHILS % 0.7 % (0.0-2.0); EOSINOPHILS % 1.4 % (0.0-7.0); HEMATOCRIT 31.1 % (42.0-52.0); HEMOGLOBIN 10.5 g/dl (14.0-18.0); LYMPHOCYTES % 34.5 % (15.0-51.0); MEAN CORPUSCULAR HEMOGLOBIN 29.1 pg (29.0-33.0); MEAN CORPUSCULAR HGB CONC 33.8 g/dl (32.0-37.0); MEAN CORPUSCULAR VOLUME 86.1 fl (82.0-101.0); MEAN PLATELET VOLUME 10.1 fl (7.4-10.4); MONOCYTE # 0.1 10^3/ul (0.3-0.9); MONOCYTES % 1.7 % (0.0-11.0); NEUTROPHIL # 1.8 10^3/ul (1.6-7.5); NEUTROPHILS % 60.3 % (39.0-77.0); PLATELET COUNT 251 10^3/UL (140-415); RED BLOOD COUNT 3.61 10^6/ul (4.70-6.10); RED CELL DISTRIBUTION WIDTH 12.4 % (11.5-14.5); WHITE BLOOD COUNT 2.9 10^3/ul (4.8-10.8)
[2017-01-20 05:57] LABS: CREATININE 0.72 mg/dl (0.61-1.24); POTASSIUM 3.8 mmol/L (3.5-5.1)
[2017-01-20 07:38] VITALS: BP 105/65; RESP 18
[2017-01-20] MEDS: POLYETHYLENE GLYCOL 17 GM PACKET PO SCH ×2 (09:47→21:28)
[2017-01-20] MEDS: SUCRALFATE 1 GM TAB PO SCH ×3 (09:47→21:28)
[2017-01-20] MEDS: PANTOPRAZOLE (EC) 40 MG TAB PO SCH (09:48)
[2017-01-20] MEDS: CHOLECALCIFEROL 2,000 UNIT CAP PO SCH (09:48)
[2017-01-20] MEDS: ASPIRIN (EC) 81 MG TAB PO SCH (09:48)
[2017-01-20] MEDS: ENOXAPARIN 40 MG/0.4 ML SYG SC SCH (09:50)
[2017-01-20] MEDS: morphine (ER) 15 MG TAB PO SCH ×2 (09:52→21:28)
[2017-01-20] MEDS: HYDROCODONE/APAP (10/325) TAB PO PRN ×2 (11:22→18:21)
--- NOTE | 2017-01-20 16:54 | PN ---
Date/Time of Note Date/Time of Note DATE: 01/20/17 TIME: 16:53 Assessment/Plan VTE Prophylaxis VTE Prophylaxis Intervention: LMWH Lines/Catheters IV Catheter Type (from Nrs): PICC Line Central line still needed: Yes (IV access) Urinary Cath still in place: No Assessment/Plan Chief Complaint/Hosp Course S: 01/15 events noted. No fever. On chemo. 01/16: No events. Undergoing chemo. 01/17: No distress. Possible constipation/ abd pain. No dyspnea/ chest pain/ leg pain/or dysuria. Tolerating diet. Stach noted. 01/18: No BM today. Some weakness. Still having some crampy abdominal pain. No dysuria fever. Port malfunction noted. 01/19: Less abdominal pain. Positive BM. Feels weak and has chills. But no fever. 01/20: No events. Tolerating chemo O: Vss PE No pallor Reg, no murmur rub gallop Clear, no tachypnea Bs + nt nd; no r/r/g. No edema A/P 1. 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 Wants to consider outpatient therapy. Prognosis? 2. Vitamin D def 3. Anemia 4. GERD? 5. Tachycardia, possibly related to abd pain; constipation. no pancreatitis. Echo/ cxr ok. 6. Port malfunction? 7. Leukopenia but no neutropenia. Problems: Exam/Review of Systems Vital Signs Vitals Vital Signs Date Time Temp Pulse Resp B/P Pulse Ox O2 Delivery O2 Flow Rate FiO2 01/20/17 07:38 98.6 91 18 105/65 97 01/18/17 05:00 Room Air Intake and Output 01/19/17 01/19/17 01/20/17 15:00 23:00 07:00 Intake Total 650 ml 1500 ml 880 ml Output Total 350 ml 700 ml Balance 650 ml 1150 ml 180 ml Results Result Diagram: 01/20/17 0425 01/20/17 0425 Results 24 hrs Laboratory Tests Test 01/20/17 04:25 White Blood Count 2.9 L Red Blood Count 3.61 L Hemoglobin 10.5 L Hematocrit 31.1 L Mean Corpuscular Volume 86.1 Mean Corpuscular Hemoglobin 29.1 Mean Corpuscular Hemoglobin Concent 33.8 Red Cell Distribution Width 12.4 Platelet Count 251 Mean Platelet Volume 10.1 Neutrophils % 60.3 Lymphocytes % 34.5 Monocytes % 1.7 Eosinophils % 1.4 Basophils % 0.7 Nucleated Red Blood Cells % 0.0 Neutrophils # 1.8 Lymphocytes # 1.0 Monocytes # 0.1 L Eosinophils # 0.0 Basophils # 0.0 Nucleated Red Blood Cells # 0.0 Sodium Level 138 Potassium Level 3.8 Chloride Level 94 L Carbon Dioxide Level 32 H Anion Gap 16 Blood Urea Nitrogen 16 Creatinine 0.72 Glucose Level 80 Calcium Level 9.0 Medications Medications Current Medications Ondansetron HCl (Zofran Inj) 4 mg Q6H PRN IV NAUSEA AND/OR VOMITING Last administered on 01/18/17 06:34; Admin Dose 4 MG; Start 01/03/17 at 13:00 Acetaminophen (Tylenol Tab) 650 mg Q6H PRN PO PAIN LEVEL 1-3 OR FEVER Last administered on 01/15/17 22:14; Admin Dose 650 MG; Start 01/03/17 at 13:00 Morphine Sulfate (morphine) 2 mg Q4H PRN IV SEVERE PAIN LEVEL 7-10 Last administered on 01/13/17 22:20; Admin Dose 2 MG; Start 01/03/17 at 13:00 Enoxaparin Sodium (Lovenox) 40 mg DAILY SC Last administered on 01/20/17 09:50 ; Admin Dose 40 MG; Start 01/05/17 at 09:00 Lorazepam (Ativan) 1 mg Q4H PRN PO ANXIETY Last administered on 01/13/17 22:19 ; Admin Dose 1 MG; Start 01/06/17 at 17:00 Zolpidem Tartrate (Ambien) 10 mg HS PRN PO INSOMNIA; Start 01/06/17 at 18:00 Aspirin (Halfprin) 81 mg DAILY PO Last administered on 01/20/17 09:48; Admin Dose 81 MG; Start 01/11/17 at 09:00 Pantoprazole (Protonix Tab) 40 mg DAILY PO Last administered on 01/20/17 09:48 ; Admin Dose 40 MG; Start 01/11/17 at 09:00 Sucralfate (Carafate) 1 gm TID PO Last administered on 01/20/17 14:03; Admin Dose 1 GM; Start 01/10/17 at 21:00 Atorvastatin Calcium (Lipitor) 20 mg HS PO Last administered on 01/19/17 20:50 ; Admin Dose 20 MG; Start 01/10/17 at 21:00 Hydromorphone HCl (Dilaudid) 1 mg Q2H PRN IV PAIN Last administered on 22:08; Admin Dose 1 MG; Start 01/10/17 at 15:00 IV Flush (NS 10 ml) 10 ml PRN PRN IV IV PROTOCOL; Start 01/10/17 at 16:00 Morphine Sulfate 15 mg 15 mg BID PO Last administered on 01/20/17 09:52; Admin Dose 15 MG; Start 01/11/17 at 21:00 Sodium Chloride (NS) 1,000 ml @ 50 mls/hr Q20H IV Last administered on 05:00; Admin Dose 50 MLS/HR; Start 01/13/17 at 10:30 Cholecalciferol (Vitamin D) 2,000 unit DAILY PO Last administered on 01/20/17 09:48; Admin Dose 2,000 UNIT; Start 01/16/17 at 09:00 Acetaminophen/ Hydrocodone Bitart ([place] (10/325)) 1 tab Q4H PRN PO PAIN Last administered on 01/20/17 11:22; Admin Dose 1 TAB; Start 01/17/17 at 14:00 Senna/Docusate Sodium (Senokot-S) 2 tab HS PO Last administered on 01/19/17 20: 50; Admin Dose 2 TAB; Start 01/17/17 at 21:00 Polyethylene Glycol (Miralax) 17 gm BID PO Last administered on 01/20/17 09:47 ; Admin Dose 17 GM; Start 01/18/17 at 13:30 RAVINDRA MURPHY MD Jan 20, 2017 16:54
--- NOTE | 2017-01-20 18:31 | CONS ---
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 The largest conglomeration of lymph nodes measures approximately 7.3 x 11.7 x 13.2 cm. TUMOR MARKERS- REVIEWED [facility]- VERY HIGH CT CHEST- 1. Significant retroperitoneal, right supraclavicular, and right hilar lymphadenopathy consistent with metastatic disease. 2. Diffuse pulmonary nodules are also consistent with metastatic disease 3. Hypoenhancing hepatic lesions may be a combination of metastatic disease and hemangiomas. An MRI with and without contrast may be useful to delineate if clinically indicated. path -Retroperitoneal mass, CT-guided core needle biopsies: reviewed PLAN CHEMO- for METASTATIC nonseminomatous germ cell tumors For patients with nonseminomatous GCT, we suggest four cycles of chemotherapy as the initial therapy, rather than surgery or RT We recommend VIP rather than BEP because of the increased risk of bleomycin pulmonary toxicity should surgery eventually be required BEP can be considered as an alternative if bone marrow toxicity is a particular concern. For patients with a residual mediastinal mass following initial chemotherapy, we recommend complete surgical resection, if technically feasible If viable malignancy is identified, we suggest two additional cycles of VIP chemotherapy POST PICC LINE POST VIP, CYCLE # 1 CHEMO D/W IN DETAILS cont per protocol - D ANEMIA, N- CYTIC WITH N RDW + COMPONENT ACD THROMBOCYTOPENIA MONITOR IMPROVED LOW-GRADE FEVER IMPROVED NOT NEUTROPENIC NOT ON ATB WILL OBSERVE VIP REGIMEN- Cycle length: 21 days. Total cycles: 4. Drug Dose and route Administration Given on days Cisplatin 20 mg/m2 IV per day Dilute with 250 mL normal saline (NS) and administer over one hour. Do not administer with aluminum needles or intravenous sets. Days 1 to 5 Etoposide* 75 mg/m2 IV per day Dilute with 500 mL NS (concentration less than 0.4 mg/mL) and administer over one hour. Days 1 to 5 Ifosfamide* 1200 mg/m2 per day continuous IV infusion Dilute with NS for injection to a final concentration of 0.6 to 20 mg/mL and infuse over 24 hours. Can mix with Mesna. Days 1 to 5 Mesna 120 mg/m2 IV Dilute with NS for injection and administer via slow IV push prior to day 1 infusion of ifosfamide. Total concentration of mesna should not exceed 20 mg/mL. Day 1 Mesna? 1200 mg/m2 per day continuous IV infusion Dilute with NS for injection and administer as continuous infusion over 24 hours[2]. Total concentration of mesna should not exceed 20 mg/mL. Can mix with ifosfamide. Days 1 to 5 Pretreatment considerations: Hydration: Induction of diuresis using intravenous NS minimizes the risk of cisplatin nephrotoxicity. At least 2000 mL of NS should be administered at a rate of 100 to 125 mL per hour throughout the five days of treatment and continued for at least two hours after the last dose of cisplatin. Refer to UpToDate topic on "Cisplatin nephrotoxicity". Emesis risk: HIGH (>90 percent frequency of emesis). Aprepitant can be given orally (125 mg on day 1, 80 mg on days 2 and 3) with ondansetron, prochlorperazine, and dexamethasone daily. Refer to UpToDate topic on "Prevention and treatment of chemotherapy-induced nausea and vomiting in adults ". Vesicant/irritant properties: Cisplatin is an irritant but can cause significant tissue damage; avoid extravasation[3]. Refer to UpToDate topic on "Extravasation injury from chemotherapy and other non-antineoplastic vesicants" . Infection prophylaxis: Primary prophylaxis with granulocyte colony stimulating factors was administered as a routine component of this regimen[1]. Refer to UpToDate topic on "Use of granulocyte colony stimulating factors in adult patients with chemotherapy-induced neutropenia and conditions other than acute leukemia, myelodysplastic syndrome, and hematopoietic cell transplantation ". Dose adjustment for baseline liver or renal dysfunction: Dose adjustment in the setting of baseline renal impairment (ie, creatinine >3.0 mg/dL or GFR <50 mL/min) requires a balanced discussion of the goals of treatment and the risks of cisplatin. Refer to UpToDate topics on "Chemotherapy hepatotoxicity and dose modification in patients with liver disease" and "Chemotherapy-related nephrotoxicity and dose modification in patients with renal insufficiency". Monitoring parameters: CBC with differential and platelet count weekly during treatment. Basic metabolic panel (creatinine and electrolytes) prior to each treatment cycle. Liver function tests prior to each treatment cycle. Cisplatin is associated with significant nephrotoxicity. Ifosfamide is associated with cumulative nephrotoxicity, mostly at a total dose above 60 grams /m2. Clinical manifestations may include hypophosphatemia, renal potassium wasting, metabolic acidosis with a normal ion gap, and rarely, polyuria due to nephrogenic diabetes insipidus. Assess creatinine and electrolytes, including potassium and phosphate, daily during treatment and prior to each subsequent treatment cycle. Refer to UpToDate topic on "Ifosfamide nephrotoxicity". Mesna does not prevent hemorrhagic cystitis in all patients[2]. Monitor a morning specimen of urine for hematuria daily, on days 1 through 5. Refer to UpToDate topic on "Cystitis in patients with cancer". Monitor for neurotoxicity (confusion, coma, rarely seizures, weakness, neuropathy, ataxia, cranial nerve dysfunction) daily, on days 1 through 5. Central nervous system side effects may be especially problematic for those over age 60. Refer to UpToDate topic on "Overview of neurologic complications of non-igiugig cancer chemotherapy". Monitor vital signs during etoposide infusion. Monitor for hearing loss prior to each dose of cisplatin; audiometry as clinically indicated. Suggested dose alterations for toxicity: Myelotoxicity: Reduce doses of etoposide and ifosfamide each by 25 percent for subsequent cycles for granulocytopenic fever or thrombocytopenic bleeding with the previous course of therapy[1]. Neurotoxicity: Neuropathy usually is seen after cumulative doses of cisplatin beyond 400 mg/m2, although there is marked interindividual variation. Patients with mild neuropathy can continue to receive full cisplatin doses. However, if the neuropathy interferes with function, the risk of potentially disabling neurotoxicity must be weighed against the benefit of continued treatment[3]. Refer to UpToDate topic on "Overview of neurologic complications of igiugig- based chemotherapy". Nephrotoxicity: It is recommended that subsequent doses of cisplatin be withheld until the serum creatinine is less than 3.0 mg/dL. If there is a change in body weight of at least 10 percent, doses should be recalculated. IV: intravenous; GFR: glomerular filtration rate; CBC: complete blood count. * The initial protocol included empiric reduction of etoposide and ifosfamide doses by 25 percent for patients who have received prior radiation therapy[1]. ? Due to a longer half-life of ifosfamide and associated metabolites at higher doses, some references recommend continuation of mesna for 12 to 24 hours beyond completion of ifosfamide to reduce the risk of hemorrhagic cystitis[2]. References: Matt GRAHAM, et al. J Clin Oncol 1998; 16:1287. MESNA injection. [place] Prescribing Information. [employer]. (Available online at dailyZarthCode.Digidentity.nih.gov, accessed July 04, 2011) . Cisplatin injection, powder, lyophilized, for solution. [facility] Prescribing Information. [employer]. (Available online at dailyZarthCode.Digidentity.nih.gov, accessed on July 04, 2011). Graphic 73038 Version 11.0 Problems: Consultation Date/Type/Reason Admit Date/Time Jan 03, 2017 at 10:48 Initial Consult Date 01/03/17 Type of Consultation: HEMEON Referring Provider: EMELI CHRISTIE 24 HR Interval Summary Free Text/Dictation ALL NOTED WBC- DECREASING NO FEVER POST CHEMO Exam/Review of Systems Vital Signs Vitals Vital Signs Date Time Temp Pulse Resp B/P Pulse Ox O2 Delivery O2 Flow Rate FiO2 01/20/17 07:38 98.6 91 18 105/65 97 01/18/17 05:00 Room Air Intake and Output 01/19/17 01/19/17 01/20/17 15:00 23:00 07:00 Intake Total 650 ml 1500 ml 880 ml Output Total 350 ml 700 ml Balance 650 ml 1150 ml 180 ml Exam Constitutional: alert, oriented, well developed Psych: nl mood/affect, no complaints Head: atraumatic, normocephalic Eyes: EOMI, PERRL Neck: non-tender, supple Respiratory: clear to auscultation, normal air movement Cardiovascular: nl pulses, regular rate and rhythm Gastrointestinal: soft, tender on right side Extremities: normal pulses Results Result Diagram: 01/20/17 0425 01/20/17 0425 Results 24 hrs Laboratory Tests Test 01/20/17 04:25 White Blood Count 2.9 L Red Blood Count 3.61 L Hemoglobin 10.5 L Hematocrit 31.1 L Mean Corpuscular Volume 86.1 Mean Corpuscular Hemoglobin 29.1 Mean Corpuscular Hemoglobin Concent 33.8 Red Cell Distribution Width 12.4 Platelet Count 251 Mean Platelet Volume 10.1 Neutrophils % 60.3 Lymphocytes % 34.5 Monocytes % 1.7 Eosinophils % 1.4 Basophils % 0.7 Nucleated Red Blood Cells % 0.0 Neutrophils # 1.8 Lymphocytes # 1.0 Monocytes # 0.1 L Eosinophils # 0.0 Basophils # 0.0 Nucleated Red Blood Cells # 0.0 Sodium Level 138 Potassium Level 3.8 Chloride Level 94 L Carbon Dioxide Level 32 H Anion Gap 16 Blood Urea Nitrogen 16 Creatinine 0.72 Glucose Level 80 Calcium Level 9.0 Medications Medications Current Medications Ondansetron HCl (Zofran Inj) 4 mg Q6H PRN IV NAUSEA AND/OR VOMITING Last administered on 01/18/17 06:34; Admin Dose 4 MG; Start 01/03/17 at 13:00 Acetaminophen (Tylenol Tab) 650 mg Q6H PRN PO PAIN LEVEL 1-3 OR FEVER Last administered on 01/15/17 22:14; Admin Dose 650 MG; Start 01/03/17 at 13:00 Morphine Sulfate (morphine) 2 mg Q4H PRN IV SEVERE PAIN LEVEL 7-10 Last administered on 01/13/17 22:20; Admin Dose 2 MG; Start 01/03/17 at 13:00 Enoxaparin Sodium (Lovenox) 40 mg DAILY SC Last administered on 01/20/17 09:50 ; Admin Dose 40 MG; Start 01/05/17 at 09:00 Lorazepam (Ativan) 1 mg Q4H PRN PO ANXIETY Last administered on 01/13/17 22:19 ; Admin Dose 1 MG; Start 01/06/17 at 17:00 Zolpidem Tartrate (Ambien) 10 mg HS PRN PO INSOMNIA; Start 01/06/17 at 18:00 Aspirin (Halfprin) 81 mg DAILY PO Last administered on 01/20/17 09:48; Admin Dose 81 MG; Start 01/11/17 at 09:00 Pantoprazole (Protonix Tab) 40 mg DAILY PO Last administered on 01/20/17 09:48 ; Admin Dose 40 MG; Start 01/11/17 at 09:00 Sucralfate (Carafate) 1 gm TID PO Last administered on 01/20/17 14:03; Admin Dose 1 GM; Start 01/10/17 at 21:00 Atorvastatin Calcium (Lipitor) 20 mg HS PO Last administered on 01/19/17 20:50 ; Admin Dose 20 MG; Start 01/10/17 at 21:00 Hydromorphone HCl (Dilaudid) 1 mg Q2H PRN IV PAIN Last administered on 22:08; Admin Dose 1 MG; Start 01/10/17 at 15:00 IV Flush (NS 10 ml) 10 ml PRN PRN IV IV PROTOCOL; Start 01/10/17 at 16:00 Morphine Sulfate 15 mg 15 mg BID PO Last administered on 01/20/17 09:52; Admin Dose 15 MG; Start 01/11/17 at 21:00 Sodium Chloride (NS) 1,000 ml @ 50 mls/hr Q20H IV Last administered on 05:00; Admin Dose 50 MLS/HR; Start 01/13/17 at 10:30 Cholecalciferol (Vitamin D) 2,000 unit DAILY PO Last administered on 01/20/17 09:48; Admin Dose 2,000 UNIT; Start 01/16/17 at 09:00 Acetaminophen/ Hydrocodone Bitart ([place] (10/325)) 1 tab Q4H PRN PO PAIN Last administered on 01/20/17 18:21; Admin Dose 1 TAB; Start 01/17/17 at 14:00 Senna/Docusate Sodium (Senokot-S) 2 tab HS PO Last administered on 01/19/17 20: 50; Admin Dose 2 TAB; Start 01/17/17 at 21:00 Polyethylene Glycol (Miralax) 17 gm BID PO Last administered on 01/20/17 09:47 ; Admin Dose 17 GM; Start 01/18/17 at 13:30 MARQUEZ VERA MD Jan 20, 2017 18:31
[2017-01-20] MEDS: HYDROmorphONE 1 MG/ML SYG IV PRN (18:56)
[2017-01-20 21:07] VITALS: BP 105/63; RESP 20
[2017-01-20] MEDS: ATORVASTATIN 20 MG TAB PO SCH (21:27)
[2017-01-20] MEDS: SENNA/DOCUSATE NA (8.6MG/50MG) TAB PO SCH (21:28)
[2017-01-21 05:31] LABS: ADD SCAN DIFF NO
[2017-01-21 05:41] LABS: BASOPHILS % 0.8 % (0.0-2.0); EOSINOPHILS % 0.4 % (0.0-7.0); HEMATOCRIT 31.6 % (42.0-52.0); HEMOGLOBIN 10.7 g/dl (14.0-18.0); LYMPHOCYTES # 0.8 10^3/ul (0.8-2.9); LYMPHOCYTES % 30.8 % (15.0-51.0); MEAN CORPUSCULAR HEMOGLOBIN 29.1 pg (29.0-33.0); MEAN CORPUSCULAR HGB CONC 33.9 g/dl (32.0-37.0); MEAN CORPUSCULAR VOLUME 85.9 fl (82.0-101.0); MONOCYTE # 0.1 10^3/ul (0.3-0.9); MONOCYTES % 3.6 % (0.0-11.0); NEUTROPHIL # 1.6 10^3/ul (1.6-7.5); NEUTROPHILS % 63.2 % (39.0-77.0); PLATELET COUNT 215 10^3/UL (140-415); RED BLOOD COUNT 3.68 10^6/ul (4.70-6.10); RED CELL DISTRIBUTION WIDTH 12.3 % (11.5-14.5); WHITE BLOOD COUNT 2.5 10^3/ul (4.8-10.8)
[2017-01-21 06:15] LABS: CALCIUM 8.9 mg/dl (8.4-10.2); CREATININE 0.6 mg/dl (0.61-1.24); POTASSIUM 3.8 mmol/L (3.5-5.1)
[2017-01-21] MEDS: SOD CHLORIDE 0.9% 1,000 ML IV SCH (06:30)
[2017-01-21 08:44] VITALS: BP 107/68; RESP 18
[2017-01-21] MEDS: ASPIRIN (EC) 81 MG TAB PO SCH (09:10)
[2017-01-21] MEDS: SUCRALFATE 1 GM TAB PO SCH ×3 (09:10→20:22)
[2017-01-21] MEDS: CHOLECALCIFEROL 2,000 UNIT CAP PO SCH (09:10)
[2017-01-21] MEDS: PANTOPRAZOLE (EC) 40 MG TAB PO SCH (09:10)
[2017-01-21] MEDS: ENOXAPARIN 40 MG/0.4 ML SYG SC SCH (09:11)
[2017-01-21] MEDS: POLYETHYLENE GLYCOL 17 GM PACKET PO SCH ×2 (09:11→20:22)
[2017-01-21] MEDS: morphine (ER) 15 MG TAB PO SCH ×2 (09:14→20:22)
--- NOTE | 2017-01-21 11:46 | PN ---
Date/Time of Note Date/Time of Note DATE: 01/21/17 TIME: 11:42 Assessment/Plan VTE Prophylaxis VTE Prophylaxis Intervention: LMWH Lines/Catheters IV Catheter Type (from Nrs): PICC Line Central line still needed: Yes (IV access) Urinary Cath still in place: No Assessment/Plan Chief Complaint/Hosp Course S: 01/15 events noted. No fever. On chemo. 01/16: No events. Undergoing chemo. 01/17: No distress. Possible constipation/ abd pain. No dyspnea/ chest pain/ leg pain/or dysuria. Tolerating diet. Stach noted. 01/18: No BM today. Some weakness. Still having some crampy abdominal pain. No dysuria fever. Port malfunction noted. 01/19: Less abdominal pain. Positive BM. Feels weak and has chills. But no fever. 01/20: No events. Tolerating chemo 01/21: No events. Intermittent abdominal pain. O: Vss Imaging studies: Pulmonary nodules, Multiple liver masses in both hepatic lobes. Massive rp lymphadenopathy. Encasement of aorta, IVC and both renal vv, which remain patent. PE No pallor Reg, no m/r/g Clear, no tachypnea Bs + nt nd; no r/r/g. No edema A/P 1. Metastatic nonseminomatous germ cell malignancy. Stable finish chemo. Wants to consider outpt therapy. Prognosis? 2. Vitamin D def 3. Anemia 4. GERD? 5. Tachycardia, possibly related to abd pain; constipation. no pancreatitis. Echo/ cxr ok. 6. Port malfunction? 7. Leukopenia but no neutropenia. 8. Ftt. Ambulating. Pt set up w [facility] and oncology- Dr. Alvarez 9. Possible chronic pain due to malignancy. Stable continue narcotics. Problems: Exam/Review of Systems Vital Signs Vitals Vital Signs Date Time Temp Pulse Resp B/P Pulse Ox O2 Delivery O2 Flow Rate FiO2 01/21/17 08:44 98.4 79 18 107/68 98 01/18/17 05:00 Room Air Intake and Output 01/20/17 01/20/17 01/21/17 15:00 23:00 07:00 Intake Total 840 ml 920 ml Balance 840 ml 920 ml Results Result Diagram: 01/21/17 0445 01/21/17 0445 Results 24 hrs Laboratory Tests Test 01/21/17 04:45 White Blood Count 2.5 L Red Blood Count 3.68 L Hemoglobin 10.7 L Hematocrit 31.6 L Mean Corpuscular Volume 85.9 Mean Corpuscular Hemoglobin 29.1 Mean Corpuscular Hemoglobin Concent 33.9 Red Cell Distribution Width 12.3 Platelet Count 215 Mean Platelet Volume 10.0 Neutrophils % 63.2 Lymphocytes % 30.8 Monocytes % 3.6 Eosinophils % 0.4 Basophils % 0.8 Nucleated Red Blood Cells % 0.0 Neutrophils # 1.6 Lymphocytes # 0.8 Monocytes # 0.1 L Eosinophils # 0.0 Basophils # 0.0 Nucleated Red Blood Cells # 0.0 Sodium Level 139 Potassium Level 3.8 Chloride Level 97 Carbon Dioxide Level 31 Anion Gap 15 Blood Urea Nitrogen 16 Creatinine 0.60 L Glucose Level 81 Calcium Level 8.9 Medications Medications Current Medications Ondansetron HCl (Zofran Inj) 4 mg Q6H PRN IV NAUSEA AND/OR VOMITING Last administered on 01/18/17 06:34; Admin Dose 4 MG; Start 01/03/17 at 13:00 Acetaminophen (Tylenol Tab) 650 mg Q6H PRN PO PAIN LEVEL 1-3 OR FEVER Last administered on 01/15/17 22:14; Admin Dose 650 MG; Start 01/03/17 at 13:00 Morphine Sulfate (morphine) 2 mg Q4H PRN IV SEVERE PAIN LEVEL 7-10 Last administered on 01/13/17 22:20; Admin Dose 2 MG; Start 01/03/17 at 13:00 Enoxaparin Sodium (Lovenox) 40 mg DAILY SC Last administered on 01/21/17 09:11 ; Admin Dose 40 MG; Start 01/05/17 at 09:00 Lorazepam (Ativan) 1 mg Q4H PRN PO ANXIETY Last administered on 01/13/17 22:19 ; Admin Dose 1 MG; Start 01/06/17 at 17:00 Zolpidem Tartrate (Ambien) 10 mg HS PRN PO INSOMNIA; Start 01/06/17 at 18:00 Aspirin (Halfprin) 81 mg DAILY PO Last administered on 01/21/17 09:10; Admin Dose 81 MG; Start 01/11/17 at 09:00 Pantoprazole (Protonix Tab) 40 mg DAILY PO Last administered on 01/21/17 09:10 ; Admin Dose 40 MG; Start 01/11/17 at 09:00 Sucralfate (Carafate) 1 gm TID PO Last administered on 01/21/17 09:10; Admin Dose 1 GM; Start 01/10/17 at 21:00 Atorvastatin Calcium (Lipitor) 20 mg HS PO Last administered on 01/20/17 21:27 ; Admin Dose 20 MG; Start 01/10/17 at 21:00 Hydromorphone HCl (Dilaudid) 1 mg Q2H PRN IV PAIN Last administered on 18:56; Admin Dose 1 MG; Start 01/10/17 at 15:00 IV Flush (NS 10 ml) 10 ml PRN PRN IV IV PROTOCOL; Start 01/10/17 at 16:00 Morphine Sulfate 15 mg 15 mg BID PO Last administered on 01/21/17 09:14; Admin Dose 15 MG; Start 01/11/17 at 21:00 Sodium Chloride (NS) 1,000 ml @ 50 mls/hr Q20H IV Last administered on 06:30; Admin Dose 50 MLS/HR; Start 01/13/17 at 10:30 Cholecalciferol (Vitamin D) 2,000 unit DAILY PO Last administered on 01/21/17 09:10; Admin Dose 2,000 UNIT; Start 01/16/17 at 09:00 Acetaminophen/ Hydrocodone Bitart ([place] (10/325)) 1 tab Q4H PRN PO PAIN Last administered on 01/20/17 18:21; Admin Dose 1 TAB; Start 01/17/17 at 14:00 Senna/Docusate Sodium (Senokot-S) 2 tab HS PO Last administered on 01/20/17 21: 28; Admin Dose 2 TAB; Start 01/17/17 at 21:00 Polyethylene Glycol (Miralax) 17 gm BID PO Last administered on 01/21/17 09:11 ; Admin Dose 17 GM; Start 01/18/17 at 13:30 RAVINDRA MURPHY MD Jan 21, 2017 11:46
--- NOTE | 2017-01-21 11:52 | PDOCDIS ---
Discharge Instructions DIAGNOSIS Discharge Diagnosis Abdominal pain CONDITION Patient Condition: Stable HOME CARE INSTRUCTIONS: Special Diet: REGULAR ACTIVITY: Activity Restrictions: Slowly Increase Activity Do not Drive FOLLOW UP/APPOINTMENTS Follow-up Plan Appointment [facility] pcp Dr. Newberry [address] Alvarez Onc 1 week RAVINDRA MURPHY MD Jan 21, 2017 11:52
[2017-01-21] MEDS ORDERED: ACET325T40 PO (11:56)
[2017-01-21] MEDS ORDERED: CHOL200073 PO (11:56)
[2017-01-21] MEDS ORDERED: Hydrocodone/Apap (10/325) PO (11:56)
[2017-01-21] MEDS ORDERED: POLY17PO6 PO (11:56)
[2017-01-21] MEDS ORDERED: SENN-88 PO (11:56)
[2017-01-21] MEDS ORDERED: MORP15TA3 PO (11:56)
--- NOTE | 2017-01-21 12:03 | DS ---
Date/Time of Note Date/Time of Note DATE: 01/21/17 TIME: 11:57 Discharge Summary Admission/Discharge Info Admit Date/Time Jan 03, 2017 at 10:48 Discharge Date/Time 01/21/17 Discharge Diagnosis Abdominal pain Hx of Present Illness 31-year-old male who presents to the emergency room with abdominal pain. As an outpatient was evaluated and managed for gastritis and has been on omeprazole however he has not had any relief. The patient denies any vomiting but does state that he has mild nausea associated with this. Hospital Course Hospital course: Unfortunately found to have imaging concerning for metastatic disease. Was seen by oncology. Biopsy of I believe the iliac crest done. Noted to have Metastatic nonseminomatous germ cell malignancy. Started and finished chemo. No intolerance of chemo or infection. His white count is dropping towards leukopenia. But no neutropenia. No fever cough sore throat diarrhea. He does have abdominal pain probably due to tumor burden and encasing of his retroperitoneum. I have asked him to stay hydrated and utilized agents to help bowel care regimen. I did update them that management results will take some time and he will need a follow-up with oncology. He is aware and agrees. Anticipate discharge home once okay with oncology. Case management has set him up to join [facility]. S: 01/15 events noted. No fever. On chemo. 01/16: No events. Undergoing chemo. 01/17: No distress. Possible constipation/ abd pain. No dyspnea/ chest pain/ leg pain/or dysuria. Tolerating diet. Stach noted. 01/18: No BM today. Some weakness. Still having some crampy abdominal pain. No dysuria fever. Port malfunction noted. 01/19: Less abdominal pain. Positive BM. Feels weak and has chills. But no fever. 01/20: No events. Tolerating chemo 01/21: No events. Intermittent abdominal pain. O: Vss Imaging studies: Pulmonary nodules, Multiple liver masses in both hepatic lobes. Massive rp lymphadenopathy. Encasement of aorta, IVC and both renal vv, which remain patent. A/P 1. Metastatic nonseminomatous germ cell malignancy. Stable finish chemo. Wants to consider outpt therapy. Prognosis? 2. Vitamin D def 3. Anemia 4. GERD? 5. Tachycardia, possibly related to abd pain; constipation. no pancreatitis. Echo/ cxr ok. 6. Port malfunction? 7. Leukopenia but no neutropenia. 8. Ftt. Ambulating. Pt set up w [facility] and oncology- Dr. Alvarez 9. Possible chronic pain due to malignancy. Stable continue narcotics. Discharge plan Appointment primary doctor/ [facility]- Dr Newberry [address] Alvarez 1-2 weeks Diet low salt Activity as tolerated no driving if dizzy Allergies none CODE STATUS full Condition stable Reason for admission abdominal pain Barriers to discharge none Pending tests none Functional status: Awake alert agrees to plan of care Stop medications Imdur, aspirin Continue medication Protonix Carafate Zocor Altered medications None New medications MS Contin 15 mg twice daily [place] 10 1 every 48 hours as needed MiraLAX 1 packet twice daily Senna 2 tablets daily Tylenol as needed Vitamin D 2000 units daily Home Meds Active Scripts Cholecalciferol (Vitamin D3) (VITAMIN D-3) 2,000 Unit Capsule, 2000 UNIT PO DAILY for 14 Days, CAP 2 Refills Prov:RAVINDRA MURPHY MD 01/21/17 Sennosides/Docusate Sodium (Senna Plus Tablet) 1 Each Tablet, 2 TAB PO HS for 10 Days, #10 TAB 3 Refills Prov:RAVINDRA MURPHY MD 01/21/17 Polyethylene Glycol* (Miralax*) 17 Gm Powd.pack, 17 GM PO BID for 10 Days, #20 3 Refills Prov:RAVINDRA MURPHY MD 01/21/17 Morphine Sulfate (Morphine Sulfate ER) 15 Mg Tablet.er, 15 MG PO BID for 10 Days , #24 TAB Prescription Prov:RAVINDRA MURPHY MD 01/21/17 [Hydrocodone/Apap ()] 1 TAB TAB No Conflict Check, 1 TAB PO Q4H Y for PAIN for 10 Days, #24 script Prov:RAVINDRA MURPHY MD 01/21/17 Acetaminophen (MAPAP) 325 Mg Tablet, 650 MG PO Q6H Y for PAIN LEVEL 1-3 OR FEVER for 1 Day, #1 TAB otc Prov:RAVINDRA MURPHY MD 01/21/17 Reported Medications Simvastatin* (Zocor*) 40 Mg Tablet, 40 MG PO QHS, TAB 01/03/17 Pantoprazole* (Pantoprazole*) 40 Mg Tablet.dr, 40 MG PO BID, TAB 01/03/17 Aspirin* (Aspirin* EC) 81 Mg Tablet.dr, 81 MG PO DAILY, TAB 01/03/17 Sucralfate* (Carafate*) 1 Gm Tab, 1 GM PO TID, TAB 01/03/17 Discontinued Reported Medications Isosorbide Mononitrate* (Isosorbide Mononitrate*) 60 Mg Tab.er.24h, 60 MG PO DAILY, TAB 01/03/17 Primary Care Provider Care Physician No Primary Pending Labs Laboratory Tests Test 01/21/17 04:45 White Blood Count 2.510^3/ul (4.8-10.8) Red Blood Count 3.6810^6/ul (4.70-6.10) Hemoglobin 10.7g/dl (14.0-18.0) Hematocrit 31.6% (42.0-52.0) Mean Corpuscular Volume 85.9fl (82.0-101.0) Mean Corpuscular Hemoglobin 29.1pg (29.0-33.0) Mean Corpuscular Hemoglobin Concent 33.9g/dl (32.0-37.0) Red Cell Distribution Width 12.3% (11.5-14.5) Platelet Count 33573^3/UL (140-415) Mean Platelet Volume 10.0fl (7.4-10.4) Neutrophils % 63.2% (39.0-77.0) Lymphocytes % 30.8% (15.0-51.0) Monocytes % 3.6% (0.0-11.0) Eosinophils % 0.4% (0.0-7.0) Basophils % 0.8% (0.0-2.0) Nucleated Red Blood Cells % 0.0/100WBC (0.0-0.0) Neutrophils # 1.610^3/ul (1.6-7.5) Lymphocytes # 0.810^3/ul (0.8-2.9) Monocytes # 0.110^3/ul (0.3-0.9) Eosinophils # 0.010^3/ul (0.0-0.5) Basophils # 0.010^3/ul (0.0-0.1) Nucleated Red Blood Cells # 0.010^3/ul (0.0-0.0) Sodium Level 139mmol/L (135-144) Potassium Level 3.8mmol/L (3.5-5.1) Chloride Level 97mmol/L (97-110) Carbon Dioxide Level 31mmol/L (21-31) Anion Gap 15 (8-16) Blood Urea Nitrogen 16mg/dl (7-20) Creatinine 0.60mg/dl (0.61-1.24) Glucose Level 81mg/dl (70-220) Calcium Level 8.9mg/dl (8.4-10.2) RAVINDRA MURPHY MD Jan 21, 2017 12:03
[2017-01-21] MEDS: HYDROCODONE/APAP (10/325) TAB PO PRN (18:52)
[2017-01-21 19:32] VITALS: BP 129/70; RESP 16
[2017-01-21] MEDS: HYDROmorphONE 1 MG/ML SYG IV PRN (19:40)
[2017-01-21] MEDS: ATORVASTATIN 20 MG TAB PO SCH (20:21)
[2017-01-21] MEDS: SENNA/DOCUSATE NA (8.6MG/50MG) TAB PO SCH (20:22)
--- NOTE | 2017-01-22 | CONS ---
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 The largest conglomeration of lymph nodes measures approximately 7.3 x 11.7 x 13.2 cm. TUMOR MARKERS- REVIEWED [facility]- VERY HIGH CT CHEST- 1. Significant retroperitoneal, right supraclavicular, and right hilar lymphadenopathy consistent with metastatic disease. 2. Diffuse pulmonary nodules are also consistent with metastatic disease 3. Hypoenhancing hepatic lesions may be a combination of metastatic disease and hemangiomas. An MRI with and without contrast may be useful to delineate if clinically indicated. path -Retroperitoneal mass, CT-guided core needle biopsies: reviewed PLAN CHEMO- for METASTATIC nonseminomatous germ cell tumors For patients with nonseminomatous GCT, we suggest four cycles of chemotherapy as the initial therapy, rather than surgery or RT We recommend VIP rather than BEP because of the increased risk of bleomycin pulmonary toxicity should surgery eventually be required BEP can be considered as an alternative if bone marrow toxicity is a particular concern. For patients with a residual mediastinal mass following initial chemotherapy, we recommend complete surgical resection, if technically feasible If viable malignancy is identified, we suggest two additional cycles of VIP chemotherapy POST PICC LINE POST VIP, CYCLE # 1 CHEMO D/W IN DETAILS cont per protocol - D ANEMIA, N- CYTIC WITH N RDW + COMPONENT ACD THROMBOCYTOPENIA MONITOR IMPROVED LOW-GRADE FEVER IMPROVED NOT NEUTROPENIC NOT ON ATB WILL OBSERVE VIP REGIMEN- Cycle length: 21 days. Total cycles: 4. Drug Dose and route Administration Given on days Cisplatin 20 mg/m2 IV per day Dilute with 250 mL normal saline (NS) and administer over one hour. Do not administer with aluminum needles or intravenous sets. Days 1 to 5 Etoposide* 75 mg/m2 IV per day Dilute with 500 mL NS (concentration less than 0.4 mg/mL) and administer over one hour. Days 1 to 5 Ifosfamide* 1200 mg/m2 per day continuous IV infusion Dilute with NS for injection to a final concentration of 0.6 to 20 mg/mL and infuse over 24 hours. Can mix with Mesna. Days 1 to 5 Mesna 120 mg/m2 IV Dilute with NS for injection and administer via slow IV push prior to day 1 infusion of ifosfamide. Total concentration of mesna should not exceed 20 mg/mL. Day 1 Mesna? 1200 mg/m2 per day continuous IV infusion Dilute with NS for injection and administer as continuous infusion over 24 hours[2]. Total concentration of mesna should not exceed 20 mg/mL. Can mix with ifosfamide. Days 1 to 5 Pretreatment considerations: Hydration: Induction of diuresis using intravenous NS minimizes the risk of cisplatin nephrotoxicity. At least 2000 mL of NS should be administered at a rate of 100 to 125 mL per hour throughout the five days of treatment and continued for at least two hours after the last dose of cisplatin. Refer to UpToDate topic on "Cisplatin nephrotoxicity". Emesis risk: HIGH (>90 percent frequency of emesis). Aprepitant can be given orally (125 mg on day 1, 80 mg on days 2 and 3) with ondansetron, prochlorperazine, and dexamethasone daily. Refer to UpToDate topic on "Prevention and treatment of chemotherapy-induced nausea and vomiting in adults ". Vesicant/irritant properties: Cisplatin is an irritant but can cause significant tissue damage; avoid extravasation[3]. Refer to UpToDate topic on "Extravasation injury from chemotherapy and other non-antineoplastic vesicants" . Infection prophylaxis: Primary prophylaxis with granulocyte colony stimulating factors was administered as a routine component of this regimen[1]. Refer to UpToDate topic on "Use of granulocyte colony stimulating factors in adult patients with chemotherapy-induced neutropenia and conditions other than acute leukemia, myelodysplastic syndrome, and hematopoietic cell transplantation ". Dose adjustment for baseline liver or renal dysfunction: Dose adjustment in the setting of baseline renal impairment (ie, creatinine >3.0 mg/dL or GFR <50 mL/min) requires a balanced discussion of the goals of treatment and the risks of cisplatin. Refer to UpToDate topics on "Chemotherapy hepatotoxicity and dose modification in patients with liver disease" and "Chemotherapy-related nephrotoxicity and dose modification in patients with renal insufficiency". Monitoring parameters: CBC with differential and platelet count weekly during treatment. Basic metabolic panel (creatinine and electrolytes) prior to each treatment cycle. Liver function tests prior to each treatment cycle. Cisplatin is associated with significant nephrotoxicity. Ifosfamide is associated with cumulative nephrotoxicity, mostly at a total dose above 60 grams /m2. Clinical manifestations may include hypophosphatemia, renal potassium wasting, metabolic acidosis with a normal ion gap, and rarely, polyuria due to nephrogenic diabetes insipidus. Assess creatinine and electrolytes, including potassium and phosphate, daily during treatment and prior to each subsequent treatment cycle. Refer to UpToDate topic on "Ifosfamide nephrotoxicity". Mesna does not prevent hemorrhagic cystitis in all patients[2]. Monitor a morning specimen of urine for hematuria daily, on days 1 through 5. Refer to UpToDate topic on "Cystitis in patients with cancer". Monitor for neurotoxicity (confusion, coma, rarely seizures, weakness, neuropathy, ataxia, cranial nerve dysfunction) daily, on days 1 through 5. Central nervous system side effects may be especially problematic for those over age 60. Refer to UpToDate topic on "Overview of neurologic complications of non-soboba cancer chemotherapy". Monitor vital signs during etoposide infusion. Monitor for hearing loss prior to each dose of cisplatin; audiometry as clinically indicated. Suggested dose alterations for toxicity: Myelotoxicity: Reduce doses of etoposide and ifosfamide each by 25 percent for subsequent cycles for granulocytopenic fever or thrombocytopenic bleeding with the previous course of therapy[1]. Neurotoxicity: Neuropathy usually is seen after cumulative doses of cisplatin beyond 400 mg/m2, although there is marked interindividual variation. Patients with mild neuropathy can continue to receive full cisplatin doses. However, if the neuropathy interferes with function, the risk of potentially disabling neurotoxicity must be weighed against the benefit of continued treatment[3]. Refer to UpToDate topic on "Overview of neurologic complications of soboba- based chemotherapy". Nephrotoxicity: It is recommended that subsequent doses of cisplatin be withheld until the serum creatinine is less than 3.0 mg/dL. If there is a change in body weight of at least 10 percent, doses should be recalculated. IV: intravenous; GFR: glomerular filtration rate; CBC: complete blood count. * The initial protocol included empiric reduction of etoposide and ifosfamide doses by 25 percent for patients who have received prior radiation therapy[1]. ? Due to a longer half-life of ifosfamide and associated metabolites at higher doses, some references recommend continuation of mesna for 12 to 24 hours beyond completion of ifosfamide to reduce the risk of hemorrhagic cystitis[2]. References: Matt GRAHAM, et al. J Clin Oncol 1998; 16:1287. MESNA injection. [place] Prescribing Information. [employer]. (Available online at dailyXylo.IMshopping.nih.gov, accessed July 04, 2011) . Cisplatin injection, powder, lyophilized, for solution. [facility] Prescribing Information. [employer]. (Available online at dailyXylo.IMshopping.nih.gov, accessed on July 04, 2011). Graphic 28344 Version 11.0 Problems: Consultation Date/Type/Reason Admit Date/Time Jan 03, 2017 at 10:48 Initial Consult Date 01/03/17 Type of Consultation: HEMEONC Referring Provider: EMELI CHRISTIE 24 HR Interval Summary Free Text/Dictation STABLE Exam/Review of Systems Vital Signs Vitals Vital Signs Date Time Temp Pulse Resp B/P Pulse Ox O2 Delivery O2 Flow Rate FiO2 01/21/17 19:32 98.5 82 16 129/70 97 Intake and Output 01/21/17 01/21/17 01/22/17 15:00 23:00 07:00 Intake Total 1500 ml Balance 1500 ml Exam Constitutional: alert, oriented, well developed Psych: nl mood/affect, no complaints Head: atraumatic, normocephalic Eyes: EOMI, PERRL Neck: non-tender, supple Respiratory: clear to auscultation, normal air movement Cardiovascular: nl pulses, regular rate and rhythm Gastrointestinal: soft, tender on right side Extremities: normal pulses Results Result Diagram: 01/21/175 01/21/17 0445 Results 24 hrs Laboratory Tests Test 01/21/17 04:45 White Blood Count 2.5 L Red Blood Count 3.68 L Hemoglobin 10.7 L Hematocrit 31.6 L Mean Corpuscular Volume 85.9 Mean Corpuscular Hemoglobin 29.1 Mean Corpuscular Hemoglobin Concent 33.9 Red Cell Distribution Width 12.3 Platelet Count 215 Mean Platelet Volume 10.0 Neutrophils % 63.2 Lymphocytes % 30.8 Monocytes % 3.6 Eosinophils % 0.4 Basophils % 0.8 Nucleated Red Blood Cells % 0.0 Neutrophils # 1.6 Lymphocytes # 0.8 Monocytes # 0.1 L Eosinophils # 0.0 Basophils # 0.0 Nucleated Red Blood Cells # 0.0 Sodium Level 139 Potassium Level 3.8 Chloride Level 97 Carbon Dioxide Level 31 Anion Gap 15 Blood Urea Nitrogen 16 Creatinine 0.60 L Glucose Level 81 Calcium Level 8.9 Medications Medications Current Medications Ondansetron HCl (Zofran Inj) 4 mg Q6H PRN IV NAUSEA AND/OR VOMITING Last administered on 01/18/17 06:34; Admin Dose 4 MG; Start 01/03/17 at 13:00 Acetaminophen (Tylenol Tab) 650 mg Q6H PRN PO PAIN LEVEL 1-3 OR FEVER Last administered on 01/15/17 22:14; Admin Dose 650 MG; Start 01/03/17 at 13:00 Morphine Sulfate (morphine) 2 mg Q4H PRN IV SEVERE PAIN LEVEL 7-10 Last administered on 01/13/17 22:20; Admin Dose 2 MG; Start 01/03/17 at 13:00 Enoxaparin Sodium (Lovenox) 40 mg DAILY SC Last administered on 01/21/17 09:11 ; Admin Dose 40 MG; Start 01/05/17 at 09:00 Zolpidem Tartrate (Ambien) 10 mg HS PRN PO INSOMNIA; Start 01/06/17 at 18:00 Aspirin (Halfprin) 81 mg DAILY PO Last administered on 01/21/17 09:10; Admin Dose 81 MG; Start 01/11/17 at 09:00 Pantoprazole (Protonix Tab) 40 mg DAILY PO Last administered on 01/21/17 09:10 ; Admin Dose 40 MG; Start 01/11/17 at 09:00 Sucralfate (Carafate) 1 gm TID PO Last administered on 01/21/17 20:22; Admin Dose 1 GM; Start 01/10/17 at 21:00 Atorvastatin Calcium (Lipitor) 20 mg HS PO Last administered on 01/21/17 20:21 ; Admin Dose 20 MG; Start 01/10/17 at 21:00 Hydromorphone HCl (Dilaudid) 1 mg Q2H PRN IV PAIN Last administered on 19:40; Admin Dose 1 MG; Start 01/10/17 at 15:00 IV Flush (NS 10 ml) 10 ml PRN PRN IV IV PROTOCOL; Start 01/10/17 at 16:00 Morphine Sulfate (Ms Contin (Er)) 15 mg BID PO Last administered on 01/21/17 20 :22; Admin Dose 15 MG; Start 01/11/17 at 21:00 Cholecalciferol (Vitamin D) 2,000 unit DAILY PO Last administered on 01/21/17 09:10; Admin Dose 2,000 UNIT; Start 01/16/17 at 09:00 Acetaminophen/ Hydrocodone Bitart ([place] (10)) 1 tab Q4H PRN PO PAIN Last administered on 01/21/17 18:52; Admin Dose 1 TAB; Start 01/17/17 at 14:00 Senna/Docusate Sodium (Senokot-S) 2 tab HS PO Last administered on 01/20/17 21: 28; Admin Dose 2 TAB; Start 01/17/17 at 21:00 Polyethylene Glycol (Miralax) 17 gm BID PO Last administered on 01/21/17 09:11 ; Admin Dose 17 GM; Start 01/18/17 at 13:30 MARQUEZ VERA MD Jan 22, 2017 00:00
[2017-01-22 08:00] VITALS: BP 118/65; RESP 18
[2017-01-22] MEDS: SUCRALFATE 1 GM TAB PO SCH ×2 (09:02→12:46)
[2017-01-22] MEDS: morphine (ER) 15 MG TAB PO SCH (09:02)
[2017-01-22] MEDS: ASPIRIN (EC) 81 MG TAB PO SCH (09:02)
[2017-01-22] MEDS: PANTOPRAZOLE (EC) 40 MG TAB PO SCH (09:02)
[2017-01-22] MEDS: CHOLECALCIFEROL 2,000 UNIT CAP PO SCH (09:02)
[2017-01-22] MEDS: POLYETHYLENE GLYCOL 17 GM PACKET PO SCH (09:02)
[2017-01-22] MEDS: HYDROmorphONE 1 MG/ML SYG IV PRN ×3 (09:03→17:48)
[2017-01-22] MEDS: ENOXAPARIN 40 MG/0.4 ML SYG SC SCH (09:03)
--- NOTE | 2017-01-22 12:58 | PN ---
Date/Time of Note Date/Time of Note DATE: 01/22/17 TIME: 12:56 Assessment/Plan VTE Prophylaxis VTE Prophylaxis Intervention: SCD's Lines/Catheters IV Catheter Type (from Nrs): PICC Line Central line still needed: Yes Urinary Cath still in place: No Assessment/Plan Chief Complaint/Hosp Course A/P 1. 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 Wants to consider outpatient therapy. Prognosis? 2. Vitamin D def 3. Anemia 4. GERD? 5. Tachycardia, possibly related to abd pain; constipation. no pancreatitis. Echo/ cxr ok. 6. Port malfunction? 7. Leukopenia but no neutropenia. Waiting for search consultant oncologist evaluation prior to discharge Patient may be discharged home after clearance by search consultant oncologist Follow-up with contracted oncology as outpatient Problems: Subjective 24 Hr Interval Summary Free Text/Dictation No acute event Denies any chest pain shortness of breath Tolerating oral intake Exam/Review of Systems Vital Signs Vitals Vital Signs Date Time Temp Pulse Resp B/P Pulse Ox O2 Delivery O2 Flow Rate FiO2 01/22/17 08:00 98.3 86 18 118/65 100 Intake and Output 01/21/17 01/21/17 01/22/17 15:00 23:00 07:00 Intake Total 1500 ml 960 ml Balance 1500 ml 960 ml Exam General: The patient is well-developed, Not in acute distress. HEENT: Atraumatic, normocephalic. The pupils are equal and round . Neck: Supple with full range of motion. Chest: Normal expansion of the thorax during inspiration Lungs: Clear to auscultation bilaterally Heart: Normal S1-S2, Regular rhythm and rate. Abdomen: Soft , nontender, nondistended , bowel sounds are present. Extremities: Normal to inspection, no edema no cyanosis Neurologic: Normal mental status,The patient is awake, alert and oriented . Results Result Diagram: 01/21/17 0445 01/21/17 0445 Medications Medications Current Medications Ondansetron HCl (Zofran Inj) 4 mg Q6H PRN IV NAUSEA AND/OR VOMITING Last administered on 01/18/17 06:34; Admin Dose 4 MG; Start 01/03/17 at 13:00 Acetaminophen (Tylenol Tab) 650 mg Q6H PRN PO PAIN LEVEL 1-3 OR FEVER Last administered on 01/15/17 22:14; Admin Dose 650 MG; Start 01/03/17 at 13:00 Morphine Sulfate (morphine) 2 mg Q4H PRN IV SEVERE PAIN LEVEL 7-10 Last administered on 01/13/17 22:20; Admin Dose 2 MG; Start 01/03/17 at 13:00 Enoxaparin Sodium (Lovenox) 40 mg DAILY SC Last administered on 01/22/17 09:03 ; Admin Dose 40 MG; Start 01/05/17 at 09:00 Zolpidem Tartrate (Ambien) 10 mg HS PRN PO INSOMNIA; Start 01/06/17 at 18:00 Aspirin (Halfprin) 81 mg DAILY PO Last administered on 01/22/17 09:02; Admin Dose 81 MG; Start 01/11/17 at 09:00 Pantoprazole (Protonix Tab) 40 mg DAILY PO Last administered on 01/22/17 09:02 ; Admin Dose 40 MG; Start 01/11/17 at 09:00 Sucralfate (Carafate) 1 gm TID PO Last administered on 01/22/17 12:46; Admin Dose 1 GM; Start 01/10/17 at 21:00 Atorvastatin Calcium (Lipitor) 20 mg HS PO Last administered on 01/21/17 20:21 ; Admin Dose 20 MG; Start 01/10/17 at 21:00 Hydromorphone HCl (Dilaudid) 1 mg Q2H PRN IV PAIN Last administered on 09:03; Admin Dose 1 MG; Start 01/10/17 at 15:00 IV Flush (NS 10 ml) 10 ml PRN PRN IV IV PROTOCOL; Start 01/10/17 at 16:00 Morphine Sulfate (Ms Contin (Er)) 15 mg BID PO Last administered on 01/22/17 09:02; Admin Dose 15 MG; Start 01/11/17 at 21:00 Cholecalciferol (Vitamin D) 2,000 unit DAILY PO Last administered on 01/22/17 09:02; Admin Dose 2,000 UNIT; Start 01/16/17 at 09:00 Acetaminophen/ Hydrocodone Bitart ([place] (10/325)) 1 tab Q4H PRN PO PAIN Last administered on 01/21/17 18:52; Admin Dose 1 TAB; Start 01/17/17 at 14:00 Senna/Docusate Sodium (Senokot-S) 2 tab HS PO Last administered on 01/20/17 21: 28; Admin Dose 2 TAB; Start 01/17/17 at 21:00 Polyethylene Glycol (Miralax) 17 gm BID PO Last administered on 01/22/17 09:02 ; Admin Dose 17 GM; Start 01/18/17 at 13:30 JOE HOOPER MD Jan 22, 2017 12:58
[2017-01-22 19:20] VITALS: BP 120/62; RESP 19
[2017-01-22 19:25] VITALS: BP 109/53; RESP 17
--- NOTE | 2017-01-22 23:36 | CONS ---
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 The largest conglomeration of lymph nodes measures approximately 7.3 x 11.7 x 13.2 cm. TUMOR MARKERS- REVIEWED [facility]- VERY HIGH CT CHEST- 1. Significant retroperitoneal, right supraclavicular, and right hilar lymphadenopathy consistent with metastatic disease. 2. Diffuse pulmonary nodules are also consistent with metastatic disease 3. Hypoenhancing hepatic lesions may be a combination of metastatic disease and hemangiomas. An MRI with and without contrast may be useful to delineate if clinically indicated. path -Retroperitoneal mass, CT-guided core needle biopsies: reviewed PLAN CHEMO- for METASTATIC nonseminomatous germ cell tumors For patients with nonseminomatous GCT, we suggest four cycles of chemotherapy as the initial therapy, rather than surgery or RT We recommend VIP rather than BEP because of the increased risk of bleomycin pulmonary toxicity should surgery eventually be required BEP can be considered as an alternative if bone marrow toxicity is a particular concern. For patients with a residual mediastinal mass following initial chemotherapy, we recommend complete surgical resection, if technically feasible If viable malignancy is identified, we suggest two additional cycles of VIP chemotherapy POST PICC LINE POST VIP, CYCLE # 1 CHEMO D/W IN DETAILS cont per protocol - D ANEMIA, N- CYTIC WITH N RDW + COMPONENT ACD THROMBOCYTOPENIA MONITOR IMPROVED LOW-GRADE FEVER IMPROVED NOT NEUTROPENIC NOT ON ATB WILL OBSERVE VIP REGIMEN- Cycle length: 21 days. Total cycles: 4. Drug Dose and route Administration Given on days Cisplatin 20 mg/m2 IV per day Dilute with 250 mL normal saline (NS) and administer over one hour. Do not administer with aluminum needles or intravenous sets. Days 1 to 5 Etoposide* 75 mg/m2 IV per day Dilute with 500 mL NS (concentration less than 0.4 mg/mL) and administer over one hour. Days 1 to 5 Ifosfamide* 1200 mg/m2 per day continuous IV infusion Dilute with NS for injection to a final concentration of 0.6 to 20 mg/mL and infuse over 24 hours. Can mix with Mesna. Days 1 to 5 Mesna 120 mg/m2 IV Dilute with NS for injection and administer via slow IV push prior to day 1 infusion of ifosfamide. Total concentration of mesna should not exceed 20 mg/mL. Day 1 Mesna? 1200 mg/m2 per day continuous IV infusion Dilute with NS for injection and administer as continuous infusion over 24 hours[2]. Total concentration of mesna should not exceed 20 mg/mL. Can mix with ifosfamide. Days 1 to 5 Pretreatment considerations: Hydration: Induction of diuresis using intravenous NS minimizes the risk of cisplatin nephrotoxicity. At least 2000 mL of NS should be administered at a rate of 100 to 125 mL per hour throughout the five days of treatment and continued for at least two hours after the last dose of cisplatin. Refer to UpToDate topic on "Cisplatin nephrotoxicity". Emesis risk: HIGH (>90 percent frequency of emesis). Aprepitant can be given orally (125 mg on day 1, 80 mg on days 2 and 3) with ondansetron, prochlorperazine, and dexamethasone daily. Refer to UpToDate topic on "Prevention and treatment of chemotherapy-induced nausea and vomiting in adults ". Vesicant/irritant properties: Cisplatin is an irritant but can cause significant tissue damage; avoid extravasation[3]. Refer to UpToDate topic on "Extravasation injury from chemotherapy and other non-antineoplastic vesicants" . Infection prophylaxis: Primary prophylaxis with granulocyte colony stimulating factors was administered as a routine component of this regimen[1]. Refer to UpToDate topic on "Use of granulocyte colony stimulating factors in adult patients with chemotherapy-induced neutropenia and conditions other than acute leukemia, myelodysplastic syndrome, and hematopoietic cell transplantation ". Dose adjustment for baseline liver or renal dysfunction: Dose adjustment in the setting of baseline renal impairment (ie, creatinine >3.0 mg/dL or GFR <50 mL/min) requires a balanced discussion of the goals of treatment and the risks of cisplatin. Refer to UpToDate topics on "Chemotherapy hepatotoxicity and dose modification in patients with liver disease" and "Chemotherapy-related nephrotoxicity and dose modification in patients with renal insufficiency". Monitoring parameters: CBC with differential and platelet count weekly during treatment. Basic metabolic panel (creatinine and electrolytes) prior to each treatment cycle. Liver function tests prior to each treatment cycle. Cisplatin is associated with significant nephrotoxicity. Ifosfamide is associated with cumulative nephrotoxicity, mostly at a total dose above 60 grams /m2. Clinical manifestations may include hypophosphatemia, renal potassium wasting, metabolic acidosis with a normal ion gap, and rarely, polyuria due to nephrogenic diabetes insipidus. Assess creatinine and electrolytes, including potassium and phosphate, daily during treatment and prior to each subsequent treatment cycle. Refer to UpToDate topic on "Ifosfamide nephrotoxicity". Mesna does not prevent hemorrhagic cystitis in all patients[2]. Monitor a morning specimen of urine for hematuria daily, on days 1 through 5. Refer to UpToDate topic on "Cystitis in patients with cancer". Monitor for neurotoxicity (confusion, coma, rarely seizures, weakness, neuropathy, ataxia, cranial nerve dysfunction) daily, on days 1 through 5. Central nervous system side effects may be especially problematic for those over age 60. Refer to UpToDate topic on "Overview of neurologic complications of non-[place]-sparks cancer chemotherapy". Monitor vital signs during etoposide infusion. Monitor for hearing loss prior to each dose of cisplatin; audiometry as clinically indicated. Suggested dose alterations for toxicity: Myelotoxicity: Reduce doses of etoposide and ifosfamide each by 25 percent for subsequent cycles for granulocytopenic fever or thrombocytopenic bleeding with the previous course of therapy[1]. Neurotoxicity: Neuropathy usually is seen after cumulative doses of cisplatin beyond 400 mg/m2, although there is marked interindividual variation. Patients with mild neuropathy can continue to receive full cisplatin doses. However, if the neuropathy interferes with function, the risk of potentially disabling neurotoxicity must be weighed against the benefit of continued treatment[3]. Refer to UpToDate topic on "Overview of neurologic complications of [place]- based chemotherapy". Nephrotoxicity: It is recommended that subsequent doses of cisplatin be withheld until the serum creatinine is less than 3.0 mg/dL. If there is a change in body weight of at least 10 percent, doses should be recalculated. IV: intravenous; GFR: glomerular filtration rate; CBC: complete blood count. * The initial protocol included empiric reduction of etoposide and ifosfamide doses by 25 percent for patients who have received prior radiation therapy[1]. ? Due to a longer half-life of ifosfamide and associated metabolites at higher doses, some references recommend continuation of mesna for 12 to 24 hours beyond completion of ifosfamide to reduce the risk of hemorrhagic cystitis[2]. References: Matt GRAHAM, et al. J Clin Oncol 1998; 16:1287. MESNA injection. [place] Prescribing Information. [employer]. (Available online at [email or web address]nih.gov, accessed July 04, 2011) . Cisplatin injection, powder, lyophilized, for solution. [place] Prescribing Information. [employer]. (Available online at [email or web address]nih.gov, accessed on July 04, 2011). Graphic 21656 Version 11.0 OK TO DC F-UP OUTPT Problems: Consultation Date/Type/Reason Admit Date/Time Jan 03, 2017 at 10:48 Initial Consult Date 01/03/17 Type of Consultation: HEMEON Referring Provider: EMELI CHRISTIE 24 HR Interval Summary Free Text/Dictation STABLE Exam/Review of Systems Vital Signs Vitals Vital Signs Date Time Temp Pulse Resp B/P Pulse Ox O2 Delivery O2 Flow Rate FiO2 01/22/17 19:25 98.9 101 17 109/53 99 Intake and Output 01/21/17 01/21/17 01/22/17 15:00 23:00 07:00 Intake Total 1500 ml 960 ml Balance 1500 ml 960 ml Exam Constitutional: alert, oriented, well developed Psych: nl mood/affect, no complaints Head: atraumatic, normocephalic Eyes: EOMI, PERRL Neck: non-tender, supple Respiratory: clear to auscultation, normal air movement Cardiovascular: nl pulses, regular rate and rhythm Gastrointestinal: soft, tender on right side Extremities: normal pulses Results Result Diagram: 01/21/17 0445 01/21/17 0445 MARQUEZ VERA MD Jan 22, 2017 23:36
== END 2017-01-22 20:05 | disposition home or self-care (01) | DRG 824 ==
LOC: FTE 07:25 → PP2 10:48 → MS1 01-08 23:04
PROVIDERS: ADMIT Hospitalist; ATTEND Hospitalist
PROC: 07BD3ZX Excision of Aortic Lymphatic, Percutaneous Approach, Diagnostic (ICD-10-PCS; principal; 2017-01-04)
PROC: 07DR3ZX Extraction of Iliac Bone Marrow, Percutaneous Approach, Diagnostic (ICD-10-PCS; 2017-01-05)
PROC: 02HV33Z Insertion of Infusion Device into Superior Vena Cava, Percutaneous Approach (ICD-10-PCS; 2017-01-10)
PROC: 3E04305 Introduction of Other Antineoplastic into Central Vein, Percutaneous Approach (ICD-10-PCS; 2017-01-10)
DX: C77.2 Secondary and unspecified malignant neoplasm of intra-abdominal lymph nodes (principal); C78.00 Secondary malignant neoplasm of unspecified lung; C78.7 Secondary malignant neoplasm of liver and intrahepatic bile duct; D69.6 Thrombocytopenia, unspecified; C77.1 Secondary and unspecified malignant neoplasm of intrathoracic lymph nodes; E55.9 Vitamin D deficiency, unspecified; C77.0 Secondary and unspecified malignant neoplasm of lymph nodes of head, face and neck; C62.90 Malignant neoplasm of unspecified testis, unspecified whether descended or undescended; D64.9 Anemia, unspecified; D18.09 Hemangioma of other sites; E78.5 Hyperlipidemia, unspecified; K21.9 Gastro-esophageal reflux disease without esophagitis; R11.10 Vomiting, unspecified; R00.0 Tachycardia, unspecified; K59.00 Constipation, unspecified; R50.9 Fever, unspecified; D72.819 Decreased white blood cell count, unspecified
CPT/HCPCS: 36569; 71010; 71020; 71260; 74176; 74183; 76870; 76937; 77012; 80048; 80053; 81001; 82105; 82270; 82306; 82728; 82746; 83010; 83540; 83605; 83615; 83690; 83735; 84100; 84436; 84443; 84479; 84484; 84560; 84703; 85025; 85049; 85362; 85378; 85384; 85610; 85651; 85670; 85730; 86703; 87040; 88305; 88307; 88313; 88341; 88342; 93005; 93306; 96374; 96375; 96376; J9181; J9209; C9113; J1100; J1170; J1200; J1650; J2060; J2250; J2270; J2405; J2997; J3010; J7030; J7040; J9208; Q9967